=== PATIENT | male | born 1970 | race Caucasian/White ===

== ENCOUNTER → 2019-12-20 14:33 | Outpatient (BNVA) | payer OTHER, SELFPAY | PROVIDERS: PCP Nurse Practitioner Family; Referring Provider Nurse Practitioner Family; Visit Provider Internal Medicine Cardiovascular Disease | DX: R07.9 Chest pain, unspecified (principal); I10 Essential (primary) hypertension; F41.9 Anxiety disorder, unspecified | CPT/HCPCS: 99204 ==

== ENCOUNTER 2019-12-27 09:24 | Outpatient (REF) | payer OTHER, SELFPAY ==
--- NOTE | 2019-12-27 10:30 | MR_ITS ---
EXAMINATION: MR OF THE ABDOMEN AND PELVIS WITH AND WITHOUT CONTRAST CLINICAL INFORMATION: Chronic wilson colonic ulcerative colitis COMPARISON: Previous CT scans most recent March 2019 TECHNIQUE: Sagittal axial and coronal sequences through the abdomen and pelvis following 3 17 ounce bottles of oral Breeza contrast and with and without 10 mL intravenous Gadavist contrast . FINDINGS: There is evidence of ahaustral appearance of the distal colon. There is prominence of the vasa recta and small pericolic lymph nodes. Findings are consistent with patient's diagnosis of ulcerative colitis. No significant wall thickening of the colon is seen. There is mild enhancement of the wall of the transverse colon questionable for evidence of active inflammation. No other evidence of active inflammation of the colon is seen. The small and large bowel is otherwise unremarkable. The rectum is unremarkable. The appendix is not identified. The stomach is unremarkable. No evidence of obstruction or fistula or abscess is seen. The liver and gallbladder are unremarkable. There is no biliary duct dilatation. The spleen is unremarkable. The pancreas is unremarkable. The adrenal glands and kidneys are unremarkable. The bladder is unremarkable. Prostate gland does not appear enlarged. Vascular structures are unremarkable. No ascites is seen. Bony structures are unremarkable. IMPRESSION: Loss of normal haustral pattern of the distal colon, prominent vasa recta and small pericolic lymph nodes compatible with patient's history of ulcerative colitis. There is mild enhancement of the mid transverse colon suggestive of active inflammation.
== END 2019-12-27 09:25 | disposition home or self-care (01) ==
LOC: HO.MRI 09:24
PROVIDERS: Visit Provider Internal Medicine Gastroenterology
DX: K51.00 Ulcerative (chronic) pancolitis without complications (principal); K63.89 Other specified diseases of intestine
CPT/HCPCS: 72197; 74183

== ENCOUNTER 2020-01-09 09:10 | Outpatient (REF) | payer OTHER, SELFPAY | END 2020-01-09 09:11 | disposition home or self-care (01) | LOC: HO.MDS 09:10 | PROVIDERS: Visit Provider Internal Medicine Gastroenterology | DX: K51.00 Ulcerative (chronic) pancolitis without complications (principal) | CPT/HCPCS: 96365 ==

== ENCOUNTER → 2020-01-21 08:55 | Outpatient (REF) | payer OTHER, SELFPAY ==
--- NOTE | 2020-01-21 09:06 | CA_ITS ---
Acquisition Time: 2020-01-21 09:16:19 Total Exercise Time: 00:07:22 Test Indications: CHEST PAIN Medications: Protocol: HUNG Max HR: 160 BPM 94% of Pred: 169 BPM Max BP: 156/078 mmHG Max Work Load: 9.1 METS Exercise stress test using Hung protocol total of 7 min 22 sec, METS 9.1. Tolearted well, denies any anginal sx. Some SOB with little dizziness at peak exercise, however normotensive response to exercise at peak and in recovery. Pt reports that he has sleap apnea, diagnosed 2 years ago, however does not uses it. EKG with occ. PVC's and no ischemic changes that would suggest ischemia. Test reviewed with Dr. Walker Referred By: Jethro Howell Overread By: Luana Jade
== END ==
LOC: HO.CARD 08:55
PROVIDERS: Visit Provider Internal Medicine Cardiovascular Disease
DX: R07.9 Chest pain, unspecified (principal)
CPT/HCPCS: 93017

== ENCOUNTER 2020-02-06 09:12 | Outpatient (REF) | payer OTHER, SELFPAY | END 2020-02-06 09:13 | disposition home or self-care (01) | LOC: HO.MDS 09:12 | PROVIDERS: Visit Provider Internal Medicine Gastroenterology | DX: K51.00 Ulcerative (chronic) pancolitis without complications (principal) | CPT/HCPCS: 84999; 96365; J3380 ==

== ENCOUNTER 2020-02-09 06:58 | Inpatient (IN) | payer OTHER, SELFPAY ==
[2020-02-09] VITALS (10 sets, daily range): BP systolic 102–153; BP diastolic 68–88; PULSE 85–100; RESP 18–20; TEMP 36.6; O2SAT 95–97; BMI 33.7
--- NOTE | 2020-02-09 | ECG_ITS ---
Test Reason : chest pain, nstemi Blood Pressure : / mmHG Vent. Rate : 091 BPM Atrial Rate : 091 BPM P-R Int : 166 ms QRS Dur : 088 ms QT Int : 364 ms P-R-T Axes : 048 066 024 degrees QTc Int : 447 ms Normal sinus rhythm Nonspecific T wave abnormality Inferior leads Abnormal ECG When compared with ECG of Nonspecific T wave abnormality more evident Referred By: Paola Valenzuela Electronically Signed By:ARIELLA SANDOVAL MD
--- NOTE | 2020-02-09 07:20 | ECG_ITS ---
Test Reason : REPEAT Blood Pressure : / mmHG Vent. Rate : 085 BPM Atrial Rate : 085 BPM P-R Int : 168 ms QRS Dur : 082 ms QT Int : 398 ms P-R-T Axes : 050 064 040 degrees QTc Int : 473 ms Normal sinus rhythm Normal ECG When compared with ECG of 09-FEB-2020 07:10, No significant change was found Referred By: Len Rodney Electronically Signed By:ARIELLA SANDOVAL MD
--- NOTE | 2020-02-09 07:21 | XR_ITS ---
EXAMINATION: PORTABLE CHEST 1 VIEW CLINICAL INFORMATION: chest pain . COMPARISON: 05/25/2017. TECHNIQUE: Portable frontal view of the chest was obtained. FINDINGS: The lungs are well expanded. No focal infiltrate, effusion, edema, or pneumothorax. Cardiac and mediastinal silhouettes are within normal limits for technique. No acute bony abnormality seen. Old healed left clavicle fracture again noted. XR/XR chest 1V IMPRESSION: No evidence of acute disease.
--- NOTE | 2020-02-09 07:27 | ED_ITS ---
HPI - Chest Pain General Chief Complaint: Chest Pain Stated Complaint: CHEST PAIN Time Seen by Provider: 02/09/20 07:16 Source: patient Mode of arrival: ambulatory Limitations: no limitations History of Present Illness HPI narrative: This is a 50 years old male presented to the emergency department with right-sided chest pain radiated to the right arm. Pain started last night. He is not diaphoretic denies shortness of breath denies any exertional symptoms. MD complaint: chest pain Onset (ago): day(s) (1) Timing of current episode: constant Prior episodes: Yes Onset: during rest Pain location: right chest Pain radiation: right arm Severity: moderate Quality: aching Relieving factors: nothing Exacerbating factors: nothing Risk Factors Coronary artery disease risk factors: hypertension Related Data Home Medications Medication Instructions Recorded Confirmed hydroxyzine pamoate 25 mg capsule 25 mg PO TID 12/20/19 02/09/20 lisinopril 20 mg tablet 20 mg PO DAILY 12/20/19 02/09/20 omeprazole 20 mg capsule,delayed 20 mg PO BID 12/20/19 02/09/20 release vedolizumab 300 mg intravenous 300 mg IV Q4W 12/20/19 12/20/19 solution Allergies Allergy/AdvReac Type Severity Reaction Status Date / Time No Known Allergies Allergy Unverified 12/06/19 16:17 [No Known Allergies*] Review of Systems Review of Systems: Yes all other systems are reviewed and are negative Respiratory: Respiratory: Denies chest congestion, Denies cough and Denies hemoptysis Gastrointestinal: Gastrointestinal: Denies melena and Denies hematochezia [facility] Past Medical History Medical History (Updated 02/09/20 @ 15:16 by Len Rodney MD) Chest pain Crohn disease Essential (primary) hypertension Hearing loss in right ear History of acoustic neuroma Surgical History (Updated 12/15/19 @ 11:15 by ROSS Bacon) Hx of appendectomy Hx of colonoscopy Family History Family History (Updated 12/15/19 @ 11:16 by ROSS Bacon) Father No problems noted. Social History Social History (Updated 12/20/19 @ 14:58 by ROSS Bacon) Alcohol intake: former Smoking Status: Former smoker Use of substances other than those prescribed or required for medical reasons: No Advance Directives: No Advance Directives Information Provided: Yes Physical Exam Vital Signs: Vital Signs: Last Vital Signs Temp 97.8 F 02/09/20 15:44 Pulse 89 02/09/20 15:44 Resp 18 02/09/20 15:44 BP 115/78 02/09/20 15:44 Pulse Ox 97 02/09/20 15:44 Body Mass Index 33.7 Const: General: cooperative, healthy appearing and comfortable Orientation/consciousness: oriented to person, oriented to place and oriented to time HENMT: Head: Yes normal to inspection Eyes: General: appearance normal, both eyes and all related structures Neck: Neck: Yes normal visual inspection, Yes full ROM and Yes no lym phadenopathy Chest: Chest palpation & inspection: normal inspection of the chest and normal palpation of entire chest wall Resp: Effort & Inspection: normal respiratory effort and able to speak in complete sentences Cardio: Jugular venous distension: no JVD Rate: regular rate Rhythm: regular rhythm GI: Auscultation: normal bowel sounds and abnormal bowel sounds Skin: General skin exam: no rashes or lesions noted Neuro: General: oriented to person, oriented to place and oriented to time Psych: Appearance: grossly normal Course Course Course Narrative: DELTA TROPONIN NOTED THE PATIENT WILL BE ADMITTED FOR ACUTE CORONARY SYNDROME, PATIENT IS CHEST PAIN-FREE, CASE WAS DISCUSSED WITH THE CRUISE COORDINATOR ON DUTY DUE TO DOUG, ALSO THE CASE WAS DISCUSSED WITH THE HOSPITALIST CYNDY SKINNER [facility] - Chest Pain Lab Data Result diagrams: 02/09/20 07:24 02/09/20 07:24 Labs: Lab Results 02/09/20 02/09/20 02/09/20 Range/Units 07:24 07:24 07:24 WBC 15.5 H (4.8-10.8) X10*3/uL RBC 4.81 (4.60-5.80) X10*6/uL Hgb 15.0 (14.0-18.0) g/dl Hct 43.7 (42-52) % MCV 90.9 (80-98) fL MCH 31.2 (27.0-33.0) pg MCHC 34.3 (31.0-36.0) g/dl RDW 12.7 (11.0-16.0) % Plt Count 305 (160-400) X10*3/uL MPV 9.5 (9.4-12.4) fL Immature Gran % (Auto) 0.3 (0.0-0.4) % Neut % (Auto) 55.1 (45-73) % Lymph % (Auto) 34.5 (20-40) % [place] % (Auto) 5.6 (2-11) % Eos % (Auto) 4.1 H (0-4) % Baso % (Auto) 0.4 (0-2) % Lymph # (Auto) 5.3 H (1.2-4.9) X10*3/uL [place] # (Auto) 0.9 (0.1-1.2) X10*3/uL Eos # (Auto) 0.6 H (0.0-0.4) X10*3/uL Baso # (Auto) 0.1 (0.0-0.2) X10*3/uL Abs Immat Gran (auto) 0.05 H (0.00-0.03) X10*3/uL Absolute Neuts (auto) 8.5 H (2.0-8.3) X10*3/uL Absolute Nucleated RBC 0.000 (0.0-0.012) X10*3/uL Nucleated RBC % (auto) 0.0 (0.0-0.2) /100WBC Smear Tech's Comments VERIFIED PT (10.8-13.0) SEC INR (0.9-1.1) D-Dimer NG/ML Sodium 136 (135-145) mmol/L Potassium 3.8 (3.3-5.1) mmol/l Chloride 100 (96-108) mmol/L Carbon Dioxide 26 (22-29) mmol/L Anion Gap 14 (12-20) BUN 10 (9-16) mg/dL Creatinine 0.98 (0.5-1.4) mg/dL Estim Creat Clear Calc 102.5 Estimated GFR > 60 Random Glucose 124 H (60-115) mg/dL Calcium 8.9 (8.4-10.2) mg/dL Total Bilirubin 0.6 (0.0-1.0) mg/dL AST 14 (5-37) U/L ALT 16 (0-40) U/L Alkaline Phosphatase 58 (39-117) U/L Troponin I High Sens 105.7 H (<3.5-35.0) ng/L Total Protein 7.7 (6.5-8.0) g/dL Albumin 4.2 (3.5-5.0) g/dL COVID-19 ([facility]) (Negative) COVID-19 Clin Com 02/09/20 02/09/20 02/09/20 Range/Units 07:24 11:08 12:58 WBC (4.8-10.8) X10*3/uL RBC (4.60-5.80) X10*6/uL Hgb (14.0-18.0) g/dl Hct (42-52) % MCV (80-98) fL MCH (27.0-33.0) pg MCHC (31.0-36.0) g/dl RDW (11.0-16.0) % Plt Count (160-400) X10*3/uL MPV (9.4-12.4) fL Immature Gran % (Auto) (0.0-0.4) % Neut % (Auto) (45-73) % Lymph % (Auto) (20-40) % [place] % (Auto) (2-11) % Eos % (Auto) (0-4) % Baso % (Auto) (0-2) % Lymph # (Auto) (1.2-4.9) X10*3/uL [place] # (Auto) (0.1-1.2) X10*3/uL Eos # (Auto) (0.0-0.4) X10*3/uL Baso # (Auto) (0.0-0.2) X10*3/uL Abs Immat Gran (auto) (0.00-0.03) X10*3/uL Absolute Neuts (auto) (2.0-8.3) X10*3/uL Absolute Nucleated RBC (0.0-0.012) X10*3/uL Nucleated RBC % (auto) (0.0-0.2) /100WBC Smear Tech's Comments PT 12.4 (10.8-13.0) SEC INR 1.0 (0.9-1.1) D-Dimer 219 NG/ML Sodium (135-145) mmol/L Potassium (3.3-5.1) mmol/l Chloride (96-108) mmol/L Carbon Dioxide (22-29) mmol/L Anion Gap (12-20) BUN (9-16) mg/dL Creatinine (0.5-1.4) mg/dL Estim Creat Clear Calc Estimated GFR Random Glucose (60-115) mg/dL Calcium (8.4-10.2) mg/dL Total Bilirubin (0.0-1.0) mg/dL AST (5-37) U/L ALT (0-40) U/L Alkaline Phosphatase (39-117) U/L Troponin I High Sens 303.9 H D (<3.5-35.0) ng/L Total Protein (6.5-8.0) g/dL Albumin (3.5-5.0) g/dL COVID-19 ([facility]) Negative (Negative) COVID-19 Clin Com See Note Discharge Plan Discharge Clinical Impression: Acute coronary syndrome Patient Disposition: Admitted As Inpatient Interventions: Admission Worksheet (ED) Last Done: 02/09/20 15:21
[2020-02-09 07:39] LABS: Basophils Absolute Auto 0.1 X10*3/uL (0.0-0.2); Basophils Percent Auto 0.4 % (0-2); Eosinophils Absolute Auto 0.6 X10*3/uL (0.0-0.4); Eosinophils Percent Auto 4.1 % (0-4); Hematocrit 43.7 % (42-52); Imm Gran Abs Auto 0.05 X10*3/uL (0.00-0.03); Imm Gran Pct Auto 0.3 % (0.0-0.4); Lymphocytes Absolute Auto 5.3 X10*3/uL (1.2-4.9); Lymphocytes Percent Auto 34.5 % (20-40); Mean Corpuscular HGB Conc 34.3 g/dl (31.0-36.0); Mean Corpuscular Hemoglobin 31.2 pg (27.0-33.0); Mean Corpuscular Volume 90.9 fL (80-98); Mean Platelet Volume 9.5 fL (9.4-12.4); Monocytes Absolute Auto 0.9 X10*3/uL (0.1-1.2); Monocytes Percent Auto 5.6 % (2-11); Neutrophils Absolute Auto 8.5 X10*3/uL (2.0-8.3); Neutrophils Percent Auto 55.1 % (45-73); Platelet Count 305 X10*3/uL (160-400); Red Blood Count 4.81 X10*6/uL (4.60-5.80); Red Cell Distribution Width 12.7 % (11.0-16.0); SCAN SMEAR FLAG 1; White Blood Count 15.5 X10*3/uL (4.8-10.8)
[2020-02-09 07:48] LABS: Prothrombin Time 12.4 SEC (10.8-13.0)
[2020-02-09] MEDS: Aspirin 81 MG TAB.CHEW 324 MG PO (07:48)
[2020-02-09 07:50] LABS: MANUAL DIFF FLAG SCAN
[2020-02-09 08:06] LABS: Alanine Aminotransferase 16 U/L (0-40); Albumin Level 4.2 g/dL (3.5-5.0); Alkaline Phosphatase 58 U/L (39-117); Anion Gap 14 (12-20); Aspartate Amino Transferase 14 U/L (5-37); Bilirubin Total 0.6 mg/dL (0.0-1.0); Blood Urea Nitrogen 10 mg/dL (9-16); Calcium 8.9 mg/dL (8.4-10.2); Carbon Dioxide 26 mmol/L (22-29); Chloride 100 mmol/L (96-108); Creatinine Clr Calc Pharmacy 102.5; Estimated Glomerular Filt Rate > 60; Glucose Random 124 mg/dL (60-115); Potassium 3.8 mmol/l (3.3-5.1); Sodium 136 mmol/L (135-145); Total Protein 7.7 g/dL (6.5-8.0)
--- NOTE | 2020-02-09 08:07 | PC.NURSE ---
pt resting in the stretcher with eyes shut, ns on the monitor. pt reports that the pain is still there in the midsternal chest that radaites to the right arm, pt worse with movement and still having some burning gin the chest
[2020-02-09 08:08] LABS: Troponin-I High Sensitivity 105.7 ng/L (<3.5-35.0)
[2020-02-09 08:13] LABS: SLIDE REVIEW VERIFIED
[2020-02-09] MEDS: Nitroglycerin 0.4 MG TAB.SUBL SUBLINGUAL ×3 (08:39→09:27)
--- NOTE | 2020-02-09 09:00 | PC.NURSE ---
pt reports that the chest pain is getting better 3/10 after the nitro x1, vs stable
--- NOTE | 2020-02-09 09:28 | PC.NURSE ---
pt reports that the chest pain resolved after the nitro but is starting to get a headache, vs stable
[2020-02-09] MEDS: Acetaminophen 325 MG TABLET 650 MG PO (09:43)
[2020-02-09 11:00] LABS: D Dimer 219 NG/ML
--- NOTE | 2020-02-09 11:01 | PC.NURSE ---
pt resting comfortably in the stretcher, ns on the monitor, denies chest pain, headache improved about 3/10 at this time pt awaiting repeat trop draw
[2020-02-09 11:58] LABS: Troponin-I High Sensitivity 303.9 ng/L (<3.5-35.0)
--- NOTE | 2020-02-09 12:09 | PC.NURSE ---
PT CONTINUOS TO DENIES CHEST PAIN, NS ON THE MONITOR, VS STABLE
[2020-02-09] MEDS: Heparin Sodium,Porcine 5,000 UNIT/ML VIAL 4027.92 UNIT IVPUSH (12:30)
[2020-02-09] MEDS: Heparin Sodium,Porcine/1/2NS 25,000 UNIT/250 ML IV.SOLN 10.07 UNIT IVCONT (12:32)
--- NOTE | 2020-02-09 12:42 | PM.IMHP ---
History of Present Illness Date of Service: 02/09/20 <Paola Valenzuela NP - Last Filed: 02/09/20 17:06> Chief Complaint: Chest pain <Paola Valenzuela NP - Last Filed: 02/09/20 17:06> 50 year old man presenting with chest pain that started to worsen yesterday. He reported substernal chest pain radiating to his right arm that was sharp with no other associated symptoms. He took his anxiety medication and went to bed. When he woke up this morning his pain was worse and he came to the ED to be evaluated. He reported that he has had this chest pain for many years and has been thought to be related to anxiety. He had a stress test on 01/21/20 that he was unable to complete due to fatigue and chest pain. He has no hx of CAD and has never had a cardiac cath. He denied recent illness, sick contacts, cough or fever. Covid test negative. EKG showed no ischemic changes, troponin was initially 105.7 with repeat of 303.9. He was started on IV heparin drip, given full dose aspirin and had pain relief with nitroglycerin. He will be admitted for further management and treatment of NSTEMI. <Paola Valenzuela NP - Last Filed: 02/09/20 17:06> Review of Systems Review of Systems: Denies any recent fever chills or decrease in appetite respiratory denies any shortness of breath coverage production cardiovascular See HPI gastrointestinal denies any dysphagia abdominal pain nausea vomiting or diarrhea genitourinary denies any dysuria frequency or hematuria musculoskeletal denies any joint pain or swelling neuropsych denies any weakness or seizures all other systems reviewed are negative <Paola Valenzuela NP - Last Filed: 02/09/20 17:06> [facility] Medical History: Medical History (Updated 02/20/20 @ 00:00 by Elaina Quiroga) Chest pain Crohn disease Essential (primary) hypertension Hearing loss in right ear History of acoustic neuroma Hypertension <Paola Valenzuela NP - Last Filed: 02/09/20 17:06> Functional capacity: independent ambulation <Paola Valenzuela NP - Last Filed: 02/09/20 17:06> Family History: Family History Father No problems noted. <Paola Valenzuela NP - Last Filed: 02/09/20 17:06> Surgical History: Surgical History Hx of appendectomy Hx of colonoscopy S/P cardiac cath (~01/2020) Stented coronary artery <Paola Valenzuela NP - Last Filed: 02/09/20 17:06> Social History: Social History Household Members: Family Housing: House Alcohol intake: former Smoking Status: Former smoker <Paola Valenzuela NP - Last Filed: 02/09/20 17:06> Meds Allergies/Adverse reactions: Allergies Allergy/AdvReac Type Severity Reaction Status Date / Time No Known Allergies Allergy Verified 02/18/20 20:06 [No Known Allergies*] <Paola Valenzuela NP - Last Filed: 02/09/20 17:06> Home medications: Home Medications Medication Instructions Recorded Confirmed Type hydroxyzine pamoate 25 mg capsule 25 mg PO TID 12/20/19 02/19/20 History lisinopril 20 mg tablet 20 mg PO DAILY 12/20/19 02/19/20 History omeprazole 20 mg capsule,delayed 20 mg PO BID 12/20/19 02/19/20 History release vedolizumab 300 mg intravenous 300 mg IV Q4W 12/20/19 02/19/20 History solution atorvastatin 80 mg tablet 80 mg PO DAILY 02/19/20 02/19/20 History clopidogrel 75 mg tablet 75 mg PO DAILY 02/19/20 02/19/20 History cholecalciferol (vitamin D3) 50 100 mcg PO DAILY 03/03/20 History mcg (2,000 unit) capsule lisinopril 20 1 tab PO DAILY 03/03/20 History mg-hydrochlorothiazide 25 mg tablet <Paola Valenzuela NP - Last Filed: 02/09/20 17:06> Physical Exam Vital Signs and Narrative: Vital Signs: Last Vital Signs Temp 97.8 F 02/09/20 07:07 Pulse 85 02/09/20 11:00 Resp 18 02/09/20 11:00 BP 102/69 02/09/20 11:00 Pulse Ox 95 02/09/20 11:00 Body Mass Index 33.7 <Paola Valenzuela NP - Last Filed: 02/09/20 17:06> Appearing in no acute distress head is normocephalic atraumatic eyes pupils are PERRLA sclera is anicteric mouth throat mucous membranes are intact and moist neck is supple no lymphadenopathy, no JVD noted lung sounds are clear to auscultation heart regular rate rhythm, clear S1, S2 positive bowel sounds, abdomen is soft, nontender neuro patient is alert x3, no focal deficits <Paola Valenzuela NP - Last Filed: 02/09/20 17:06> Results Labs CBC and Chem 7: : 02/10/20 05:48 02/10/20 05:48 <Paola Valenzuela NP - Last Filed: 02/09/20 17:06> Labs: Laboratory Results - last 24 hr 02/09/20 02/09/20 02/09/20 07:24 07:24 07:24 MCV 90.9 MCH 31.2 MCHC 34.3 RDW 12.7 Plt Count 305 MPV 9.5 Immature Gran % (Auto) 0.3 Neut % (Auto) 55.1 Lymph % (Auto) 34.5 [place] % (Auto) 5.6 Eos % (Auto) 4.1 H Baso % (Auto) 0.4 Lymph # (Auto) 5.3 H [place] # (Auto) 0.9 Eos # (Auto) 0.6 H Baso # (Auto) 0.1 Abs Immat Gran (auto) 0.05 H Absolute Neuts (auto) 8.5 H Absolute Nucleated RBC 0.000 Nucleated RBC % (auto) 0.0 Smear Tech's Comments VERIFIED PT INR D-Dimer Anion Gap 14 Estim Creat Clear Calc 102.5 Estimated GFR > 60 Random Glucose 124 H Calcium 8.9 Total Bilirubin 0.6 AST 14 ALT 16 Alkaline Phosphatase 58 Troponin I High Sens 105.7 H Total Protein 7.7 Albumin 4.2 02/09/20 02/09/20 07:24 11:08 MCV MCH MCHC RDW Plt Count MPV Immature Gran % (Auto) Neut % (Auto) Lymph % (Auto) [place] % (Auto) Eos % (Auto) Baso % (Auto) Lymph # (Auto) [place] # (Auto) Eos # (Auto) Baso # (Auto) Abs Immat Gran (auto) Absolute Neuts (auto) Absolute Nucleated RBC Nucleated RBC % (auto) Smear Tech's Comments PT 12.4 INR 1.0 D-Dimer 219 Anion Gap Estim Creat Clear Calc Estimated GFR Random Glucose Calcium Total Bilirubin AST ALT Alkaline Phosphatase Troponin I High Sens 303.9 H D Total Protein Albumin <Paola Valenzuela NP - Last Filed: 02/09/20 17:06> Imaging Radiologist's Impressions: Impressions Chest X-Ray 02/09/20 07:21 IMPRESSION: No evidence of acute disease. <Paola Valenzuela NP - Last Filed: 02/09/20 17:06> Assessment and Plan (1) Chest pain: Status: Resolved <Paola Valenzuela NP - Last Filed: 02/09/20 17:06> 50 year old man admitted with chest pain, elevated troponin secondary to NSTEMI NSTEMI. IV heparin, Cardiology to follow, Repeat Troponin and EKG. Aspirin, bb and statin. Telemetry. Hypertension. Stable blood pressure, continue Lisinopril. GERD. PPI. DVT prophylaxis with heparin Discussed with Dr. Mac Full code <Paola Valenzuela NP - Last Filed: 02/09/20 17:06>
[2020-02-09 13:29] LABS: COVID-19 Test Negative (Negative)
--- NOTE | 2020-02-09 14:17 | PC.NURSE ---
called [facility] to give report, nurse is currently on lunch brake
--- NOTE | 2020-02-09 15:20 | PC.NURSE ---
report given to natali davis at [facility] [place]
[2020-02-09 16:20] LABS: Hematocrit 45.2 % (42-52); Hemoglobin 15.6 g/dl (14.0-18.0); Mean Corpuscular HGB Conc 34.5 g/dl (31.0-36.0); Mean Corpuscular Hemoglobin 31.2 pg (27.0-33.0); Mean Corpuscular Volume 90.4 fL (80-98); Mean Platelet Volume 9.5 fL (9.4-12.4); Platelet Count 290 X10*3/uL (160-400); Red Cell Distribution Width 12.7 % (11.0-16.0); White Blood Count 12.4 X10*3/uL (4.8-10.8)
[2020-02-09] MEDS: Atorvastatin Calcium 40 MG TABLET PO (16:22)
[2020-02-09] MEDS: 0.9 % Sodium Chloride Flush 3 ML SYRINGE IVFLUSH ×2 (16:23→21:47)
[2020-02-09 16:28] LABS: INTERNATIONAL NORM RATIO 1.1 (0.9-1.1)
[2020-02-09 16:31] LABS: PTT Heparin Drip 48.6 SEC (53-77.9)
--- NOTE | 2020-02-09 16:51 | P.EN_ITS ---
Event Note Date of Service: 02/09/20 Event Note: Patient seen and examined. Case discussed with Paola Valenzuela NP. Agree with her history and physical. 50 yo M with a PMH of anxiety/panic attacks who presented to the hospital with chest pain. Reports CP last night (without exertion) on the Right side (typica lly on the L side) with radiation to R arm but resolved on its own. Again this AM so he presented to the ED. Reports he had history of anxiety/panic attacks so last night he wasnt sure if it was related to that. ED with a HS trop I from 105->303. EKG without ischemic changes. Chest pain resolved. Plan Unstable angina / ACS heparin gtt, statin, aspirin, bb cardiology consult in the AM remainder per H&P
[2020-02-09 16:54] LABS: Troponin-I High Sensitivity 847.5 ng/L (<3.5-35.0)
--- NOTE | 2020-02-09 18:43 | ECG_ITS ---
Test Reason : CHEST PAIN Blood Pressure : / mmHG Vent. Rate : 095 BPM Atrial Rate : 095 BPM P-R Int : 158 ms QRS Dur : 090 ms QT Int : 360 ms P-R-T Axes : 046 076 052 degrees QTc Int : 452 ms Normal sinus rhythm Normal ECG When compared with ECG of 20-APR-2019 02:40, No significant change was found Referred By: Paola Valenzuela Electronically Signed By:ARIELLA SANDOVAL MD
[2020-02-09 18:44] LABS: PTT Heparin Drip 42.8 SEC (53-77.9)
[2020-02-09] MEDS: Morphine Sulfate 2 MG/ML CARTRIDGE IVPUSH (18:48)
--- NOTE | 2020-02-09 19:39 | PC.NURSE ---
P Patient c/o chest tightness, midsternal 04/30. Non-reproducible, and non-radiating. Also c/o headache. 07/28 . I Hospitalist notified, in room to assess patient . EKG ordered/completed. Morphine 2 mg IV administered. E Upon reassessment , patient states pain has resolved. EKG showed NSR , vital signs stable. Hospitalist notified. Will continue to monitor.
[2020-02-09] MEDS: Heparin Sodium,Porcine 5,000 UNIT/ML VIAL IVPUSH (19:41)
[2020-02-09] MEDS: Nitroglycerin 2 % Oint 1 GM Packet 0.5 INCH TRANSDERMA (19:42)
[2020-02-09] MEDS: Metoprolol Tartrate 25 MG TABLET 12.5 MG PO (21:09)
[2020-02-10] VITALS (8 sets, daily range): BP systolic 96–123; BP diastolic 70–80; PULSE 87–110; RESP 18–20; TEMP 36.6–37.1; O2SAT 94–96
[2020-02-10] MEDS: Omeprazole 20 MG CAPSULE.DR PO ×2 (00:49→08:26)
[2020-02-10] MEDS: Acetaminophen 325 MG TABLET 650 MG PO (00:49)
[2020-02-10 02:10] LABS: PTT Heparin Drip 50.8 SEC (53-77.9)
[2020-02-10] MEDS: Heparin Sodium,Porcine 5,000 UNIT/ML VIAL IVPUSH (03:43)
[2020-02-10 06:34] LABS: MANUAL DIFF FLAG NO
[2020-02-10 06:45] LABS: Basophils Absolute Auto 0.1 X10*3/uL (0.0-0.2); Basophils Percent Auto 0.4 % (0-2); Eosinophils Absolute Auto 0.6 X10*3/uL (0.0-0.4); Eosinophils Percent Auto 4.7 % (0-4); Hemoglobin 15.7 g/dl (14.0-18.0); Imm Gran Abs Auto 0.05 X10*3/uL (0.00-0.03); Imm Gran Pct Auto 0.4 % (0.0-0.4); Lymphocytes Absolute Auto 4.6 X10*3/uL (1.2-4.9); Lymphocytes Percent Auto 34.4 % (20-40); Mean Corpuscular HGB Conc 34.9 g/dl (31.0-36.0); Mean Corpuscular Hemoglobin 31.7 pg (27.0-33.0); Mean Corpuscular Volume 90.9 fL (80-98); Mean Platelet Volume 10.9 fL (9.4-12.4); Monocytes Absolute Auto 0.8 X10*3/uL (0.1-1.2); Monocytes Percent Auto 5.8 % (2-11); Neutrophils Absolute Auto 7.3 X10*3/uL (2.0-8.3); Neutrophils Percent Auto 54.3 % (45-73); Platelet Count 264 X10*3/uL (160-400); Red Blood Count 4.95 X10*6/uL (4.60-5.80); Red Cell Distribution Width 12.7 % (11.0-16.0); White Blood Count 13.4 X10*3/uL (4.8-10.8)
[2020-02-10 06:59] LABS: INTERNATIONAL NORM RATIO 1.1 (0.9-1.1); Prothrombin Time 13.5 SEC (10.8-13.0)
[2020-02-10 07:11] LABS: Anion Gap 14 (12-20); Blood Urea Nitrogen 12 mg/dL (9-16); Calcium 8.6 mg/dL (8.4-10.2); Carbon Dioxide 26 mmol/L (22-29); Chloride 98 mmol/L (96-108); Creatinine Clr Calc Pharmacy 112.9; Estimated Glomerular Filt Rate > 60; Glucose Random 97 mg/dL (60-115); Potassium 3.6 mmol/l (3.3-5.1); Sodium 134 mmol/L (135-145)
[2020-02-10] MEDS: 0.9 % Sodium Chloride Flush 3 ML SYRINGE IVFLUSH (08:26)
[2020-02-10] MEDS: Metoprolol Tartrate 25 MG TABLET 12.5 MG PO ×2 (08:26→12:55)
[2020-02-10] MEDS: Nitroglycerin 2 % Oint 1 GM Packet 0.5 INCH TRANSDERMA ×2 (08:26→14:15)
[2020-02-10] MEDS: Aspirin 81 MG TAB.CHEW PO (08:26)
[2020-02-10] MEDS: Atorvastatin Calcium 40 MG TABLET PO (08:27)
[2020-02-10] MEDS: Heparin Sodium,Porcine/1/2NS 25,000 UNIT/250 ML IV.SOLN 14.02 UNIT IVCONT (08:32)
[2020-02-10 10:25] LABS: PTT Heparin Drip 63.1 SEC (53-77.9)
--- NOTE | 2020-02-10 11:18 | HO.PM.IMPN ---
Subjective Subjective Date of Service: 02/10/20 Interval History: seen and examined this AM denies chest pain over night breathing comfortably General - no fevers or chills Cardiovascular - no chest pain Respiratory - no shortness of breath or cough Abdominal- no abdominal pain, nausea, vomiting, diarrhea Physical Exam Vital Signs: Vital Signs: Last Vital Signs Temp 98.3 F 02/10/20 07:10 Pulse 95 02/10/20 08:26 Resp 18 02/10/20 07:10 BP 121/74 02/10/20 08:26 Pulse Ox 95 02/10/20 07:10 Body Mass Index 33.7 General - no acute distress, appears comfortable Cardiovascular - regular rate and rhythm, S1-S2 Lungs - normal respiratory effort, clear to auscultation bilaterally, no wheezing Abdomen - soft, nontender, no rebound or guarding Extremities - no edema bilaterally Neuro - awake and alert, no focal deficits Objective Data Current Medications Generic Name Dose Route Start Last Admin Trade Name Freq PRN Reason Stop Dose Admin Acetaminophen 650 mg 02/09/20 14:45 02/10/20 00:49 Acetaminophen 325 Mg Tablet PO 650 mg Q6H PRN Administration Pain, Mild (Pain Scale 1-3) Aspirin 81 mg 02/10/20 09:00 02/10/20 08:26 Aspirin 81 Mg Tab.Chew PO 81 mg DAILY JULITO Administration Atorvastatin Calcium 40 mg 02/09/20 14:45 02/10/20 08:27 Atorvastatin Calcium 40 Mg Tablet PO 40 mg DAILY JULITO Administration Heparin Sodium (Porcine) 0 unit 02/10/20 02:35 02/10/20 03:43 Heparin Sodium,Porcine 5,000 Unit/Ml Vial IVPUSH 4,024 unit BOLUS PRN Administration BASED ON PTT RESULTS Heparin Sodium/Sodium Chloride 25,000 unit in 250 mls @ 0 mls/hr 02/09/20 12:15 02/10/20 08:32 IVCONT 13.92 units/kg/hr .Q0M JULITO 14.02 mls/hr Administration Protocol Per Protocol Metoprolol Tartrate 12.5 mg 02/09/20 21:00 02/10/20 08:26 Metoprolol Tartrate 25 Mg Tablet PO 12.5 mg BID JULITO Administration Protocol Morphine Sulfate 2 mg 02/09/20 16:54 02/09/20 18:48 Morphine Sulfate 2 Mg/Ml Cartridge IVPUSH 2 mg Q4H PRN Administration Chest Pain Nitroglycerin 0.4 mg 02/09/20 18:48 Nitroglycerin 0.4 Mg Tab.Subl SUBLINGUAL Q5M PRN chest pain Nitroglycerin 0.5 inch 02/09/20 20:00 02/10/20 08:26 Nitroglycerin 2 % Oint 1 Gm Packet TRANSDERMA 0.5 inch RQ6H WHILE AWAKE JULITO Administration Omeprazole 20 mg 02/10/20 00:30 02/10/20 08:26 Omeprazole 20 Mg Capsule.Dr PO 20 mg BID JULITO Administration Ondansetron HCl 4 mg 02/09/20 14:45 Ondansetron Hcl 4 Mg/2 Ml Vial IVPUSH Q8H PRN Nausea and Vomiting Sodium Chloride 3 ml 02/09/20 16:00 02/10/20 08:26 0.9 % Sodium Chloride Flush 3 Ml Syringe IVFLUSH 3 ml QSHIFT JULITO Administration Labs CBC & Chem 7: 02/10/20 05:48 02/10/20 05:48 Assessment and Plan (1) Acute coronary syndrome: Status: Acute Assessment and Plan: This is a 50 yo M a PMH of anxiety / depression who presented to the hospital with chest pain and is admitted for NSTEMI 1. NSTEMI no cp at this time HS trop-I 105 > 303 > 847 heparin gtt, asa, statin increase metoprolol to 25mg bid cardiology consult had exercise stress test on 01/20 which did not show any ischemic findings per report. Suspect he will need invasive ischemic work with cath, will await cardiology consult 2.
--- NOTE | 2020-02-10 11:56 | PM.CNCAR ---
History of Present Illness History of Present Illness Date of Consult: February 10, 2020 Chief complaint: NSTEMI Narrative: This is a cardiology consultation regarding NSTEMI. This is a patient of . He has recently been having some chest pains which were not exertional. Fairly random occurrence. This led to the cardiology consultation. He was seen in the office and Had a stress test. It appears that he was able to do upto 9.1METS without any clear anginal-type symptoms. He did have some shortness of breath and dizziness at peak exercise but normal blood pressure response. EKG without any ischemic changes at that time. Currently he is admitted to the hospital with some right-sided chest pain that radiated to the right arm. He is on heparin drip. Last evening he did have some additional discomfort that resolved with nitrates and morphine. Currently he is pain free. No other symptoms like shortness of breath or dizzy spells or syncopal episodes at this time. Review of Systems Review of Systems: Yes all other systems are reviewed and are negative ENT: Denies dizziness Cardiovascular: Cardiovascular: Reports chest pain, Denies diaphoresis, Denies syncope, Denies pedal edema, Denies edema, Denies irregular heart rhythm and Denies dyspnea Neurologic: Denies dizziness and Denies syncope PMFSH Past Medical History Medical History Chest pain Crohn disease Essential (primary) hypertension Hearing loss in right ear History of acoustic neuroma Functional capacity: independent ambulation Family History Family History Father No problems noted. Surgical History Surgical History Hx of appendectomy Hx of colonoscopy Social History Social History Household Members: Family Housing: House Do you presently have visiting nurse or other home services: No Alcohol intake: former Smoking Status: Former smoker Smoked in Last 30 Days: No Use of substances other than those prescribed or required for medical reasons: No Currently Displaying Signs/Symptoms of Drug Intoxication Withdrawal: No Have you been hit, kicked, punched, or otherwise hurt by someone within the past year? If so, by whom?: No Do you feel safe in your current relationship?: Yes Is there a partner from a previous relationship who is making you feel unsafe now?: No Are you made to feel afraid or neglected: No Advance Directives: No Advance Directives Information Provided: Yes Do you have thoughts of harming others: None Do you have a plan to hurt others: No Plan Recently lost weight without trying: No Meds Allergies Allergy/AdvReac Type Severity Reaction Status Date / Time No Known Allergies Allergy Unverified 12/06/19 16:17 [No Known Allergies*] Home Medications Medication Instructions Recorded Confirmed Type hydroxyzine pamoate 25 mg capsule 25 mg PO TID 12/20/19 02/09/20 History lisinopril 20 mg tablet 20 mg PO DAILY 12/20/19 02/09/20 History omeprazole 20 mg capsule,delayed 20 mg PO BID 12/20/19 02/09/20 History release vedolizumab 300 mg intravenous 300 mg IV Q4W 12/20/19 12/20/19 History solution Physical Exam Vital Signs: Vital Signs: Last Vital Signs Temp 97.9 F 02/10/20 11:17 Pulse 110 H 02/10/20 11:17 Resp 18 02/10/20 11:17 BP 123/80 02/10/20 11:17 Pulse Ox 95 02/10/20 11:17 Body Mass Index 33.7 Comfortable, no distress No pallor, icterus or cyanosis HEENT -unremarkable JVD- normal Cardiac- normal heart sounds, no murmurs, gallops or rubs, normal PMI Respiratory-normal breath sounds bilaterally, no crackles, no wheeze Abdomen- soft, nontender Neuro- alert and oriented Lower extremities- no significant edema, warm well perfused Results Labs and Meds Result diagrams: 02/10/20 05:48 02/10/20 05:48 Lab results: Laboratory Results - last 24 hr 02/09/20 02/09/20 02/09/20 11:08 12:58 16:12 WBC 12.4 H RBC 5.00 Hgb 15.6 Hct 45.2 MCV 90.4 MCH 31.2 MCHC 34.5 RDW 12.7 Plt Count 290 MPV 9.5 Immature Gran % (Auto) Neut % (Auto) Lymph % (Auto) [place] % (Auto) Eos % (Auto) Baso % (Auto) Lymph # (Auto) [place] # (Auto) Eos # (Auto) Baso # (Auto) Abs Immat Gran (auto) Absolute Neuts (auto) Absolute Nucleated RBC 0.000 Nucleated RBC % (auto) 0.0 PT INR PTT (Heparin Protocol) Sodium Potassium Chloride Carbon Dioxide Anion Gap BUN Creatinine Estim Creat Clear Calc Estimated GFR Random Glucose Calcium Troponin I High Sens 303.9 H D COVID-19 ([facility]) Negative COVID-19 [place] Com See Note 02/09/20 02/09/20 02/09/20 16:12 16:12 18:27 WBC RBC Hgb Hct MCV MCH MCHC RDW Plt Count MPV Immature Gran % (Auto) Neut % (Auto) Lymph % (Auto) [place] % (Auto) Eos % (Auto) Baso % (Auto) Lymph # (Auto) [place] # (Auto) Eos # (Auto) Baso # (Auto) Abs Immat Gran (auto) Absolute Neuts (auto) Absolute Nucleated RBC Nucleated RBC % (auto) PT 13.0 INR 1.1 PTT (Heparin Protocol) 48.6 L 42.8 L Sodium Potassium Chloride Carbon Dioxide Anion Gap BUN Creatinine Estim Creat Clear Calc Estimated GFR Random Glucose Calcium Troponin I High Sens 847.5 H D COVID-19 ([facility]) COVID-Frevvo 02/10/20 02/10/20 02/10/20 01:43 05:48 05:48 WBC 13.4 H RBC 4.95 Hgb 15.7 Hct 45.0 MCV 90.9 MCH 31.7 MCHC 34.9 RDW 12.7 Plt Count 264 MPV 10.9 Immature Gran % (Auto) 0.4 Neut % (Auto) 54.3 Lymph % (Auto) 34.4 [place] % (Auto) 5.8 Eos % (Auto) 4.7 H Baso % (Auto) 0.4 Lymph # (Auto) 4.6 [place] # (Auto) 0.8 Eos # (Auto) 0.6 H Baso # (Auto) 0.1 Abs Immat Gran (auto) 0.05 H Absolute Neuts (auto) 7.3 Absolute Nucleated RBC 0.000 Nucleated RBC % (auto) 0.0 PT 13.5 H INR 1.1 PTT (Heparin Protocol) 50.8 L Sodium Potassium Chloride Carbon Dioxide Anion Gap BUN Creatinine Estim Creat Clear Calc Estimated GFR Random Glucose Calcium Troponin I High Sens COVID-19 ([facility]) COVID-19 Clin Com 02/10/20 02/10/20 05:48 09:58 WBC RBC Hgb Hct MCV MCH MCHC RDW Plt Count MPV Immature Gran % (Auto) Neut % (Auto) Lymph % (Auto) [place] % (Auto) Eos % (Auto) Baso % (Auto) Lymph # (Auto) [place] # (Auto) Eos # (Auto) Baso # (Auto) Abs Immat Gran (auto) Absolute Neuts (auto) Absolute Nucleated RBC Nucleated RBC % (auto) PT INR PTT (Heparin Protocol) 63.1 D Sodium 134 L Potassium 3.6 Chloride 98 Carbon Dioxide 26 Anion Gap 14 BUN 12 Creatinine 0.89 Estim Creat Clear Calc 112.9 Estimated GFR > 60 Random Glucose 97 Calcium 8.6 Troponin I High Sens COVID-19 ([facility]) COVID-19 Clin Com Assessment and Plan (1) NSTEMI (non-ST elevated myocardial infarction): Status: Acute Troponins are clearly in the NSTEMI range. EKG with sinus rhythm at 95/Min and without any clear ischemic changes. Repeat EKG is also similar. Continue IV heparin drip. Aspirin, beta-blockers, statins. Load with Plavix. Will transfer to [facility] for cardiac catheterization tomorrow. Procedures Abscess I/D Date of Service: 02/10/20
[2020-02-10] MEDS: Metoprolol Tartrate 12.5 MG HALFTAB PO (12:57)
--- NOTE | 2020-02-10 13:19 | PM.DS ---
DS: Providers Provider Date of admission: 02/09/20 13:45 Date of discharge: 02/10/20 Primary care physician: [facility] Consults: 02/09/20 14:45 Consult to Cardiology Routine Consulting Provider: Matthew Walker Reason for consultation: NSTEMI Has provider been notified: No DS: Transfer Hospital Acceptance Reason for Transfer: cardiac catheterization Name of Facility: [facility] DS: Diagnosis Discharge Diagnosis (1) NSTEMI (non-ST elevated myocardial infarction): Status: Acute (2) Hypertension: Status: Acute DS: Medications Discharge Medications Home Medications: Home Medications Medication Instructions Recorded Confirmed hydroxyzine pamoate 25 mg capsule 25 mg PO TID 12/20/19 02/09/20 lisinopril 20 mg tablet 20 mg PO DAILY 12/20/19 02/09/20 omeprazole 20 mg capsule,delayed 20 mg PO BID 12/20/19 02/09/20 release vedolizumab 300 mg intravenous 300 mg IV Q4W 12/20/19 12/20/19 solution Previous Rx's Medication Instructions Recorded aspirin 81 mg PO DAILY #1 tab 02/10/20 atorvastatin 40 mg PO DAILY #1 tab 02/10/20 heparin (porcine) 0 unit IVPUSH BOLUS PRN #1 ml 02/10/20 heparin(porcine) in 0.45% NaCl 25,000 unit CONTINUOUS IV INFUSION 02/10/20 .Q0M #1 ml metoprolol tartrate 25 mg PO BID #1 tab 02/10/20 morphine 2 mg IVPUSH Q4H PRN #1 ml 02/10/20 nitroglycerin [Nitro-Bid] 0.5 inch TRANSDERMAL RQ6H WHILE 02/10/20 AWAKE #1 g nitroglycerin [Nitrostat] 0.4 mg SUBLINGUAL Q5M PRN #1 tab 02/10/20 DS: Summary Hospital Course Hospital Course: HPI from the admission H&P: Chief Complaint: Chest pain 50 year old man presenting with chest pain that started to worsen yesterday. He reported substernal chest pain radiating to his right arm that was sharp with no other associated symptoms. He took his anxiety medication and went to bed. When he woke up this morning his pain was worse and he came to the ED to be evaluated. He reported that he has had this chest pain for many years and has been thought to be related to anxiety. He had a stress test on 01/21/20 that he was unable to complete due to fatigue and chest pain. He has no hx of CAD and has never had a cardiac cath. He denied recent illness, sick contacts, cough or fever. Covid test negative. EKG showed no ischemic changes, troponin was initially 105.7 with repeat of 303.9. He was started on IV heparin drip, given full dose aspirin and had pain relief with nitroglycerin. He will be admitted for further management and treatment of NSTEMI. Hospital Course patient was started on IV heparin/asa/statin/bb/nitro-paste. His HS trop-I were trended axmg413 > 303 > 847. He was evaluated by cardiology the morning after admission and decision was made to transfer the patient to [facility] [place] for cardiac catherization. Patient is chest pain free at the time of trasnfer. He has been given 300mg of plavix loading prior to transfer. Time Spent with Patient Time attestation: Total time spent providing and/or coordinating discharge services: Physical Exam Vital Signs: Vital Signs: Last Vital Signs Temp 97.9 F 02/10/20 11:17 Pulse 99 02/10/20 12:57 Resp 18 02/10/20 11:17 BP 117/74 02/10/20 12:57 Pulse Ox 95 02/10/20 11:17 Body Mass Index 33.7 General - no acute distress, appears comfortable Cardiovascular - regular rate and rhythm, S1-S2 Lungs - normal respiratory effort, clear to auscultation bilaterally, no wheezing Abdomen - soft, nontender, no rebound or guarding Extremities - no edema bilaterally Neuro - awake and alert, no focal deficits DS: Data Data Completed and Pending Labs on day of discharge: Laboratory Last Values WBC 13.4 X10*3/uL (4.8-10.8) H 02/10/20 05:48 RBC 4.95 X10*6/uL (4.60-5.80) 02/10/20 05:48 Hgb 15.7 g/dl (14.0-18.0) 02/10/20 05:48 Hct 45.0 % (42-52) 02/10/20 05:48 MCV 90.9 fL (80-98) 02/10/20 05:48 MCH 31.7 pg (27.0-33.0) 02/10/20 05:48 MCHC 34.9 g/dl (31.0-36.0) 02/10/20 05:48 RDW 12.7 % (11.0-16.0) 02/10/20 05:48 Plt Count 264 X10*3/uL (160-400) 02/10/20 05:48 MPV 10.9 fL (9.4-12.4) 02/10/20 05:48 Immature Gran % (Auto) 0.4 % (0.0-0.4) 02/10/20 05:48 Neut % (Auto) 54.3 % (45-73) 02/10/20 05:48 Lymph % (Auto) 34.4 % (20-40) 02/10/20 05:48 [place] % (Auto) 5.8 % (2-11) 02/10/20 05:48 Eos % (Auto) 4.7 % (0-4) H 02/10/20 05:48 Baso % (Auto) 0.4 % (0-2) 02/10/20 05:48 Lymph # (Auto) 4.6 X10*3/uL (1.2-4.9) 02/10/20 05:48 [place] # (Auto) 0.8 X10*3/uL (0.1-1.2) 02/10/20 05:48 Eos # (Auto) 0.6 X10*3/uL (0.0-0.4) H 02/10/20 05:48 Baso # (Auto) 0.1 X10*3/uL (0.0-0.2) 02/10/20 05:48 Abs Immat Gran (auto) 0.05 X10*3/uL (0.00-0.03) H 02/10/20 05:48 Absolute Neuts (auto) 7.3 X10*3/uL (2.0-8.3) 02/10/20 05:48 Absolute Nucleated RBC 0.000 X10*3/uL (0.0-0.012) 02/10/20 05:48 Nucleated RBC % (auto) 0.0 /100WBC (0.0-0.2) 02/10/20 05:48 Smear Tech's Comments VERIFIED 02/09/20 07:24 PT 13.5 SEC (10.8-13.0) H 02/10/20 05:48 INR 1.1 (0.9-1.1) 02/10/20 05:48 PTT (Heparin Protocol) 63.1 SEC (53-77.9) D 02/10/20 09:58 D-Dimer 219 NG/ML 02/09/20 07:24 Sodium 134 mmol/L (135-145) L 02/10/20 05:48 Potassium 3.6 mmol/l (3.3-5.1) 02/10/20 05:48 Chloride 98 mmol/L (96-108) 02/10/20 05:48 Carbon Dioxide 26 mmol/L (22-29) 02/10/20 05:48 Anion Gap 14 (12-20) 02/10/20 05:48 BUN 12 mg/dL (9-16) 02/10/20 05:48 Creatinine 0.89 mg/dL (0.5-1.4) 02/10/20 05:48 Estim Creat Clear Calc 112.9 02/10/20 05:48 Estimated GFR > 60 02/10/20 05:48 Random Glucose 97 mg/dL (60-115) 02/10/20 05:48 Calcium 8.6 mg/dL (8.4-10.2) 02/10/20 05:48 Total Bilirubin 0.6 mg/dL (0.0-1.0) 02/09/20 07:24 AST 14 U/L (5-37) 02/09/20 07:24 ALT 16 U/L (0-40) 02/09/20 07:24 Alkaline Phosphatase 58 U/L (39-117) 02/09/20 07:24 Troponin I High Sens 847.5 ng/L (<3.5-35.0) H D 02/09/20 16:12 Total Protein 7.7 g/dL (6.5-8.0) 02/09/20 07:24 Albumin 4.2 g/dL (3.5-5.0) 02/09/20 07:24 COVID-19 ([facility]) Negative (Negative) 02/09/20 12:58 COVID-19 Clin Com See Note 02/09/20 12:58 Discharge Plan Discharge Patient Disposition: er [facility] Referrals: [facility] [Primary Care Provider] - Discharge Medications: New atorvastatin 40 mg Tablet 40 mg PO DAILY Qty: 1 RF: 0 nitroglycerin [Nitrostat] 0.4 mg Tablet, Sublingual 0.4 mg sublingual Q5M PRN (Reason: chest pain ) Qty: 1 RF: 0 aspirin 81 mg Tablet,Chewable 81 mg PO DAILY Qty: 1 RF: 0 Nitro-Bid 2 % Ointment 0.5 inch transdermal RQ6H WHILE AWAKE Qty: 1 RF: 0 heparin (porcine) 5,000 unit/mL Solution 0 unit IVPUSH BOLUS PRN (Reason: BASED ON PTT RESULTS) Qty: 1 RF: 0 metoprolol tartrate 25 mg Tablet 25 mg PO BID Qty: 1 RF: 0 heparin(porcine) in 0.45% NaCl 25,000 unit/250 mL Parenteral Solution 25,000 unit continuous IV infusion .Q0M Qty: 1 RF: 0 morphine 2 mg/mL Syringe 2 mg IVPUSH Q4H PRN (Reason: Chest Pain) Qty: 1 RF: 0 Continued lisinopril 20 mg tablet 20 mg PO DAILY RF: 0 vedolizumab 300 mg recon soln 300 mg IV Q4W RF: 0 omeprazole 20 mg capsule,delayed release(DR/EC) 20 mg PO BID RF: 0 hydroxyzine pamoate 25 mg capsule 25 mg PO TID RF: 0 Discharge Orders: Discharge Order (Routine); Ordered 02/10/20 Ordered By: Saleem Mac Diet: advance to usual diet Activity on Discharge: As tolerated Visit Report Forms: Patient Portal Discharge page Care Plan Goals: Get cardiac work up Health Concerns: NSTEMI Plan of Treatment: Go to [facility] [place] for further work up
[2020-02-10] MEDS: Clopidogrel Bisulfate 300 MG TABLET PO (14:15)
--- NOTE | 2020-02-10 14:22 | MHC.CM.PN ---
PT BEING TRANSFERRED TO [facility] FOR CARDIAC CATHETERIZATION [facility]IA [facility]
== END 2020-02-10 15:00 | disposition short-term general hospital (02) | DRG 190 ==
LOC: HO.ED 07:10 → HO.IMC 13:59
PROVIDERS: Internal Medicine; Nurse Practitioner Acute Care; Admitting Provider Family Medicine; Emergency Provider Emergency Medicine; Visit Provider Family Medicine
DX: I21.4 Non-ST elevation (NSTEMI) myocardial infarction (principal); K50.90 Crohn's disease, unspecified, without complications; I10 Essential (primary) hypertension; F41.9 Anxiety disorder, unspecified; Z87.891 Personal history of nicotine dependence; Z20.828 Contact with and (suspected) exposure to other viral communicable diseases; Z79.899 Other long term (current) drug therapy
CPT/HCPCS: 36415; 71045; 80048; 80053; 84484; 85025; 85027; 85379; 85610; 85730; 87635; 93005; 96365; 96375; 99285; J2270

== ENCOUNTER 2020-02-18 20:03 | Emergency (ER) | payer OTHER, SELFPAY ==
[2020-02-18 20:07] VITALS: BP 115/70; PULSE 95; RESP 16; TEMP 36.8; O2SAT 95; BMI 33.7
--- NOTE | 2020-02-18 20:30 | ED_ITS ---
HPI - Chest Pain General Chief Complaint: Chest Pain Stated Complaint: chest pain Time Seen by Provider: 02/18/20 20:30 History of Present Illness HPI narrative: 50-year-old male who presents the emergency department for evaluation of chest pain. The patient was seen recently admitted here l on February 10, 2020 for an NSTEMI. He was transferred to [facility] and had a left circumflex artery (LCA) lesion which was stented with a [place] Stent 3 mm x 18 mm. The patient states the was fine until this morning when he woke up at 0730 hours with pain in his anterior chest. He states the pain lasted about 1 hour and resolved after he took his morning medications which included aspirin 81 mg, atorvastatin 40 mg, lisinopril 20 mg, metoprolol 25 mg. He states that at around 3:00 p.m. she again developed chest pain that resolved after an hour and a half. At 7:00 p.m. he again developed chest pain. He describes the pain as a stabbing sensation in his right and left anterior chest. The pain does radiate to his left arm and is a burning sensation in his left arm. He states that the chest pain is 5/10. He states the pain is similar to his NSTEMI pain but is NSTEMI pain was significantly worse. The patient was concerned that he has had 3 episodes of pain and that the pain is persistent therefore he came to the emergency department for an evaluation. He denies associated symptoms such as lightheadedness, dizziness, nausea, vomiting or diaphoresis. Related Data Home Medications Medication Instructions Recorded Confirmed hydroxyzine pamoate 25 mg capsule 25 mg PO TID 12/20/19 02/09/20 lisinopril 20 mg tablet 20 mg PO DAILY 12/20/19 02/09/20 omeprazole 20 mg capsule,delayed 20 mg PO BID 12/20/19 02/09/20 release vedolizumab 300 mg intravenous 300 mg IV Q4W 12/20/19 12/20/19 solution Previous Rx's Medication Instructions Recorded aspirin 81 mg PO DAILY #1 tab 02/10/20 atorvastatin 40 mg PO DAILY #1 tab 02/10/20 heparin (porcine) 0 unit IVPUSH BOLUS PRN #1 ml 02/10/20 heparin(porcine) in 0.45% NaCl 25,000 unit CONTINUOUS IV INFUSION 02/10/20 .Q0M #1 ml metoprolol tartrate 25 mg PO BID #1 tab 02/10/20 morphine 2 mg IVPUSH Q4H PRN #1 ml 02/10/20 nitroglycerin [Nitro-Bid] 0.5 inch TRANSDERMAL RQ6H WHILE 02/10/20 AWAKE #1 g nitroglycerin [Nitrostat] 0.4 mg SUBLINGUAL Q5M PRN #1 tab 02/10/20 Allergies Allergy/AdvReac Type Severity Reaction Status Date / Time No Known Allergies Allergy Verified 02/18/20 20:06 [No Known Allergies*] Review of Systems Review of Systems: Yes all other systems are reviewed and are negative Constitutional: Constitutional: Reports as per HPI Eyes: Eyes: Reports as per HPI ENT: Reports as per HPI Cardiovascular: Cardiovascular: Reports as per HPI Respiratory: Respiratory: Reports as per HPI Gastrointestinal: Gastrointestinal: Reports as per HPI Genitourinary: Genitourinary: Reports as per HPI Musculoskeletal: Musculoskeletal: Reports as per HPI Integumentary/Breasts: Skin/Breast: Reports as per HPI Neurologic: Reports as per HPI and Reports Abnormal speech present Psychiatric: Psychiatric: Reports as per HPI Allergic/Immunologic: Allergic/Immunologic: Reports as per HPI PMFSH Past Medical History Medical History Chest pain Crohn disease Essential (primary) hypertension Hearing loss in right ear History of acoustic neuroma Hypertension Surgical History Hx of appendectomy Hx of colonoscopy Stented coronary artery Family History Family History Father No problems noted. Social History Social History Household Members: Family Housing: House Alcohol intake: former Smoking Status: Former smoker Advance Directives: No Advance Directives Information Provided: Yes Physical Exam Vital Signs: Vital Signs: Last Vital Signs Temp 98.2 F 02/18/20 20:07 Pulse 93 02/18/20 21:12 Resp 18 02/18/20 21:12 BP 105/69 02/18/20 21:12 Pulse Ox 95 02/18/20 21:12 Body Mass Index 33.7 Const: General: cooperative, no acute distress, alert and awake Orientation/consciousness: oriented to person and oriented to place Limitations: no limitations HENMT: Head: Yes normal to inspection, Yes normocephalic and Yes atraumatic Ears: external ears normal Eyes: General: appearance normal, both eyes and all related structures Periorbital: periorbital findings normal Eyelids: Yes eyelids normal Conjunctivae: conjunctivae normal Sclerae: sclerae normal Corneas: corneas normal Pupils: Equal, round and reactive pupils present Direct Opht halmoscopy: normal light reflex Neck: Neck: Yes normal visual inspection and Yes supple Lymphatic: no lymphadenopathy noted Chest: Chest palpation & inspection: normal inspection of the chest and normal palpation of entire chest wall Resp: Effort & Inspection: normal respiratory effort, abnormal respiratory pattern, no audible wheezes and no respiratory distress Auscultation: clear to auscultation bilaterally, no crackles, no rales, no rhonchi and no wheezes Cardio: Rate: regular rate Rhythm: regular rhythm Heart sounds: S1 normal heart sound present, S2 normal heart sound present and Murmur heart sound present GI: Inspection: No distended Palpation (GI): Soft to palpation, nontender, no guarding and No hepatosplenomegaly present Auscultation: normal bowel sounds : General: Yes no CVA tenderness Back/Spine/Pelvis: Back: no CVA tenderness Skin: General skin exam: no rashes or lesions noted Lesions: no lesions Rashes: no rashes Wounds: no wounds Neuro: General: oriented to person and oriented to place Cranial nerves: Yes CN's II-XII intact bilaterally and Yes Equal, round and reactive pupils present Cognition (Neuro): normal cognition Speech: Abnormal speech present Motor exam (neuro): 5/5 motor strength present throughout Extrem: General: Yes normal to inspection, Yes full ROM, Yes no pedal edema and Yes no calf tenderness Psych: Appearance: grossly normal Mental Status: mental status grossly normal Speech and movement: Clear speech present Affect: normal affect Thought process: Normal thought process present Course Course Course Narrative: 50-year-old male with a history of NSTEMI on 02/10/2020 he presents to the emergency department for evaluation of 3 episodes of chest pain radiating to his left arm with the last episode beginning at 7:00 p.m. and still present in the emergency department at the time of presentation. The patient's physical examination was unremarkable. Initial 12 lead EKG was normal with no evidence of cardiac ischemia or cardiac injury. I did order a cardiac workup on this patient. The patient was ordered to get morphine 4 mg IV, Zofran 4 mg IV and normal saline IV x1 L. 0023: The patient's laboratory evaluation revealed a normal troponin at time 0 and a normal troponin at time 2 hours from presentation. The patient did have repeat EKG as well which revealed no change from his 1st EKG. The rest of the patient's laboratory evaluation was unremarkable except for mild anemia with an H&H of 12.3 and 36.3 and slight elevation in his glucose of 147. The patient is pain-free. At this time, I do not think that the patient's pain was secondary to myocardial injury and most likely is secondary to chest wall pain. I did discuss this with the patient. He is advised to take Tylenol for his pain. He states he does have a follow-up appointment tomorrow and I advised him to keep this appointment. Is advised to return emergency department if his symptoms got worse or if you develop any symptoms that were concerning to him. EKG 2. Interpretation: Time 11:00 p.m. normal sinus rhythm with a rate of 82, normal intervals, small Q-waves in lead 2, 3 and AVF, inverted T-wave in lead 3, no evidence of ST segment elevation or depression, no change from EKG 1. MDM - Chest Pain Lab Data Result diagrams: 02/18/20 20:34 02/18/20 20:34 Labs: Lab Results 02/18/20 02/18/20 02/18/20 Range/Units 20:34 20:34 20:34 WBC 12.6 H (4.8-10.8) X10*3/uL RBC 3.94 L D (4.60-5.80) X10*6/uL Hgb 12.3 L D (14.0-18.0) g/dl Hct 36.3 L (42-52) % MCV 92.1 (80-98) fL MCH 31.2 (27.0-33.0) pg MCHC 33.9 (31.0-36.0) g/dl RDW 12.3 (11.0-16.0) % Plt Count 260 (160-400) X10*3/uL MPV 9.5 (9.4-12.4) fL Immature Gran % (Auto) 0.3 (0.0-0.4) % Neut % (Auto) 62.5 (45-73) % Lymph % (Auto) 29.2 (20-40) % [place] % (Auto) 4.9 (2-11) % Eos % (Auto) 2.9 (0-4) % Baso % (Auto) 0.2 (0-2) % Lymph # (Auto) 3.7 (1.2-4.9) X10*3/uL [place] # (Auto) 0.6 (0.1-1.2) X10*3/uL Eos # (Auto) 0.4 (0.0-0.4) X10*3/uL Baso # (Auto) 0.0 (0.0-0.2) X10*3/uL Abs Immat Gran (auto) 0.04 H (0.00-0.03) X10*3/uL Absolute Neuts (auto) 7.9 (2.0-8.3) X10*3/uL Absolute Nucleated RBC 0.000 (0.0-0.012) X10*3/uL Nucleated RBC % (auto) 0.0 (0.0-0.2) /100WBC Hold Blue Top SEE NOTE Sodium 137 (135-145) mmol/L Potassium 3.7 (3.3-5.1) mmol/l Chloride 104 (96-108) mmol/L Carbon Dioxide 24 (22-29) mmol/L Anion Gap 13 (12-20) BUN 10 (9-16) mg/dL Creatinine 0.90 (0.5-1.4) mg/dL Estim Creat Clear Calc 111.6 Estimated GFR > 60 Random Glucose 147 H D (60-115) mg/dL Calcium 8.2 L (8.4-10.2) mg/dL Troponin I High Sens (<3.5-35.0) ng/L 02/18/20 02/18/20 Range/Units 20:34 23:02 WBC (4.8-10.8) X10*3/uL RBC (4.60-5.80) X10*6/uL Hgb (14.0-18.0) g/dl Hct (42-52) % MCV (80-98) fL MCH (27.0-33.0) pg MCHC (31.0-36.0) g/dl RDW (11.0-16.0) % Plt Count (160-400) X10*3/uL MPV (9.4-12.4) fL Immature Gran % (Auto) (0.0-0.4) % Neut % (Auto) (45-73) % Lymph % (Auto) (20-40) % [place] % (Auto) (2-11) % Eos % (Auto) (0-4) % Baso % (Auto) (0-2) % Lymph # (Auto) (1.2-4.9) X10*3/uL [place] # (Auto) (0.1-1.2) X10*3/uL Eos # (Auto) (0.0-0.4) X10*3/uL Baso # (Auto) (0.0-0.2) X10*3/uL Abs Immat Gran (auto) (0.00-0.03) X10*3/uL Absolute Neuts (auto) (2.0-8.3) X10*3/uL Absolute Nucleated RBC (0.0-0.012) X10*3/uL Nucleated RBC % (auto) (0.0-0.2) /100WBC Hold Blue Top Sodium (135-145) mmol/L Potassium (3.3-5.1) mmol/l Chloride (96-108) mmol/L Carbon Dioxide (22-29) mmol/L Anion Gap (12-20) BUN (9-16) mg/dL Creatinine (0.5-1.4) mg/dL Estim Creat Clear Calc Estimated GFR Random Glucose (60-115) mg/dL Calcium (8.4-10.2) mg/dL Troponin I High Sens 26.7 D 24.5 (<3.5-35.0) ng/L ECG Data ECG #1: Attestation: I personally reviewed and interpreted this ECG as follows: ECG interpretation date: 02/18/20 ECG interpretation time: 20:22 Prior ECG tracings: not available for review Interpretation: Sinus rhythm with a rate of 86, normal NM, QRS and QTC intervals, small Q-waves in 2, 3 and AVF with inverted T-wave in lead 3, no ST segment elevation or depression, no evidence for cardiac ischemia or injury. Discharge Plan Discharge Clinical Impression: Chest pain Qualifiers: Chest pain type: unspecified Qualified Code(s): R07.9 - Chest pain, unspecified Patient Disposition: Home, Self-Care Instructions: Chest Wall Pain (ED) Additional Instructions: Your EKG was unremarkable. Your troponin when you 1st got to the emergency department was normal and your troponin 2 hours later was also normal. The fact that these 2 troponins are normal suggests that your pain tonight was not caused by a heart attack or heart damage. Continue to take your medications as prescribed by your doctor. For pain take extra-strength Tylenol 500 mg pills, 2 pills every 4-6 hours as needed for pain. Keep your appointment tomorrow with her doctor. Please return to the emergency department if your symptoms get worse or if you develop any symptoms that are concerning to you. Prescriptions: No Action atorvastatin 40 mg Tablet 40 mg PO DAILY Qty: 1 RF: 0 nitroglycerin [Nitrostat] 0.4 mg Tablet, Sublingual 0.4 mg sublingual Q5M PRN (Reason: chest pain ) Qty: 1 RF: 0 aspirin 81 mg Tablet,Chewable 81 mg PO DAILY Qty: 1 RF: 0 Nitro-Bid 2 % Ointment 0.5 inch transdermal RQ6H WHILE AWAKE Qty: 1 RF: 0 heparin (porcine) 5,000 unit/mL Solution 0 unit IVPUSH BOLUS PRN (Reason: BASED ON PTT RESULTS) Qty: 1 RF: 0 metoprolol tartrate 25 mg Tablet 25 mg PO BID Qty: 1 RF: 0 heparin(porcine) in 0.45% NaCl 25,000 unit/250 mL Parenteral Solution 25,000 unit continuous IV infusion .Q0M Qty: 1 RF: 0 morphine 2 mg/mL Syringe 2 mg IVPUSH Q4H PRN (Reason: Chest Pain) Qty: 1 RF: 0 lisinopril 20 mg tablet 20 mg PO DAILY RF: 0 vedolizumab 300 mg recon soln 300 mg IV Q4W RF: 0 omeprazole 20 mg capsule,delayed release(DR/EC) 20 mg PO BID RF: 0 hydroxyzine pamoate 25 mg capsule 25 mg PO TID RF: 0
--- NOTE | 2020-02-18 20:31 | XR_ITS ---
EXAMINATION: XR CHEST CLINICAL INFORMATION: Chest pain status post cardiac stent placement COMPARISON: 02/09/2020 TECHNIQUE: Frontal view of the chest was obtained. FINDINGS: No significant abnormality is noted involving the heart, lungs, mediastinum, bony thorax or soft tissues. XR/XR chest 1V IMPRESSION: Unremarkable examination.
--- NOTE | 2020-02-18 20:31 | ECG_ITS ---
Test Reason : CHEST PAIN Blood Pressure : / mmHG Vent. Rate : 082 BPM Atrial Rate : 082 BPM P-R Int : 180 ms QRS Dur : 086 ms QT Int : 382 ms P-R-T Axes : 054 070 026 degrees QTc Int : 446 ms Normal sinus rhythm Normal ECG When compared with ECG of 18-FEB-2020 20:22, No significant change was found Referred By: Nasir Canales Electronically Signed By:BLAKE SANABRIA MD
[2020-02-18 20:40] LABS: Basophils Percent Auto 0.2 % (0-2); Eosinophils Absolute Auto 0.4 X10*3/uL (0.0-0.4); Eosinophils Percent Auto 2.9 % (0-4); Hematocrit 36.3 % (42-52); Hemoglobin 12.3 g/dl (14.0-18.0); Imm Gran Abs Auto 0.04 X10*3/uL (0.00-0.03); Imm Gran Pct Auto 0.3 % (0.0-0.4); Lymphocytes Absolute Auto 3.7 X10*3/uL (1.2-4.9); Lymphocytes Percent Auto 29.2 % (20-40); Mean Corpuscular HGB Conc 33.9 g/dl (31.0-36.0); Mean Corpuscular Hemoglobin 31.2 pg (27.0-33.0); Mean Corpuscular Volume 92.1 fL (80-98); Mean Platelet Volume 9.5 fL (9.4-12.4); Monocytes Absolute Auto 0.6 X10*3/uL (0.1-1.2); Monocytes Percent Auto 4.9 % (2-11); Neutrophils Absolute Auto 7.9 X10*3/uL (2.0-8.3); Neutrophils Percent Auto 62.5 % (45-73); Platelet Count 260 X10*3/uL (160-400); Red Blood Count 3.94 X10*6/uL (4.60-5.80); Red Cell Distribution Width 12.3 % (11.0-16.0); White Blood Count 12.6 X10*3/uL (4.8-10.8)
[2020-02-18 20:42] LABS: MANUAL DIFF FLAG NO
--- NOTE | 2020-02-18 20:46 | ECG_ITS ---
Test Reason : CP Blood Pressure : / mmHG Vent. Rate : 086 BPM Atrial Rate : 086 BPM P-R Int : 176 ms QRS Dur : 088 ms QT Int : 372 ms P-R-T Axes : 053 063 027 degrees QTc Int : 445 ms Normal sinus rhythm Normal ECG When compared with ECG of 09-FEB-2020 19:09, No significant change was found Referred By: Nasir Canales Electronically Signed By:BLAKE SANABRIA MD
[2020-02-18 21:06] LABS: Anion Gap 13 (12-20); Blood Urea Nitrogen 10 mg/dL (9-16); Calcium 8.2 mg/dL (8.4-10.2); Carbon Dioxide 24 mmol/L (22-29); Chloride 104 mmol/L (96-108); Creatinine Clr Calc Pharmacy 111.6; Estimated Glomerular Filt Rate > 60; Glucose Random 147 mg/dL (60-115); Potassium 3.7 mmol/l (3.3-5.1); Sodium 137 mmol/L (135-145)
[2020-02-18] MEDS: 0.9 % Sodium Chloride 1,000 ML 999 ML IVCONT (21:07)
[2020-02-18] MEDS: Aspirin 81 MG TAB.CHEW 324 MG PO (21:07)
[2020-02-18] MEDS: Morphine Sulfate 4 MG/ML CARTRIDGE IVPUSH (21:08)
[2020-02-18] MEDS: ondansetron HCL 4 MG/2 ML VIAL IVPUSH (21:08)
[2020-02-18 21:12] VITALS: BP 105/69; PULSE 93; RESP 18; O2SAT 95
[2020-02-18 21:12] LABS: Troponin-I High Sensitivity 26.7 ng/L (<3.5-35.0)
[2020-02-18 23:40] LABS: Troponin-I High Sensitivity 24.5 ng/L (<3.5-35.0)
[2020-02-19 01:03] VITALS: BP 148/62; PULSE 86; RESP 18; O2SAT 100
== END 2020-02-19 01:07 | disposition home or self-care (01) ==
PROVIDERS: Emergency Provider Emergency Medicine Emergency Medical Services; PCP Nurse Practitioner Family
DX: R07.9 Chest pain, unspecified (principal); I10 Essential (primary) hypertension; Z87.891 Personal history of nicotine dependence; Z79.899 Other long term (current) drug therapy
CPT/HCPCS: 36415; 71045; 80048; 84484; 85025; 93005; 96361; 96374; 96375; 99284; J2270; J2405

== ENCOUNTER → 2020-02-19 09:46 | Outpatient (BNVA) | payer OTHER, SELFPAY | PROVIDERS: Visit Provider Nurse Practitioner Family | DX: I21.4 Non-ST elevation (NSTEMI) myocardial infarction (principal); I24.9 Acute ischemic heart disease, unspecified; R07.9 Chest pain, unspecified; I10 Essential (primary) hypertension; Z87.891 Personal history of nicotine dependence | CPT/HCPCS: 99212 ==

== ENCOUNTER → 2020-03-03 13:53 | Outpatient (BNVA) | payer OTHER, SELFPAY | PROVIDERS: PCP Nurse Practitioner Family; Visit Provider Internal Medicine Cardiovascular Disease | DX: I21.4 Non-ST elevation (NSTEMI) myocardial infarction (principal); I10 Essential (primary) hypertension; R07.9 Chest pain, unspecified | CPT/HCPCS: 99212 ==

== ENCOUNTER 2020-03-05 11:00 | Outpatient (REF) | payer OTHER, SELFPAY | END 2020-03-05 11:01 | disposition home or self-care (01) | LOC: HO.MDS 11:00 | PROVIDERS: PCP Nurse Practitioner Family; Visit Provider Internal Medicine Gastroenterology | DX: K50.90 Crohn's disease, unspecified, without complications (principal) | CPT/HCPCS: J3380 ==

== ENCOUNTER 2020-04-03 09:45 | Outpatient (REF) | payer MEDICAID, SELFPAY | END 2020-04-03 09:46 | disposition home or self-care (01) | LOC: HO.MDS 09:45 | PROVIDERS: Visit Provider Internal Medicine Gastroenterology | DX: K51.00 Ulcerative (chronic) pancolitis without complications (principal) | CPT/HCPCS: 96365; J3380 ==

== ENCOUNTER 2020-04-11 09:45 | Emergency (ER) | payer MEDICAID, SELFPAY ==
[2020-04-11 11:12] VITALS: BP 126/84; PULSE 77; RESP 17; TEMP 37.2; O2SAT 97; BMI 37.8
[2020-04-11 11:19] VITALS: BP 126/84; PULSE 77; RESP 17; TEMP 37.1; O2SAT 97
--- NOTE | 2020-04-11 11:22 | ED.GIBLEED ---
HPI - GI Bleed General Chief complaint: GI Bleed Stated complaint: blood in stool Time Seen by Provider: 04/11/20 11:21 Source: patient Mode of arrival: ambulatory History of Present Illness HPI Narrative: 50-year-old male with a past medical history Crohn's disease, HTN, acoustic neuroma, appendectomy, NSTEMI s/p cardiac on Xarelto and aspirin, to the ED complaining of bright red blood from rectum since last night with clots. Also reports associated left lower quadrant abdominal pain. Denies fever, chills, chest pain, shortness breath, lightheadedness/dizziness, hematuria, dysuria MD complaint: blood on toilet paper and blood streaked stool Related Data Home Medications Medication Instructions Recorded Confirmed hydroxyzine pamoate 25 mg capsule 25 mg PO TID 12/20/19 03/03/20 omeprazole 20 mg capsule,delayed 20 mg PO BID 12/20/19 03/03/20 release vedolizumab 300 mg intravenous 300 mg IV Q4W 12/20/19 02/19/20 solution cholecalciferol (vitamin D3) 50 100 mcg PO DAILY 03/03/20 03/03/20 mcg (2,000 unit) capsule lisinopril 20 mg tablet 10 mg PO DAILY tab 03/03/20 03/03/20 Previous Rx's Medication Instructions Recorded heparin (porcine) 0 unit IVPUSH BOLUS PRN #1 ml 02/10/20 heparin(porcine) in 0.45% NaCl 25,000 unit CONTINUOUS IV INFUSION 02/10/20 .Q0M #1 ml aspirin 81 mg chewable tablet 81 mg PO DAILY #30 tab 03/13/20 atorvastatin 80 mg tablet 80 mg PO DAILY #30 tab 03/13/20 clopidogrel 75 mg tablet 75 mg PO DAILY #30 tab 03/13/20 metoprolol tartrate 25 mg tablet 25 mg PO BID #60 tab 03/13/20 prednisone 10 mg PO DAILY #20 tab 04/11/20 Allergies Allergy/AdvReac Type Severity Reaction Status Date / Time No Known Allergies Allergy Verified 02/18/20 20:06 [No Known Allergies*] Review of Systems Review of Systems: Constitutional: No Weight loss, No Fever, No Chills, No Night Sweats, No Fatigue, No Malaise Cardiovascular: No Chest Pain, No SOB, No Dyspnea on Exertion Respiratory: No Cough, No Sputum, No Wheezing Gastrointestinal: No Nausea, No Vomiting, No Diarrhea, No Constipation, + Abdominal pain, + rectal bleeding Genitourinary: No irregular bleeding, No Dysuria, No Urinary Frequency, No Hematuria No Flank Pain Skin: No Skin Lesions, No rash Neuro: No Weakness, No Numbness, No Paresthesias, No Loss of Consciousness, No Dizziness, No Headache Yes all other systems are reviewed and are negative [facility] Past Medical History Attestation statement: The following information was validated with the patient. Medical History (Updated 04/11/20 @ 15:06 by PEARL Wyatt) Chest pain Crohn disease Essential (primary) hypertension Hearing loss in right ear History of acoustic neuroma Hypertension Surgical History Hx of appendectomy Hx of colonoscopy S/P cardiac cath (~01/2020) Stented coronary artery Family History Family History Father No problems noted. Social History Social History Household Members: Family Housing: House Alcohol intake: never Smoking Status: Former smoker Smoked in Last 30 Days: No Use of substances other than those prescribed or required for medical reasons: No Advance Directives: No Advance Directives Information Provided: Yes Physical Exam Vital Signs: Vital Signs: Last Vital Signs Temp 98.8 F 04/11/20 11:19 Pulse 78 04/11/20 12:20 Resp 17 04/11/20 11:19 BP 123/83 04/11/20 12:20 Pulse Ox 97 04/11/20 11:19 Body Mass Index 37.8 Const: General: cooperative, healthy appearing and comfortable Orientation/consciousness: patient oriented x3 Limitations: no limitations HENMT: Head: Yes normal to inspection Ears: hearing grossly normal bilaterally General nose exam: Normal external nose present Face and sinus: Yes normal facial exam Eyes: General: appearance normal, both eyes and all related structures EOM: EOMs intact bilaterally Neck: Neck: Yes normal visual inspection and Yes no meningeal signs Resp: Effort & Inspection: normal respiratory effort Auscultation: clear to auscultation bilaterally, no rales, no rhonchi and no wheezes Cardio: Rate: regular rate Heart sounds: S1 normal heart sound present and S2 normal heart sound present GI: Inspection: Yes normal to inspection Palpation (GI): Soft to palpation, Tenderness to palpation present (GI) in the LLQ; with no rebound tenderness, no guarding and not rigid : General: Yes no CVA tenderness Back/Spine/Pelvis: Back: no CVA tenderness Skin: Rashes: no rashes Wounds: no wounds Neuro: General: patient oriented x3, gait normal, tone normal, moves all extremities and no meningeal signs Gait exam (Neuro): Normal gait present Extrem: General: Yes normal to inspection Course Course Course Narrative: H&H stable, white count 11.1 (chronically elevated), labs and UA otherwise unremarkable. Occult stool is positive. CRP negative 1425- CT showing colitis of the distal colon. Will touch base with patient's tab machine operator Dr. Mack pertaining to starting steroids. On re-evaluation patient is comfortable, in no apparent distress. 1500- I spoke to Dr. Edward who recommended steroids, no antibiotics, and have patient follow-up with his GI doctor. Worrisome signs and symptoms and strict return precautions discussed. Patient verbalized understanding feel safe for discharge home MDM - GI Bleed MDM Narrative Medical decision making narrative: 50-year-old male with a past medical history Crohn's disease, HTN, acoustic neuroma, appendectomy, NSTEMI s/p cardiac on Xarelto and aspirin, to the ED complaining of bright red blood from rectum since last night with clots. On exam VSS, NAD/nontoxic appearing, is soft LUQ TTP, rebound or guarding. Concern GI bleed vs Crohn's flare vs colitis vs diverticulitis. Rule out anemia Plan: Labs, UA, CTAP, IVF, re-evaluate Lab Data Result diagrams: 04/11/20 12:26 04/11/20 12:26 Labs: Lab Results 04/11/20 04/11/20 04/11/20 Range/Units 12: 12: 12:26 WBC 11.1 H (4.8-10.8) X10*3/uL RBC 4.11 L (4.60-5.80) X10*6/uL Hgb 12.7 L (14.0-18.0) g/dl Hct 37.7 L (42-52) % MCV 91.7 (80-98) fL MCH 30.9 (27.0-33.0) pg MCHC 33.7 (31.0-36.0) g/dl RDW 12.6 (11.0-16.0) % Plt Count 244 (160-400) X10*3/uL MPV 10.0 (9.4-12.4) fL Immature Gran % (Auto) 0.3 (0.0-0.4) % Neut % (Auto) 56.4 (45-73) % Lymph % (Auto) 33.4 (20-40) % [place] % (Auto) 5.5 (2-11) % Eos % (Auto) 4.0 (0-4) % Baso % (Auto) 0.4 (0-2) % Lymph # (Auto) 3.7 (1.2-4.9) X10*3/uL [place] # (Auto) 0.6 (0.1-1.2) X10*3/uL Eos # (Auto) 0.5 H (0.0-0.4) X10*3/uL Baso # (Auto) 0.0 (0.0-0.2) X10*3/uL Abs Immat Gran (auto) 0.03 (0.00-0.03) X10*3/uL Absolute Neuts (auto) 6.3 (2.0-8.3) X10*3/uL Absolute Nucleated RBC 0.000 (0.0-0.012) X10*3/uL Nucleated RBC % (auto) 0.0 (0.0-0.2) /100WBC PT (10.8-13.0) SEC INR (0.9-1.1) APTT (24.1-38.0) SEC Sodium (135-145) mmol/L Potassium (3.3-5.1) mmol/l Chloride (96-108) mmol/L Carbon Dioxide (22-29) mmol/L Anion Gap (12-20) BUN (9-16) mg/dL Creatinine (0.5-1.4) mg/dL Estim Creat Clear Calc Estimated GFR Random Glucose (60-115) mg/dL Calcium (8.4-10.2) mg/dL Magnesium (1.6-2.6) mg/dL Total Bilirubin (0.0-1.0) mg/dL Direct Bilirubin (0.0-0.5) mg/dL AST (5-37) U/L ALT (0-40) U/L Alkaline Phosphatase (39-117) U/L C-Reactive Protein (< or = 0.50) mg/dL Total Protein (6.5-8.0) g/dL Albumin (3.5-5.0) g/dL Lipase (8-78) U/L Urine Color STRAW Urine Appearance CLEAR Urine pH 6.0 (5.0-8.0) Ur Specific [place] 1.015 (1.005-1.025) Urine Protein NEG (NEG-TRACE) MG/DL Urine Glucose (UA) NEG (NEG) MG/DL Urine Ketones NEG (NEG) MG/DL Urine Blood NEG (NEG) Urine Nitrite NEG (NEG) Ur Leukocyte Esterase NEG (NEG) Stool Occult Blood POS (NEG) 04/11/20 04/11/20 Range/Units 12:26 12:26 WBC (4.8-10.8) X10*3/uL RBC (4.60-5.80) X10*6/uL Hgb (14.0-18.0) g/dl Hct (42-52) % MCV (80-98) fL MCH (27.0-33.0) pg MCHC (31.0-36.0) g/dl RDW (11.0-16.0) % Plt Count (160-400) X10*3/uL MPV (9.4-12.4) fL Immature Gran % (Auto) (0.0-0.4) % Neut % (Auto) (45-73) % Lymph % (Auto) (20-40) % [place] % (Auto) (2-11) % Eos % (Auto) (0-4) % Baso % (Auto) (0-2) % Lymph # (Auto) (1.2-4.9) X10*3/uL [place] # (Auto) (0.1-1.2) X10*3/uL Eos # (Auto) (0.0-0.4) X10*3/uL Baso # (Auto) (0.0-0.2) X10*3/uL Abs Immat Gran (auto) (0.00-0.03) X10*3/uL Absolute Neuts (auto) (2.0-8.3) X10*3/uL Absolute Nucleated RBC (0.0-0.012) X10*3/uL Nucleated RBC % (auto) (0.0-0.2) /100WBC PT 13.3 H (10.8-13.0) SEC INR 1.1 (0.9-1.1) APTT 34.0 (24.1-38.0) SEC Sodium 141 (135-145) mmol/L Potassium 3.9 (3.3-5.1) mmol/l Chloride 105 (96-108) mmol/L Carbon Dioxide 26 (22-29) mmol/L Anion Gap 14 (12-20) BUN 8 L (9-16) mg/dL Creatinine 0.86 (0.5-1.4) mg/dL Estim Creat Clear Calc 108.4 Estimated GFR > 60 Random Glucose 91 D (60-115) mg/dL Calcium 8.4 (8.4-10.2) mg/dL Magnesium 1.6 (1.6-2.6) mg/dL Total Bilirubin 0.9 (0.0-1.0) mg/dL Direct Bilirubin 0.4 (0.0-0.5) mg/dL AST 18 (5-37) U/L ALT 22 (0-40) U/L Alkaline Phosphatase 63 (39-117) U/L C-Reactive Protein 0.37 (< or = 0.50) mg/dL Total Protein 7.0 (6.5-8.0) g/dL Albumin 3.9 (3.5-5.0) g/dL Lipase 32 (8-78) U/L Urine Color Urine Appearance Urine pH (5.0-8.0) Ur Specific [place] (1.005-1.025) Urine Protein (NEG-TRACE) MG/DL Urine Glucose (UA) (NEG) MG/DL Urine Ketones (NEG) MG/DL Urine Blood (NEG) Urine Nitrite (NEG) Ur Leukocyte Esterase (NEG) Stool Occult Blood (NEG) Discharge Plan Discharge Clinical Impression: Crohn's colitis Qualifiers: Digestive disease complication type: with rectal bleeding Qualified Code(s): K50.111 - Crohn's disease of large intestine with rectal bleeding Patient Disposition: Home, Self-Care Instructions: Colitis (ED) Additional Instructions: Your blood work was reassuring today in the emergency department. Her CT scan showed evidence of colitis of the distal colon. After speaking to our GI doctor on-call you will be started on steroids. With that being study need to have close follow-up with Dr. Mack her GI doctor. Follow up with her soon as possible. Make sure you are staying hydrated at. If pain persists or worsens/becomes unbearable, you have persistent or worsening rectal bleeding, become lightheaded or dizzy, passing out, have chest pain or shortness of breath return to the ED immediately Prescriptions: New prednisone 10 mg tablet 10 mg PO DAILY Qty: 20 RF: 0 No Action atorvastatin 80 mg tablet 80 mg PO DAILY Qty: 30 RF: 2 clopidogrel 75 mg tablet 75 mg PO DAILY Qty: 30 RF: 2 aspirin 81 mg tablet,chewable 81 mg PO DAILY Qty: 30 RF: 2 metoprolol tartrate 25 mg tablet 25 mg PO BID Qty: 60 RF: 3 heparin (porcine) 5,000 unit/mL Solution 0 unit IVPUSH BOLUS PRN (Reason: BASED ON PTT RESULTS) Qty: 1 RF: 0 heparin(porcine) in 0.45% NaCl 25,000 unit/250 mL Parenteral Solution 25,000 unit continuous IV infusion .Q0M Qty: 1 RF: 0 vedolizumab 300 mg recon soln 300 mg IV Q4W RF: 0 omeprazole 20 mg capsule,delayed release(DR/EC) 20 mg PO BID RF: 0 hydroxyzine pamoate 25 mg capsule 25 mg PO TID RF: 0 cholecalciferol (vitamin D3) 50 mcg (2,000 unit) capsule 100 mcg PO DAILY RF: 0 lisinopril 20 mg tablet 10 mg PO DAILY RF: 0 Referrals: Krysta Mack MD [Physician] - 2 days
--- NOTE | 2020-04-11 11:40 | CT_ITS ---
EXAMINATION: CT ABDOMEN AND PELVIS WITH CONTRAST CLINICAL INFORMATION: Left lower quadrant pain and bright red blood per rectum. History of Crohn's disease. COMPARISON: Previous MR of the abdomen and pelvis December [address] of the abdomen and pelvis March 2019 TECHNIQUE: Multidetector volumetric images were obtained from the superior aspect of the liver through the pubic symphysis following administration 85 mL of Omnipaque 350 intravenous contrast. Sagittal and coronal reformatted images were obtained on the technologist's workstation. Oral contrast: Yes This CT examination was performed using dose optimization techniques as appropriate, variously including the following: *Automated exposure control *Adjustment of mA and/or kV according to patient size (this includes techniques or standardized protocols for targeted exams where dose is matched to indication/reason for exam; i.e. extremities or head) *Use of iterative reconstruction technique DLP: 756 mGy-cm FINDINGS: LUNG BASES: The visualized lung bases are unremarkable. LIVER, GALLBLADDER, AND BILIARY TREE: The liver is normal in size, shape, and attenuation. No focal hepatic lesion or biliary ductal dilatation is present. The gallbladder is unremarkable with no evidence of radiopaque gallstones, gallbladder wall thickening, or obvious pericholecystic inflammatory changes. PANCREAS: Unremarkable. SPLEEN: Unremarkable. ADRENAL GLANDS: Unremarkable. KIDNEYS AND URETERS: The kidneys are normal in size, shape, and attenuation. No hydronephrosis, hydroureter, or calculi seen. No perinephric stranding. BLADDER: Unremarkable. GASTROINTESTINAL TRACT: There is wall thickening of the distal colon from the mid transverse colon to the rectum. The wall appears low in attenuation suggestive of some edema. There are prominent adjacent pericolic vessels or prominent vasa recta and prominent pericolic lymph nodes. Findings are suggestive of Crohn's colitis. This is similar to previous CT March 2019. The small bowel is normal appearing. The appendix has been removed. The stomach is normal-appearing. No evidence of obstruction, perforation or abscess is seen. ABDOMINAL WALL: No significant hernia is appreciated. LYMPH NODES: Prominent pericolic lymph nodes adjacent to the colon. VASCULAR: Unremarkable. PELVIC VISCERA: Unremarkable. OSSEOUS STRUCTURES: There are mild degenerative changes of the spine. CT/CT abdomen pelvis w con IMPRESSION: Colitis of the distal colon.
[2020-04-11 12:11] VITALS: BP 115/77; PULSE 68
[2020-04-11 12:16] VITALS: BP 120/87; PULSE 71
[2020-04-11 12:20] VITALS: BP 123/83; PULSE 78
[2020-04-11] MEDS: 0.9 % Sodium Chloride 1,000 ML 999 ML IVCONT (12:29)
[2020-04-11 12:44] LABS: MANUAL DIFF FLAG NO
[2020-04-11 12:44] LABS: OBS Int Ctl Valid YES; OBS1 POS (NEG)
[2020-04-11 12:50] LABS: Basophils Percent Auto 0.4 % (0-2); Eosinophils Absolute Auto 0.5 X10*3/uL (0.0-0.4); Hematocrit 37.7 % (42-52); Hemoglobin 12.7 g/dl (14.0-18.0); Imm Gran Abs Auto 0.03 X10*3/uL (0.00-0.03); Imm Gran Pct Auto 0.3 % (0.0-0.4); Lymphocytes Absolute Auto 3.7 X10*3/uL (1.2-4.9); Lymphocytes Percent Auto 33.4 % (20-40); Mean Corpuscular HGB Conc 33.7 g/dl (31.0-36.0); Mean Corpuscular Hemoglobin 30.9 pg (27.0-33.0); Mean Corpuscular Volume 91.7 fL (80-98); Monocytes Absolute Auto 0.6 X10*3/uL (0.1-1.2); Monocytes Percent Auto 5.5 % (2-11); Neutrophils Absolute Auto 6.3 X10*3/uL (2.0-8.3); Neutrophils Percent Auto 56.4 % (45-73); Platelet Count 244 X10*3/uL (160-400); Red Blood Count 4.11 X10*6/uL (4.60-5.80); Red Cell Distribution Width 12.6 % (11.0-16.0); White Blood Count 11.1 X10*3/uL (4.8-10.8)
[2020-04-11 12:54] LABS: INTERNATIONAL NORM RATIO 1.1 (0.9-1.1); Prothrombin Time 13.3 SEC (10.8-13.0)
[2020-04-11 12:56] LABS: Glucose Urine UA NEG (NEG); Leukocyte Esterase Urine NEG (NEG); Nitrite Urine NEG (NEG); Specific Gravity - Urine 1.015 (1.005-1.025); Urine Blood NEG (NEG); Urine Ketones NEG (NEG); Urine Protein NEG (NEG-TRACE)
[2020-04-11 12:58] LABS: Appearance Urine CLEAR; Color Urine STRAW
[2020-04-11 13:17] LABS: Alanine Aminotransferase 22 U/L (0-40); Albumin Level 3.9 g/dL (3.5-5.0); Alkaline Phosphatase 63 U/L (39-117); Anion Gap 14 (12-20); Aspartate Amino Transferase 18 U/L (5-37); Bilirubin Direct 0.4 mg/dL (0.0-0.5); Bilirubin Total 0.9 mg/dL (0.0-1.0); Blood Urea Nitrogen 8 mg/dL (9-16); Calcium 8.4 mg/dL (8.4-10.2); Carbon Dioxide 26 mmol/L (22-29); Chloride 105 mmol/L (96-108); Creatinine Clr Calc Pharmacy 108.4; Estimated Glomerular Filt Rate > 60; Glucose Random 91 mg/dL (60-115); Lipase 32 U/L (8-78); Magnesium 1.6 mg/dL (1.6-2.6); Potassium 3.9 mmol/l (3.3-5.1); Sodium 141 mmol/L (135-145)
[2020-04-11] MEDS: iohexoL 350 MG/ML 100 ML INFUS..BTL IV (13:29)
[2020-04-11 14:34] LABS: C Reactive Protein 0.37 mg/dL (< or = 0.50)
== END 2020-04-11 15:17 | disposition home or self-care (01) ==
PROVIDERS: Physician Assistant; Emergency Provider Internal Medicine
DX: K50.111 Crohn's disease of large intestine with rectal bleeding (principal); K52.89 Other specified noninfective gastroenteritis and colitis; I10 Essential (primary) hypertension
CPT/HCPCS: 36415; 74177; 80048; 80076; 81003; 82272; 83690; 83735; 85025; 85610; 85730; 86140; 96360; 99284; 99285; Q9967

== ENCOUNTER 2020-05-01 10:45 | Outpatient (REF) | payer MEDICAID, SELFPAY | END 2020-05-01 10:46 | disposition home or self-care (01) | LOC: HO.MDS 10:45 | PROVIDERS: Visit Provider Internal Medicine Gastroenterology | DX: K51.00 Ulcerative (chronic) pancolitis without complications (principal) | CPT/HCPCS: 96365; J3380 ==

== ENCOUNTER → 2020-05-19 10:37 | Outpatient (BNVA) | payer MEDICAID, SELFPAY | PROVIDERS: PCP Internal Medicine Geriatric Medicine; Visit Provider Nurse Practitioner Family | DX: I21.4 Non-ST elevation (NSTEMI) myocardial infarction (principal); I24.9 Acute ischemic heart disease, unspecified; I10 Essential (primary) hypertension; Z98.890 Other specified postprocedural states | CPT/HCPCS: 99212 ==

== ENCOUNTER 2020-05-29 09:16 | Outpatient (REF) | payer OTHER, SELFPAY ==
[2020-05-31 18:21] LABS: TS Negative Control Passed; TS Panel A 0; TS Panel B 0; TS Positive Control Passed; TSpotTB Negative (SeeBelow)
== END 2020-05-29 09:17 | disposition home or self-care (01) ==
LOC: HO.MDS 09:16
PROVIDERS: Visit Provider Internal Medicine Gastroenterology
DX: K51.00 Ulcerative (chronic) pancolitis without complications (principal)
CPT/HCPCS: 36415; 86481; 96365; J3380

== ENCOUNTER 2020-06-27 12:20 | Outpatient (REF) | payer OTHER, SELFPAY | END 2020-06-27 12:21 | disposition home or self-care (01) | LOC: HO.MDS 12:20 | PROVIDERS: Visit Provider Internal Medicine Gastroenterology | DX: K51.00 Ulcerative (chronic) pancolitis without complications (principal) | CPT/HCPCS: 96365; J3380 ==

== ENCOUNTER 2020-07-02 10:31 | Emergency (ER) | payer OTHER, SELFPAY ==
--- NOTE | ~2020-07-02 | XR_ITS ---
EXAMINATION: XR CHEST CLINICAL INFORMATION: Chest pain COMPARISON: Previous chest x-ray January 2020 TECHNIQUE: 2 views of the chest were obtained. FINDINGS: The cardiac and mediastinal contours are normal. The lungs are clear. There is no pleural effusion or pneumothorax. There is an old left clavicle fracture. Bony structures are otherwise unremarkable. XR/XR chest 2V IMPRESSION: No evidence for acute disease in the chest.
--- NOTE | 2020-07-02 11:27 | ECG_ITS ---
Test Reason : CHEST PAIN Blood Pressure : / mmHG Vent. Rate : 073 BPM Atrial Rate : 073 BPM P-R Int : 186 ms QRS Dur : 088 ms QT Int : 402 ms P-R-T Axes : 057 068 026 degrees QTc Int : 442 ms Sinus rhythm with Premature atrial complexes Otherwise normal ECG When compared with ECG of 18-FEB-2020 23:00, Premature atrial complexes are now Present Referred By: Michelle Lopez Electronically Signed By:LINDSEY CAMACHO
[2020-07-02 11:31] VITALS: BP 108/61; PULSE 70; RESP 16; TEMP 36.6; O2SAT 98; BMI 30.4
--- NOTE | 2020-07-02 12:47 | ED.CHESTPAIN ---
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 He otherwise denies any recent illness, travel, sick contacts, lower extremity pain or swelling. Pain is somewhat positional. MD complaint: chest pain Pertinent past history: other (Cardiac stent secondary to plaque) Timing of current episode: episodic Prior episodes: Yes Pain location: left chest Pain radiation: left arm Severity: mild Quality: aching Exacerbating factors: movement Treatment prior to arrival: none Related Data Home Medications Medication Instructions Recorded Confirmed hydroxyzine pamoate 25 mg capsule 25 mg PO TID 12/20/19 05/19/20 omeprazole 20 mg capsule,delayed 20 mg PO BID 12/20/19 05/19/20 release cholecalciferol (vitamin D3) 50 100 mcg PO DAILY 03/03/20 05/19/20 mcg (2,000 unit) capsule Previous Rx's Medication Instructions Recorded heparin (porcine) 0 unit IVPUSH BOLUS PRN #1 ml 02/10/20 heparin(porcine) in 0.45% NaCl 25,000 unit CONTINUOUS IV INFUSION 02/10/20 .Q0M #1 ml aspirin 81 mg chewable tablet 81 mg PO DAILY #30 tab 03/13/20 atorvastatin 80 mg tablet 80 mg PO DAILY #30 tab 03/13/20 clopidogrel 75 mg tablet 75 mg PO DAILY #30 tab 03/13/20 metoprolol tartrate 25 mg tablet 25 mg PO BID #60 tab 03/13/20 prednisone 10 mg PO DAILY #20 tab 04/11/20 vedolizumab 300 mg intravenous 300 mg IV Q4W #1 ea 05/15/20 solution Allergies Allergy/AdvReac Type Severity Reaction Status Date / Time No Known Allergies Allergy Verified 02/18/20 20:06 [No Known Allergies*] Review of Systems Review of Systems: Constitutional: No Weight loss, No Fever, No Chills, No Night Sweats, No Fatigue, No Malaise ENT/Mouth: No Hearing loss, No Ear Pain, No Nasal Congestion, No Sinus Pain, No Hoarseness, No sore throat, No Rhinorrhea, No Swallowing Difficulty Eyes: No Eye Pain, No Swelling, No Redness, No Foreign Body, No Discharge, No Vision Changes Cardiovascular: No Chest Pain, No SOB, No Dyspnea on Exertion, No Orthopnea, No Edema, No Palpitations Respiratory: No Cough, No Sputum, No Wheezing, No Smoke Exposure, No Dyspnea Gastrointestinal: No Nausea, No Vomiting, No Diarrhea, No Constipation, No abdominal Pain, No Hematochezia, No Melena Genitourinary: no irregular bleeding, No Dysuria, No Urinary Frequency, No Hematuria, No Urinary Incontinence, No Urgency, No Flank Pain, No Urinary Flow Changes, No Hesitancy Musculoskeletal: No joint pain, No Myalgias, No Joint Swelling Skin: No Skin Lesions, No rash Neuro: No Weakness, No Numbness, No Paresthesias, No Loss of Consciousness, No Dizziness, No Headache Psych: No Social Issues Heme/Lymph: No Bruising, No Bleeding,No Lymphadenopathy Endocrine: No Polyuria, No Polydipsia, No Temperature Intolerance Yes all other systems are reviewed and are negative PENDING SALE TO [facility] Past Medical History Medical History Chest pain Crohn disease Essential (primary) hypertension Hearing loss in right ear History of acoustic neuroma Hypertension Surgical History Hx of appendectomy Hx of colonoscopy S/P cardiac cath (~01/2020) Stented coronary artery Family History Family History Father No problems noted. Social History Social History Household Members: Family Housing: House Alcohol intake: never Smoking Status: Former smoker Advance Directives: Yes Advance Directives Information Provided: Yes Advance Directives on File: No Physical Exam Vital Signs: Vital Signs: Last Vital Signs Temp 98 F 07/02/20 11:31 Pulse 65 07/02/20 16:13 Resp 16 07/02/20 16:13 BP 106/70 07/02/20 16:13 Pulse Ox 98 07/02/20 16:13 Body Mass Index 30.4 Review Const: General: cooperative and healthy appearing; No acute distress or intoxicated appearing Nutritional Appearance: average body habitus Orientation/consciousness: patient oriented x3 HENMT: Head: Yes normal to inspection Ears: hearing grossly normal bilaterally Eyes: General: appearance normal, both eyes and all related structures Visual Concepcion: normal visual concepcion by confrontation Neck: Neck: Yes normal visual inspection, No positive Brudzinski's sign, No positive Kernig's sign and No tender Thyroid: Thyroid normal Chest: Chest palpation & inspection: normal inspection of the chest and tenderness pectoral muscle and costochondral junction Resp: Effort & Inspection: normal respiratory effort Auscultation: clear to auscultation bilaterally Cardio: Jugular venous distension: no JVD Rhythm: regular rhythm Heart sounds: S1 normal heart sound present and S2 normal heart sound present GI: Inspection: Yes normal to inspection Palpation (GI): Soft to palpation Percussion: Yes normal to percussion Auscultation: normal bowel sounds : General: Yes no CVA tenderness Back/Spine/Pelvis: Back: no CVA tenderness Skin: General skin exam: no rashes or lesions noted Neuro: General: patient oriented x3 Extrem: General: Yes normal to inspection Course Reevaluation(s) Reevaluation #1: 1253 Patient seen and evaluated in the triage area, triaged to the main emergency room. Patient is stable at this time, VSs, NAD, EKG done upon arrival nondiagnostic. Appropriate lab work ordered. Reevaluation #2: Labs overall stable, repeat troponin unchanged without delta. He tells me now that is not really the chest pain that brings him in today and is more of the tender area in his left posterior triceps area where he has a small lipoma and he has had this for some time and would like to no effect and have this removed. Advised that this is something he needs to see General surgery for and to be evaluated. This is a less than a pea size. Otherwise he is well nontoxic appearing. VSS, in ED, stable for discharge. MDM - Chest Pain Lab Data Result diagrams: 07/02/20 12:46 07/02/20 12:46 Labs: Lab Results 07/02/20 07/02/20 07/02/20 Range/Units 12:46 12:46 12:46 WBC 10.1 (4.8-10.8) X10*3/uL RBC 4.10 L (4.60-5.80) X10*6/uL Hgb 12.7 L (14.0-18.0) g/dl Hct 39.0 L (42-52) % MCV 95.1 (80-98) fL MCH 31.0 (27.0-33.0) pg MCHC 32.6 (31.0-36.0) g/dl RDW 12.6 (11.0-16.0) % Plt Count 271 (160-400) X10*3/uL MPV 9.6 (9.4-12.4) fL Immature Gran % (Auto) 0.2 (0.0-0.4) % Neut % (Auto) 58.1 (45-73) % Lymph % (Auto) 30.9 (20-40) % [place] % (Auto) 6.6 (2-11) % Eos % (Auto) 4.0 (0-4) % Baso % (Auto) 0.2 (0-2) % Lymph # (Auto) 3.1 (1.2-4.9) X10*3/uL [place] # (Auto) 0.7 (0.1-1.2) X10*3/uL Eos # (Auto) 0.4 (0.0-0.4) X10*3/uL Baso # (Auto) 0.0 (0.0-0.2) X10*3/uL Abs Immat Gran (auto) 0.02 (0.00-0.03) X10*3/uL Absolute Neuts (auto) 5.9 (2.0-8.3) X10*3/uL Absolute Nucleated RBC 0.000 (0.0-0.012) X10*3/uL Nucleated RBC % (auto) 0.0 (0.0-0.2) /100WBC PT 13.6 H (10.8-13.0) SEC INR 1.1 (0.9-1.1) Sodium (135-145) mmol/L Potassium (3.3-5.1) mmol/L Chloride (96-108) mmol/L Carbon Dioxide (22-29) mmol/L Anion Gap (12-20) BUN (9-16) mg/dL Creatinine (0.5-1.4) mg/dL Estim Creat Clear Calc Estimated GFR Random Glucose (60-115) mg/dL Calcium (8.4-10.2) mg/dL Total Bilirubin (0.0-1.0) mg/dL AST (5-37) U/L ALT (0-40) U/L Alkaline Phosphatase (39-117) U/L Troponin I High Sens < 3.5 D (<3.5-35.0) ng/L Total Protein (6.5-8.0) g/dL Albumin (3.5-5.0) g/dL Coronavirus (PCR) (Negative) Influenza Type A (PCR) (Negative) Influenza Type B (PCR) (Negative) RSV RNA Qual (PCR) (Negative) 07/02/20 07/02/20 07/02/20 Range/Units 12:46 12:50 15:42 WBC (4.8-10.8) X10*3/uL RBC (4.60-5.80) X10*6/uL Hgb (14.0-18.0) g/dl Hct (42-52) % MCV (80-98) fL MCH (27.0-33.0) pg MCHC (31.0-36.0) g/dl RDW (11.0-16.0) % Plt Count (160-400) X10*3/uL MPV (9.4-12.4) fL Immature Gran % (Auto) (0.0-0.4) % Neut % (Auto) (45-73) % Lymph % (Auto) (20-40) % [place] % (Auto) (2-11) % Eos % (Auto) (0-4) % Baso % (Auto) (0-2) % Lymph # (Auto) (1.2-4.9) X10*3/uL [place] # (Auto) (0.1-1.2) X10*3/uL Eos # (Auto) (0.0-0.4) X10*3/uL Baso # (Auto) (0.0-0.2) X10*3/uL Abs Immat Gran (auto) (0.00-0.03) X10*3/uL Absolute Neuts (auto) (2.0-8.3) X10*3/uL Absolute Nucleated RBC (0.0-0.012) X10*3/uL Nucleated RBC % (auto) (0.0-0.2) /100WBC PT (10.8-13.0) SEC INR (0.9-1.1) Sodium 137 (135-145) mmol/L Potassium 4.3 (3.3-5.1) mmol/L Chloride 109 H (96-108) mmol/L Carbon Dioxide 24 (22-29) mmol/L Anion Gap 8 L (12-20) BUN 10 (9-16) mg/dL Creatinine 0.95 (0.5-1.4) mg/dL Estim Creat Clear Calc 100.6 Estimated GFR > 60 Random Glucose 96 (60-115) mg/dL Calcium 8.7 (8.4-10.2) mg/dL Total Bilirubin 0.7 (0.0-1.0) mg/dL AST 9 D (5-37) U/L ALT 10 (0-40) U/L Alkaline Phosphatase 62 (39-117) U/L Troponin I High Sens < 3.5 (<3.5-35.0) ng/L Total Protein 6.8 (6.5-8.0) g/dL Albumin 3.8 (3.5-5.0) g/dL Coronavirus (PCR) NEGATIVE (Negative) Influenza Type A (PCR) NEGATIVE (Negative) Influenza Type B (PCR) NEGATIVE (Negative) RSV RNA Qual (PCR) NEGATIVE (Negative) Imaging Data Chest x-ray: Radiologist's impression: [address] [id number] ReportSigned Patient: Shar Ibarra EMR#: [id number]: [id number]:[id number]/Sex: 50 / MADM Date: 07/02/20Loc: EDCarmela Dr: Ordering Physician: NOEMI ELIZALDE Date of Service: 07/02/20 Procedure(s): XR chest 2V Accession Number(s): [id number] cc: NOEMI ELIZALDE~ EXAMINATION: XR CHEST CLINICAL INFORMATION: Chest pain COMPARISON: Previous chest x-ray January 2020 TECHNIQUE: 2 views of the chest were obtained. FINDINGS: The cardiac and mediastinal contours are normal. The lungs are clear. There is no pleural effusion or pneumothorax. There is an old left clavicle fracture. Bony structures are otherwise unremarkable. XR/XR chest 2V IMPRESSION: No evidence for acute disease in the chest. Dictated By:BRYAN BERRIOSigned By:<Electronically signed by BRYAN BERRIOS MD in OV>07/02/20 1226 DD/ 1128TD/TT: Shook Machine Operator: HERLINDA ECG Data ECG #1: Interpretation: Vent. Rate : 073 BPM Atrial Rate : 073 BPM P-R Int : 186 ms QRS Dur : 088 ms QT Int : 402 ms P-R-T Axes : 057 068 026 degrees QTc Int : 442 ms Sinus rhythm with Premature atrial complexes Otherwise normal ECG When compared with ECG of 18-FEB-2020 23:00, Premature atrial complexes are now Present Discharge Plan Discharge Clinical Impression: Atypical chest pain Lipoma Qualifiers: Lipoma location: upper extremity Laterality: left Qualified Code(s): D17.22 - Benign lipomatous neoplasm of skin and subcutaneous tissue of left arm Patient Disposition: Home, Self-Care Instructions: Chest Pain (ED), Lipoma (ED) Prescriptions: No Action atorvastatin 80 mg tablet 80 mg PO DAILY Qty: 30 RF: 2 clopidogrel 75 mg tablet 75 mg PO DAILY Qty: 30 RF: 2 aspirin 81 mg tablet,chewable 81 mg PO DAILY Qty: 30 RF: 2 metoprolol tartrate 25 mg tablet 25 mg PO BID Qty: 60 RF: 3 vedolizumab [Entyvio] 300 mg recon soln 300 mg IV Q4W Qty: 1 RF: 6 heparin (porcine) 5,000 unit/mL Solution 0 unit IVPUSH BOLUS PRN (Reason: BASED ON PTT RESULTS) Qty: 1 RF: 0 heparin(porcine) in 0.45% NaCl 25,000 unit/250 mL Parenteral Solution 25,000 unit continuous IV infusion .Q0M Qty: 1 RF: 0 prednisone 10 mg tablet 10 mg PO DAILY Qty: 20 RF: 0 omeprazole 20 mg capsule,delayed release(DR/EC) 20 mg PO BID RF: 0 hydroxyzine pamoate 25 mg capsule 25 mg PO TID RF: 0 cholecalciferol (vitamin D3) 50 mcg (2,000 unit) capsule 100 mcg PO DAILY RF: 0 Referrals: Michi Hall MD [Physician] - 2 weeks
[2020-07-02 13:00] LABS: MANUAL DIFF FLAG NO
[2020-07-02 13:08] LABS: Basophils Percent Auto 0.2 % (0-2); Eosinophils Absolute Auto 0.4 X10*3/uL (0.0-0.4); Hemoglobin 12.7 g/dl (14.0-18.0); Imm Gran Abs Auto 0.02 X10*3/uL (0.00-0.03); Imm Gran Pct Auto 0.2 % (0.0-0.4); Lymphocytes Absolute Auto 3.1 X10*3/uL (1.2-4.9); Lymphocytes Percent Auto 30.9 % (20-40); Mean Corpuscular HGB Conc 32.6 g/dl (31.0-36.0); Mean Corpuscular Volume 95.1 fL (80-98); Mean Platelet Volume 9.6 fL (9.4-12.4); Monocytes Absolute Auto 0.7 X10*3/uL (0.1-1.2); Monocytes Percent Auto 6.6 % (2-11); Neutrophils Absolute Auto 5.9 X10*3/uL (2.0-8.3); Neutrophils Percent Auto 58.1 % (45-73); Platelet Count 271 X10*3/uL (160-400); Red Cell Distribution Width 12.6 % (11.0-16.0); White Blood Count 10.1 X10*3/uL (4.8-10.8)
[2020-07-02 13:13] LABS: INTERNATIONAL NORM RATIO 1.1 (0.9-1.1); Prothrombin Time 13.6 SEC (10.8-13.0)
[2020-07-02 13:35] LABS: Alanine Aminotransferase 10 U/L (0-40); Albumin Level 3.8 g/dL (3.5-5.0); Alkaline Phosphatase 62 U/L (39-117); Anion Gap 8 (12-20); Aspartate Amino Transferase 9 U/L (5-37); Bilirubin Total 0.7 mg/dL (0.0-1.0); Blood Urea Nitrogen 10 mg/dL (9-16); Calcium 8.7 mg/dL (8.4-10.2); Carbon Dioxide 24 mmol/L (22-29); Chloride 109 mmol/L (96-108); Creatinine Clr Calc Pharmacy 100.6; Estimated Glomerular Filt Rate > 60; Glucose Random 96 mg/dL (60-115); Potassium 4.3 mmol/L (3.3-5.1); Sodium 137 mmol/L (135-145); Total Protein 6.8 g/dL (6.5-8.0)
[2020-07-02 13:36] LABS: Troponin-I High Sensitivity < 3.5 ng/L (<3.5-35.0)
[2020-07-02 14:08] LABS: Influenza A PCR NEGATIVE (Negative); Influenza B PCR NEGATIVE (Negative); Resp Syncy Virus RNA Qual PCR NEGATIVE (Negative); SARS COV2 PCR INHOUSE NEGATIVE (Negative)
[2020-07-02 16:13] VITALS: BP 106/70; PULSE 65; RESP 16; O2SAT 98
[2020-07-02 16:25] LABS: Troponin-I High Sensitivity < 3.5 ng/L (<3.5-35.0)
== END 2020-07-02 17:12 | disposition home or self-care (01) ==
PROVIDERS: Nurse Practitioner Primary Care; Physician Assistant Medical; Emergency Provider Emergency Medicine; PCP Internal Medicine
DX: R07.89 Other chest pain (principal); D17.22 Benign lipomatous neoplasm of skin and subcutaneous tissue of left arm; Z20.822 Contact with and (suspected) exposure to COVID-19; I10 Essential (primary) hypertension; Z79.01 Long term (current) use of anticoagulants; Z95.5 Presence of coronary angioplasty implant and graft; Z87.891 Personal history of nicotine dependence
CPT/HCPCS: 0241U; 36415; 71046; 80053; 84484; 85025; 85610; 93005; 99283; 99284

== ENCOUNTER 2020-07-14 10:12 | Outpatient (REF) | payer OTHER, SELFPAY ==
[2020-07-14 10:49] LABS: COVID-19 Test Negative (Negative)
== END 2020-07-14 10:13 | disposition home or self-care (01) ==
LOC: HO.LAB 10:12
PROVIDERS: Visit Provider Internal Medicine
DX: Z20.822 Contact with and (suspected) exposure to COVID-19 (principal)
CPT/HCPCS: 36415; 87635; C9803

== ENCOUNTER 2020-07-25 08:50 | Outpatient (REF) | payer OTHER, SELFPAY | END 2020-07-25 08:51 | disposition home or self-care (01) | LOC: HO.MDS 08:50 | PROVIDERS: Visit Provider Internal Medicine Gastroenterology | DX: K51.00 Ulcerative (chronic) pancolitis without complications (principal) | CPT/HCPCS: 96365; J3380 ==

== ENCOUNTER 2020-08-22 09:10 | Outpatient (REF) | payer OTHER, SELFPAY | END 2020-08-22 09:11 | disposition home or self-care (01) | LOC: HO.MDS 09:10 | PROVIDERS: Visit Provider Internal Medicine Gastroenterology | DX: K51.00 Ulcerative (chronic) pancolitis without complications (principal) | CPT/HCPCS: 96365; J3380 ==

== ENCOUNTER → 2020-08-25 13:47 | Outpatient (BNVA) | payer OTHER, SELFPAY | PROVIDERS: Referring Provider Internal Medicine; Visit Provider Internal Medicine Cardiovascular Disease | DX: I21.4 Non-ST elevation (NSTEMI) myocardial infarction (principal); I10 Essential (primary) hypertension; R07.9 Chest pain, unspecified | CPT/HCPCS: 99212 ==

== ENCOUNTER 2020-09-11 10:04 | Inpatient (IN) | payer OTHER, SELFPAY ==
[2020-09-11] VITALS (9 sets, daily range): BP systolic 109–149; BP diastolic 72–88; PULSE 69–88; RESP 14–20; TEMP 36.1–37.1; O2SAT 95–98; BMI 31.7
--- NOTE | ~2020-09-11 | CT_ITS ---
EXAMINATION: CT ABDOMEN AND PELVIS WITH CONTRAST CLINICAL INFORMATION: Lower abdominal pain. Crohn's disease. GI bleeding. COMPARISON: CT abdomen and pelvis 04/11/2020 TECHNIQUE: Multidetector volumetric images were obtained from the superior aspect of the liver through the pubic symphysis following administration 85 mL of Omnipaque 350 intravenous contrast. Sagittal and coronal reformatted images were obtained on the technologist's workstation. Oral contrast: No This CT examination was performed using dose optimization techniques as appropriate, variously including the following: *Automated exposure control *Adjustment of mA and/or kV according to patient size (this includes techniques or standardized protocols for targeted exams where dose is matched to indication/reason for exam; i.e. extremities or head) *Use of iterative reconstruction technique DLP: 1194 mGy-cm FINDINGS: LUNG BASES: Minimal atelectatic changes seen in left lung base. The heart size is normal. LIVER, GALLBLADDER, AND BILIARY TREE: The liver is normal in size, shape, and attenuation. No focal hepatic lesion or biliary ductal dilatation is present. The gallbladder is unremarkable with no evidence of radiopaque gallstones, gallbladder wall thickening, or obvious pericholecystic inflammatory changes. PANCREAS: Unremarkable. SPLEEN: Unremarkable. ADRENAL GLANDS: Unremarkable. KIDNEYS AND URETERS: The kidneys are normal in size, shape, and attenuation. No hydronephrosis, hydroureter, or calculi seen. No perinephric stranding. BLADDER: Unremarkable. GASTROINTESTINAL TRACT: The appendix has been removed. There is moderate stool in the right colon there is air-fluid level in transverse colon and nondistended descending colon with mild mural thickening and mild fat stranding likely colitis. No diverticulitis seen. No extravasation of contrast seen to suspect any bleed at this time. ABDOMINAL WALL: No significant hernia is appreciated. LYMPH NODES: Normal. VASCULAR: Unremarkable. PELVIC VISCERA: The prostate gland is normal size. OSSEOUS STRUCTURES: No lytic or sclerotic process seen CT/CT abdomen pelvis w con IMPRESSION: No diffuse mural thickening involving the descending and sigmoid colon with mild pericolic stranding in the descending colon suggestive of colitis. No diverticuli seen. Similar findings were seen on the previous exam 04/11/2020. Appendix has been surgically removed.
--- NOTE | 2020-09-11 10:39 | ED_ITS ---
HPI - GI Bleed General Chief complaint: GI Bleed Stated complaint: blood in stool Time Seen by Provider: 09/11/20 10:37 Source: patient Mode of arrival: ambulatory Limitations: no limitations History of Present Illness HPI Narrative: 50 yo male with hx of Crohn's on Entyvio follows with Dr. Mack comes in with bloody stools and lower abdominal pain since last night, he takes aspirin and plavix for CAD with PCI about 6 months ago complaint: gross hematemesis Onset (ago): day(s) (yesterday) Pain Consistency: intermittent and colicky Severity: similar to previous episodes Relieving factors: none Exacerbating factors: none Context: other (crohn's) Associated symptoms: abdominal pain and nausea Treatments Prior to Arrival: none Related Data Home Medications Medication Instructions Recorded Confirmed omeprazole 20 mg capsule,delayed 20 mg PO DAILY 12/20/19 09/11/20 release cholecalciferol (vitamin D3) 50 100 mcg PO DAILY 03/03/20 09/11/20 mcg (2,000 unit) capsule Previous Rx's Medication Instructions Recorded aspirin 81 mg chewable tablet 81 mg PO DAILY #30 tab 03/13/20 vedolizumab 300 mg intravenous 300 mg IV Q4W #1 ea 05/15/20 solution atorvastatin 80 mg tablet 80 mg PO DAILY #30 tab 07/21/20 clopidogrel 75 mg tablet 75 mg PO DAILY #30 tab 07/21/20 metoprolol tartrate 25 mg tablet 25 mg PO BID 90 Days #180 tab 08/22/20 Allergies Allergy/AdvReac Type Severity Reaction Status Date / Time No Known Allergies Allergy Verified 09/11/20 10:12 [No Known Allergies*] Review of Systems Review of Systems: Constitutional : No Weight loss, No Fever, No Chills ENT/Mouth : No sore throat, No Rhinorrhea Eyes: No Swelling, No Redness Cardiovascular : No Chest Pain, No SOB, NoEdema Respiratory : No Cough, No Sputum, No Wheezing Gastrointestinal : Positive Nausea, no Vomiting, positive Diarrhea, positive abdominal Pain, pos Hematochezia, No Melena Genitourinary : No Dysuria, No Urinary Frequency, No Hematuria, No Urgency Musculoskeletal : No joint pain, No Myalgias, No Joint Swelling Skin : No Skin Lesions, No rash Neuro : No Weakness, No Numbness, No Dizziness, No Headache Psych : No Anxiety/Panic, No Depression Heme/Lymph: No Bruising, No Lymphadenopathy Endocrine : No Polyuria, No Polydipsia All other systems reviewed and are negative. [facility], [facility] Past Medical History Attestation statement: The following information was validated with the patient. Medical History Chest pain Crohn disease Essential (primary) hypertension Hearing loss in right ear History of acoustic neuroma Hypertension Surgical History Hx of appendectomy Hx of colonoscopy S/P cardiac cath (~01/2020) Stented coronary artery Family History Family History Father No problems noted. Social History Social History Household Members: Family Housing: House Do you presently have visiting nurse or other home services: No Alcohol intake: never Patient Tobacco Use Status: Never used Tobacco Use of substances other than those prescribed or required for medical reasons: No Advance Directives: No Advance Directives Information Provided: No Physical Exam Vital Signs: Vital Signs: Last Vital Signs Temp 98.8 F 09/11/20 10:12 Pulse 79 09/11/20 10:12 Resp 18 09/11/20 10:12 BP 109/77 09/11/20 10:12 Pulse Ox 96 09/11/20 10:12 Body Mass Index 31.7 Appearance: Alert. Oriented X3. No acute distress. Eyes: Pupils equal, round and reactive to light. ENT: Pharynx normal. Neck: Normal inspection. Neck supple. CVS: Normal heart rate and rhythm. Pulses normal. Respiratory: No respiratory distress. Breath sounds normal. Abdomen: Soft and moderate lower abdominal pain. brb in toilet on arrival Skin: Skin warm and dry. Normal skin color. Normal skin turgor. Extremities: No lower extremity edema. No calf ttp Neuro: Oriented X 3. No motor deficit. No sensory deficit. Course Course Course Narrative: call to Dr. Vazquez had bout 200ml of bloody stool in bathroom Dr. George tirado at this time call from Radiology - 1240pm descending and sigmoid colitis message sent to Dr. Vazquez - candida start IV steroids MDM - GI Bleed MDM Narrative Medical decision making narrative: 50 yo male with hx of Crohn's on Entyvio comes in wiht pain and lower GIB symptoms at this time labs, CT scan, IV morphine for pain, suspect he will need admission for IV steroids, dispo per results and findings. Lab Data Result diagrams: 09/11/20 11:04 09/11/20 11:04 Labs: Lab Results 09/11/20 09/11/20 09/11/20 Range/Units 11:01 11:04 11:04 WBC 10.4 (4.8-10.8) X10*3/uL RBC 4.06 L (4.60-5.80) X10*6/uL Hgb 12.3 L (14.0-18.0) g/dl Hct 36.6 L (42-52) % MCV 90.1 (80-98) fL MCH 30.3 (27.0-33.0) pg MCHC 33.6 (31.0-36.0) g/dl RDW 13.1 (11.0-16.0) % Plt Count 239 (160-400) X10*3/uL MPV 9.7 (9.4-12.4) fL Immature Gran % (Auto) 0.3 (0.0-0.4) % Neut % (Auto) 51.5 (45-73) % Lymph % (Auto) 37.0 (20-40) % [place] % (Auto) 6.9 (2-11) % Eos % (Auto) 4.0 (0-4) % Baso % (Auto) 0.3 (0-2) % Lymph # (Auto) 3.8 (1.2-4.9) X10*3/uL [place] # (Auto) 0.7 (0.1-1.2) X10*3/uL Eos # (Auto) 0.4 (0.0-0.4) X10*3/uL Baso # (Auto) 0.0 (0.0-0.2) X10*3/uL Abs Immat Gran (auto) 0.03 (0.00-0.03) X10*3/uL Absolute Neuts (auto) 5.3 (2.0-8.3) X10*3/uL Absolute Nucleated RBC 0.000 (0.0-0.012) X10*3/uL Nucleated RBC % (auto) 0.0 (0.0-0.2) /100WBC Sodium 137 (135-145) mmol/L Potassium 4.2 (3.3-5.1) mmol/L Chloride 105 (96-108) mmol/L Carbon Dioxide 24 (22-29) mmol/L Anion Gap 12 (12-20) BUN 10 (9-16) mg/dL Creatinine 0.84 (0.5-1.4) mg/dL Estim Creat Clear Calc 116.1 Estimated GFR > 60 Random Glucose 104 (60-115) mg/dL Calcium 8.9 (8.4-10.2) mg/dL Magnesium (1.6-2.6) mg/dL Total Bilirubin (0.0-1.0) mg/dL Direct Bilirubin (0.0-0.5) mg/dL AST (5-37) U/L ALT (0-40) U/L Alkaline Phosphatase (39-117) U/L Total Creatine Kinase 109 (38-174) U/L C-Reactive Protein 0.68 H (< or = 0.50) mg/dL Total Protein (6.5-8.0) g/dL Albumin (3.5-5.0) g/dL Lipase (8-78) U/L Stool Occult Blood POSITIVE (NEGATIVE) COVID-19 ([facility]) (Negative) COVID-19 Clin [facility] Blood Type Antibody Screen 09/11/20 09/11/20 09/11/20 Range/Units 11:04 11:04 11:24 WBC (4.8-10.8) X10*3/uL RBC (4.60-5.80) X10*6/uL Hgb (14.0-18.0) g/dl Hct (42-52) % MCV (80-98) fL MCH (27.0-33.0) pg MCHC (31.0-36.0) g/dl RDW (11.0-16.0) % Plt Count (160-400) X10*3/uL MPV (9.4-12.4) fL Immature Gran % (Auto) (0.0-0.4) % Neut % (Auto) (45-73) % Lymph % (Auto) (20-40) % [place] % (Auto) (2-11) % Eos % (Auto) (0-4) % Baso % (Auto) (0-2) % Lymph # (Auto) (1.2-4.9) X10*3/uL [place] # (Auto) (0.1-1.2) X10*3/uL Eos # (Auto) (0.0-0.4) X10*3/uL Baso # (Auto) (0.0-0.2) X10*3/uL Abs Immat Gran (auto) (0.00-0.03) X10*3/uL Absolute Neuts (auto) (2.0-8.3) X10*3/uL Absolute Nucleated RBC (0.0-0.012) X10*3/uL Nucleated RBC % (auto) (0.0-0.2) /100WBC Sodium (135-145) mmol/L Potassium (3.3-5.1) mmol/L Chloride (96-108) mmol/L Carbon Dioxide (22-29) mmol/L Anion Gap (12-20) BUN (9-16) mg/dL Creatinine (0.5-1.4) mg/dL Estim Creat Clear Calc Estimated GFR Random Glucose (60-115) mg/dL Calcium (8.4-10.2) mg/dL Magnesium 1.8 (1.6-2.6) mg/dL Total Bilirubin 0.8 (0.0-1.0) mg/dL Direct Bilirubin 0.3 (0.0-0.5) mg/dL AST 12 (5-37) U/L ALT 11 (0-40) U/L Alkaline Phosphatase 65 (39-117) U/L Total Creatine Kinase (38-174) U/L C-Reactive Protein (< or = 0.50) mg/dL Total Protein 7.1 (6.5-8.0) g/dL Albumin 4.0 (3.5-5.0) g/dL Lipase 22 (8-78) U/L Stool Occult Blood (NEGATIVE) COVID-19 ([facility]) Negative (Negative) COVID-19 Clin Com See Note Blood Type O Positive Antibody Screen NEGATIVE Critical Care Time Critical Care Time Critical Care Time: Yes Total Critical Care Time: 35 Attestation: medical consult, IVF, discussion with radiology, type and screen I attest to this time spent taking care of the patient Discharge Plan Discharge Clinical Impression: Colitis GIB (gastrointestinal bleeding) Qualifiers: GI bleed type/associated pathology: unspecified gastrointestinal hemorrhage type Qualified Code(s): K92.2 - Gastrointestinal hemorrhage, unspecified Patient Disposition: Admitted As Inpatient
--- NOTE | 2020-09-11 11:06 | PC.NURSE ---
PT HAS BM WITH ARIELLA BLOOD
[2020-09-11] MEDS: Morphine Sulfate 4 MG/ML CARTRIDGE IVPUSH (11:10)
[2020-09-11] MEDS: ondansetron HCL 4 MG/2 ML VIAL IVPUSH (11:10)
[2020-09-11 11:12] LABS: MANUAL DIFF FLAG NO
[2020-09-11 11:13] LABS: OBS Int Ctl Valid YES; OBS1 POSITIVE (NEGATIVE)
[2020-09-11] MEDS: 0.9 % Sodium Chloride 1,000 ML 999 ML IVCONT (11:15)
[2020-09-11 11:22] LABS: Basophils Percent Auto 0.3 % (0-2); Eosinophils Absolute Auto 0.4 X10*3/uL (0.0-0.4); Hematocrit 36.6 % (42-52); Hemoglobin 12.3 g/dl (14.0-18.0); Imm Gran Abs Auto 0.03 X10*3/uL (0.00-0.03); Imm Gran Pct Auto 0.3 % (0.0-0.4); Lymphocytes Absolute Auto 3.8 X10*3/uL (1.2-4.9); Mean Corpuscular HGB Conc 33.6 g/dl (31.0-36.0); Mean Corpuscular Hemoglobin 30.3 pg (27.0-33.0); Mean Corpuscular Volume 90.1 fL (80-98); Mean Platelet Volume 9.7 fL (9.4-12.4); Monocytes Absolute Auto 0.7 X10*3/uL (0.1-1.2); Monocytes Percent Auto 6.9 % (2-11); Neutrophils Absolute Auto 5.3 X10*3/uL (2.0-8.3); Neutrophils Percent Auto 51.5 % (45-73); Platelet Count 239 X10*3/uL (160-400); Red Blood Count 4.06 X10*6/uL (4.60-5.80); Red Cell Distribution Width 13.1 % (11.0-16.0); White Blood Count 10.4 X10*3/uL (4.8-10.8)
[2020-09-11 11:37] LABS: Anion Gap 12 (12-20); Blood Urea Nitrogen 10 mg/dL (9-16); C Reactive Protein 0.68 mg/dL (< or = 0.50); Calcium 8.9 mg/dL (8.4-10.2); Carbon Dioxide 24 mmol/L (22-29); Chloride 105 mmol/L (96-108); Creatinine Clr Calc Pharmacy 116.1; Estimated Glomerular Filt Rate > 60; Glucose Random 104 mg/dL (60-115); Potassium 4.2 mmol/L (3.3-5.1); Sodium 137 mmol/L (135-145)
[2020-09-11 11:38] LABS: Alanine Aminotransferase 11 U/L (0-40); Alkaline Phosphatase 65 U/L (39-117); Aspartate Amino Transferase 12 U/L (5-37); Bilirubin Direct 0.3 mg/dL (0.0-0.5); Bilirubin Total 0.8 mg/dL (0.0-1.0); Lipase 22 U/L (8-78); Magnesium 1.8 mg/dL (1.6-2.6); Total Protein 7.1 g/dL (6.5-8.0)
--- NOTE | 2020-09-11 11:38 | PHA.MEDREC ---
Pharmacy Consult ? Medication Reconciliation Pharmacy has completed the medication reconciliation. Patient reports he is suppose to be taking vitamin D3 but needs a new prescription. Last fill was February 2020. Carlyn Rahman, CatalinaD
--- NOTE | 2020-09-11 11:46 | P.CNGI_ITS ---
History of Present Illness Data of Consult Service Date: 09/11/20 Requesting physician: Anita Frias Primary Care Provider: Chely Lopez MD HPI 49 YM with Crohn's disease, GERD, diverticulitis seen at [facility] [place] [facility] on 09/11/2020 with lower GI bleeding . HPI Narrative: 50 yo male with hx of Crohn's on Entyvio follows with Dr. Mack comes in with bloody stools and lower abdominal pain since last night, he takes aspirin and plavix for CAD with PCI about 6 months ago Onset (ago): day(s) (yesterday) Pain Consistency: intermittent and colicky Severity: similar to previous episodes Relieving factors: none Exacerbating factors: none Context: other (crohn's) Associated symptoms: abdominal pain and nausea Patient complains of lower abdominal pain with worsening diarrhea and rectal bleeding since 09/09/20 He noted increase in bleeding yesterday and was having a BM every hour with diarrhea containing dark red blood with clots. He also noted lower abdominal pain and cramps which improved after a bowel movement. He felt dizzy and lightheaded yesterday. Patient denies fever, chills or sweating, heartburn or dysphagia. Patient is status post coronary angiography with stent placement in January 2020 and has been on oral anticoagulation since He admits to snoring and denies sleep apnea Denies problems with anesthesia in the past. Patient denies known family history of IBD, colon polyps, colon cancer or other GI malignancies. Patient is and has 7 children and 16 grandchildren. 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 IMAGING STUDIES: 09/11/[address] SCAN SHOWED: GASTROINTESTINAL TRACT: The appendix has been removed. There is moderate stool in the right colon there is air-fluid level in transverse colon and nondistended descending colon with mild mural thickening and mild fat stranding likely colitis. No diverticulitis seen. No extravasation of contrast seen to suspect any bleed at this time. ABDOMINAL WALL: No significant hernia is appreciated. IMPRESSION: No diffuse mural thickening involving the descending and sigmoid colon with mild pericolic stranding in the descending colon suggestive of colitis. No diverticuli seen. Similar findings were seen on the previous exam 04/11/2020. Appendix has been surgically removed. ENDOSCOPIC STUDIES: Colonoscopy from Apr 2018 showed moderate chronic inactive colitis in 3 different biopsies. 2016 EGD showed Grade 2 distal esophagitis with a small hiatal hernia (no H. pylori was found). I will have him start Pantoprazole once daily in the AM. The colonoscopy showed inflamation continuous from the ano-rectal verge. The pathology confirmed inflamatory pseudo polyps and moderate chronic active colitis with no evidence for dysplasia. PAST GI HISTORY BY REVIEW OF MEDICAL RECORDS: Past workup: 10/09/[address] Hall, revealed colitis from the rectum to the tranverse colon near the hepatic flexure. Rectal Bx- Pos for mod active chronic colitis, suggestive of IBD. NO bxs taken from L, R, transverse colon or terminal ileum. Cardiac workup was essentially normal per pt. Told needs to lose wt. 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 Last seen 12/30/14-f/u 1 yr. On metroprolol due to extra beats . Labs: 09/10/14 No anemia, CRP < 0.30, normal CMP 09/30 PROMETHEUS IBD pattern consistent w/ Crohn's. CRP 2.67. C. Diff and Celiac panel Neg. TSH 0.82. PAST TREATMENTS: Asacol 800 mg twice daily, increased to three times daily after a flare Predniosne taper Apr 2016 started on Remicade infusion 5 mg/kg every 8 weeks August 2016 Remicade was increased to 10 milligram/kilogram every 8 weeks and then every 4 weeks June 2019 Switched to Entyvio every 8 weeks 07/27/19. Entyvio lvl measured and was lower than it should be suggesting some development of antibodies to the medication. Entyvio infusion 08/16/19. Bloodwork was also done around this time and not improved. WBC 22492 higher than usual. He sometmes runs a mild leukocytosis but not to this level. Last time his WBC was during the time of last admission to hospital and he did have c. diff present. 14.9/43.4. CRP is progressively elevated. 0.68 2.4 on 07/27/19. 4.23 on 08/16/19. Stool c. diff negative, Stool WBC negative 07/30/19. Last imaging on record is from March 2019. Colitis extending from mid transverse colon to the rectum. No drainable fluid collections. No pelvic fluid. Genetic assessment has been consistent with Crohn's (clinical presentation has been most consistent with ulcerative colitis). 04/2018 colonoscopy showed mild chronic inactive colitis on the left side. Reminder: in April 2019 he did have c. diff infection which was treated. Rec heck on this by us in early July was negative. Review of Systems Constitutional: Constitutional: Denies fever(s), Denies headache(s) and Denies weight loss Eyes: Eyes: Denies eye discharge and Denies irritation ENT: Reports Normal hearing present, Denies dysphagia, Denies dizziness, Denies headache(s) and Reports hearing loss (rt ear) Cardiovascular: Cardiovascular: Reports chest pain (Intermittent), Denies leg edema and Denies dyspnea on exertion Respiratory: Respiratory: Denies cough and Denies dyspnea on exertion Gastrointestinal: Gastrointestinal: Reports abdominal pain, Reports hematochezia, Denies change in bowel habits, Denies dysphagia, Denies heartburn and Reports diarrhea Genitourinary: Genitourinary: Denies dysuria Musculoskeletal: Musculoskeletal: Denies back pain and Denies arthralgias Integumentary/Breasts: Skin/Breast: Denies pruritus, Denies rash and Denies j aundice Neurologic: Reports Normal hearing present, Denies Abnormal speech present, Denies dizziness, Denies headache(s) and Denies seizure-like activity Psychiatric: Psychiatric: Denies anxiety, Denies depression and Denies panic attacks Endocrine: Endocrine: Denies cold intolerance, Denies flushing and Denies heat intolerance Hematologic/Lymphatic: Hematologic/Lymphatic: Denies easy bleeding and Denies easy bruising PMFSH Past Medical History Medical History CAD (coronary artery disease) Crohn disease Cyst in hand Essential (primary) hypertension Hearing loss in right ear History of acoustic neuroma Hypertension Iron deficiency anemia due to chronic blood loss Lipoma of arm Mass of hand Medicare annual wellness visit, initial Myocardial infarction Family History Family History Father Stroke Mother No problems noted. Maternal Uncle Heart attack Surgical History Surgical History History of brain tumor History of surgery on arm Hx of appendectomy Hx of colonoscopy S/P cardiac cath (~01/2020) Status post excision of lipoma Stented coronary artery Social History Social History Household Members: Spouse Housing: Apartment Do you presently have visiting nurse or other home services: No Alcohol intake: former Patient Tobacco Use Status: Former Tobacco user Quit Date: 2007 Tobacco use type: Cigarette Cigarette Packs Per Day: 1 e-Cigarette/Vaping Use: Never Used Second Hand Smoke Exposure: No service: No Current occupational status: disabled Meds Allergies Allergy/AdvReac Type Severity Reaction Status Date / Time Seasonal Allergies Allergy Intermediate eye Verified 03/02/21 11:49 swelling, itch Active Medications: Current Medications Generic Name Dose Route Start Last Admin Trade Name Freq PRN Reason Stop Dose Admin Sodium Chloride 1,000 mls @ 999 mls/hr 09/11/20 11:15 09/11/20 11:15 Ns IVCONT 09/11/20 12:15 999 mls/hr .[id number] JULITO Administration Pharmacy Consult 1 each 09/11/20 11:19 Consult Rx Perform Med Rec MISCELLANE ONCE PRN Consult order Physical Exam Vital Signs: Vital Signs: Last Vital Signs Temp 98.8 F 09/11/20 10:12 Pulse 79 09/11/20 10:12 Resp 18 09/11/20 10:12 BP 109/77 09/11/20 10:12 Pulse Ox 96 09/11/20 10:12 Body Mass Index 31.7 Const: General: healthy appearing and no acute distress Nutritional Appearance: average body habitus Orientation/consciousness: patient oriented x3 Limitations: no limitations HENMT: Head: Yes normal to inspection Ears: hearing grossly normal bilaterally Mouth: Normal oral and palatal mucosa present Eyes: Sclerae: sclerae normal Pupils: Equal, round and reactive pupils present Neck: Neck: Yes normal visual inspection Chest: Chest palpation & inspection: normal inspection of the chest Resp: Effort & Inspection: normal respiratory effort Auscultation: clear to auscultation bilaterally Cardio: Palpation: normal PMI Rate: regular rate Rhythm: regular rhythm Heart sounds: S1 normal heart sound present, S2 normal heart sound present and no murmurs GI: Palpation (GI): Soft to palpation, Tenderness to palpation present (GI) (diffuse mild lower abdominal tenderness) and No hepatosplenomegaly present Auscultation: normal bowel sounds Rectal Exam - Male: Yes deferred Skin: General skin exam: no rashes or lesions noted Neuro: General: patient oriented x3, gait normal and moves all extremities Cranial nerves: Yes Equal, round and reactive pupils present and Yes Normal hearing present Speech: No Abnormal speech present Psych: Appearance: grossly normal Mental Status: mental status grossly normal Results Labs CBC & Chem 7: 09/12/20 06:16 09/12/20 06:16 Labs: Short CBC 09/11/20 Range/Units 11:04 WBC 10.4 (4.8-10.8) X10*3/uL Hgb 12.3 L (14.0-18.0) g/dl Hct 36.6 L (42-52) % Plt Count 239 (160-400) X10*3/uL BMP 09/11/20 11:04 Sodium 137 Potassium 4.2 Chloride 105 Carbon Dioxide 24 BUN 10 Creatinine 0.84 Calcium 8.9 Cardiac Enzymes 09/11/20 Range/Units 11:04 Total Creatine Kinase 109 (38-174) U/L Liver Function 09/11/20 Range/Units 11:04 Total Bilirubin 0.8 (0.0-1.0) mg/dL Direct Bilirubin 0.3 (0.0-0.5) mg/dL AST 12 (5-37) U/L ALT 11 (0-40) U/L Alkaline Phosphatase 65 (39-117) U/L Albumin 4.0 (3.5-5.0) g/dL Assessment and Plan (1) GIB (gastrointestinal bleeding): Qualifiers: GI bleed type/associated pathology: unspecified gastrointestinal hemorrhage type Qualified Code(s): K92.2 - Gastrointestinal hemorrhage, unspecified Status: Acute (2) Crohn disease: Status: Acute 50 yo male with CAD status post stent placement and on aspirin and Plavix and a hx of Crohn's (on Entyvio) admitted with worsening diarrhea and bloody stools and lower abdominal pain since the past 2 days. Patient is hemodynamically stable. Last in Entyvio infusion was on 08/22/2020. His next infusion is scheduled on 09/18/20. Abdominal CT scan showed moderate stool in the right colon with air-fluid level in transverse colon and nondistended descending colon with mild mural thickening and mild fat stranding likely colitis. No diverticulitis. Pt notes lacK of adequate control of diarrhea RECOMMENDATIONS: 1. Monitor H & H daily and transfuse if Hct is decreased to 24 - 25%. 2. Agree with IV steroids followed by PO prednisone 3. Check CRP and Sed rate, VDZ level and antibodies, TPMT enzyme testing - added to am labs 4. FU in GI clinic after discharge to discuss adding Azathioprine or MTX in addition to Entyvio. Procedures Date of Service Date of Service: 09/11/20
[2020-09-11 11:48] LABS: COVID-19 Test Negative (Negative)
[2020-09-11] MEDS: iohexoL 350 MG/ML 100 ML INFUS..BTL 85 ML IV (12:05)
--- NOTE | 2020-09-11 13:36 | PM.IMHP ---
History of Present Illness Data of Consult Service Date: 09/11/20 Primary Care Provider: Chely Lpoez MD HPI Reason for consult: bright red blood per rectum 50-year-old male with a past medical history of Crohn's/colitis presented with 2 days of bright red blood per rectum. Patient states that symptoms began slowly 2 days prior to presentation. States day prior to presentation began to be fairly heavy with diarrhea and significant hematochezia. Patient denies any pain or discomfort. Denies chest pain, shortness of breath, fever, chills. Of note patient had an NSTEMI with left circumflex stent placed for 95% occlusion on 02/12/2020, he is on aspirin and Plavix. Review of Systems Review of Systems: Constitutional: Denies fever, denies Chills Eyes: denies blurry vision ENT: denies sore throat CVS: denies chest pain Respiratory: Denies dyspnea GI: no abdominal pain : denies dysuria MSK: denies neck pain Skin: denies rash Neuro: denies specific motor weakness Psych: denies suicidal ideation Endocrine: denies heat/cold intoleratnce Hematologic: denies easy bleeding Allergy: denies hives [facility] Medical History (Updated 09/11/20 @ 13:38 by Baltazar Mirza MD) CAD (coronary artery disease) Crohn disease Essential (primary) hypertension Hearing loss in right ear History of acoustic neuroma Hypertension Family History Father No problems noted. Family history: reviewed and not pertinent Surgical History Hx of appendectomy Hx of colonoscopy S/P cardiac cath (~01/2020) Stented coronary artery Social History Household Members: Family Housing: House Do you presently have visiting nurse or other home services: No Alcohol intake: never Patient Tobacco Use Status: Never used Tobacco Use of substances other than those prescribed or required for medical reasons: No Advance Directives: No Advance Directives Information Provided: No Meds Allergies Allergy/AdvReac Type Severity Reaction Status Date / Time No Known Allergies Allergy Verified 09/11/20 10:12 [No Known Allergies*] Active Medications: Current Medications Generic Name Dose Route Start Last Admin Trade Name Freq PRN Reason Stop Dose Admin Pharmacy Consult 1 each 09/11/20 11:19 Consult Rx Perform Med Rec MISCELLANE ONCE PRN Consult order Home Medications Medication Instructions Recorded Confirmed Last Taken Type omeprazole 20 mg capsule,delayed 20 mg PO DAILY 12/20/19 09/11/20 09/10/20 21:00 History release cholecalciferol (vitamin D3) 50 100 mcg PO DAILY 03/03/20 09/11/20 Unknown History mcg (2,000 unit) capsule Physical Exam Vital Signs and Narrative: Vital Signs: Last Vital Signs Temp 98.8 F 09/11/20 10:12 Pulse 79 09/11/20 10:12 Resp 18 09/11/20 10:12 BP 109/77 09/11/20 10:12 Pulse Ox 96 09/11/20 10:12 Body Mass Index 31.7 General: no acute distress HEENT: atraumatic Neck: normal to visual inspection CVS: S1, S2, RRR Resp: CTA bilateral Chest: non tender GI: soft, non tender, non distended : no CVA tenderness Skin: no rashes Extremities: no edema Neuro: Oriented X3, grossly intact Psych: cooperative Results Labs CBC and Chem 7: 09/11/20 11:04 09/11/20 11:04 Labs: Laboratory Results - last 24 hr 09/11/20 09/11/20 09/11/20 11:01 11:04 11:04 MCV 90.1 MCH 30.3 MCHC 33.6 RDW 13.1 Plt Count 239 MPV 9.7 Immature Gran % (Auto) 0.3 Neut % (Auto) 51.5 Lymph % (Auto) 37.0 Dickinson % (Auto) 6.9 Eos % (Auto) 4.0 Baso % (Auto) 0.3 Lymph # (Auto) 3.8 Dickinson # (Auto) 0.7 Eos # (Auto) 0.4 Baso # (Auto) 0.0 Abs Immat Gran (auto) 0.03 Absolute Neuts (auto) 5.3 Absolute Nucleated RBC 0.000 Nucleated RBC % (auto) 0.0 Anion Gap 12 Estim Creat Clear Calc 116.1 Estimated GFR > 60 Random Glucose 104 Calcium 8.9 Magnesium Total Bilirubin Direct Bilirubin AST ALT Alkaline Phosphatase Total Creatine Kinase 109 C-Reactive Protein 0.68 H Total Protein Albumin Lipase Stool Occult Blood POSITIVE COVID-19 ([facility]) COVID-19 Clin Com Blood Type Antibody Screen 09/11/20 09/11/20 09/11/20 11:04 11:04 11:24 MCV MCH MCHC RDW Plt Count MPV Immature Gran % (Auto) Neut % (Auto) Lymph % (Auto) Dickinson % (Auto) Eos % (Auto) Baso % (Auto) Lymph # (Auto) Dickinson # (Auto) Eos # (Auto) Baso # (Auto) Abs Immat Gran (auto) Absolute Neuts (auto) Absolute Nucleated RBC Nucleated RBC % (auto) Anion Gap Estim Creat Clear Calc Estimated GFR Random Glucose Calcium Magnesium 1.8 Total Bilirubin 0.8 Direct Bilirubin 0.3 AST 12 ALT 11 Alkaline Phosphatase 65 Total Creatine Kinase C-Reactive Protein Total Protein 7.1 Albumin 4.0 Lipase 22 Stool Occult Blood COVID-19 ([facility]) Negative COVID-19 Clin Com See Note Blood Type O Positive Antibody Screen NEGATIVE Imaging Radiologist's Impressions: Impressions Abdomen/Pelvis CT 09/11/20 10:37 IMPRESSION: No diffuse mural thickening involving the descending and sigmoid colon with mild pericolic stranding in the descending colon suggestive of colitis. No diverticuli seen. Similar findings were seen on the previous exam 04/11/2020. Appendix has been surgically removed. Assessment and Plan (1) GIB (gastrointestinal bleeding): Qualifiers: GI bleed type/associated pathology: unspecified gastrointestinal hemorrhage type Qualified Code(s): K92.2 - Gastrointestinal hemorrhage, unspecified Status: Acute 50M presented with BRBPR hematochezia due to IBD flare hold asa, plavix steroids gi eval monitor hgb CAD ANETA 02/12/2020 continue statin hold DAPL for now HTN lopressor
[2020-09-11] MEDS: methylPREDNISolone Sod Succ 125 MG/2 ML VIAL 60 MG IVPUSH (14:13)
--- NOTE | 2020-09-11 14:29 | PC.NURSE ---
PT AOX4 AMB WITH STEADY GAIT HAS BEEN OOB TO BR X2 TO STOOL, CONTINUES WITH ARIELLA RED BLOOD. PT NEED BEING MET
[2020-09-11 14:33] LABS: Lactic Acid 0.6 mmol/L (0.5-2.0)
[2020-09-11] MEDS: 0.9 % Sodium Chloride Flush 3 ML SYRINGE IVFLUSH (16:25)
[2020-09-11] MEDS: Morphine Sulfate 2 MG/ML CARTRIDGE IVPUSH (17:44)
[2020-09-11] MEDS: Metoprolol Tartrate 25 MG TABLET PO (21:26)
[2020-09-12] VITALS: BP 124/70; PULSE 77; RESP 16; TEMP 36; O2SAT 95
[2020-09-12] MEDS: 0.9 % Sodium Chloride Flush 3 ML SYRINGE IVFLUSH ×2 (01:08→08:51)
[2020-09-12 04:00] VITALS: BP 116/66; PULSE 83; RESP 16; TEMP 36; O2SAT 94
[2020-09-12] MEDS: Omeprazole 20 MG CAPSULE.DR PO (05:59)
[2020-09-12 06:46] LABS: Hematocrit 36.5 % (42-52); Hemoglobin 12.3 g/dl (14.0-18.0); Mean Corpuscular HGB Conc 33.7 g/dl (31.0-36.0); Mean Corpuscular Hemoglobin 30.3 pg (27.0-33.0); Mean Corpuscular Volume 89.9 fL (80-98); Mean Platelet Volume 9.8 fL (9.4-12.4); Platelet Count 292 X10*3/uL (160-400); Red Blood Count 4.06 X10*6/uL (4.60-5.80); Red Cell Distribution Width 12.9 % (11.0-16.0); White Blood Count 14.2 X10*3/uL (4.8-10.8)
[2020-09-12 07:10] VITALS: BP 122/80; PULSE 94; RESP 18; TEMP 36.1; O2SAT 97
[2020-09-12 07:14] LABS: Anion Gap 13 (12-20); Blood Urea Nitrogen 10 mg/dL (9-16); Carbon Dioxide 27 mmol/L (22-29); Chloride 103 mmol/L (96-108); Creatinine Clr Calc Pharmacy 120.4; Estimated Glomerular Filt Rate > 60; Glucose Random 122 mg/dL (60-115); Sodium 139 mmol/L (135-145)
[2020-09-12 08:00] LABS: Vitamin B12 442 pg/mL (200-900)
[2020-09-12] MEDS: Metoprolol Tartrate 25 MG TABLET PO (08:51)
[2020-09-12] MEDS: predniSONE 20 MG TABLET 60 MG PO (08:51)
[2020-09-12] MEDS: Atorvastatin Calcium 80 MG TABLET PO (08:51)
[2020-09-12] MEDS: Cholecalciferol (Vitamin D3) 25 MCG TABLET 100 MCG PO (08:51)
--- NOTE | 2020-09-12 10:05 | HO.PM.IMPN ---
Subjective Subjective Date of Service: 09/12/20 Interval History: only mild bleeding since yesterday Cardiovascular Cardiovascular: Reports no additional cardiovascular complaints Gastrointestinal Gastrointestinal: Reports no additional gastrointestinal complaints Physical Exam Vital Signs: Vital Signs: Last Vital Signs Temp 96.9 F 09/12/20 07:10 Pulse 94 09/12/20 07:10 Resp 18 09/12/20 07:10 BP 122/80 09/12/20 07:10 Pulse Ox 97 09/12/20 07:10 Body Mass Index 31.7 General: AO X 3, no acute distress Resp: CTA bilateral CVS: S1,S2,RRR GI: soft, non tender, non distended Neuro: motor grossly intact Psych: appropriate affect Objective Data Current Medications Generic Name Dose Route Start Last Admin Trade Name Freq PRN Reason Stop Dose Admin Atorvastatin Calcium 80 mg 09/12/20 09:00 09/12/20 08:51 Atorvastatin Calcium 80 Mg Tablet PO 80 mg DAILY JULITO Administration Metoprolol Tartrate 25 mg 09/11/20 21:00 09/12/20 08:51 Metoprolol Tartrate 25 Mg Tablet PO 25 mg BID [facility] Administration Protocol Morphine Sulfate 2 mg 09/11/20 16:35 09/11/20 17:44 Morphine Sulfate 2 Mg/Ml Cartridge IVPUSH 2 mg Q4H PRN Administration pain Omeprazole 20 mg 09/12/20 06:30 09/12/20 05:59 Omeprazole 20 Mg Capsule. PO 20 mg DAILY@0630 [facility] Administration Pharmacy Consult 1 each 09/11/20 11:19 Consult Rx Perform Med Rec MISCELLANE ONCE PRN Consult order Prednisone 60 mg 09/12/20 09:00 09/12/20 08:51 Prednisone 20 Mg Tablet PO 60 mg DAILY JULITO Administration Sodium Chloride 3 ml 09/11/20 16:00 09/12/20 08:51 0.9 % Sodium Chloride Flush 3 Ml Syringe IVFLUSH 3 ml QSHIFT [facility] Administration Vitamin D 100 mcg 09/12/20 09:00 09/12/20 08:51 Cholecalciferol (Vitamin D3) 25 Mcg Tablet PO 100 mcg DAILY JULITO Administration Labs CBC & Chem 7: 09/12/20 06:16 09/12/20 06:16 Labs: Laboratory Results - last 24 hr 09/11/20 09/11/20 09/11/20 11:01 11:04 11:04 WBC 10.4 RBC 4.06 L Hgb 12.3 L Hct 36.6 L MCV 90.1 MCH 30.3 MCHC 33.6 RDW 13.1 Plt Count 239 MPV 9.7 Immature Gran % (Auto) 0.3 Neut % (Auto) 51.5 Lymph % (Auto) 37.0 [place] % (Auto) 6.9 Eos % (Auto) 4.0 Baso % (Auto) 0.3 Lymph # (Auto) 3.8 [place] # (Auto) 0.7 Eos # (Auto) 0.4 Baso # (Auto) 0.0 Abs Immat Gran (auto) 0.03 Absolute Neuts (auto) 5.3 Absolute Nucleated RBC 0.000 Nucleated RBC % (auto) 0.0 Sodium 137 Potassium 4.2 Chloride 105 Carbon Dioxide 24 Anion Gap 12 BUN 10 Creatinine 0.84 Estim Creat Clear Calc 116.1 Estimated GFR > 60 Random Glucose 104 Lactic Acid Calcium 8.9 Magnesium Total Bilirubin Direct Bilirubin AST ALT Alkaline Phosphatase Total Creatine Kinase 109 C-Reactive Protein 0.68 H Total Protein Albumin Lipase Vitamin B12 Stool Occult Blood POSITIVE COVID-19 ([facility]) COVID-19 Clin Com Blood Type Antibody Screen 09/11/20 09/11/20 09/11/20 11:04 11:04 11:24 WBC RBC Hgb Hct MCV MCH MCHC RDW Plt Count MPV Immature Gran % (Auto) Neut % (Auto) Lymph % (Auto) [place] % (Auto) Eos % (Auto) Baso % (Auto) Lymph # (Auto) [place] # (Auto) Eos # (Auto) Baso # (Auto) Abs Immat Gran (auto) Absolute Neuts (auto) Absolute Nucleated RBC Nucleated RBC % (auto) Sodium Potassium Chloride Carbon Dioxide Anion Gap BUN Creatinine Estim Creat Clear Calc Estimated GFR Random Glucose Lactic Acid Calcium Magnesium 1.8 Total Bilirubin 0.8 Direct Bilirubin 0.3 AST 12 ALT 11 Alkaline Phosphatase 65 Total Creatine Kinase C-Reactive Protein Total Protein 7.1 Albumin 4.0 Lipase 22 Vitamin B12 Stool Occult Blood COVID-19 ([facility]) Negative COVID-19 [employer] Com See Note Blood Type O Positive Antibody Screen NEGATIVE 09/11/20 09/12/20 09/12/20 14:09 06:16 06:16 WBC 14.2 H RBC 4.06 L Hgb 12.3 L Hct 36.5 L MCV 89.9 MCH 30.3 MCHC 33.7 RDW 12.9 Plt Count 292 MPV 9.8 Immature Gran % (Auto) Neut % (Auto) Lymph % (Auto) [place] % (Auto) Eos % (Auto) Baso % (Auto) Lymph # (Auto) [place] # (Auto) Eos # (Auto) Baso # (Auto) Abs Immat Gran (auto) Absolute Neuts (auto) Absolute Nucleated RBC 0.000 Nucleated RBC % (auto) 0.0 Sodium 139 Potassium 4.0 Chloride 103 Carbon Dioxide 27 Anion Gap 13 BUN 10 Creatinine 0.81 Estim Creat Clear Calc 120.4 Estimated GFR > 60 Random Glucose 122 H Lactic Acid 0.6 Calcium 9.0 Magnesium Total Bilirubin Direct Bilirubin AST ALT Alkaline Phosphatase Total Creatine Kinase C-Reactive Protein Total Protein Albumin Lipase Vitamin B12 Stool Occult Blood COVID-19 ([facility]) COVID-19 [employer] Blood Type Antibody Screen 09/12/20 06:16 WBC RBC Hgb Hct MCV MCH MCHC RDW Plt Count MPV Immature Gran % (Auto) Neut % (Auto) Lymph % (Auto) [place] % (Auto) Eos % (Auto) Baso % (Auto) Lymph # (Auto) [place] # (Auto) Eos # (Auto) Baso # (Auto) Abs Immat Gran (auto) Absolute Neuts (auto) Absolute Nucleated RBC Nucleated RBC % (auto) Sodium Potassium Chloride Carbon Dioxide Anion Gap BUN Creatinine Estim Creat Clear Calc Estimated GFR Random Glucose Lactic Acid Calcium Magnesium Total Bilirubin Direct Bilirubin AST ALT Alkaline Phosphatase Total Creatine Kinase C-Reactive Protein Total Protein Albumin Lipase Vitamin B12 442 Stool Occult Blood COVID-19 ([facility]) COVID-19 [employer] Blood Type Antibody Screen Quality Stroke Does the patient have a stroke diagnosis?: No VTE Prior VTE?: No VTE Risk Level:: Medical - moderate - high VTE Device Contraindication: N/A - Device Ordered VTE Drug Contraindication: Treatment Not Tolerated Assessment and Plan (1) CAD (coronary artery disease): Status: Acute Assessment and Plan: 50M presented with BRBPR hematochezia due to IBD flare hold asa, plavix continue steroids gi following monitor hgb - stable so far CAD ANETA 02/12/2020 continue statin hold DAPL for now - restart when ok with GI HTN lopressor
--- NOTE | 2020-09-12 10:21 | MHC.CM.PN ---
NURSE CLINICAL REHABILITATION LIAISON NOTE ELECTRONIC MEDICAL RECORD REVIEWED ALONG WITH CASE DISCUSSED WITH STAFF NURSE , MET WITH PATIENT EXPLAINED THE ROLE OF THE NURSE CLINICAL REHABILITATION LIAISON IN THE TRANSITION FROM HOSPITAL TO HOME, PATIENT REPORTED THAT HE LIVES WITH HIS , HE IS ON DISABILITY SECONDARY TO HIS CROHNS, AND SEES A PSYCHOLOGIST FOR STRESSES AFTER BEING DIAGNOSED WITH CROHNS AND HIS OTHER MEDICAL HISTORY. HE IS OTHERWISE INDEPENDENT IN ALL ALDS AND MOBILITY. HE HAS NO VNA NO DME SERVICES IN THE HOME, AND DOES FEEL ANY RESON TO HAVE THE VNA AFTER DISCHARGED . DISCHARGE PLAN HOME NO SERVICES PCP REMBERTO CARR HAS APPT FOR 09/23/20 F/U PER DISCHARGE INSTRUCTIONS WITH DR [employer] FAMILY HAS HCP NAMING HIS AGENT , REQUESTED COPY BE BROUGHT INTO THE HOSPITLA OR MA[facility]ED TO [facility]
[2020-09-12 11:25] VITALS: BP 121/72; PULSE 84; RESP 18; TEMP 36; O2SAT 95
--- NOTE | 2020-09-12 12:10 | PM.DS ---
DS: Providers Provider Date of Service: 09/12/20 Date of admission: 09/11/20 13:36 Primary care physician: Chely Lopez MD Consults: 09/11/20 16:00 Consult to Gastroenterology Routine Consulting Provider: Rodolfo Vazquez Reason for consultation: brbpr, ibd DS: Diagnosis Discharge Diagnosis (1) CAD (coronary artery disease): Status: Acute (2) Colitis: Status: Acute (3) GIB (gastrointestinal bleeding): Status: Acute DS: Medications Discharge Medications Home Medications: Home Medications Medication Instructions Recorded Confirmed omeprazole 20 mg capsule,delayed 20 mg PO DAILY 12/20/19 09/11/20 release cholecalciferol (vitamin D3) 50 100 mcg PO DAILY 03/03/20 09/11/20 mcg (2,000 unit) capsule Previous Rx's Medication Instructions Recorded aspirin 81 mg chewable tablet 81 mg PO DAILY #30 tab 03/13/20 vedolizumab 300 mg intravenous 300 mg IV Q4W #1 ea 05/15/20 solution atorvastatin 80 mg tablet 80 mg PO DAILY #30 tab 07/21/20 clopidogrel 75 mg tablet 75 mg PO DAILY #30 tab 07/21/20 metoprolol tartrate 25 mg tablet 25 mg PO BID 90 Days #180 tab 08/22/20 prednisone 50 mg PO DAILY #105 tab 09/12/20 DS: Summary Hospital Course Hospital Course: patient was admitted for hematochezia due to IBD flare. his antiplatelets were held, he was given steroids and bleeding stopped. hgb was stable. he was seen by GI who recommended 5 week steroid taper and restarting antiplatelets. Time Spent with Patient Time attestation: Total time spent providing and/or coordinating discharge services: Discharge coordination time: Greater than 30 minutes Quality: Stroke Does the patient have a stroke diagnosis?: No Physical Exam Vital Signs: Vital Signs: Last Vital Signs Temp 96.8 F 09/12/20 11:25 Pulse 84 09/12/20 11:25 Resp 18 09/12/20 11:25 BP 121/72 09/12/20 11:25 Pulse Ox 95 09/12/20 11:25 Body Mass Index 31.7 General: AO X 3, no acute distress Resp: CTA bilateral CVS: S1,S2,RRR GI: soft, non tender, non distended Neuro: motor grossly intact Psych: appropriate affect DS: Data Data Completed and Pending Labs on day of discharge: Laboratory Results - last 24 hr 09/11/20 09/12/20 09/12/20 14:09 06:16 06:16 WBC 14.2 H RBC 4.06 L Hgb 12.3 L Hct 36.5 L MCV 89.9 MCH 30.3 MCHC 33.7 RDW 12.9 Plt Count 292 MPV 9.8 Absolute Nucleated RBC 0.000 Nucleated RBC % (auto) 0.0 Sodium 139 Potassium 4.0 Chloride 103 Carbon Dioxide 27 Anion Gap 13 BUN 10 Creatinine 0.81 Estim Creat Clear Calc 120.4 Estimated GFR > 60 Random Glucose 122 H Lactic Acid 0.6 Calcium 9.0 Vitamin B12 09/12/20 06:16 WBC RBC Hgb Hct MCV MCH MCHC RDW Plt Count MPV Absolute Nucleated RBC Nucleated RBC % (auto) Sodium Potassium Chloride Carbon Dioxide Anion Gap BUN Creatinine Estim Creat Clear Calc Estimated GFR Random Glucose Lactic Acid Calcium Vitamin B12 442 Discharge Plan Discharge Patient Disposition: Home, Self-Care Discharge Diagnosis: ibd flare Referrals: Chely Madsen MD [Primary Care Provider] - 1 Week Discharge Medications: New prednisone 10 mg tablet 50 mg PO DAILY Qty: 105 RF: 0 Continued aspirin 81 mg tablet,chewable 81 mg PO DAILY Qty: 30 RF: 2 vedolizumab [Entyvio] 300 mg recon soln 300 mg IV Q4W Qty: 1 RF: 6 atorvastatin 80 mg tablet 80 mg PO DAILY Qty: 30 RF: 5 clopidogrel 75 mg tablet 75 mg PO DAILY Qty: 30 RF: 5 metoprolol tartrate 25 mg tablet 25 mg PO BID 90 Days Qty: 180 RF: 3 omeprazole 20 mg capsule,delayed release(DR/EC) 20 mg PO DAILY RF: 0 cholecalciferol (vitamin D3) 50 mcg (2,000 unit) capsule 100 mcg PO DAILY RF: 0 Discharge Orders: Discharge Order (Routine); Ordered 09/12/20 Ordered By: Baltazar Mirza Diet: advance to usual diet Activity on Discharge: As tolerated Stand Alone Forms: Patient Portal Discharge page Care Plan Goals: recovery Health Concerns: ibd Plan of Treatment: 5 week prednisone taper, follow up with gi, restart aspirin and plavix Assessment: see above
--- NOTE | 2020-09-12 13:04 | MHC.CM.PN ---
NURSE MAT PACKER NTOE ELECTRONIC MEDICAL RECORD REVIEWED PATIENT IS BEING DISCHARGED HOME NO SERVICES REQUIRED , HE WILL FOLLOW UP WITH HIS GI PHYSICIAN AND PCP
== END 2020-09-12 15:11 | disposition home or self-care (01) | DRG 254 ==
LOC: HO.ED 12:44 → HO.EDOVER 13:51 → HO.S3 14:11
PROVIDERS: Internal Medicine Gastroenterology; Admitting Provider Internal Medicine; Emergency Provider Emergency Medicine; PCP Internal Medicine; Visit Provider Internal Medicine
DX: K58.9 Irritable bowel syndrome, unspecified (principal); I10 Essential (primary) hypertension; I25.10 Atherosclerotic heart disease of native coronary artery without angina pectoris; K62.5 Hemorrhage of anus and rectum; Z20.822 Contact with and (suspected) exposure to COVID-19; Z95.1 Presence of aortocoronary bypass graft; Z79.02 Long term (current) use of antithrombotics/antiplatelets; Z79.52 Long term (current) use of systemic steroids; Z79.82 Long term (current) use of aspirin; Z79.899 Other long term (current) drug therapy
CPT/HCPCS: 36415; 74177; 80048; 80076; 80280; 82272; 82542; 82550; 82607; 83605; 83690; 83735; 85025; 85027; 86140; 86850; 86900; 86901; 87040; 87635; 99285; J2270; J2405; J2930; Q9967

== ENCOUNTER 2020-09-19 09:10 | Outpatient (REF) | payer OTHER, SELFPAY | END 2020-09-19 09:11 | disposition home or self-care (01) | LOC: HO.MDS 09:10 | PROVIDERS: Visit Provider Internal Medicine Gastroenterology | DX: K50.90 Crohn's disease, unspecified, without complications (principal) | CPT/HCPCS: 96365; J3380 ==

== ENCOUNTER → 2020-10-06 10:36 | Outpatient (BNVA) | payer OTHER, SELFPAY | PROVIDERS: PCP Internal Medicine; Referring Provider Internal Medicine; Visit Provider Internal Medicine Gastroenterology | DX: K50.90 Crohn's disease, unspecified, without complications (principal) | CPT/HCPCS: 99212 ==

== ENCOUNTER 2020-10-17 08:58 | Outpatient (REF) | payer OTHER, SELFPAY ==
[2020-10-17 09:31] LABS: MANUAL DIFF FLAG NO
[2020-10-17 09:33] LABS: Basophils Percent Auto 0.2 % (0-2); Eosinophils Percent Auto 0.1 % (0-4); Hemoglobin 9.6 g/dl (14.0-18.0); Imm Gran Abs Auto 0.05 X10*3/uL (0.00-0.03); Imm Gran Pct Auto 0.5 % (0.0-0.4); Lymphocytes Absolute Auto 1.4 X10*3/uL (1.2-4.9); Lymphocytes Percent Auto 14.3 % (20-40); Mean Corpuscular Hemoglobin 25.7 pg (27.0-33.0); Mean Corpuscular Volume 82.9 fL (80-98); Monocytes Absolute Auto 0.5 X10*3/uL (0.1-1.2); Monocytes Percent Auto 4.6 % (2-11); Neutrophils Percent Auto 80.3 % (45-73); Platelet Count 320 X10*3/uL (160-400); Red Blood Count 3.74 X10*6/uL (4.60-5.80); Red Cell Distribution Width 14.2 % (11.0-16.0); White Blood Count 9.9 X10*3/uL (4.8-10.8)
[2020-10-17 09:55] LABS: Alanine Aminotransferase 11 U/L (0-40); Albumin Level 4.2 g/dL (3.5-5.0); Alkaline Phosphatase 74 U/L (39-117); Aspartate Amino Transferase 12 U/L (5-37); Bilirubin Direct 0.3 mg/dL (0.0-0.5); Bilirubin Total 0.6 mg/dL (0.0-1.0); Estimated Glomerular Filt Rate > 60; Total Protein 7.1 g/dL (6.5-8.0)
== END 2020-10-17 08:59 | disposition home or self-care (01) ==
LOC: HO.MDS 08:58
PROVIDERS: Internal Medicine Gastroenterology; Visit Provider Internal Medicine Gastroenterology
DX: K51.00 Ulcerative (chronic) pancolitis without complications (principal)
CPT/HCPCS: 36415; 80076; 82565; 85025; 96365; J3380

== ENCOUNTER 2020-11-14 09:10 | Outpatient (REF) | payer OTHER, SELFPAY | END 2020-11-14 09:11 | disposition home or self-care (01) | LOC: HO.MDS 09:10 | PROVIDERS: Visit Provider Internal Medicine Gastroenterology | DX: K50.90 Crohn's disease, unspecified, without complications (principal); Z53.9 Procedure and treatment not carried out, unspecified reason ==

== ENCOUNTER 2020-11-18 09:54 | Outpatient (REF) | payer OTHER, SELFPAY | END 2020-11-18 09:55 | disposition home or self-care (01) | LOC: HO.MDS 09:54 | PROVIDERS: Visit Provider Internal Medicine Gastroenterology | DX: K51.90 Ulcerative colitis, unspecified, without complications (principal) | CPT/HCPCS: 96365; J3380 ==

== ENCOUNTER → 2020-12-03 09:04 | Outpatient (BNVA) | payer OTHER, SELFPAY | PROVIDERS: PCP Internal Medicine; Referring Provider Internal Medicine; Visit Provider Surgery | DX: Z01.818 Encounter for other preprocedural examination (principal); D17.20 Benign lipomatous neoplasm of skin and subcutaneous tissue of unspecified limb | CPT/HCPCS: 99202 ==

== ENCOUNTER 2020-12-17 09:44 | Outpatient (REF) | payer OTHER, SELFPAY | END 2020-12-17 09:45 | disposition home or self-care (01) | LOC: HO.MDS 09:44 | PROVIDERS: Visit Provider Internal Medicine Gastroenterology | DX: K51.90 Ulcerative colitis, unspecified, without complications (principal) | CPT/HCPCS: 96365; J3380 ==

== ENCOUNTER 2021-01-01 12:45 | Outpatient (REF) | payer MEDICARE, MEDICAID, SELFPAY ==
[2021-01-01 12:53] VITALS: BP 150/93; PULSE 104; RESP 16; TEMP 36.8; O2SAT 100
[2021-01-01 12:54] VITALS: BMI 32.8
--- NOTE | 2021-01-01 13:08 | W.PM.OPN ---
Operative Note Operative Note Date of Service: 01/01/21 Narrative: Preop diagnosis: Lipoma, left upper arm Postop diagnosis: The same Procedure: Excision of lipoma, left upper arm under local anesthesia Surgeon: Michi Hall MD Patient is a 50-year-old male with a lipomatous mass on the left upper arm. This was about 2.5 cm in size. He wanted to proceed with excision. He understood the technique of excision under local anesthesia and was aware of the risks, benefits, and alternatives He was brought to the minor procedure room and placed supine with the left arm aDDucted to allow good exposure of the lipoma. This area was prepped and draped. Lidocaine 1% was used for local anesthesia. I made an incision on the skin overlying the lipoma using blade 15. And this was carried down through the full-thickness of skin and subcutaneous fat. We continued to dissect sharply until I was able to visualize the lipoma. The lipomas then carefully dissected sharply off of the rest of the subcutaneous layer into this was delivered and sent as specimen. This was about a 2.5 cm lipoma. I closed the incision with full-thickness nylon 3-0 interrupted sutures. Dressings were applied and the procedure was completed The patient tolerated procedure well. There were no complications noted. Initial and final counts of sponges and instruments were correct. Estimated blood loss was about 2 cc. The patient was given wound care instructions and will be seen in the office for follow-up for removal sutures.
== END 2021-01-01 12:46 | disposition home or self-care (01) ==
LOC: HO.MS 12:45
PROVIDERS: PCP Internal Medicine; Visit Provider Surgery
PROC: (CPT 24075; principal; 2021-01-01 13:00)
DX: D17.22 Benign lipomatous neoplasm of skin and subcutaneous tissue of left arm (principal)
CPT/HCPCS: 24075; 88304

== ENCOUNTER → 2021-01-05 10:16 | Outpatient (BNVA) | payer MEDICARE, MEDICAID, SELFPAY | PROVIDERS: Referring Provider Internal Medicine; Visit Provider Internal Medicine Gastroenterology | DX: K92.2 Gastrointestinal hemorrhage, unspecified (principal); K50.90 Crohn's disease, unspecified, without complications | CPT/HCPCS: 99212 ==

== ENCOUNTER → 2021-01-12 12:55 | Outpatient (BNVA) | payer MEDICARE, MEDICAID, SELFPAY | PROVIDERS: PCP Internal Medicine; Referring Provider Internal Medicine; Visit Provider Surgery | DX: Z48.3 Aftercare following surgery for neoplasm (principal); Z86.018 Personal history of other benign neoplasm | CPT/HCPCS: 99212 ==

== ENCOUNTER 2021-01-13 07:44 | Emergency (ER) | payer MEDICARE, MEDICAID, SELFPAY ==
--- NOTE | ~2021-01-13 | CT_ITS ---
EXAMINATION: CT PELVIS WITH CONTRAST CLINICAL INFORMATION: Left buttock redness and swelling. Question fever. COMPARISON: None TECHNIQUE: Helical scanning was performed with submillimeter collimation through the pelvis with the use of oral contrast and during bolus intravenous injection of 100 mL of Omnipaque 350 intravenous contrast. Sagittal and coronal multiplanar 2-D reconstructions were obtained. This CT examination was performed using dose optimization techniques as appropriate, variously including the following: *Automated exposure control *Adjustment of mA and/or kV according to patient size (this includes techniques or standardized protocols for targeted exams where dose is matched to indication/reason for exam; i.e. extremities or head) *Use of iterative reconstruction technique DLP: 480 mGy-cm FINDINGS: PELVIS: There is a 3.10 x 2.0 cm left perianal abscess with surrounding edema and induration. It is best visualized on axial image 52/2 to 53-2. There is nonspecific mild thickening of sigmoid colon likely degenerative distention. No pericolic fat stranding seen. Visualized small bowel loops are unremarkable. No abnormal lymphadenopathy in the pelvis. There are scattered phleboliths in lower pelvis. The urinary bladder is nondistended without any bladder wall thickening. There is no free fluid or free air. OSSEOUS STRUCTURES: There is no lytic or sclerotic process seen. CT/CT pelvis w con IMPRESSION: Small left perianal abscess with surrounding induration..
[2021-01-13 07:58] VITALS: BP 130/81; PULSE 100; RESP 19; TEMP 37.6; O2SAT 98; BMI 33.5
--- NOTE | 2021-01-13 09:00 | ED_ITS ---
HPI - Wound/Laceration General Chief Complaint: Wound/Laceration Stated Complaint: ?cyst Time Seen by Provider: 01/13/21 08:14 Source: patient Mode of arrival: ambulatory Limitations: no limitations History of Present Illness HPI narrative: 51-year-old male with a past medical history of Crohn's on Entyvio, coronary disease with stents on Plavix and aspirin, hypertension here with complaints of left buttocks swelling and redness for 1 week worsened over the last 24 hours with chills at home. No fever. Related Data Previous Rx's Medication Instructions Recorded aspirin 81 mg chewable tablet 81 mg PO DAILY #30 tab 03/13/20 atorvastatin 80 mg tablet 80 mg PO DAILY #30 tab 07/21/20 metoprolol tartrate 25 mg tablet 25 mg PO BID 90 Days #180 tab 08/22/20 cholecalciferol (vitamin D3) 50 100 mcg PO DAILY 90 Days #180 cap 10/06/20 mcg (2,000 unit) capsule vedolizumab 300 mg intravenous 300 mg IV Q4W #1 ea [facility]15[facility] azathioprine 50 mg tablet 50 mg PO DAILY 90 Days #90 tab 01/05/21 clopidogrel 75 mg tablet 75 mg PO DAILY #90 tab 01/05/21 omeprazole 20 mg capsule,delayed 20 mg PO DAILY 30 Days #30 cap 01/05/21 release cephalexin 500 mg capsule 500 mg PO BID #14 cap 01/13/21 doxycycline monohydrate 100 mg 100 mg PO BID #20 tab 01/13/21 tablet oxycodone 5 mg tablet 5 mg PO Q8H PRN #8 tab 01/13/21 Allergies Allergy/AdvReac Type Severity Reaction Status Date / Time Seasonal Allergies Allergy Intermediate eye Verified 01/12/21 13:09 swelling, itch Review of Systems Review of Systems: Yes all other systems are reviewed and are negative Constitutional: Constitutional: Reports no additional constitutional complaints, Denies body ache(s), Denies chills, Denies fever(s), Denies headache(s) and Denies weakness Eyes: Eyes: Reports no additional eye complaints and Denies change in vision ENT: Reports system reviewed and no additional complaints, except as documented, Denies dizziness, Denies headache(s), Denies nasal congestion, D enies nasal discharge and Denies neck pain Cardiovascular: Cardiovascular: Reports no additional cardiovascular complaints, Denies chest pain, Denies leg edema and Denies dyspnea Respiratory: Respiratory: Reports no additional respiratory complaints, Denies cough and Denies dyspnea Gastrointestinal: Gastrointestinal: Reports no additional gastrointestinal complaints, Denies abdominal pain, Denies diarrhea, Denies nausea and Denies vom iting Genitourinary: Genitourinary: Denies urinary incontinence Musculoskeletal: Musculoskeletal: Reports no additional musculoskeletal complaints, Denies back pain, Denies arthralgias, Denies joint swelling, Denies neck pain, Denies numbness and Denies tingling Integumentary/Breasts: Skin/Breast: Reports system reviewed and no additional complaints, except as docu, Reports swelling, Reports erythema and Denies rash Neurologic: Reports system reviewed and no additional complaints, except as documented, Denies Abnormal speech present, Denies dizziness, Denies headache(s), Denies numbness, Denies tingling and Denies weakness PMFSH Past Medical History Attestation statement: The following information was validated with the patient. Source: old records reviewed and nursing notes reviewed Medical History CAD (coronary artery disease) Crohn disease Cyst in hand Essential (primary) hypertension Hearing loss in right ear History of acoustic neuroma Hypertension Lipoma of arm Mass of hand Surgical History History of brain tumor History of surgery on arm Hx of appendectomy Hx of colonoscopy S/P cardiac cath (~01/2020) Status post excision of lipoma Stented coronary artery Family History Family History Father No problems noted. Mother No problems noted. Social History Social History Household Members: Spouse Housing: Apartment Do you presently have visiting nurse or other home services: No Alcohol intake: never Patient Tobacco Use Status: Former Tobacco user Tobacco use type: Cigarette Smoked in Last 30 Days: No e-Cigarette/Vaping Use: Never Used Second Hand Smoke Exposure: No Use of substances other than those prescribed or required for medical reasons: No Advance Directives: No service: No Current occupational status: disabled Physical Exam Vital Signs: Vital Signs: Last Vital Signs Temp 99.6 F 01/13/21 07:58 Pulse 100 01/13/21 07:58 Resp 19 01/13/21 07:58 BP 130/81 01/13/21 07:58 Pulse Ox 98 01/13/21 07:58 Body Mass Index 33.5 Const: General: cooperative, healthy appearing, comfortable and no acute distress Orientation/consciousness: patient oriented x3 Limitations: no limitations HENMT: Head: Yes normal to inspection Ears: hearing grossly normal bilaterally General nose exam: Normal external nose present Face and sinus: Yes normal facial exam Mouth: Normal oral and palatal mucosa present Throat: Yes posterior oropharynx normal Eyes: General: appearance normal, both eyes and all related structures P upils: Equal, round and reactive pupils present Neck: Neck: Yes normal visual inspection Chest: Chest palpation & inspection: normal inspection of the chest Resp: Effort & Inspection: normal respiratory effort Auscultation: clear to auscultation bilaterally Cardio: Rate: regular rate Rhythm: regular rhythm Peripheral pulses: Peripheral pulses 2+ throughout GI: Inspection: Yes normal to inspection Palpation (GI): Soft to palpation and nontender Auscultation: normal bowel sounds Back/Spine/Pelvis: Thoracic/Lumbar Spine: thoracic and lumbar spine normal to inspection Skin: Other: Entire left buttocks is swollen, warm, with erythema and induration. No obvious pointing or fluctuance noted. Perineum is spared. No redness or swelling of the testicles General skin exam: no rashes or lesions noted Neuro: General: patient oriented x3, no focal motor deficits and normal sensation to monofilament Cranial nerves: Yes Equal, round and reactive pupils present Cognition (Neuro): normal cognition Speech: No Abnormal speech present Gait exam (Neuro): Normal gait present Motor exam (neuro): 5/5 motor strength present throughout Extrem: General: Yes normal to inspection Course Course Course Narrative: 51-year-old male here with left buttocks swelling and redness for 1 week worsened over the last 24 hours. Patient has an extensive cellulitis of left buttocks. On arrival he is mildly tachycardic with a low-grade fever. At this time infection is suspected. Labs and blood cultures ordered. Antibiotics ordered. CT to eval for drainable collection. 1100-CT shows there is a 3.10 x 2.0 cm left perianal abscess with surrounding edema and induration. Patient has a mild leukocytosis however this is unchanged from previous. Microcytic anemia unchanged from previous. All other labs are unremarkable. The patient was seen with Dr. Apodaca at bedside. A CT scan was reviewed. The areas was anesthestized and an 18g needle was used to aspirate 18ml of purulent drainage at a 45 degree angle. See procedure note. Rectal tone normal before and after procedure. Wound culture sent. Will send patient home with antibiotics and recheck of wound in 48 hours. Reviewed worrisome signs and symptoms of when to return to the emergency department. Comfortable with discharge home. MDM - Wound/Laceration MDM Narrative Medical decision making narrative: cellulitis Differential Diagnosis Differential diagnosis: Likely abscess Medical Records Attestation: I reviewed the patient's medical records. Lab Data Attestation: I reviewed the patient's lab results. Result diagrams: 01/13/21 09:01 01/13/21 09:01 Labs: Lab Results 01/13/21 01/13/21 01/13/21 Range/Units 09:01 09:01 09:01 WBC 13.9 H (4.8-10.8) X10*3/uL RBC 4.11 L (4.60-5.80) X10*6/uL Hgb 9.2 L (14.0-18.0) g/dl Hct 31.0 L (42-52) % MCV 75.4 L (80-98) fL MCH 22.4 L (27.0-33.0) pg MCHC 29.7 L (31.0-36.0) g/dl RDW 17.1 H (11.0-16.0) % Plt Count 271 (160-400) X10*3/uL MPV 8.7 L (9.4-12.4) fL Immature Gran % (Auto) 0.5 H (0.0-0.4) % Neut % (Auto) 73.1 H (45-73) % Lymph % (Auto) 17.9 L (20-40) % [place] % (Auto) 7.5 (2-11) % Eos % (Auto) 0.8 (0-4) % Baso % (Auto) 0.2 (0-2) % Lymph # (Auto) 2.5 (1.2-4.9) X10*3/uL [place] # (Auto) 1.0 (0.1-1.2) X10*3/uL Eos # (Auto) 0.1 (0.0-0.4) X10*3/uL Baso # (Auto) 0.0 (0.0-0.2) X10*3/uL Abs Immat Gran (auto) 0.07 H (0.00-0.03) X10*3/uL Absolute Neuts (auto) 10.2 H (2.0-8.3) X10*3/uL Absolute Nucleated RBC 0.000 (0.0-0.012) X10*3/uL Nucleated RBC % (auto) 0.0 (0.0-0.2) /100WBC Sodium 140 (135-145) mmol/L Potassium 3.3 (3.3-5.1) mmol/L Chloride 105 (96-108) mmol/L Carbon Dioxide 28 (22-29) mmol/L Anion Gap 10 L (12-20) BUN 7 L (9-16) mg/dL Creatinine 1.03 (0.5-1.4) mg/dL Estim Creat Clear Calc 96.1 Estimated GFR > 60 Random Glucose 101 (60-115) mg/dL Lactic Acid 0.8 (0.5-2.0) mmol/L Calcium 8.2 L D (8.4-10.2) mg/dL Total Bilirubin 0.8 (0.0-1.0) mg/dL Direct Bilirubin 0.4 (0.0-0.5) mg/dL AST 12 (5-37) U/L ALT 9 (0-40) U/L Alkaline Phosphatase 48 D (39-117) U/L Total Protein 6.5 (6.5-8.0) g/dL Albumin 3.6 (3.5-5.0) g/dL Imaging Data CT scan - abdomen: Attestation: I personally reviewed and interpreted this imaging study as follows: Radiologist's impression: FINDINGS: PELVIS: There is a 3.10 x 2.0 cm left perianal abscess with surrounding edema and induration. It is best visualized on axial image 52/2 to 53-2. There is nonspecific mild thickening of sigmoid colon likely degenerative distention. No pericolic fat stranding seen. Visualized small bowel loops are unremarkable. No abnormal lymphadenopathy in the pelvis. There are scattered phleboliths in lower pelvis. The urinary bladder is nondistended without any bladder wall thickening. There is no free fluid or free air. OSSEOUS STRUCTURES: There is no lytic or sclerotic process seen.? CT/CT pelvis w con IMPRESSION: Small left perianal abscess with surrounding induration.. Procedures Abscess I/D Site: other (Left buttock) Side (if applicable): left Sedation/analgesia: other (Morphine 4 mg) Local Anesthetic: lidocaine 2% Amount of anesthesia used (mL): 5 Technique: needle aspiration (45 degree angle ) Amount of fluid expressed (mL): 18 Sent for culture/gram staining?: Yes Irrigation: No Packing used?: none Complications: other (No complications. Patient tolerated well) Discharge Plan Discharge Clinical Impression: Abscess Patient Disposition: Home, Self-Care Instructions: Abscess (ED) Additional Instructions: Follow-up for wound check in 48 hours Sitz baths 3 times daily (soaking in water in bathtub covering your legs and bottom with warm water) Return for fever, increasing redness or swelling Prescriptions: New doxycycline monohydrate 100 mg tablet 100 mg PO BID Qty: 20 RF: 0 cephalexin 500 mg capsule 500 mg PO BID Qty: 14 RF: 0 oxycodone 5 mg tablet 5 mg PO Q8H PRN (Reason: pain) Qty: 8 RF: 0 No Action aspirin 81 mg tablet,chewable 81 mg PO DAILY Qty: 30 RF: 2 atorvastatin 80 mg tablet 80 mg PO DAILY Qty: 30 RF: 5 metoprolol tartrate 25 mg tablet 25 mg PO BID 90 Days Qty: 180 RF: 3 Entyvio 300 mg recon soln 300 mg IV Q4W Qty: 1 RF: 6 clopidogrel 75 mg tablet 75 mg PO DAILY Qty: 90 RF: 1 azathioprine 50 mg tablet 50 mg PO DAILY 90 Days Qty: 90 RF: 1 omeprazole 20 mg capsule,delayed release(DR/EC) 20 mg PO DAILY 30 Days Qty: 30 RF: 3 cholecalciferol (vitamin D3) 50 mcg (2,000 unit) capsule 100 mcg PO DAILY 90 Days Qty: 180 RF: 3 Referrals: Chely Madsen MD [Primary Care Provider] - 2 days Interventions: ED Discharge Assessment Last Done: 01/13/21 11:07 Discharge Date/Time: 01/13/21 11:07
[2021-01-13 09:05] LABS: MANUAL DIFF FLAG NO
[2021-01-13 09:07] LABS: Basophils Percent Auto 0.2 % (0-2); Eosinophils Absolute Auto 0.1 X10*3/uL (0.0-0.4); Eosinophils Percent Auto 0.8 % (0-4); Hemoglobin 9.2 g/dl (14.0-18.0); Imm Gran Abs Auto 0.07 X10*3/uL (0.00-0.03); Imm Gran Pct Auto 0.5 % (0.0-0.4); Lymphocytes Absolute Auto 2.5 X10*3/uL (1.2-4.9); Lymphocytes Percent Auto 17.9 % (20-40); Mean Corpuscular HGB Conc 29.7 g/dl (31.0-36.0); Mean Corpuscular Hemoglobin 22.4 pg (27.0-33.0); Mean Corpuscular Volume 75.4 fL (80-98); Mean Platelet Volume 8.7 fL (9.4-12.4); Monocytes Percent Auto 7.5 % (2-11); Neutrophils Absolute Auto 10.2 X10*3/uL (2.0-8.3); Neutrophils Percent Auto 73.1 % (45-73); Platelet Count 271 X10*3/uL (160-400); Red Blood Count 4.11 X10*6/uL (4.60-5.80); Red Cell Distribution Width 17.1 % (11.0-16.0); White Blood Count 13.9 X10*3/uL (4.8-10.8)
[2021-01-13] MEDS: Morphine Sulfate 4 MG/ML CARTRIDGE IVPUSH ×2 (09:09→10:31)
[2021-01-13 09:18] LABS: Lactic Acid 0.8 mmol/L (0.5-2.0)
[2021-01-13 09:23] LABS: Alanine Aminotransferase 9 U/L (0-40); Albumin Level 3.6 g/dL (3.5-5.0); Alkaline Phosphatase 48 U/L (39-117); Anion Gap 10 (12-20); Aspartate Amino Transferase 12 U/L (5-37); Bilirubin Direct 0.4 mg/dL (0.0-0.5); Bilirubin Total 0.8 mg/dL (0.0-1.0); Blood Urea Nitrogen 7 mg/dL (9-16); Calcium 8.2 mg/dL (8.4-10.2); Carbon Dioxide 28 mmol/L (22-29); Chloride 105 mmol/L (96-108); Creatinine Clr Calc Pharmacy 96.1; Estimated Glomerular Filt Rate > 60; Glucose Random 101 mg/dL (60-115); Potassium 3.3 mmol/L (3.3-5.1); Sodium 140 mmol/L (135-145); Total Protein 6.5 g/dL (6.5-8.0)
[2021-01-13] MEDS: Piperacillin Sodium/Tazobactam 3.375 GM in 0.9 % Sodium Chloride 50 ML IV (09:26)
[2021-01-13] MEDS: iohexoL 350 MG/ML 100 ML INFUS..BTL IV (09:43)
[2021-01-13] MEDS: Lidocaine HCl 2 % MPF 5 ML VIAL SUBCUT (10:31)
== END 2021-01-13 11:07 | disposition home or self-care (01) ==
PROVIDERS: Nurse Practitioner Family; Emergency Provider Emergency Medicine; PCP Internal Medicine
DX: L02.31 Cutaneous abscess of buttock (principal); I10 Essential (primary) hypertension; K50.90 Crohn's disease, unspecified, without complications; I25.2 Old myocardial infarction; Z79.01 Long term (current) use of anticoagulants
CPT/HCPCS: 10060; 36415; 72193; 80048; 80076; 83605; 85025; 87040; 87071; 87077; 87186; 87205; 96365; 96375; 96376; 99284; J2270; J2543; Q9967

== ENCOUNTER 2021-01-19 09:18 | Outpatient (REF) | payer MEDICARE, MEDICAID, SELFPAY | END 2021-01-19 09:19 | disposition home or self-care (01) | LOC: HO.MDS 09:18 | PROVIDERS: Visit Provider Internal Medicine Gastroenterology | DX: K51.90 Ulcerative colitis, unspecified, without complications (principal) | CPT/HCPCS: 96365; J3380 ==

== ENCOUNTER 2021-02-16 09:18 | Outpatient (REF) | payer MEDICARE, MEDICAID, SELFPAY | END 2021-02-16 09:19 | disposition home or self-care (01) | LOC: HO.MDS 09:18 | PROVIDERS: Visit Provider Internal Medicine Gastroenterology | DX: K51.90 Ulcerative colitis, unspecified, without complications (principal) | CPT/HCPCS: 96365; J3380 ==

== ENCOUNTER 2021-03-02 11:42 | Emergency (ER) | payer MEDICARE, MEDICAID, SELFPAY ==
--- NOTE | 2021-03-02 | ECG_ITS ---
Test Reason : cp Blood Pressure : / mmHG Vent. Rate : 079 BPM Atrial Rate : 079 BPM P-R Int : 176 ms QRS Dur : 090 ms QT Int : 390 ms P-R-T Axes : 037 065 036 degrees QTc Int : 447 ms Sinus rhythm with Premature atrial complexes with Aberrant conduction Otherwise normal ECG When compared with ECG of 02-JUL-2020 10:44, Aberrant conduction with PACs is now present Referred By: Generic ED Physician Electronically Signed By:BLAKE SANABRIA MD
--- NOTE | ~2021-03-02 | XR_ITS ---
EXAMINATION: XR CHEST CLINICAL INFORMATION: Chest pressure. The kidney COMPARISON: None TECHNIQUE: Frontal view of the chest was obtained. FINDINGS: No significant abnormality is noted involving the heart, lungs, mediastinum, bony thorax or soft tissues. XR/XR chest 1V IMPRESSION: Unremarkable chest examination.
[2021-03-02 11:49] VITALS: BP 136/79; PULSE 73; RESP 18; TEMP 36.6; O2SAT 97; BMI 33.1
[2021-03-02 12:01] LABS: MANUAL DIFF FLAG NO
[2021-03-02 12:03] LABS: Basophils Percent Auto 0.2 % (0-2); Eosinophils Absolute Auto 0.4 X10*3/uL (0.0-0.4); Eosinophils Percent Auto 4.5 % (0-4); Hematocrit 34.3 % (42.0-52.0); Hemoglobin 10.5 g/dl (14.0-18.0); Imm Gran Abs Auto 0.02 X10*3/uL (0.00-0.03); Imm Gran Pct Auto 0.2 % (0.0-0.4); Lymphocytes Absolute Auto 3.6 X10*3/uL (1.2-4.9); Lymphocytes Percent Auto 38.8 % (20-40); Mean Corpuscular HGB Conc 30.6 g/dl (31.0-36.0); Mean Corpuscular Hemoglobin 24.3 pg (27.0-33.0); Mean Corpuscular Volume 79.4 fL (80.0-98.0); Mean Platelet Volume 9.5 fL (9.4-12.4); Monocytes Absolute Auto 0.6 X10*3/uL (0.1-1.2); Monocytes Percent Auto 6.4 % (2-11); Neutrophils Absolute Auto 4.6 x10*3/uL (2.0-8.3); Neutrophils Percent Auto 49.9 % (45-73); Platelet Count 272 X10*3/uL (160-400); Red Blood Count 4.32 X10*6/uL (4.60-5.80); Red Cell Distribution Width 18.1 % (11.0-16.0); White Blood Count 9.3 X10*3/uL (4.8-10.8)
[2021-03-02 12:21] LABS: Anion Gap 10 (12-20); Blood Urea Nitrogen 7 mg/dL (9-16); Calcium 9.1 mg/dL (8.4-10.2); Carbon Dioxide 26 mmol/L (22-29); Chloride 108 mmol/L (96-108); Creatinine Clr Calc Pharmacy 102.6; Estimated Glomerular Filt Rate > 60; Glucose Random 103 mg/dL (60-115); Potassium 3.9 mmol/L (3.3-5.1); Sodium 140 mmol/L (135-145)
[2021-03-02 12:22] LABS: Troponin-I High Sensitivity < 3.5 ng/L (<3.5-35.0)
--- NOTE | 2021-03-02 13:20 | ED_ITS ---
HPI - Chest Pain General Chief Complaint: Chest Pain <PEARL Salinas - Last Filed: 03/02/21 16:12> Stated Complaint: arm pain/burning <PEARL Salinas - Last Filed: 03/02/21 16:12> Time Seen by Provider: 03/02/21 13:20 <PEARL Salinas - Last Filed: 03/02/21 16:12> Source: patient <PEARL Salinas - Last Filed: 03/02/21 16:12> Mode of arrival: ambulatory <PEARL Salinas Last Filed: 03/02/21 16:12> Limitations: no limitations <PEARL Salinas - Last Filed: 03/02/21 16:12> History of Present Illness HPI narrative: 51-year-old male past medical history significant for NSTEMI, ACS, colitis, iron deficiency anemia, CAD(s/p cath in 2019), HTN, crohns disease presents to the ED with complains of chest pain that has been going on for 4 days. Patient tells me that at times he fells pain radiating down bilateral arms, and at times he feels burning to his right bicep. He tells me that the pain fluctuates between a 2/10 and a 10/10. He cannot tell me what makes the pain better or worse. Tells me he has had chest pain like this in the past. He take 81 mg of aspirin at home today. He reports intermittent SOB. Denies weakness, headache, vision changes, nausea, vomiting, abdominal pain, dizziness. <PEARL Salinas - Last Filed: 03/02/21 16:12> MD complaint: chest pain <PEARL Salinas Last Filed: 03/02/21 16:12> Pertinent past history: coronary artery disease and prior NH <PEARL Salinas Last Filed: 03/02/21 16:12> Onset (ago): day(s) (4) <PEARL Salinas Last Filed: 03/02/21 16:12> Timing of current episode: episodic <PEARL Salinas Last Filed: 03/02/21 16:12> Prior episodes: Yes <PEARL Salinas - Last Filed: 03/02/21 16:12> Onset: during rest <PEARL Salinas - Last Filed: 03/02/21 16:12> Pain location: substernal <PEARL Salinas - Last Filed: 03/02/21 16:12> Pain radiation: right arm and left arm <PEARL Salinas - Last Filed: 03/02/21 16:12> Severity: severe <PEARL Salinas - Last Filed: 03/02/21 16:12> Quality: sharp <PEARL Salinas - Last Filed: 03/02/21 16:12> Relieving factors: nothing <PEARL Salinas - Last Filed: 03/02/21 16:12> Exacerbating factors: nothing <PEARL Salinas - Last Filed: 03/02/21 16:12> Treatment prior to arrival: none <PEARL Salinas - Last Filed: 03/02/21 16:12> Related Data Home Medications: Previous Rx's Medication Instructions Recorded aspirin 81 mg chewable tablet 81 mg PO DAILY #30 tab 03/13/20 atorvastatin 80 mg tablet 80 mg PO DAILY #30 tab 07/21/20 metoprolol tartrate 25 mg tablet 25 mg PO BID 90 Days #180 tab 08/22/20 vedolizumab 300 mg intravenous 300 mg IV Q4W #1 ea 12/15/20 solution (Entyvio) azathioprine 50 mg tablet 50 mg PO DAILY 90 Days #90 tab 01/05/21 clopidogrel 75 mg tablet 75 mg PO DAILY #90 tab 01/05/21 omeprazole 20 mg capsule,delayed 20 mg PO DAILY 30 Days #30 cap 01/05/21 release ferrous sulfate 325 mg (65 mg 325 mg PO DAILY 90 Days #90 tab 02/09/21 iron) tablet <PEARL Salinas Last Filed: 03/02/21 16:12> Allergies/Adverse Reactions: Allergies Allergy/AdvReac Type Severity Reaction Status Date / Time Seasonal Allergies Allergy Intermediate eye Verified 03/02/21 11:49 swelling, itch <PEARL Salinas - Last Filed: 03/02/21 16:12> Review of Systems Review of Systems: Constitutional : No Weight loss, No Fever, No Chills, No Fatigue, No Malaise ENT/Mouth : No sore throat, No Rhinorrhea Eyes: No Eye Pain, No Swelling, No Redness Cardiovascular : + Chest Pain, No SOB, No Dyspnea on Exertion, No Orthopnea, No Edema, No Palpitations Respiratory : No Cough, No Sputum, No Wheezing Gastrointestinal : No Nausea, No Vomiting, No Diarrhea, No Constipation, No abdominal Pain, No Hematochezia, No Melena Genitourinary : No Dysuria, No Urinary Frequency, No Hematuria, Musculoskeletal : No joint pain, No Myalgias, No Joint Swelling Skin : No Skin Lesions, No rash Neuro : No Weakness, No Numbness, No Dizziness, No Headache All other systems reviewed and are negative <PEARL Salinas - Last Filed: 03/02/21 16:12> Yes all other systems are reviewed and are negative <PEARL Salinas - Last Filed: 03/02/21 16:12> [facility] Past Medical History Attestation statement: The following information was validated with the patient. <PEARL Salinas - Last Filed: 03/02/21 16:12> Source: old records reviewed and nursing notes reviewed <PEARL Salinas - Last Filed: 03/02/21 16:12> Medical History: Medical History CAD (coronary artery disease) Crohn disease Cyst in hand Essential (primary) hypertension Hearing loss in right ear History of acoustic neuroma Hypertension Iron deficiency anemia due to chronic blood loss Lipoma of arm Mass of hand Medicare annual wellness visit, initial Myocardial infarction <PEARL Salinas Last Filed: 03/02/21 16:12> Surgical History: Surgical History History of brain tumor History of surgery on arm Hx of appendectomy Hx of colonoscopy S/P cardiac cath (~01/2020) Status post excision of lipoma Stented coronary artery <PEARL Salinas - Last Filed: 03/02/21 16:12> Family History Family History: Family History Father Stroke Mother No problems noted. Maternal Uncle Heart attack <PEARL Salinas - Last Filed: 03/02/21 16:12> Social History Social History: Social History Household Members: Spouse Housing: Apartment Do you presently have visiting nurse or other home services: No Alcohol intake: former Patient Tobacco Use Status: Former Tobacco user Quit Date: 2007 Tobacco use type: Cigarette Cigarette Packs Per Day: 1 e-Cigarette/Vaping Use: Never Used Second Hand Smoke Exposure: No Advance Directives: No Advance Directives Information Provided: Yes service: No Current occupational status: disabled <PEARL Salinas - Last Filed: 03/02/21 16:12> Physical Exam Vital Signs: Vital Signs: Last Vital Signs Temp 97.8 F 03/02/21 11:49 Pulse 70 03/02/21 13:27 Resp 18 03/02/21 13:27 BP 127/78 03/02/21 13:27 Pulse Ox 99 03/02/21 13:27 BMI result Body Mass Index 33.1 VSS <PEARL Salinas - Last Filed: 03/02/21 16:12> Vital Signs: Last Vital Signs Temp 97.8 F 03/02/21 11:49 Pulse 70 03/02/21 13:27 Resp 18 03/02/21 13:27 BP 127/78 03/02/21 13:27 Pulse Ox 99 03/02/21 13:27 BMI result Body Mass Index 33.1 <Demetrius Puckett MD - Last Filed: 03/02/21 16:11> Appearance: Alert.? Oriented X3.? No acute distress.? Head: Normocephalic, atraumatic, no step-offs or deformities Eyes: Pupils equal, round and reactive to light.? ENT: Pharynx normal.? Neck: Normal inspection.? Neck supple.? CVS: Normal heart rate and rhythm.? Pulses normal.? Respiratory: No respiratory distress.? Breath sounds normal.? Abdomen: Soft and nontender.? Skin: Skin warm and dry.? Normal skin color.? Normal skin turgor.? Extremities: No lower extremity edema.? No calf ttp. 5/5 strength to bilateral upper and lower extremities Back: No midline tenderness, no C-spine tenderness, full range of motion, no CVA tenderness bilaterally Neuro: Oriented X 3.? No motor deficit.? No sensory deficit. <PEARL Salinas - Last Filed: 03/02/21 16:12> Course Reevaluation(s) Reevaluation #1: Labs show no leukocytosis, a baseline anemia is noted, no acute electrolyte abnormalities. Troponin is negative. Patient comfortable walking around the ED in no distress. <PEARL Salinas - Last Filed: 03/02/21 16:12> Time: 14:42 <PEARL Salinas - Last Filed: 03/02/21 16:12> Reevaluation #2: Second troponin is negative. EKG with no ischemic changes. Unlikley ACS. Patient tells me he is no longer having chest pain. He tells me that ever since he had his catheterization in January of 2020 he gets very nervous every time he feels chest discomfort any comes to the emergency department. He tells me he feels better. Patient sees Dr. Hendrix out patient he tells me. Unlikely that this is ACS. Patient is safe for discharge home with PCP and cardiology follow- up. I have given patient strict return precautions. <PEARL Salinas - Last Filed: 03/02/21 16:12> Time: 15:54 <PEARL Salinas - Last Filed: 03/02/21 16:12> Reevaluation #3: I have discussed the plan with the PA <Demetrius Puckett MD - Last Filed: 03/02/21 16:11> Time: 16:11 <Demetrius Puckett MD - Last Filed: 03/02/21 16:11> MDM - Chest Pain MDM Narrative Medical decision making narrative: 1320 51-year-old male with an extensive medical history presents to the emergency department with intermittent substernal chest pain that at time radiates down both arms, and at times reports a burning sensation to right bicep x4 days that fluctuates between 2/10, 10/10. Chest pain started while patient was at rest. Benign physical examination Plan at this time is to obtain basic labs, chest x-ray, COVID, troponin, EKG. Place patient will be placed on continuous cardiac monitoring <PEARL Salinas - Last Filed: 03/02/21 16:12> Medical Records Data Attestation: I reviewed the patient's medical records. <PEARL Salinas - Last Filed: 03/02/21 16:12> Lab Data Attestation: I reviewed the patient's lab results. <PEARL Salinas - Last Filed: 03/02/21 16:12> Result diagrams: : 03/02/21 15:16 03/02/21 15:15 <PEARL Salinas - Last Filed: 03/02/21 16:12> Labs: Lab Results 03/02/21 03/02/21 03/02/21 Range/Units 11:56 11:56 11:56 WBC 9.3 (4.8-10.8) X10*3/uL RBC 4.32 L (4.60-5.80) X10*6/uL Hgb 10.5 L (14.0-18.0) g/dl Hct 34.3 L (42.0-52.0) % MCV 79.4 L (80.0-98.0) fL MCH 24.3 L (27.0-33.0) pg MCHC 30.6 L (31.0-36.0) g/dl RDW 18.1 H (11.0-16.0) % Plt Count 272 (160-400) X10*3/uL MPV 9.5 (9.4-12.4) fL Immature Gran % (Auto) 0.2 (0.0-0.4) % Neut % (Auto) 49.9 (45-73) % Lymph % (Auto) 38.8 (20-40) % [place] % (Auto) 6.4 (2-11) % Eos % (Auto) 4.5 H (0-4) % Baso % (Auto) 0.2 (0-2) % Lymph # (Auto) 3.6 (1.2-4.9) X10*3/uL [place] # (Auto) 0.6 (0.1-1.2) X10*3/uL Eos # (Auto) 0.4 (0.0-0.4) X10*3/uL Baso # (Auto) 0.0 (0.0-0.2) X10*3/uL Abs Immat Gran (auto) 0.02 (0.00-0.03) X10*3/uL Absolute Neuts (auto) 4.6 (2.0-8.3) x10*3/uL Absolute Nucleated RBC 0.000 (0.0-0.012) X10*3/uL Nucleated RBC % (auto) 0.0 (0.0-0.2) /100WBC Sodium 140 (135-145) mmol/L Potassium 3.9 (3.3-5.1) mmol/L Chloride 108 (96-108) mmol/L Carbon Dioxide 26 (22-29) mmol/L Anion Gap 10 L (12-20) BUN 7 L (9-16) mg/dL Creatinine 0.96 (0.5-1.4) mg/dL Estim Creat Clear Calc 102.6 Estimated GFR > 60 Random Glucose 103 (60-115) mg/dL Calcium 9.1 (8.4-10.2) mg/dL Magnesium (1.6-2.6) mg/dL Total Bilirubin (0.0-1.0) mg/dL AST (5-37) U/L ALT (0-40) U/L Alkaline Phosphatase (39-117) U/L Troponin I High Sens < 3.5 (<3.5-35.0) ng/L Total Protein (6.5-8.0) g/dL Albumin (3.5-5.0) g/dL COVID-19 ([facility]) (Negative) COVID-19 Clin Com 03/02/21 03/02/21 03/02/21 Range/Units 15:09 15:15 15:16 WBC (4.8-10.8) X10*3/uL RBC (4.60-5.80) X10*6/uL Hgb (14.0-18.0) g/dl Hct (42.0-52.0) % MCV (80.0-98.0) fL MCH (27.0-33.0) pg MCHC (31.0-36.0) g/dl RDW (11.0-16.0) % Plt Count (160-400) X10*3/uL MPV (9.4-12.4) fL Immature Gran % (Auto) (0.0-0.4) % Neut % (Auto) (45-73) % Lymph % (Auto) (20-40) % [place] % (Auto) (2-11) % Eos % (Auto) (0-4) % Baso % (Auto) (0-2) % Lymph # (Auto) (1.2-4.9) X10*3/uL [place] # (Auto) (0.1-1.2) X10*3/uL Eos # (Auto) (0.0-0.4) X10*3/uL Baso # (Auto) (0.0-0.2) X10*3/uL Abs Immat Gran (auto) (0.00-0.03) X10*3/uL Absolute Neuts (auto) (2.0-8.3) x10*3/uL Absolute Nucleated RBC (0.0-0.012) X10*3/uL Nucleated RBC % (auto) (0.0-0.2) /100WBC Sodium 141 (135-145) mmol/L Potassium 4.0 (3.3-5.1) mmol/L Chloride 108 (96-108) mmol/L Carbon Dioxide 26 (22-29) mmol/L Anion Gap 11 L (12-20) BUN 7 L (9-16) mg/dL Creatinine 0.92 (0.5-1.4) mg/dL Estim Creat Clear Calc 107.0 Estimated GFR > 60 Random Glucose 85 (60-115) mg/dL Calcium 9.3 (8.4-10.2) mg/dL Magnesium 1.9 (1.6-2.6) mg/dL Total Bilirubin 0.4 (0.0-1.0) mg/dL AST 15 (5-37) U/L ALT 14 (0-40) U/L Alkaline Phosphatase 63 (39-117) U/L Troponin I High Sens < 3.5 (<3.5-35.0) ng/L Total Protein 7.1 (6.5-8.0) g/dL Albumin 3.9 (3.5-5.0) g/dL COVID-19 ([facility]) Negative (Negative) COVID-19 Clin Com See Note 03/02/21 Range/Units 15:16 WBC 8.9 (4.8-10.8) X10*3/uL RBC 4.42 L (4.60-5.80) X10*6/uL Hgb 10.3 L (14.0-18.0) g/dl Hct 35.0 L (42.0-52.0) % MCV 79.2 L (80.0-98.0) fL MCH 23.3 L (27.0-33.0) pg MCHC 29.4 L (31.0-36.0) g/dl RDW 18.4 H (11.0-16.0) % Plt Count 262 (160-400) X10*3/uL MPV 9.6 (9.4-12.4) fL Immature Gran % (Auto) 0.3 (0.0-0.4) % Neut % (Auto) 48.1 (45-73) % Lymph % (Auto) 41.3 H (20-40) % [place] % (Auto) 5.9 (2-11) % Eos % (Auto) 4.2 H (0-4) % Baso % (Auto) 0.2 (0-2) % Lymph # (Auto) 3.7 (1.2-4.9) X10*3/uL [place] # (Auto) 0.5 (0.1-1.2) X10*3/uL Eos # (Auto) 0.4 (0.0-0.4) X10*3/uL Baso # (Auto) 0.0 (0.0-0.2) X10*3/uL Abs Immat Gran (auto) 0.03 (0.00-0.03) X10*3/uL Absolute Neuts (auto) 4.3 (2.0-8.3) x10*3/uL Absolute Nucleated RBC 0.000 (0.0-0.012) X10*3/uL Nucleated RBC % (auto) 0.0 (0.0-0.2) /100WBC Sodium (135-145) mmol/L Potassium (3.3-5.1) mmol/L Chloride (96-108) mmol/L Carbon Dioxide (22-29) mmol/L Anion Gap (12-20) BUN (9-16) mg/dL Creatinine (0.5-1.4) mg/dL Estim Creat Clear Calc Estimated GFR Random Glucose (60-115) mg/dL Calcium (8.4-10.2) mg/dL Magnesium (1.6-2.6) mg/dL Total Bilirubin (0.0-1.0) mg/dL AST (5-37) U/L ALT (0-40) U/L Alkaline Phosphatase (39-117) U/L Troponin I High Sens (<3.5-35.0) ng/L Total Protein (6.5-8.0) g/dL Albumin (3.5-5.0) g/dL COVID-19 ([facility]) (Negative) COVID-19 Clin Com <PEARL Salinas - Last Filed: 03/02/21 16:12> Lab Results 03/02/21 03/02/21 03/02/21 Range/Units 11:56 11:56 11:56 WBC 9.3 (4.8-10.8) X10*3/uL RBC 4.32 L (4.60-5.80) X10*6/uL Hgb 10.5 L (14.0-18.0) g/dl Hct 34.3 L (42.0-52.0) % MCV 79.4 L (80.0-98.0) fL MCH 24.3 L (27.0-33.0) pg MCHC 30.6 L (31.0-36.0) g/dl RDW 18.1 H (11.0-16.0) % Plt Count 272 (160-400) X10*3/uL MPV 9.5 (9.4-12.4) fL Immature Gran % (Auto) 0.2 (0.0-0.4) % Neut % (Auto) 49.9 (45-73) % Lymph % (Auto) 38.8 (20-40) % [place] % (Auto) 6.4 (2-11) % Eos % (Auto) 4.5 H (0-4) % Baso % (Auto) 0.2 (0-2) % Lymph # (Auto) 3.6 (1.2-4.9) X10*3/uL [place] # (Auto) 0.6 (0.1-1.2) X10*3/uL Eos # (Auto) 0.4 (0.0-0.4) X10*3/uL Baso # (Auto) 0.0 (0.0-0.2) X10*3/uL Abs Immat Gran (auto) 0.02 (0.00-0.03) X10*3/uL Absolute Neuts (auto) 4.6 (2.0-8.3) x10*3/uL Absolute Nucleated RBC 0.000 (0.0-0.012) X10*3/uL Nucleated RBC % (auto) 0.0 (0.0-0.2) /100WBC Sodium 140 (135-145) mmol/L Potassium 3.9 (3.3-5.1) mmol/L Chloride 108 (96-108) mmol/L Carbon Dioxide 26 (22-29) mmol/L Anion Gap 10 L (12-20) BUN 7 L (9-16) mg/dL Creatinine 0.96 (0.5-1.4) mg/dL Estim Creat Clear Calc 102.6 Estimated GFR > 60 Random Glucose 103 (60-115) mg/dL Calcium 9.1 (8.4-10.2) mg/dL Magnesium (1.6-2.6) mg/dL Total Bilirubin (0.0-1.0) mg/dL AST (5-37) U/L ALT (0-40) U/L Alkaline Phosphatase (39-117) U/L Troponin I High Sens < 3.5 (<3.5-35.0) ng/L Total Protein (6.5-8.0) g/dL Albumin (3.5-5.0) g/dL COVID-19 ([facility]) (Negative) COVID-19 Clin Com 03/02/21 03/02/21 03/02/21 Range/Units 15:09 15:15 15:16 WBC (4.8-10.8) X10*3/uL RBC (4.60-5.80) X10*6/uL Hgb (14.0-18.0) g/dl Hct (42.0-52.0) % MCV (80.0-98.0) fL MCH (27.0-33.0) pg MCHC (31.0-36.0) g/dl RDW (11.0-16.0) % Plt Count (160-400) X10*3/uL MPV (9.4-12.4) fL Immature Gran % (Auto) (0.0-0.4) % Neut % (Auto) (45-73) % Lymph % (Auto) (20-40) % [place] % (Auto) (2-11) % Eos % (Auto) (0-4) % Baso % (Auto) (0-2) % Lymph # (Auto) (1.2-4.9) X10*3/uL [place] # (Auto) (0.1-1.2) X10*3/uL Eos # (Auto) (0.0-0.4) X10*3/uL Baso # (Auto) (0.0-0.2) X10*3/uL Abs Immat Gran (auto) (0.00-0.03) X10*3/uL Absolute Neuts (auto) (2.0-8.3) x10*3/uL Absolute Nucleated RBC (0.0-0.012) X10*3/uL Nucleated RBC % (auto) (0.0-0.2) /100WBC Sodium 141 (135-145) mmol/L Potassium 4.0 (3.3-5.1) mmol/L Chloride 108 (96-108) mmol/L Carbon Dioxide 26 (22-29) mmol/L Anion Gap 11 L (12-20) BUN 7 L (9-16) mg/dL Creatinine 0.92 (0.5-1.4) mg/dL Estim Creat Clear Calc 107.0 Estimated GFR > 60 Random Glucose 85 (60-115) mg/dL Calcium 9.3 (8.4-10.2) mg/dL Magnesium 1.9 (1.6-2.6) mg/dL Total Bilirubin 0.4 (0.0-1.0) mg/dL AST 15 (5-37) U/L ALT 14 (0-40) U/L Alkaline Phosphatase 63 (39-117) U/L Troponin I High Sens < 3.5 (<3.5-35.0) ng/L Total Protein 7.1 (6.5-8.0) g/dL Albumin 3.9 (3.5-5.0) g/dL COVID-19 ([facility]) Negative (Negative) COVID-19 Clin Com See Note 03/02/21 Range/Units 15:16 WBC 8.9 (4.8-10.8) X10*3/uL RBC 4.42 L (4.60-5.80) X10*6/uL Hgb 10.3 L (14.0-18.0) g/dl Hct 35.0 L (42.0-52.0) % MCV 79.2 L (80.0-98.0) fL MCH 23.3 L (27.0-33.0) pg MCHC 29.4 L (31.0-36.0) g/dl RDW 18.4 H (11.0-16.0) % Plt Count 262 (160-400) X10*3/uL MPV 9.6 (9.4-12.4) fL Immature Gran % (Auto) 0.3 (0.0-0.4) % Neut % (Auto) 48.1 (45-73) % Lymph % (Auto) 41.3 H (20-40) % [place] % (Auto) 5.9 (2-11) % Eos % (Auto) 4.2 H (0-4) % Baso % (Auto) 0.2 (0-2) % Lymph # (Auto) 3.7 (1.2-4.9) X10*3/uL [place] # (Auto) 0.5 (0.1-1.2) X10*3/uL Eos # (Auto) 0.4 (0.0-0.4) X10*3/uL Baso # (Auto) 0.0 (0.0-0.2) X10*3/uL Abs Immat Gran (auto) 0.03 (0.00-0.03) X10*3/uL Absolute Neuts (auto) 4.3 (2.0-8.3) x10*3/uL Absolute Nucleated RBC 0.000 (0.0-0.012) X10*3/uL Nucleated RBC % (auto) 0.0 (0.0-0.2) /100WBC Sodium (135-145) mmol/L Potassium (3.3-5.1) mmol/L Chloride (96-108) mmol/L Carbon Dioxide (22-29) mmol/L Anion Gap (12-20) BUN (9-16) mg/dL Creatinine (0.5-1.4) mg/dL Estim Creat Clear Calc Estimated GFR Random Glucose (60-115) mg/dL Calcium (8.4-10.2) mg/dL Magnesium (1.6-2.6) mg/dL Total Bilirubin (0.0-1.0) mg/dL AST (5-37) U/L ALT (0-40) U/L Alkaline Phosphatase (39-117) U/L Troponin I High Sens (<3.5-35.0) ng/L Total Protein (6.5-8.0) g/dL Albumin (3.5-5.0) g/dL COVID-19 ([facility]) (Negative) COVID-19 Clin Com <Demetrius Puckett MD - Last Filed: 03/02/21 16:11> Imaging Data Chest x-ray: Attestation: I personally reviewed and interpreted this imaging study as follows: <PEARL Salinas - Last Filed: 03/02/21 16:12> Radiologist's impression: FINDINGS: No significant abnormality is noted involving the heart, lungs, mediastinum, bony thorax or soft tissues. XR/XR chest 1V IMPRESSION: Unremarkable chest examination. <PEARL Salinas - Last Filed: 03/02/21 16:12> ECG Data ECG #1: Attestation: I personally reviewed and interpreted this ECG as follows: <PEARL Salinas - Last Filed: 03/02/21 16:12> ECG interpretation date: 03/02/21 <PEARL Salinas - Last Filed: 03/02/21 16:12> ECG interpretation time: 14:43 <PEARL Salinas - Last Filed: 03/02/21 16:12> Prior ECG tracings: available for review <PEARL Salinas - Last Filed: 03/02/21 16:12> Interpretation: Ventricular rate of 79, AL normal, QRS normal, QT/QTC normal. EKG shows sinus rhythm with premature atrial complexes. No acute ischemia. No acute changes when compared to EKG of July 02, 2020. <PEARL Salinas - Last Filed: 03/02/21 16:12> Critical Care Time Critical Care Time Critical Care Time: No <PEARL Salinas - Last Filed: 03/02/21 16:12> Discharge Plan Discharge Clinical Impression: Chest pain <PEARL Salinas - Last Filed: 03/02/21 16:12> Patient Disposition: Home, Self-Care <PEARL Salinas - Last Filed: 03/02/21 16:12> Instructions: Chest Pain (ED), Chest Wall Pain (ED) <PEARL Salinas - Last Filed: 03/02/21 16:12> Additional Instructions: Take your medications as prescribed. If you were prescribed antibiotics today, it is important that you take your medication to their entirety, do not skip any doses, do not finish them early. Follow-up with your primary care provider this week. Follow-up with cardiology this week. Return to the emergency department with new or worsening symptoms. In case of emergency call 911 <PEARL Salinas - Last Filed: 03/02/21 16:12> Prescriptions: No Action aspirin 81 mg tablet,chewable 81 mg PO DAILY Qty: 30 RF: 2 atorvastatin 80 mg tablet 80 mg PO DAILY Qty: 30 RF: 5 metoprolol tartrate 25 mg tablet 25 mg PO BID 90 Days Qty: 180 RF: 3 Entyvio 300 mg recon soln 300 mg IV Q4W Qty: 1 RF: 6 clopidogrel 75 mg tablet 75 mg PO DAILY Qty: 90 RF: 1 ferrous sulfate 325 mg (65 mg iron) tablet 325 mg PO DAILY 90 Days Qty: 90 RF: 0 azathioprine 50 mg tablet 50 mg PO DAILY 90 Days Qty: 90 RF: 1 omeprazole 20 mg capsule,delayed release(DR/EC) 20 mg PO DAILY 30 Days Qty: 30 RF: 3 <PEARL Salinas - Last Filed: 03/02/21 16:12> Referrals: Chely Madsen MD [Primary Care Provider] - 2 days Jethro Howell MD [Physician] - 1 week <PEARL Salinas - Last Filed: 03/02/21 16:12> Stand Alone Forms: Work/School Release <PEARL Salinas - Last Filed: 03/02/21 16:12>
[2021-03-02 13:27] VITALS: BP 127/78; PULSE 70; RESP 18; O2SAT 99
[2021-03-02 15:20] LABS: MANUAL DIFF FLAG NO
[2021-03-02 15:25] LABS: Basophils Percent Auto 0.2 % (0-2); Eosinophils Absolute Auto 0.4 X10*3/uL (0.0-0.4); Eosinophils Percent Auto 4.2 % (0-4); Hemoglobin 10.3 g/dl (14.0-18.0); Imm Gran Abs Auto 0.03 X10*3/uL (0.00-0.03); Imm Gran Pct Auto 0.3 % (0.0-0.4); Lymphocytes Absolute Auto 3.7 X10*3/uL (1.2-4.9); Lymphocytes Percent Auto 41.3 % (20-40); Mean Corpuscular HGB Conc 29.4 g/dl (31.0-36.0); Mean Corpuscular Hemoglobin 23.3 pg (27.0-33.0); Mean Corpuscular Volume 79.2 fL (80.0-98.0); Mean Platelet Volume 9.6 fL (9.4-12.4); Monocytes Absolute Auto 0.5 X10*3/uL (0.1-1.2); Monocytes Percent Auto 5.9 % (2-11); Neutrophils Absolute Auto 4.3 x10*3/uL (2.0-8.3); Neutrophils Percent Auto 48.1 % (45-73); Platelet Count 262 X10*3/uL (160-400); Red Blood Count 4.42 X10*6/uL (4.60-5.80); Red Cell Distribution Width 18.4 % (11.0-16.0); White Blood Count 8.9 X10*3/uL (4.8-10.8)
[2021-03-02 15:36] LABS: COVID-19 Test Negative (Negative); IDNOW Serial# 9DD0AD1C
[2021-03-02 15:36] LABS: Alanine Aminotransferase 14 U/L (0-40); Albumin Level 3.9 g/dL (3.5-5.0); Alkaline Phosphatase 63 U/L (39-117); Anion Gap 11 (12-20); Aspartate Amino Transferase 15 U/L (5-37); Bilirubin Total 0.4 mg/dL (0.0-1.0); Blood Urea Nitrogen 7 mg/dL (9-16); Calcium 9.3 mg/dL (8.4-10.2); Carbon Dioxide 26 mmol/L (22-29); Chloride 108 mmol/L (96-108); Estimated Glomerular Filt Rate > 60; Glucose Random 85 mg/dL (60-115); Magnesium 1.9 mg/dL (1.6-2.6); Sodium 141 mmol/L (135-145); Total Protein 7.1 g/dL (6.5-8.0)
[2021-03-02 15:41] LABS: Troponin-I High Sensitivity < 3.5 ng/L (<3.5-35.0)
== END 2021-03-02 16:30 | disposition home or self-care (01) ==
PROVIDERS: Physician Assistant; Emergency Provider Emergency Medicine; PCP Internal Medicine
DX: R07.9 Chest pain, unspecified (principal); D64.9 Anemia, unspecified; I10 Essential (primary) hypertension; I25.10 Atherosclerotic heart disease of native coronary artery without angina pectoris; I25.2 Old myocardial infarction; Z20.822 Contact with and (suspected) exposure to COVID-19
CPT/HCPCS: 36415; 71045; 80048; 80053; 83735; 84484; 85025; 87635; 93005; 99284

== ENCOUNTER 2021-03-16 09:08 | Outpatient (REF) | payer MEDICARE, MEDICAID, SELFPAY | END 2021-03-16 09:09 | disposition home or self-care (01) | LOC: HO.MDS 09:08 | PROVIDERS: PCP Internal Medicine; Visit Provider Internal Medicine Gastroenterology | DX: K51.90 Ulcerative colitis, unspecified, without complications (principal) | CPT/HCPCS: 96365; J3380 ==

== ENCOUNTER 2021-04-01 10:31 | Outpatient (REF) | payer MEDICARE, MEDICAID, SELFPAY ==
[2021-04-01 11:34] LABS: COVID-19 Test Negative (Negative)
== END 2021-04-01 10:32 | disposition home or self-care (01) ==
LOC: HO.LAB 10:31
PROVIDERS: Visit Provider Internal Medicine
DX: Z20.822 Contact with and (suspected) exposure to COVID-19 (principal)
CPT/HCPCS: 87635; C9803

== ENCOUNTER 2021-04-13 08:59 | Outpatient (REF) | payer MEDICARE, MEDICAID, SELFPAY | END 2021-04-13 09:00 | disposition home or self-care (01) | LOC: HO.MDS 08:59 | PROVIDERS: Visit Provider Internal Medicine Gastroenterology | DX: K51.90 Ulcerative colitis, unspecified, without complications (principal) | CPT/HCPCS: 96365; 99212; J3380 ==

== ENCOUNTER 2021-05-14 09:30 | Outpatient (REF) | payer MEDICARE, MEDICAID, SELFPAY | END 2021-05-14 09:31 | disposition home or self-care (01) | LOC: HO.MDS 09:30 | PROVIDERS: Visit Provider Internal Medicine Gastroenterology | DX: K51.90 Ulcerative colitis, unspecified, without complications (principal) | CPT/HCPCS: 96365; J3380 ==

== ENCOUNTER 2021-06-11 09:14 | Outpatient (REF) | payer MEDICARE, MEDICAID, SELFPAY ==
[2021-06-13 11:12] LABS: TS Negative Control Passed; TS Panel A 0; TS Panel B 1; TS Positive Control Passed; TSpotTB Negative (Negative)
== END 2021-06-11 09:15 | disposition home or self-care (01) ==
LOC: HO.MDS 09:14
PROVIDERS: Visit Provider Internal Medicine Gastroenterology
DX: K51.90 Ulcerative colitis, unspecified, without complications (principal)
CPT/HCPCS: 36415; 86481; 96365; J3380

== ENCOUNTER 2021-06-22 09:24 | Emergency (ER) | payer OTHER, SELFPAY ==
--- NOTE | 2021-06-22 09:40 | ED_ITS ---
HPI - Nausea/Vomiting/Diarrhea General Chief complaint: Nausea/Vomiting/Diarrhea Stated complaint: N/V/D Time Seen by Provider: 06/22/21 09:40 Source: patient Mode of arrival: ambulatory Limitations: no limitations History of Present Illness HPI Narrative: 51 y/o male with history of GERD, inflammatory bowel disease, colitis, GI bleed, CAD with hx NSTEMI who presents to the ER with 4 days of nausea, vomiting, and diarrhea. He states on Tuesday morning he was not feeling well, he ate some soup and some fish for lunch. That night he started with violent episodes of vomiting all night. Tuesday he had 2 more episodes and then started having multiple episodes of loose, watery diarrhea. It has been non-bloody. He states for the last 2 days he has had countless watery BM's, one an hour overnight and he was incontinent x1. Vomiting stopped. Last night he started having right sided chest pain that radiated to his right arm, similar to when he had his NSTEMI. He states the pain is now gone, no SOB or diaphoresis. He is on Entyvio for his IBD - states he sees GI here and he has both UC & Crohn's disease. MD elicited complaint: nausea, vomiting and diarrhea Pertinent past history: other Onset (ago): day(s) (4) Description of vomiting: food contents Description of diarrhea: watery Associated nausea: Yes Associated abdominal pain: Yes Location of pain: diffuse Pain consistency: intermittent Severity: mild Quality: cramping Exacerbating factors: eating Relieving factors: none Associated symptoms: myalgias, loss of appetite, malaise, nausea/vomiting, weakness, fecal incontinence and fatigue Treatment prior to arrival: immodium Related Data Home Medications Medication Instructions Recorded Confirmed ascorbic acid (vitamin C) 500 mg 500 mg PO DAILY 04/07/21 05/27/21 tablet (Vitamin C) Previous Rx's Medication Instructions Recorded aspirin 81 mg chewable tablet 81 mg PO DAILY #30 tab 03/13/20 metoprolol tartrate 25 mg tablet 25 mg PO BID 90 Days #180 tab 08/22/20 vedolizumab 300 mg intravenous 300 mg IV Q4W #1 ea 12/15/20 solution (Entyvio) atorvastatin 80 mg tablet 80 mg PO DAILY #30 tab 03/10/21 ferrous sulfate 325 mg (65 mg 325 mg PO DAILY 90 Days #90 tab 05/19/21 iron) tablet sulfamethoxazole 800 1 tab PO BID 10 Days #20 tab 05/27/21 mg-trimethoprim 160 mg tablet (Bactrim DS) omeprazole 20 mg capsule,delayed 20 mg PO DAILY 90 Days #90 cap 06/16/21 release Allergies Allergy/AdvReac Type Severity Reaction Status Date / Time Seasonal Allergies Allergy Intermediate eye Verified 05/27/21 16:36 swelling, itch Review of Systems Review of Systems: Constitutional: No Fever, No Chills ENT/Mouth: No sore throat, No Rhinorrhea, No Swallowing Difficulty Eyes: No Eye Pain, No Swelling, No Redness Cardiovascular: + Chest Pain, No SOB, No Orthopnea, No Edema Respiratory: No Cough, No Sputum, No Wheezing, No dyspnea Gastrointestinal: + Nausea, + Vomiting, + Diarrhea, + abdominal Pain, No Hematochezia, No Melena Genitourinary: No Dysuria, No Urinary Frequency, No Hematuria Musculoskeletal: No joint pain, + Myalgias Skin: No Skin Lesions, No rash Neuro: + Weakness, No Numbness, No Dizziness, No Headache Psych: No Anxiety/Panic, No Depression Heme/Lymph: No Bruising, No Lymphadenopathy Endocrine: No Polyuria, No Polydipsia Gastrointestinal: Gastrointestinal: Reports nausea PMFSH Past Medical History Medical History (Updated 06/22/21 @ 11:28 by PEARL Nunez) CAD (coronary artery disease) Crohn disease Cyst in hand Essential (primary) hypertension GERD (gastroesophageal reflux disease) Hand pain Hearing loss in right ear History of acoustic neuroma Hypertension Iron deficiency anemia due to chronic blood loss Lipoma of arm Mass of hand Medicare annual wellness visit, initial Myocardial infarction Surgical History History of brain tumor History of surgery on arm Hx of appendectomy Hx of colonoscopy S/P cardiac cath (~01/2020) Status post excision of lipoma Stented coronary artery Family History Family History Father Stroke Mother No problems noted. Maternal Uncle Heart attack Social History Social History Household Members: Spouse Housing: Apartment Do you presently have visiting nurse or other home services: No Alcohol intake: former Patient Tobacco Use Status: Former Tobacco user Quit Date: 2007 Tobacco use type: Cigarette Cigarette Packs Per Day: 1 e-Cigarette/Vaping Use: Never Used Second Hand Smoke Exposure: No Use of substances other than those prescribed or required for medical reasons: No Advance Directives: No Advance Directives Information Provided: No service: No Current occupational status: disabled Physical Exam Vital Signs: Vital Signs: Last Vital Signs Temp 99.2 F 06/22/21 09:51 Pulse 101 H 06/22/21 14:13 Resp 18 06/22/21 14:13 BP 114/78 06/22/21 14:13 Pulse Ox 96 06/22/21 14:13 BMI result Body Mass Index 34.7 Appearance: Alert. Oriented X3. No acute distress. Eyes: Pupils equal, round and reactive to light. ENT: Pharynx normal. Neck: Normal inspection. Neck supple. CVS: Tachycardic, regular rhythm, HR 110. Pulses normal. Respiratory: No respiratory distress. Breath sounds normal. Abdomen: Soft and nontender. hyperative +BS x4 Skin: Skin warm and dry. Normal skin color. Normal skin turgor. No rashes. Extremities: No lower extremity edema. Neuro: Oriented X 3. Mild generalized weakness present, nonfocal. Course Course Course Narrative: 51 y/o male with history of IBD on Entyvio who presents to the ER with 4 days of vomiting and non-bloody diarrhea. He feels weak and has muscle cramping. He is tachycardic on arrival, afebrile. He appears clinically dry, 2L IVF ordered. Labs pending and will get stool sample - he reports recently being on antibi otics (finished 06/17 for buttocks abscess). Will check Cdiff and stool culture. Reevaluation(s) Reevaluation #1: Labs returned with mild hyponatremia sodium 129, he he he also has an acute kidney injury with creatinine up to 2 from a baseline of 0.9. He is getting 2 L of IV fluids. He also has a white blood cell count of 14.7. This is most likely reactive. His abdomen is soft and only has pain in the form of cramping right before bowel movement. No fevers or bloody bowel movements. Reevaluation #2: He is tolerating PO. He is feeling better. He is stable for d/c home with supportive care and outpatient follow up. MDM - Nausea/Vomiting/Diarrhea Lab Data Result diagrams: 06/22/21 09:59 06/22/21 14:10 Labs: Lab Results 06/22/21 06/22/21 06/22/21 Range/Units 09:59 09:59 09:59 WBC 14.7 H (4.8-10.8) X10*3/uL RBC 5.86 H D (4.60-5.80) X10*6/uL Hgb 17.8 D (14.0-18.0) g/dl Hct 50.4 D (42.0-52.0) % MCV 86.0 (80.0-98.0) fL MCH 30.4 (27.0-33.0) pg MCHC 35.3 (31.0-36.0) g/dl RDW 12.8 (11.0-16.0) % Plt Count 322 D (160-400) X10*3/uL MPV 9.7 (9.4-12.4) fL Immature Gran % (Auto) 0.5 H (0.0-0.4) % Neut % (Auto) 64.8 (45-73) % Lymph % (Auto) 25.0 (20-40) % [place] % (Auto) 9.0 (2-11) % Eos % (Auto) 0.5 (0-4) % Baso % (Auto) 0.2 (0-2) % Lymph # (Auto) 3.7 (1.2-4.9) X10*3/uL [place] # (Auto) 1.3 H (0.1-1.2) X10*3/uL Eos # (Auto) 0.1 (0.0-0.4) X10*3/uL Baso # (Auto) 0.0 (0.0-0.2) X10*3/uL Abs Immat Gran (auto) 0.07 H (0.00-0.03) X10*3/uL Absolute Neuts (auto) 9.5 H (2.0-8.3) x10*3/uL Absolute Nucleated RBC 0.000 (0.0-0.012) X10*3/uL Nucleated RBC % (auto) 0.0 (0.0-0.2) /100WBC Sodium 129 L (135-145) mmol/L Potassium 3.7 (3.3-5.1) mmol/L Chloride 98 (96-108) mmol/L Carbon Dioxide 19 L (22-29) mmol/L Anion Gap 16 (12-20) BUN 22 H D (9-16) mg/dL Creatinine 2.01 H (0.5-1.4) mg/dL Estim Creat Clear Calc 50.1 Estimated GFR 35 Random Glucose 133 H D (60-115) mg/dL Calcium 9.5 (8.4-10.2) mg/dL Magnesium 2.3 (1.6-2.6) mg/dL Total Bilirubin 1.6 H (0.0-1.0) mg/dL Direct Bilirubin 0.5 (0.0-0.5) mg/dL AST 12 (5-37) U/L ALT 15 (0-40) U/L Alkaline Phosphatase 80 D (39-117) U/L Troponin I High Sens < 3.5 (<3.5-35.0) ng/L Total Protein 9.0 H D (6.5-8.0) g/dL Albumin 5.0 D (3.5-5.0) g/dL Lipase 65 (8-78) U/L Urine Color Urine Appearance Urine pH (5.0-8.0) Ur Specific [place] (1.005-1.025) Urine Protein (NEG-TRACE) MG/DL Urine Glucose (UA) (NEG) MG/DL Urine Ketones (NEG) MG/DL Urine Blood (NEG) Urine Nitrite (NEG) Ur Leukocyte Esterase (NEG) Urine RBC (0) /HPF Urine WBC (0-4) /HPF Ur Squamous Epith Cells /LPF Amorphous Sediment /LPF Urine Bacteria /LPF Hyaline Casts /LPF Granular Casts /LPF Stool Leukocytes, Qual (NEGATIVE) C. difficile Tox B Gene (Negative) COVID-19 ([facility]) (Negative) COVID-19 Clin Com 06/22/21 06/22/21 06/22/21 Range/Units 10:00 10:55 10:55 WBC (4.8-10.8) X10*3/uL RBC (4.60-5.80) X10*6/uL Hgb (14.0-18.0) g/dl Hct (42.0-52.0) % MCV (80.0-98.0) fL MCH (27.0-33.0) pg MCHC (31.0-36.0) g/dl RDW (11.0-16.0) % Plt Count (160-400) X10*3/uL MPV (9.4-12.4) fL Immature Gran % (Auto) (0.0-0.4) % Neut % (Auto) (45-73) % Lymph % (Auto) (20-40) % Villalba % (Auto) (2-11) % Eos % (Auto) (0-4) % Baso % (Auto) (0-2) % Lymph # (Auto) (1.2-4.9) X10*3/uL [place] # (Auto) (0.1-1.2) X10*3/uL Eos # (Auto) (0.0-0.4) X10*3/uL Baso # (Auto) (0.0-0.2) X10*3/uL Abs Immat Gran (auto) (0.00-0.03) X10*3/uL Absolute Neuts (auto) (2.0-8.3) x10*3/uL Absolute Nucleated RBC (0.0-0.012) X10*3/uL Nucleated RBC % (auto) (0.0-0.2) /100WBC Sodium (135-145) mmol/L Potassium (3.3-5.1) mmol/L Chloride (96-108) mmol/L Carbon Dioxide (22-29) mmol/L Anion Gap (12-20) BUN (9-16) mg/dL Creatinine (0.5-1.4) mg/dL Estim Creat Clear Calc Estimated GFR Random Glucose (60-115) mg/dL Calcium (8.4-10.2) mg/dL Magnesium (1.6-2.6) mg/dL Total Bilirubin (0.0-1.0) mg/dL Direct Bilirubin (0.0-0.5) mg/dL AST (5-37) U/L ALT (0-40) U/L Alkaline Phosphatase (39-117) U/L Troponin I High Sens (<3.5-35.0) ng/L Total Protein (6.5-8.0) g/dL Albumin (3.5-5.0) g/dL Lipase (8-78) U/L Urine Color DK YELLOW Urine Appearance HAZY Urine pH 6.0 (5.0-8.0) Ur Specific [place] >= 1.030 H (1.005-1.025) Urine Protein 3+ H (NEG-TRACE) MG/DL Urine Glucose (UA) NEG (NEG) MG/DL Urine Ketones 5 (NEG) MG/DL Urine Blood 2+ H (NEG) Urine Nitrite NEG (NEG) Ur Leukocyte Esterase NEG (NEG) Urine RBC 5-9 H (0) /HPF Urine WBC 0-2 (0-4) /HPF Ur Squamous Epith Cells NONE /LPF Amorphous Sediment 2+ /LPF Urine Bacteria NONE /LPF Hyaline Casts 30-49 /LPF Granular Casts 5-9 /LPF Stool Leukocytes, Qual (NEGATIVE) C. difficile Tox B Gene NEGATIVE (Negative) COVID-19 ([facility]) Negative (Negative) COVID-19 Clin Com See Note 06/22/21 06/22/21 Range/Units 10:55 14:10 WBC (4.8-10.8) X10*3/uL RBC (4.60-5.80) X10*6/uL Hgb (14.0-18.0) g/dl Hct (42.0-52.0) % MCV (80.0-98.0) fL MCH (27.0-33.0) pg MCHC (31.0-36.0) g/dl RDW (11.0-16.0) % Plt Count (160-400) X10*3/uL MPV (9.4-12.4) fL Immature Gran % (Auto) (0.0-0.4) % Neut % (Auto) (45-73) % Lymph % (Auto) (20-40) % [place]al[place] % (Auto) (2-11) % Eos % (Auto) (0-4) % Baso % (Auto) (0-2) % Lymph # (Auto) (1.2-4.9) X10*3/uL [place] # (Auto) (0.1-1.2) X10*3/uL Eos # (Auto) (0.0-0.4) X10*3/uL Baso # (Auto) (0.0-0.2) X10*3/uL Abs Immat Gran (auto) (0.00-0.03) X10*3/uL Absolute Neuts (auto) (2.0-8.3) x10*3/uL Absolute Nucleated RBC (0.0-0.012) X10*3/uL Nucleated RBC % (auto) (0.0-0.2) /100WBC Sodium 132 L (135-145) mmol/L Potassium 3.3 (3.3-5.1) mmol/L Chloride 101 (96-108) mmol/L Carbon Dioxide 23 (22-29) mmol/L Anion Gap 11 L (12-20) BUN 18 H (9-16) mg/dL Creatinine 1.40 (0.5-1.4) mg/dL Estim Creat Clear Calc 71.9 Estimated GFR 53 Random Glucose 114 (60-115) mg/dL Calcium 8.7 D (8.4-10.2) mg/dL Magnesium (1.6-2.6) mg/dL Total Bilirubin (0.0-1.0) mg/dL Direct Bilirubin (0.0-0.5) mg/dL AST (5-37) U/L ALT (0-40) U/L Alkaline Phosphatase (39-117) U/L Troponin I High Sens (<3.5-35.0) ng/L Total Protein (6.5-8.0) g/dL Albumin (3.5-5.0) g/dL Lipase (8-78) U/L Urine Color Urine Appearance Urine pH (5.0-8.0) Ur Specific [place] (1.005-1.025) Urine Protein (NEG-TRACE) MG/DL Urine Glucose (UA) (NEG) MG/DL Urine Ketones (NEG) MG/DL Urine Blood (NEG) Urine Nitrite (NEG) Ur Leukocyte Esterase (NEG) Urine RBC (0) /HPF Urine WBC (0-4) /HPF Ur Squamous Epith Cells /LPF Amorphous Sediment /LPF Urine Bacteria /LPF Hyaline Casts /LPF Granular Casts /LPF Stool Leukocytes, Qual FEW: < 2/OIF (NEGATIVE) C. difficile Tox B Gene (Negative) COVID-19 ([facility]) (Negative) COVID-19 Clin Com Discharge Plan Discharge Clinical Impression: Gastroenteritis, Acute dehydration, VINH (acute kidney injury) Patient Disposition: Home, Self-Care Instructions: Dehydration (ED), Gastroenteritis (DC) Additional Instructions: Your labs showed dehydration from your diarrhea - this improved with IV fluids Your stool tests were normal Recommend over the counter Imodium and Pepto Bismol as needed for upset stomach and diarrhea Follow up with your doctor this week as well as your GI doctor If you develop new or worsening symptoms, such as bloody diarrhea, call 911 or come back to the ER for further evaluation. Prescriptions: No Action aspirin 81 mg tablet,chewable 81 mg PO DAILY Qty: 30 2RF metoprolol tartrate 25 mg tablet 25 mg PO BID 90 Days Qty: 180 3RF Protocol: Hold for SBP/HR < HOLD for SBP < : 90 HOLD for HR < : 60 Entyvio 300 mg recon soln 300 mg IV Q4W Qty: 1 6RF atorvastatin 80 mg tablet 80 mg PO DAILY Qty: 30 5RF ferrous sulfate 325 mg (65 mg iron) tablet 325 mg PO DAILY 90 Days Qty: 90 0RF omeprazole 20 mg capsule,delayed release(DR/EC) 20 mg PO DAILY 90 Days Qty: 90 1RF ascorbic acid (vitamin C) [Vitamin C] 500 mg Tablet 500 mg PO DAILY 0RF sulfamethoxazole-trimethoprim [Bactrim DS] 800-160 mg tablet 1 tab PO BID 10 Days Qty: 20 0RF Referrals: Rodolfo Vazquez MD [Physician] - 3 days (N/V/D, nonbloody)
[2021-06-22 09:51] VITALS: BP 133/97; PULSE 112; RESP 18; TEMP 37.3; O2SAT 97; BMI 34.7
[2021-06-22 10:05] LABS: MANUAL DIFF FLAG NO
[2021-06-22 10:06] LABS: Basophils Percent Auto 0.2 % (0-2); Eosinophils Absolute Auto 0.1 X10*3/uL (0.0-0.4); Eosinophils Percent Auto 0.5 % (0-4); Hematocrit 50.4 % (42.0-52.0); Hemoglobin 17.8 g/dl (14.0-18.0); Imm Gran Abs Auto 0.07 X10*3/uL (0.00-0.03); Imm Gran Pct Auto 0.5 % (0.0-0.4); Lymphocytes Absolute Auto 3.7 X10*3/uL (1.2-4.9); Mean Corpuscular HGB Conc 35.3 g/dl (31.0-36.0); Mean Corpuscular Hemoglobin 30.4 pg (27.0-33.0); Mean Platelet Volume 9.7 fL (9.4-12.4); Monocytes Absolute Auto 1.3 X10*3/uL (0.1-1.2); Neutrophils Absolute Auto 9.5 x10*3/uL (2.0-8.3); Neutrophils Percent Auto 64.8 % (45-73); Platelet Count 322 X10*3/uL (160-400); Red Blood Count 5.86 X10*6/uL (4.60-5.80); Red Cell Distribution Width 12.8 % (11.0-16.0); White Blood Count 14.7 X10*3/uL (4.8-10.8)
[2021-06-22 10:21] LABS: COVID-19 Test Negative (Negative); IDNOW Serial# 16C4AD1C
[2021-06-22] MEDS: ondansetron HCL 4 MG/2 ML VIAL IVPUSH (10:25)
[2021-06-22] MEDS: 0.9 % Sodium Chloride 1,000 ML 999 ML IVCONT (10:25)
[2021-06-22 10:28] LABS: Alanine Aminotransferase 15 U/L (0-40); Alkaline Phosphatase 80 U/L (39-117); Anion Gap 16 (12-20); Aspartate Amino Transferase 12 U/L (5-37); Bilirubin Direct 0.5 mg/dL (0.0-0.5); Bilirubin Total 1.6 mg/dL (0.0-1.0); Blood Urea Nitrogen 22 mg/dL (9-16); Calcium 9.5 mg/dL (8.4-10.2); Carbon Dioxide 19 mmol/L (22-29); Chloride 98 mmol/L (96-108); Creatinine Clr Calc Pharmacy 50.1; Estimated Glomerular Filt Rate 35; Glucose Random 133 mg/dL (60-115); Lipase 65 U/L (8-78); Magnesium 2.3 mg/dL (1.6-2.6); Potassium 3.7 mmol/L (3.3-5.1); Sodium 129 mmol/L (135-145)
[2021-06-22 10:30] VITALS: BP 114/90; PULSE 106; RESP 20; O2SAT 95
--- NOTE | 2021-06-22 11:01 | ECG_ITS ---
Test Reason : CHEST PAIN Blood Pressure : / mmHG Vent. Rate : 094 BPM Atrial Rate : 094 BPM P-R Int : 158 ms QRS Dur : 100 ms QT Int : 368 ms P-R-T Axes : 001 081 014 degrees QTc Int : 460 ms Normal sinus rhythm Normal ECG When compared with ECG of 02-MAR-2021 11:47, Aberrant conduction is no longer Present Referred By: Cele Abdul Electronically Signed By:BLAKE SANABRIA MD
[2021-06-22 11:02] LABS: Appearance Urine HAZY; Color Urine DK YELLOW; Glucose Urine UA NEG (NEG); Leukocyte Esterase Urine NEG (NEG); Nitrite Urine NEG (NEG); Specific Gravity - Urine >= 1.030 (1.005-1.025); UACC Culture Trigger NO; Urine Blood 2+ (NEG); Urine Ketones 5 MG/DL (NEG); Urine Protein 3+ MG/DL (NEG-TRACE)
[2021-06-22 11:09] LABS: Amorphous Sediment Urine 2+ /LPF; Hyaline Casts Urine 30-49 /LPF; WBC Urine 0-2 /HPF (0-4)
[2021-06-22 12:08] LABS: Troponin-I High Sensitivity < 3.5 ng/L (<3.5-35.0)
[2021-06-22] MEDS: Lactated Ringers 1,000 ML 999 ML IV ×2 (12:11→14:53)
[2021-06-22 12:17] LABS: Leukocytes Stool Qualitative FEW: < 2/OIF (NEGATIVE)
--- NOTE | 2021-06-22 12:17 | PC.NURSE ---
pt resting in the stretcher in no apparent distress at this time, pt reports having diarrhea all night long no blood in the stool, one episode of diarrhea in the ed since his arrival, also having a headache pain at 3/10
[2021-06-22 12:19] LABS: CDiff Gene PCR NEGATIVE (Negative)
[2021-06-22 12:28] VITALS: BP 131/86; PULSE 96; RESP 18; O2SAT 95
[2021-06-22] MEDS: Loperamide HCl 2 MG CAPSULE 4 MG PO (13:16)
[2021-06-22 14:13] VITALS: BP 114/78; PULSE 101; RESP 18; O2SAT 96
[2021-06-22 14:35] LABS: Anion Gap 11 (12-20); Blood Urea Nitrogen 18 mg/dL (9-16); Calcium 8.7 mg/dL (8.4-10.2); Carbon Dioxide 23 mmol/L (22-29); Chloride 101 mmol/L (96-108); Creatinine Clr Calc Pharmacy 71.9; Estimated Glomerular Filt Rate 53; Glucose Random 114 mg/dL (60-115); Potassium 3.3 mmol/L (3.3-5.1); Sodium 132 mmol/L (135-145)
[2021-06-22 16:24] VITALS: BP 117/85; PULSE 96; RESP 18; O2SAT 96
== END 2021-06-22 16:35 | disposition home or self-care (01) ==
PROVIDERS: Physician Assistant; Emergency Provider Emergency Medicine; PCP Internal Medicine
DX: K52.9 Noninfective gastroenteritis and colitis, unspecified (principal); E86.0 Dehydration; N17.9 Acute kidney failure, unspecified; E87.1 Hypo-osmolality and hyponatremia; R00.0 Tachycardia, unspecified; Z20.822 Contact with and (suspected) exposure to COVID-19; R53.1 Weakness; R11.2 Nausea with vomiting, unspecified
CPT/HCPCS: 36415; 80048; 80076; 81001; 81003; 83690; 83735; 84484; 85025; 87045; 87046; 87493; 87635; 89055; 93005; 96361; 96374; 99285; J2405

== ENCOUNTER 2021-07-13 08:11 | Outpatient (REF) | payer MEDICARE, SELFPAY ==
[2021-07-13 08:37] LABS: MANUAL DIFF FLAG NO
[2021-07-13 08:49] LABS: Basophils Absolute Auto 0.1 X10*3/uL (0.0-0.2); Basophils Percent Auto 0.5 % (0-2); Eosinophils Absolute Auto 0.3 X10*3/uL (0.0-0.4); Eosinophils Percent Auto 3.1 % (0-4); Hematocrit 41.3 % (42.0-52.0); Hemoglobin 13.8 g/dl (14.0-18.0); Imm Gran Abs Auto 0.02 X10*3/uL (0.00-0.03); Imm Gran Pct Auto 0.2 % (0.0-0.4); Lymphocytes Absolute Auto 4.3 X10*3/uL (1.2-4.9); Lymphocytes Percent Auto 42.2 % (20-40); Mean Corpuscular HGB Conc 33.4 g/dl (31.0-36.0); Mean Corpuscular Hemoglobin 30.8 pg (27.0-33.0); Mean Corpuscular Volume 92.2 fL (80.0-98.0); Mean Platelet Volume 9.9 fL (9.4-12.4); Monocytes Absolute Auto 0.7 X10*3/uL (0.1-1.2); Monocytes Percent Auto 6.6 % (2-11); Neutrophils Absolute Auto 4.8 x10*3/uL (2.0-8.3); Neutrophils Percent Auto 47.4 % (45-73); Platelet Count 258 X10*3/uL (160-400); Red Blood Count 4.48 X10*6/uL (4.60-5.80); Red Cell Distribution Width 13.2 % (11.0-16.0); White Blood Count 10.2 X10*3/uL (4.8-10.8)
[2021-07-13 09:22] LABS: Alanine Aminotransferase 17 U/L (0-40); Albumin Level 4.3 g/dL (3.5-5.0); Alkaline Phosphatase 63 U/L (39-117); Anion Gap 10 (12-20); Aspartate Amino Transferase 15 U/L (5-37); Blood Urea Nitrogen 13 mg/dL (9-16); C Reactive Protein 0.38 mg/dL (< or = 0.50); Calcium 9.4 mg/dL (8.4-10.2); Carbon Dioxide 26 mmol/L (22-29); Chloride 106 mmol/L (96-108); Cholesterol 127 mg/dL; Estimated Glomerular Filt Rate > 60; Glucose Fasting 110 mg/dL (60-99); HDL Cholesterol 37 mg/dL; Iron 78 mcg/dL (45-160); LDL Cholesterol Calculated 75 mg/dl; Percent Iron Saturation 23 % (15-50); Potassium 4.1 mmol/L (3.3-5.1); Sodium 138 mmol/L (135-145); Total Iron Binding Capacity 334 mcg/dL (228-428); Total Protein 7.4 g/dL (6.5-8.0); Triglycerides 78 mg/dL; Unsaturated Iron Binding 256 ug/dL
[2021-07-17 12:47] LABS: Vitamin D 25-OH, D2 <4 ng/mL; Vitamin D 25-OH, D3 24 ng/mL; Vitamin D 25-OH, Total 24 ng/mL (30-100)
== END 2021-07-13 08:12 | disposition home or self-care (01) ==
LOC: HO.MDS 08:11
PROVIDERS: Absent Provider Internal Medicine; PCP Internal Medicine; Visit Provider Internal Medicine Gastroenterology
DX: K51.00 Ulcerative (chronic) pancolitis without complications (principal); D64.9 Anemia, unspecified; I10 Essential (primary) hypertension; E78.5 Hyperlipidemia, unspecified; E55.9 Vitamin D deficiency, unspecified
CPT/HCPCS: 36415; 80053; 80061; 82306; 83540; 85025; 86140; 96365; J3380

== ENCOUNTER 2021-09-10 10:09 | Outpatient (REF) | payer MEDICARE, SELFPAY ==
--- NOTE | ~2021-09-10 | XR_ITS ---
EXAMINATION: XR HAND, RIGHT XR HAND, LEFT CLINICAL INFORMATION: Bilateral hand pain. COMPARISON: 03/08/2018 and 11/08/2007. TECHNIQUE: 3 views of each hand. FINDINGS: RIGHT HAND: There is no evidence of acute fracture or dislocation of the right hand. There is mild spurring about the 1st interphalangeal joint. Deformity from previous fracture of the 5th metacarpal is seen. No gas within the soft tissues. No radiopaque foreign body. LEFT HAND: There is no evidence of acute fracture or dislocation of the left hand. Joint spaces are maintained. Deformity of previous healed distal radial fracture is seen. Small ulnar styloid fracture seen. No gas within the soft tissues. No radiopaque foreign body. XR/XR hand RT min 3V IMPRESSION: No significant acute bony abnormality appreciated.
--- NOTE | ~2021-09-10 | XR_ITS ---
EXAMINATION: XR HAND, RIGHT XR HAND, LEFT CLINICAL INFORMATION: Bilateral hand pain. COMPARISON: 03/08/2018 and 11/08/2007. TECHNIQUE: 3 views of each hand. FINDINGS: RIGHT HAND: There is no evidence of acute fracture or dislocation of the right hand. There is mild spurring about the 1st interphalangeal joint. Deformity from previous fracture of the 5th metacarpal is seen. No gas within the soft tissues. No radiopaque foreign body. LEFT HAND: There is no evidence of acute fracture or dislocation of the left hand. Joint spaces are maintained. Deformity of previous healed distal radial fracture is seen. Small ulnar styloid fracture seen. No gas within the soft tissues. No radiopaque foreign body. XR/XR hand LT min 3V IMPRESSION: No significant acute bony abnormality appreciated.
== END 2021-09-10 10:10 | disposition home or self-care (01) ==
LOC: HO.XRAY 10:09
PROVIDERS: PCP Internal Medicine; Visit Provider Nurse Practitioner Family
DX: M79.641 Pain in right hand (principal); M79.642 Pain in left hand
CPT/HCPCS: 73130

== ENCOUNTER 2021-09-14 10:12 | Day surgery (SDC) | payer MEDICARE, SELFPAY ==
[2021-09-08 16:05] VITALS: BMI 33.4
--- NOTE | 2021-09-11 10:19 | P.CONAN_ITS ---
Documented by User: Sabrina Moncada NP 09/11/21 10:34 HPI - Anesthesia Eval Consult details Narrative: 51yo M for Colonoscopy CAD with NSTEMI s/p stent 2019. Stable at cardiology visit 2020 [facility] Active Problems Active Problems: All Active Problems (Updated 09/09/21 @ 12:00 by DENISSE Lam-C) Bilateral hand pain (Acute) Hand pain (Acute) GERD (gastroesophageal reflux disease) (Acute) Chest pain (Acute) Acute coronary syndrome (Acute) NSTEMI (non-ST elevated myocardial infarction) (Acute) Colitis (Acute) GIB (gastrointestinal bleeding) (Acute) Iron deficiency anemia due to chronic blood loss (Chronic) Medicare annual wellness visit, initial (Acute) Lipoma of arm (Acute) Mass of hand (Acute) Cyst in hand (Acute) CAD (coronary artery disease) (Acute) S/P cardiac cath (Acute ~01/2020) Hypertension (Acute) Essential (primary) hypertension (Acute) Crohn disease (Acute) Hearing loss in right ear (Acute) Past Medical History Medical History (Updated 09/11/21 @ 10:21 by Sabrina Moncada NP) Acute coronary syndrome CAD (coronary artery disease) Essential (primary) hypertension History of acoustic neuroma Myocardial infarction NSTEMI (non-ST elevated myocardial infarction) Family History Family History Father Stroke Mother No problems noted. Maternal Uncle Heart attack Surgical History Surgical History (Updated 09/11/21 @ 10:21 by Sabrina Moncada NP) History of brain tumor History of surgery on arm Hx of appendectomy Hx of colonoscopy S/P cardiac cath (~01/2020) Status post excision of lipoma Stented coronary artery Social History Social History Household Members: Spouse Housing: Apartment Do you presently have visiting nurse or other home services: No Alcohol intake: former Patient Tobacco Use Status: Former Tobacco user Quit Date: 2007 Tobacco use type: Cigarette Cigarette Packs Per Day: 1 e-Cigarette/Vaping Use: Never Used Second Hand Smoke Exposure: No Advance Directives: No Advance Directives Information Provided: Yes service: No Current occupational status: disabled Cognitive needs: No Hearing needs: No Vision needs: No Meds Allergies Allergy/AdvReac Type Severity Reaction Status Date / Time Seasonal Allergies Allergy Intermediate eye Verified 09/14/21 10:16 swelling, itch Home Medications Medication Instructions Recorded Confirmed Last Taken Type ascorbic acid (vitamin C) 500 mg 500 mg PO DAILY 04/07/21 05/27/21 Unknown History tablet (Vitamin C) Exam Exam Date and Time: September 11, 2021 1019 Height,Weight and Vital Signs: Height 5 ft 8 in Weight 99.79 kg Pertinent Lab Results Pertinent Lab Results: Laboratory Tests 07/13/21 07/13/21 08:35 08:35 WBC 10.2 Hgb 13.8 L D Hct 41.3 L Plt Count 258 Sodium 138 Potassium 4.1 D Chloride 106 Carbon Dioxide 26 BUN 13 Creatinine 0.88 Narrative Narrative: EKG 06/2021 Vent. Rate : 094 BPM ? ? Atrial Rate : 094 BPM ?? P-R Int : 158 ms? QRS Dur : 100 ms ? ? QT Int : 368 ms ? ? ? P-R-T Axes : 001 081 014 degrees ?? QTc Int : 460 ms ? Normal sinus rhythm Normal ECG When compared with ECG of 02-MAR-2021 11:47, Aberrant conduction is no longer Present Assessment and Plan Assessment Anesthesia Assessment: Chart Reviewed Documented by User: Sariah Jacques MD 09/14/21 10:18 [facility] Past Medical History Medical History (Updated 09/11/21 @ 10:21 by Sabrina Moncada NP) Acute coronary syndrome CAD (coronary artery disease) Essential (primary) hypertension History of acoustic neuroma Myocardial infarction NSTEMI (non-ST elevated myocardial infarction) Family History Family History Father Stroke Mother No problems noted. Maternal Uncle Heart attack Family history of problems with anesthesia: No Surgical History Surgical History (Updated 09/11/21 @ 10:21 by Sabrina Moncada NP) History of brain tumor History of surgery on arm Hx of appendectomy Hx of colonoscopy S/P cardiac cath (~01/2020) Status post excision of lipoma Stented coronary artery History of Problems with Anesthesia: No Social History Social History Household Members: Spouse Housing: Apartment Do you presently have visiting nurse or other home services: No Alcohol intake: former Patient Tobacco Use Status: Former Tobacco user Quit Date: 2007 Tobacco use type: Cigarette Cigarette Packs Per Day: 1 e-Cigarette/Vaping Use: Never Used Second Hand Smoke Exposure: No Advance Directives: No Advance Directives Information Provided: Yes service: No Current occupational status: disabled Cognitive needs: No Hearing needs: No Vision needs: No Meds Allergies Allergy/AdvReac Type Severity Reaction Status Date / Time Seasonal Allergies Allergy Intermediate eye Verified 09/14/21 10:16 swelling, itch Home Medications Medication Instructions Recorded Confirmed Last Taken Type ascorbic acid (vitamin C) 500 mg 500 mg PO DAILY 04/07/21 05/27/21 Unknown History tablet (Vitamin C) Exam Airway Mallampati Class: II TM Dist: >3cm Partial: Upper Heart: rrr Lungs: cta Assessment and Plan Assessment Anesthesia Assessment: Anesthesia Plan Discussed and Chart Reviewed Final Anesthetic Review Family History of Problems with Anesthesia: No History of Problems with Anesthesia: No NPO: Yes ASA Class: II Final Preanesthetic Review: No Changes in Pt Med Stat, Meds/Allgs Chart Reviewed and Consent Obtained/Reviewed Patient Risk: Intermediate Procedure Risk: Intermediate Anesthetic Plan Anesthetic Plan: MAC: Disposition: Standard PACU
[2021-09-14 10:21] VITALS: BMI 33.0
--- NOTE | 2021-09-14 10:21 | P.HPSUR_ITS ---
Pre-Procedural Eval Section A Date of Service: 09/14/21 The patient is an INPATIENT: No The History & Physical has been completed within 30 days and I have reviewed it.: No Section B Chief Complaint: Colon cancer screening, crohns Details of Present Illness: Colon cancer screening, crohn's disease Relevant Family History (Specify if Yes): No Relevant Social History: Tobacco Use (former smoker) Present Medications: see Short Stay Collaborative assessment Medical History: Significant History (CAD (coronary artery disease) Crohn d isease Cyst in hand Essential (primary) hypertension Hearing loss in right ear History of acoustic neuroma Hypertension Iron deficiency anemia due to chronic blood loss Lipoma of arm Mass of hand Medicare annual wellness visit, initial Myocardial infarction) History of Previous Operations: Relevant previous surgery/procedure and date(s) (History of brain tumor History of surgery on arm Hx of appendectomy Hx of colonoscopy Status post excision of lipoma Stented coronary artery) Allergies: Allergies Allergy/AdvReac Type Severity Reaction Status Date / Time Seasonal Allergies Allergy Intermediate eye Verified 09/14/21 10:16 swelling, itch Review of Systems Sugical H&P ROS: Negative: Constitution, Cardiovascular, Respiratory and Gastrointestinal Exam Surgical H&P Exam: Normal: Heart, Normal: Lungs, Normal: Extremities and Normal: Abdomen Plan Diagnosis/Plan: Unchanged I have reviewed the history and physical and performed a pertinent physical examination on my patient. No changes have occurred unless specified.
[2021-09-14 10:27] VITALS: BP 123/83; PULSE 89; RESP 16; TEMP 37.2; O2SAT 95
[2021-09-14] MEDS: Lactated Ringers 1,000 ML 100 ML IVCONT (10:44)
--- NOTE | 2021-09-14 11:05 | PM.OP ---
Brief Operative Note Date of Service: 09/14/21 Pre-op diagnosis: Colon cancer screening, follow-up of Crohn's disease Post-op diagnosis: other (Colon polyps, hemorrhoids, inactive Crohn's disease) Procedure: COLONOSCOPY TILL CECUM WITH BIOPSIES, SNARE POLYPECTOMY AND CHROMOENDOSCOPY Consent: Indications for the procedure and potential complications of bleeding, perforation, reaction to medications and missed diagnosis were discussed with the patient and informed consent was obtained. Instrument: Olympus PCF H 190 L variable stiffness pediatric colonoscope Monitoring: Vital signs and clinical assessment, intermittent blood pressure monitoring, continuous EKG monitoring, Pulse oximetry and Carbon Dioxide monitoring were done throughout the procedure. Colon withdrawl time was 45 minutes. Procedure: The patient was placed in the left lateral decubitis position and pre-procedure medications were administered. After a digital rectal examination of the ano-rectum, the video colonoscope was inserted into the rectum and advanced through the colon to the cecum. The colonoscope was slowly withdrawn in a retrograde panoramic fashion and the colon mucosa was carefully examined (using chromoendoscopy) including a retroflexed view of the rectum. Findings and interventions are described below. Procedure Difficulty: Without difficulty Findings: Terminal Ileum: Distal 6-7 cms was examined and showed normal mucosa Cecum: Granular and nodular appearing mucosa throughout the colon without active ulcerations Ascending Colon: Granular and nodular appearing mucosa throughout the colon without ulcers Transverse Colon: A 2.5 cms sessile polyp at 65 cms removed with a hot snare Five 2.5 to 4 cms sessile polyp at 60 cms removed with a hot snare. Two 1.5 to 2.5 cms sessile plyps at 50 cms removed with a hot snare Granular and nodular appearing mucosa throughout the colon without active ulcerations Descending Colon: Granular, friable and nodular appearing mucosa throughout the colon without ulcers Sigmoid Colon: Granular, friable and nodular appearing mucosa throughout the colon without ulcers Rectum: Normal Ano-rectum: Moderate internal hemorrhoids Colon preparation: Good after some irrigation Impression and Post Procedure Diagnosis: Colonoscopy Findings: Eight medium to large sized polyps removed - ? pseudopolyps versus adenomas Moderate hemorrhoids on retroflexed exam. Plan: Await pathology results Patient has an appointment on 10/22/21 in the [facility] with Rodolfo Vazquez M.D. Repeat Colonoscopy in 6 to 12 months and if several polyps are adenomatous, pt will be referred to a colorectal surgeon for a total colectomy Above findings were reviewed with the patient and colon polyps handout was given in the discharge area ADDENDUM: Pt reported skin rash of hands and feet after getting Entyvio (Vedolizumab) in June, and did not go for his infusion in July or August. Rash resolved after a few days. Pt was advised to reschedule his appt for Entyvio to be administered after premedication with Benadryl 50 mg IV and acetaminiphen 625 mg PO. New order sent to Short Stay. I will check labs and Vedolizumab antibodies when he comes in for his infusion Surgeon: Rodolfo Vazquez MD Anesthesia: MAC (Dr Elias) Was an Financial Administrative Assistant used for this Procedure?: Yes Financial Administrative Assistant: Cele Gilbert Estimated blood loss (mL): 0 Pathology: other (A. ascending colon bxs, F/U Crohn's, R/O dysplasia B. transverse colon @ 65 cm C. transverse colon polyps @ 60 cm (5) D. transverse colon polyps @ 50 cm (2) E. sigmoid colon bxs, R/O dysplasia, F/U Cr) Condition: stable Disposition: PACU
[2021-09-14 12:01] VITALS: BP 113/76; PULSE 98; RESP 16; TEMP 36.4; O2SAT 94
[2021-09-14 12:16] VITALS: BP 118/77; PULSE 94; RESP 18; TEMP 37.6; O2SAT 95
--- NOTE | 2021-09-14 17:06 | W.PM.OPN ---
Operative Note Operative Note Date of Service: 09/14/21 Narrative: Pre-op diagnosis: Colon cancer screening, follow-up of Crohn's disease Post-op diagnosis:?other (Colon polyps, hemorrhoids, inactive Crohn's disease) Procedure: COLONOSCOPY TILL CECUM WITH BIOPSIES, SNARE POLYPECTOMY AND CHROMOENDOSCOPY Consent: Indications for the procedure and potential complications of bleeding, perforation, reaction to medications and missed diagnosis were discussed with the patient and informed consent was obtained. Instrument: Olympus PCF H 190 L variable stiffness pediatric colonoscope Monitoring: Vital signs and clinical assessment, intermittent blood pressure monitoring, continuous EKG monitoring, Pulse oximetry and Carbon Dioxide monitoring were done throughout the procedure. Colon withdrawl time was 45 minutes. Procedure: The patient was placed in the left lateral decubitis position and pre-procedure medications were administered. After a digital rectal examination of the ano-rectum, the video colonoscope was inserted into the rectum and advanced through the colon to the cecum. The colonoscope was slowly withdrawn in a retrograde panoramic fashion and the colon mucosa was carefully examined (using chromoendoscopy) including a retroflexed view of the rectum. Findings and interventions are described below. Procedure Difficulty: Without difficulty Findings: Terminal Ileum: Distal 6-7 cms was examined and showed normal mucosa Cecum:? Granular and nodular appearing mucosa throughout the colon without active ulcerations Ascending Colon:? Granular and nodular appearing mucosa throughout the colon without ulcers Transverse Colon:? A 2.5 cms sessile polyp at 65 cms removed with a hot snare Five 2.5 to 4 cms sessile polyp at 60 cms removed with a hot snare. Two 1.5 to 2.5 cms sessile plyps at 50 cms removed with a hot snare Granular and nodular appearing mucosa throughout the colon without active ulcerations Descending Colon:? Granular, friable and nodular appearing mucosa throughout the colon without ulcers Sigmoid Colon:? Granular, friable and nodular appearing mucosa throughout the colon without ulcers Rectum:? Normal Ano-rectum:? Moderate internal hemorrhoids Colon preparation:? Good after some irrigation Impression and Post Procedure Diagnosis: Colonoscopy Findings: Eight medium to large sized polyps removed - ? pseudopolyps versus adenomas Moderate hemorrhoids on retroflexed exam. Plan: Await pathology results Patient has an appointment on 10/22/21 in the GI Clinic with Rodolfo Vazquez M.D. Repeat Colonoscopy in 6 to 12 months and if several polyps are adenomatous, pt will be referred to a colorectal surgeon for a total colectomy Above findings were reviewed with the patient and colon polyps handout was given in the discharge area ADDENDUM: Pt reported skin rash of hands and feet after getting Entyvio (Vedolizumab) in June,? and did not go for his infusion in July or August. Rash resolved after a few days. Pt was advised to reschedule his appt for Entyvio to be administered after premedication with Benadryl 50 mg IV and acetaminiphen 625 mg PO. New order sent to Short Stay. I will check labs and Vedolizumab antibodies when he comes in for his infusion Surgeon: Rodolfo Vazquez MD Anesthesia:?MAC (Dr Elias) Was an Braille Proofreader used for this Procedure?:?Yes Braille Proofreader:?Cele Gilbert Estimated blood loss (mL):?0 Pathology:?other (A. ascending colon bxs, F/U Crohn's, R/O dysplasia? B. transverse colon @ 65 cm? C. transverse colon polyps @ 60 cm (5)? D. transverse colon polyps @ 50 cm (2)? E. sigmoid colon bxs, R/O dysplasia, F/U Cr) Condition:?stable Disposition:?PACU
== END 2021-09-14 12:56 | disposition home or self-care (01) ==
PROVIDERS: PCP Internal Medicine; Visit Provider Internal Medicine Gastroenterology
PROC: 0DJD8ZZ Inspection of Lower Intestinal Tract, Via Natural or Artificial Opening Endoscopic (ICD-10-PCS; CPT 45378; principal; 2021-09-14 11:00)
DX: Z12.11 Encounter for screening for malignant neoplasm of colon (principal); K51.40 Inflammatory polyps of colon without complications; K50.90 Crohn's disease, unspecified, without complications; K64.8 Other hemorrhoids; I25.10 Atherosclerotic heart disease of native coronary artery without angina pectoris; I10 Essential (primary) hypertension; Z98.61 Coronary angioplasty status; I25.2 Old myocardial infarction; D50.0 Iron deficiency anemia secondary to blood loss (chronic); Z79.82 Long term (current) use of aspirin; Z79.02 Long term (current) use of antithrombotics/antiplatelets; J30.2 Other seasonal allergic rhinitis; Z79.899 Other long term (current) drug therapy; Z87.891 Personal history of nicotine dependence; Z86.011 Personal history of benign neoplasm of the brain
CPT/HCPCS: 45385; 45380; 88305; Q9968

== ENCOUNTER 2021-09-17 10:09 | Outpatient (REF) | payer MEDICARE, SELFPAY ==
[2021-09-17 10:35] LABS: MANUAL DIFF FLAG NO
[2021-09-17 10:59] LABS: Basophils Percent Auto 0.3 % (0-2); Eosinophils Absolute Auto 0.3 X10*3/uL (0.0-0.4); Eosinophils Percent Auto 2.8 % (0-4); Hematocrit 40.9 % (42.0-52.0); Hemoglobin 14.1 g/dl (14.0-18.0); Imm Gran Abs Auto 0.04 X10*3/uL (0.00-0.03); Imm Gran Pct Auto 0.4 % (0.0-0.4); Lymphocytes Absolute Auto 3.1 X10*3/uL (1.2-4.9); Lymphocytes Percent Auto 33.3 % (20-40); Mean Corpuscular HGB Conc 34.5 g/dl (31.0-36.0); Mean Corpuscular Hemoglobin 31.5 pg (27.0-33.0); Mean Corpuscular Volume 91.5 fL (80.0-98.0); Mean Platelet Volume 10.3 fL (9.4-12.4); Monocytes Absolute Auto 0.6 X10*3/uL (0.1-1.2); Monocytes Percent Auto 6.2 % (2-11); Neutrophils Absolute Auto 5.3 x10*3/uL (2.0-8.3); Platelet Count 251 X10*3/uL (160-400); Red Blood Count 4.47 X10*6/uL (4.60-5.80); Red Cell Distribution Width 12.1 % (11.0-16.0); White Blood Count 9.3 X10*3/uL (4.8-10.8)
[2021-09-17 11:42] LABS: Alanine Aminotransferase 10 U/L (0-40); Albumin Level 4.2 g/dL (3.5-5.0); Alkaline Phosphatase 62 U/L (39-117); Anion Gap 10 (12-20); Aspartate Amino Transferase 11 U/L (5-37); Bilirubin Total 0.7 mg/dL (0.0-1.0); Blood Urea Nitrogen 11 mg/dL (9-16); C Reactive Protein 1.19 mg/dL (< or = 0.50); Calcium 8.9 mg/dL (8.4-10.2); Carbon Dioxide 23 mmol/L (22-29); Chloride 108 mmol/L (96-108); Cholesterol 158 mg/dL; Estimated Glomerular Filt Rate > 60; Glucose Fasting 99 mg/dL (60-99); HDL Cholesterol 33 mg/dL; LDL Cholesterol Calculated 107 mg/dl; Potassium 4.2 mmol/L (3.3-5.1); Sodium 137 mmol/L (135-145); Total Protein 7.2 g/dL (6.5-8.0); Triglycerides 91 mg/dL
[2021-09-17 12:05] LABS: Folate 12.9 ng/mL (> or = 4.0); Vitamin B12 313 pg/mL (200-900)
== END 2021-09-17 10:10 | disposition home or self-care (01) ==
LOC: HO.LAB 10:09
PROVIDERS: PCP Internal Medicine; Visit Provider Internal Medicine Gastroenterology
DX: E78.5 Hyperlipidemia, unspecified (principal); K50.90 Crohn's disease, unspecified, without complications
CPT/HCPCS: 36415; 80053; 80061; 80280; 82542; 82607; 82746; 85025; 86140

== ENCOUNTER 2021-09-22 08:42 | Outpatient (REF) | payer MEDICARE, SELFPAY ==
[2021-09-22 09:53] LABS: C Reactive Protein 0.32 mg/dL (< or = 0.50)
== END 2021-09-22 08:43 | disposition home or self-care (01) ==
LOC: HO.MDS 08:42
PROVIDERS: Visit Provider Internal Medicine Gastroenterology
DX: K51.90 Ulcerative colitis, unspecified, without complications (principal)
CPT/HCPCS: 36415; 86140; 96365; 96375; J1200; J3380

== ENCOUNTER 2021-10-21 09:34 | Outpatient (REF) | payer MEDICARE, SELFPAY | END 2021-10-21 09:35 | disposition home or self-care (01) | LOC: HO.MDS 09:34 | PROVIDERS: Visit Provider Internal Medicine Gastroenterology | DX: K51.00 Ulcerative (chronic) pancolitis without complications (principal) | CPT/HCPCS: 96365; 96375; J1200; J3380 ==

== ENCOUNTER → 2021-10-22 09:40 | Outpatient (BNVA) | payer MEDICARE, SELFPAY | PROVIDERS: PCP Internal Medicine; Referring Provider Internal Medicine; Visit Provider Internal Medicine Gastroenterology | DX: K21.9 Gastro-esophageal reflux disease without esophagitis (principal); K52.9 Noninfective gastroenteritis and colitis, unspecified; D50.0 Iron deficiency anemia secondary to blood loss (chronic); K50.90 Crohn's disease, unspecified, without complications; Z79.899 Other long term (current) drug therapy | CPT/HCPCS: 99212 ==

== ENCOUNTER → 2021-11-10 14:08 | Outpatient (BNVA) | payer MEDICARE, SELFPAY | PROVIDERS: PCP Internal Medicine; Referring Provider Internal Medicine; Visit Provider Nurse Practitioner Family | DX: I25.10 Atherosclerotic heart disease of native coronary artery without angina pectoris (principal); I10 Essential (primary) hypertension; E78.00 Pure hypercholesterolemia, unspecified; Z98.890 Other specified postprocedural states; Z95.5 Presence of coronary angioplasty implant and graft | CPT/HCPCS: 99212 ==

== ENCOUNTER 2021-11-30 08:59 | Outpatient (REF) | payer MEDICARE, SELFPAY | END 2021-11-30 09:00 | disposition home or self-care (01) | LOC: HO.MDS 08:59 | PROVIDERS: Visit Provider Internal Medicine Gastroenterology | DX: K51.90 Ulcerative colitis, unspecified, without complications (principal) | CPT/HCPCS: 96365; J3380; Q0163 ==

== ENCOUNTER 2021-12-30 09:02 | Outpatient (REF) | payer MEDICARE, SELFPAY | END 2021-12-30 09:03 | disposition home or self-care (01) | LOC: HO.MDS 09:02 | PROVIDERS: Visit Provider Internal Medicine Gastroenterology | DX: K51.90 Ulcerative colitis, unspecified, without complications (principal) | CPT/HCPCS: 96365; J3380; Q0163 ==

== ENCOUNTER 2022-01-25 09:09 | Outpatient (REF) | payer MEDICARE, SELFPAY | END 2022-01-25 09:10 | disposition home or self-care (01) | LOC: HO.MDS 09:09 | PROVIDERS: Visit Provider Internal Medicine Gastroenterology | DX: K51.90 Ulcerative colitis, unspecified, without complications (principal) | CPT/HCPCS: 96365; J3380; Q0163 ==

== ENCOUNTER 2022-02-22 09:02 | Outpatient (REF) | payer MEDICARE, SELFPAY | END 2022-02-22 09:03 | disposition home or self-care (01) | LOC: HO.MDS 09:02 | PROVIDERS: Visit Provider Internal Medicine Gastroenterology | DX: K51.90 Ulcerative colitis, unspecified, without complications (principal) | CPT/HCPCS: 96365; J3380 ==

== ENCOUNTER 2022-03-24 08:53 | Outpatient (REF) | payer MEDICARE, SELFPAY | END 2022-03-24 08:54 | disposition home or self-care (01) | LOC: HO.MDS 08:53 | PROVIDERS: Visit Provider Internal Medicine Gastroenterology | DX: K51.90 Ulcerative colitis, unspecified, without complications (principal) | CPT/HCPCS: 96365; J3380 ==

== ENCOUNTER 2022-04-09 12:21 | Emergency (ER) | payer MEDICARE, SELFPAY ==
--- NOTE | ~2022-04-09 | XR_ITS ---
EXAMINATION: XR CHEST CLINICAL INFORMATION: Chest pain COMPARISON: 03/20/2021 TECHNIQUE: 2 views of the chest were obtained. FINDINGS: Diffuse coarse interstitial markings and central bronchial wall thickening. No focal consolidation or mass. Normal pulmonary vascularity. No pleural effusion or pneumothorax. Normal heart size. No acute osseous abnormality. XR/XR chest 2V IMPRESSION: There is perihilar bronchial wall thickening and diffuse coarse interstitial prominence. This can be seen acutely with bronchiolitis or interstitial pneumonitis, chronically with chronic bronchitis or reactive airways disease.
--- NOTE | 2022-04-09 12:25 | ECG_ITS ---
Test Reason : CHEST PAIN Blood Pressure : / mmHG Vent. Rate : 072 BPM Atrial Rate : 072 BPM P-R Int : 158 ms QRS Dur : 084 ms QT Int : 394 ms P-R-T Axes : 029 068 056 degrees QTc Int : 431 ms Normal sinus rhythm Normal ECG When compared with ECG of 22-JUN-2021 11:06, Nonspecific T wave abnormality no longer evident in Inferior leads Referred By: Kaelyn Vigil Electronically Signed By:BLAKE SANABRIA MD
[2022-04-09 12:40] VITALS: BP 119/72; PULSE 77; RESP 18; TEMP 36.6; O2SAT 94; BMI 34.9
--- NOTE | 2022-04-09 12:40 | ED_ITS ---
HPI - Chest Pain General Chief Complaint: Chest Pain <Kaelyn St CARMELLA Vigil - Last Filed: 04/09/22 15:01> Stated Complaint: chest pain <Kaelyn St CARMELLA Vigil - Last Filed: 04/09/22 15:01> Time Seen by Provider: 04/09/22 14:11 <Ka[address] CARMELLA Vigil - Last Filed: 04/09/22 15:01> Source: patient <Kaelyn AlvarengaCARMELLA ramirez - Last Filed: 04/09/22 15:01> Mode of arrival: ambulatory <Kaelyn St CARMELLA Vigil - Last Filed: 04/09/22 15:01> Limitations: no limitations <Kaelyn St CARMELLA Vigil - Last Filed: 04/09/22 15:01> History of Present Illness HPI narrative: Patient is a 52-year-old male who presents to emergency department for sherri luation of Left anterior Chest pain, onset 4 days ago, has been intermittent. Last night pain was severe, took aspirin and metoprolol, awoke today with pain still be present. States that the last time this occurred he was found to have a blockage in his heart requiring stenting. Currently still with pain. Also endorses shortness of breath. Denies fevers, chills, cough, nausea vomiting, abdominal pain <Kaelynburak Vigil CNP - Last Filed: 04/09/22 15:01> Related Data Home Medications: Previous Rx's Medication Instructions Recorded aspirin 81 mg chewable tablet 81 mg PO DAILY #30 tabs 03/13/20 vedolizumab 300 mg intravenous 300 mg IV Q4W #1 ea 06/30/21 solution (Entyvio) cholecalciferol (vitamin D3) 250 250 mcg PO 2XW 90 days #26 caps 10/20/21 mcg (10,000 unit) capsule omeprazole 20 mg capsule,delayed 20 mg PO DAILY 90 days #90 caps 12/25/21 release metoprolol tartrate 25 mg tablet 25 mg PO BID #180 tabs 01/12/22 <Kaelynkrishna Vigil CNP - Last Filed: 04/09/22 15:01> Allergies/Adverse Reactions: Allergies Allergy/AdvReac Type Severity Reaction Status Date / Time Seasonal Allergies Allergy Intermediate eye Verified 04/09/22 12:45 swelling, itch <Kaelyn iVgil CNP - Last Filed: 04/09/22 15:01> Review of Systems Review of Systems: Constitutional : No Weight loss, No Fever, No Chills ENT/Mouth :? No sore throat, No Rhinorrhea Eyes: No Eye Pain, No Swelling Cardiovascular : pos Chest Pain, pos SOB, no Dyspnea on Exertion, No Orthopnea, No Edema, No Palpitations Respiratory : No Cough, No Sputum Gastrointestinal : pos Nausea, No Vomiting, No Diarrhea, No abdominal Pain, No Hematochezia, No Melena Genitourinary : No Dysuria, No Urinary Frequency Musculoskeletal : No joint pain, No Myalgias, No Joint Swelling Skin : No Skin Lesions, No rash Neuro : No Weakness, No Numbness, No Dizziness, No Headache Psych : No Anxiety/Panic, No Depression Heme/Lymph: No Bruising, No Lymphadenopathy Endocrine : No Polyuria, No Polydipsia ? <Kaelyn Vigil CNP - Last Filed: 04/09/22 15:01> Yes all other systems are reviewed and are negative <Kaelyn Vigil CNP - Last Filed: 04/09/22 15:01> [facility] Past Medical History Attestation statement: The following information was validated with the patient. <Kaelyn Vigil CNP - Last Filed: 04/09/22 15:01> Source: old records reviewed <Kaelyn Vigil CNP - Last Filed: 04/09/22 15:01> Medical History: Medical History Acute coronary syndrome CAD (coronary artery disease) Crohn disease Cyst in hand Essential (primary) hypertension GERD (gastroesophageal reflux disease) Hand pain Hearing loss in right ear History of acoustic neuroma Hypertension Iron deficiency anemia due to chronic blood loss Lipoma of arm Mass of hand Medicare annual wellness visit, initial Myocardial infarction NSTEMI (non-ST elevated myocardial infarction) <Kaelyn Vigil CNP - Last Filed: 04/09/22 15:01> Surgical History: Surgical History History of brain tumor History of surgery on arm Hx of appendectomy Hx of colonoscopy S/P cardiac cath (~01/2020) Status post excision of lipoma Stented coronary artery <Kaelyn Vigil CNP - Last Filed: 04/09/22 15:01> Family History Family History: Family History Father Stroke Mother No problems noted. Maternal Uncle Heart attack <Kaelyn Vigil CNP - Last Filed: 04/09/22 15:01> Social History Social History: Social History Household Members: Spouse Housing: Apartment Do you presently have visiting nurse or other home services: No Alcohol intake: former Patient Tobacco Use Status: Former Tobacco user Quit Date: 2007 Tobacco use type: Cigarette Cigarette Packs Per Day: 1 e-Cigarette/Vaping Use: Never Used Second Hand Smoke Exposure: No Advance Directives: No Advance Directives Information Provided: Yes service: No Current occupational status: disabled Cognitive needs: No Hearing needs: No Vision needs: No <Kaelyn Vigil CNP - Last Filed: 04/09/22 15:01> Physical Exam Vital Signs: Vital Signs: Last Vital Signs Temp 97.8 F 04/09/22 12:40 Pulse 66 04/09/22 13:56 Resp 16 04/09/22 13:56 BP 116/80 04/09/22 13:56 Pulse Ox 95 04/09/22 13:56 O2 Del Method 04/09/22 13:56 BMI result Body Mass Index 34.9 <Kaelyn Vigil CNP - Last Filed: 04/09/22 15:01> Vital Signs: Last Vital Signs Temp 97.8 F 04/09/22 12:40 Pulse 66 04/09/22 13:56 Resp 16 04/09/22 13:56 BP 116/80 04/09/22 13:56 Pulse Ox 95 04/09/22 13:56 O2 Del Method 04/09/22 13:56 BMI result Body Mass Index 34.9 <Anirudh Mclaughlin MD - Last Filed: 04/09/22 16:21> Appearance: Alert.?Oriented to person, place and time. No acute distress. ?Normal affect. Eyes: Pupils equal, round and reactive to light.? ENT: Pharynx normal.?? Neck: Normal inspection.? Neck supple.?? CVS: Heart sounds normal. Normal heart rate and rhythm.? Pulses normal.?? Respiratory: No respiratory distress.? Lung sounds clear to auscultation bilaterally?? Abdomen: Soft and non-tender. Normoactive bowel sounds. Skin: Skin warm and dry.? Normal skin color.? Extremities: No lower extremity edema.? No calf ttp? Neuro: Moves all extremities spontaneously. Sensation intact bilaterally. . No focal neuro deficits. Ambulates with normal steady gait. <Kaelyn Vigil CNP - Last Filed: 04/09/22 15:01> Course Reevaluation(s) Reevaluation #1: CBC and CMP are unremarkable. Troponin <3.5, EKG revealing normal sinus rhythm without acute ischemic findings, pain present greater than 24 hours, does not appear consistent with ACS at this time, HEART score 3, currently pain is 1/10. Viral testing is negative. Reviewed all findings with patient. Advised outpatient follow-up with primary care/cardiology within the next 2-3 days for persistent symptoms discussed worrisome signs and symptoms that would warrant re-evaluation in the emergency department. All questions answered. Patient departed in stable condition. <Kaelyn Vigil CNP - Last Filed: 04/09/22 15:01> Time: 14:40 <Kaelyn Vigil CNP - Last Filed: 04/09/22 15:01> Medications Administered Discontinued Medications Generic Name Dose Route Start Last Admin Trade Name Freq PRN Reason Stop Dose Admin Aspirin 324 mg 04/09/22 12:42 04/09/22 12:47 Aspirin 81 Mg Tab.Chew PO 04/09/22 12:43 324 mg ONCE ONE Administration <Kaelyn Vigil CNP - Last Filed: 04/09/22 15:01> Medications Administered Discontinued Medications Generic Name Dose Route Start Last Admin Trade Name Freq PRN Reason Stop Dose Admin Aspirin 324 mg 04/09/22 12:42 04/09/22 12:47 Aspirin 81 Mg Tab.Chew PO 04/09/22 12:43 324 mg ONCE ONE Administration <Anirudh Mclaughlin MD - Last Filed: 04/09/22 16:21> Medical Decision Making Medical Decision Making MDM Narrative: Patient is a 52-year-old male with a past medical history of CAD, an STEMI, Crohn's disease, hypertension, GERD, iron deficiency anemia presenting to emergency department for evaluation of chest pain and intermittent shortness of breath. Will obtain CBC to evaluate for leukocytosis/ anemia, CMP and lipase to evaluate for abnormal electrolytes /abnormal renal function/ abnormal hepatic/biliary function, EKG and troponin to evaluate for ischemia/ACS. Chest x-ray to evaluate for consolidation/ infiltrate/ mass/ pulmonary congestion. P atient receive aspirin 324 mg orally. <Kaelyn Vigil CNP - Last Filed: 04/09/22 15:01> Differential Diagnosis Differential Diagnoses: The differential diagnosis associated with the presentation includes (ACS, pneumonia, viral upper respiratory infection, GERD, musculoskeletal pain, angina) <Kaelyn Vigil CNP - Last Filed: 04/09/22 15:01> Lab Data [facility] Lab Attestation statement: I reviewed the patient's lab results. <Kaelyn Vigil CNP - Last Filed: 04/09/22 15:01> Result Diagrams: 04/09/22 12:49 04/09/22 12:49 <Kaelyn Vigil CNP - Last Filed: 04/09/22 15:01> Labs: Lab Results 04/09/22 04/09/22 04/09/22 Range/Units 12:49 12:49 12:49 WBC 9.8 (4.8-10.8) X10*3/uL RBC 4.71 (4.60-5.80) X10*6/uL Hgb 14.7 (14.0-18.0) g/dl Hct 42.1 (42.0-52.0) % MCV 89.4 (80.0-98.0) fL MCH 31.2 (27.0-33.0) pg MCHC 34.9 (31.0-36.0) g/dl RDW 12.2 (11.0-16.0) % Plt Count 213 (160-400) X10*3/uL MPV 10.3 (9.4-12.4) fL Immature Gran % (Auto) 0.2 (0.0-0.4) % Neut % (Auto) 56.5 (45-73) % Lymph % (Auto) 35.5 (20-40) % [place] % (Auto) 6.2 (2-11) % Eos % (Auto) 1.3 (0-4) % Baso % (Auto) 0.3 (0-2) % Lymph # (Auto) 3.5 (1.2-4.9) X10*3/uL [place] # (Auto) 0.6 (0.1-1.2) X10*3/uL Eos # (Auto) 0.1 (0.0-0.4) X10*3/uL Baso # (Auto) 0.0 (0.0-0.2) X10*3/uL Abs Immat Gran (auto) 0.02 (0.00-0.03) X10*3/uL Absolute Neuts (auto) 5.5 (2.0-8.3) x10*3/uL Absolute Nucleated RBC 0.000 (0.0-0.012) X10*3/uL Nucleated RBC % (auto) 0.0 (0.0-0.2) /100WBC Sodium 140 (135-145) mmol/L Potassium 4.1 (3.3-5.1) mmol/L Chloride 108 (96-108) mmol/L Carbon Dioxide 22 (22-29) mmol/L Anion Gap 14 (12-20) BUN 11 (9-16) mg/dL Creatinine 0.97 (0.5-1.4) mg/dL Estim Creat Clear Calc 103.1 Estimated GFR > 60 Random Glucose 92 (60-115) mg/dL Calcium 9.1 (8.4-10.2) mg/dL Total Bilirubin 0.8 (0.0-1.0) mg/dL AST 16 (5-37) U/L ALT 15 (0-40) U/L Alkaline Phosphatase 75 (39-117) U/L Troponin I High Sens < 3.5 (<3.5-35.0) ng/L Total Protein 7.2 (6.5-8.0) g/dL Albumin 4.2 (3.5-5.0) g/dL Lipase 24 (8-78) U/L COVID-19 ([facility]) (Negative) COVID-19 Clin Com Influenza Type A (DEXTER) (Negative) Influenza Type B (DEXTER) (Negative) Influenza A & B Note 04/09/22 04/09/22 Range/Units 12:49 12:49 WBC (4.8-10.8) X10*3/uL RBC (4.60-5.80) X10*6/uL Hgb (14.0-18.0) g/dl Hct (42.0-52.0) % MCV (80.0-98.0) fL MCH (27.0-33.0) pg MCHC (31.0-36.0) g/dl RDW (11.0-16.0) % Plt Count (160-400) X10*3/uL MPV (9.4-12.4) fL Immature Gran % (Auto) (0.0-0.4) % Neut % (Auto) (45-73) % Lymph % (Auto) (20-40) % [place] % (Auto) (2-11) % Eos % (Auto) (0-4) % Baso % (Auto) (0-2) % Lymph # (Auto) (1.2-4.9) X10*3/uL [place] # (Auto) (0.1-1.2) X10*3/uL Eos # (Auto) (0.0-0.4) X10*3/uL Baso # (Auto) (0.0-0.2) X10*3/uL Abs Immat Gran (auto) (0.00-0.03) X10*3/uL Absolute Neuts (auto) (2.0-8.3) x10*3/uL Absolute Nucleated RBC (0.0-0.012) X10*3/uL Nucleated RBC % (auto) (0.0-0.2) /100WBC Sodium (135-145) mmol/L Potassium (3.3-5.1) mmol/L Chloride (96-108) mmol/L Carbon Dioxide (22-29) mmol/L Anion Gap (12-20) BUN (9-16) mg/dL Creatinine (0.5-1.4) mg/dL Estim Creat Clear Calc Estimated GFR Random Glucose (60-115) mg/dL Calcium (8.4-10.2) mg/dL Total Bilirubin (0.0-1.0) mg/dL AST (5-37) U/L ALT (0-40) U/L Alkaline Phosphatase (39-117) U/L Troponin I High Sens (<3.5-35.0) ng/L Total Protein (6.5-8.0) g/dL Albumin (3.5-5.0) g/dL Lipase (8-78) U/L COVID-19 ([facility]) Negative (Negative) COVID-19 Clin Com See Note Influenza Type A (DEXTER) Negative (Negative) Influenza Type B (DEXTER) Negative (Negative) Influenza A & B Note See Note <Kaelyn Vigil, WOODWORK TEACHER - Last Filed: 04/09/22 15:01> Lab Results 04/09/22 04/09/22 04/09/22 Range/Units 12:49 12:49 12:49 WBC 9.8 (4.8-10.8) X10*3/uL RBC 4.71 (4.60-5.80) X10*6/uL Hgb 14.7 (14.0-18.0) g/dl Hct 42.1 (42.0-52.0) % MCV 89.4 (80.0-98.0) fL MCH 31.2 (27.0-33.0) pg MCHC 34.9 (31.0-36.0) g/dl RDW 12.2 (11.0-16.0) % Plt Count 213 (160-400) X10*3/uL MPV 10.3 (9.4-12.4) fL Immature Gran % (Auto) 0.2 (0.0-0.4) % Neut % (Auto) 56.5 (45-73) % Lymph % (Auto) 35.5 (20-40) % [place] % (Auto) 6.2 (2-11) % Eos % (Auto) 1.3 (0-4) % Baso % (Auto) 0.3 (0-2) % Lymph # (Auto) 3.5 (1.2-4.9) X10*3/uL [place] # (Auto) 0.6 (0.1-1.2) X10*3/uL Eos # (Auto) 0.1 (0.0-0.4) X10*3/uL Baso # (Auto) 0.0 (0.0-0.2) X10*3/uL Abs Immat Gran (auto) 0.02 (0.00-0.03) X10*3/uL Absolute Neuts (auto) 5.5 (2.0-8.3) x10*3/uL Absolute Nucleated RBC 0.000 (0.0-0.012) X10*3/uL Nucleated RBC % (auto) 0.0 (0.0-0.2) /100WBC Sodium 140 (135-145) mmol/L Potassium 4.1 (3.3-5.1) mmol/L Chloride 108 (96-108) mmol/L Carbon Dioxide 22 (22-29) mmol/L Anion Gap 14 (12-20) BUN 11 (9-16) mg/dL Creatinine 0.97 (0.5-1.4) mg/dL Estim Creat Clear Calc 103.1 Estimated GFR > 60 Random Glucose 92 (60-115) mg/dL Calcium 9.1 (8.4-10.2) mg/dL Total Bilirubin 0.8 (0.0-1.0) mg/dL AST 16 (5-37) U/L ALT 15 (0-40) U/L Alkaline Phosphatase 75 (39-117) U/L Troponin I High Sens < 3.5 (<3.5-35.0) ng/L Total Protein 7.2 (6.5-8.0) g/dL Albumin 4.2 (3.5-5.0) g/dL Lipase 24 (8-78) U/L COVID-19 ([facility]) (Negative) COVID-19 Clin Com Influenza Type A (DEXTER) (Negative) Influenza Type B (DEXTER) (Negative) Influenza A & B Note 04/09/22 04/09/22 Range/Units 12:49 12:49 WBC (4.8-10.8) X10*3/uL RBC (4.60-5.80) X10*6/uL Hgb (14.0-18.0) g/dl Hct (42.0-52.0) % MCV (80.0-98.0) fL MCH (27.0-33.0) pg MCHC (31.0-36.0) g/dl RDW (11.0-16.0) % Plt Count (160-400) X10*3/uL MPV (9.4-12.4) fL Immature Gran % (Auto) (0.0-0.4) % Neut % (Auto) (45-73) % Lymph % (Auto) (20-40) % [place] % (Auto) (2-11) % Eos % (Auto) (0-4) % Baso % (Auto) (0-2) % Lymph # (Auto) (1.2-4.9) X10*3/uL [place] # (Auto) (0.1-1.2) X10*3/uL Eos # (Auto) (0.0-0.4) X10*3/uL Baso # (Auto) (0.0-0.2) X10*3/uL Abs Immat Gran (auto) (0.00-0.03) X10*3/uL Absolute Neuts (auto) (2.0-8.3) x10*3/uL Absolute Nucleated RBC (0.0-0.012) X10*3/uL Nucleated RBC % (auto) (0.0-0.2) /100WBC Sodium (135-145) mmol/L Potassium (3.3-5.1) mmol/L Chloride (96-108) mmol/L Carbon Dioxide (22-29) mmol/L Anion Gap (12-20) BUN (9-16) mg/dL Creatinine (0.5-1.4) mg/dL Estim Creat Clear Calc Estimated GFR Random Glucose (60-115) mg/dL Calcium (8.4-10.2) mg/dL Total Bilirubin (0.0-1.0) mg/dL AST (5-37) U/L ALT (0-40) U/L Alkaline Phosphatase (39-117) U/L Troponin I High Sens (<3.5-35.0) ng/L Total Protein (6.5-8.0) g/dL Albumin (3.5-5.0) g/dL Lipase (8-78) U/L COVID-19 ([facility]) Negative (Negative) COVID-19 Clin Com See Note Influenza Type A (DEXTER) Negative (Negative) Influenza Type B (DEXTER) Negative (Negative) Influenza A & B Note See Note <Anirudh Mclaughlin MD - Last Filed: 04/09/22 16:21> Independent Interpretation I performed an independent interpretation of an: EKG and Plain X-Ray (I personally interpreted patient's chest x-ray, appears consistent with prior x-ray, at this time no concern for acute process) <Kaelyn Vigil CNP - Last Filed: 04/09/22 15:01> Interpretation: EKG Rate: 72 Rhythm:? Normal sinus rhythm [place]:? Normal Normal P waves.? Normal ANA.?? Normal QRS complex.?? ST T wave :??No ST elevation, no ST depression, no T-wave inversion qTC: 431 prior studies:? June 2021 The study has been interpreted contemporaneously by me. <Kaelyn Vigil CNP - Last Filed: 04/09/22 15:01> Radiology Impression Discussion of test interpretation with radiology: I have reviewed the radiologist's reading. <Kaelyn Vigil CNP - Last Filed: 04/09/22 15:01> Radiologist Impression: XR/XR chest 2V IMPRESSION: There is perihilar bronchial wall thickening and diffuse coarse interstitial prominence.? This can be seen acutely with bronchiolitis or interstitial pneumonitis, chronically with chronic bronchitis or reactive airways disease. <Kaelyn Vigil CNP - Last Filed: 04/09/22 15:01> External Record Review External record reviewed: Outpatient record ([place] 10/2021 CAD w/o angina, follow- up 1 yr) <Kaelyn Vigil CNP - Last Filed: 04/09/22 15:01> Chronic Conditions Patient?s care impacted by: Hypertension and Other (NSTEMI, CAD) <Kaelyn Vigil CNP - Last Filed: 04/09/22 15:01> Attestation Attending Attestation: I personally reviewed PA/resident/nurse practitioner note. I reviewed a all results and treatment plan. I agree with the assessment and plan. I agree with disposition <Anirudh Mclaughlin MD - Last Filed: 04/09/22 16:21> Scores Heart Score History: -0- slightly suspicious <Kaelyn Vigil CNP - Last Filed: 04/09/22 15:01> ECG: -0- normal <Kaelyn Vigil WO[employer]WORK TEACHER - Last Filed: 04/09/22 15:01> Age: -1- >45 - <65 <Kaelyn Vigil WOODWORK TEACHER - Last Filed: 04/09/22 15:01> Risk factory: -2- 3 or more risk factors or treated atherosclerosis <Kaelyn Vigil WOODWORK TEACHER - Last Filed: 04/09/22 15:01> Troponin: -0- < or = normal limit <Kaelyn Vigil WOODWORK TEACHER - Last Filed: 04/09/22 15:01> Score: 3 <Kaelyn VigilCARMELLA - Last Filed: 04/09/22 15:01> 3 <Anirudh Mclaughlin MD - Last Filed: 04/09/22 16:21> Risk: 1.7% <Kaelyn VigilCARMELLA - Last Filed: 04/09/22 15:01> 1.7% <Anirudh Mclaughlin MD - Last Filed: 04/09/22 16:21> Discharge Plan Discharge Clinical Impression: Atypical chest pain <Kaelyn Vigil WOODWORK TEACHER - Last Filed: 04/09/22 15:01> Patient Disposition: Home, Self-Care <Kaelyn Vigil WOODWORK TEACHER - Last Filed: 04/09/22 15:01> Instructions: Chest Pain (ED) <Kaelyn VigilCARMELLA - Last Filed: 04/09/22 15:01> Additional Instructions: As we discussed, your blood work and EKG were normal today. Chest x-ray is overall normal. Testing for COVID and flu are both negative. Please contact your primary care provider/right of way clearer to arrange for a follow- up visit within the next 2-3 days. You may return back to the emergency department with any new or worsening symptoms or concerns. <Kaelyn Vigil WOODWORK TEACHER - Last Filed: 04/09/22 15:01> Prescriptions: No Action aspirin 81 mg tablet,chewable 81 mg PO DAILY Qty: 30 2RF Entyvio 300 mg recon soln 300 mg IV Q4W Qty: 1 6RF omeprazole 20 mg capsule,delayed release(DR/EC) 20 mg PO DAILY 90 Days Qty: 90 1RF metoprolol tartrate 25 mg tablet 25 mg PO BID Qty: 180 3RF cholecalciferol (vitamin D3) 250 mcg (10,000 unit) capsule 250 mcg PO 2XW 90 Days Qty: 26 1RF <Kaelyn Vigil CNP - Last Filed: 04/09/22 15:01> Referrals: Jethro Howell MD [Physician] - Chely Madsen MD [Primary Care Provider] - <Kaelyn Vigil CNP - Last Filed: 04/09/22 15:01> Interventions: ED Discharge Assessment Last Done: 04/09/22 14:49 <Kaelyn Vigil CNP - Last Filed: 04/09/22 15:01> Discharge Date/Time: 04/09/22 14:54 <Kaelyn Vigil CNP - Last Filed: 04/09/22 15:01>
[2022-04-09] MEDS: Aspirin 81 MG TAB.CHEW 324 MG PO (12:47)
[2022-04-09 13:00] LABS: MANUAL DIFF FLAG NO
[2022-04-09 13:10] LABS: Basophils Percent Auto 0.3 % (0-2); Eosinophils Absolute Auto 0.1 X10*3/uL (0.0-0.4); Eosinophils Percent Auto 1.3 % (0-4); Hematocrit 42.1 % (42.0-52.0); Hemoglobin 14.7 g/dl (14.0-18.0); Imm Gran Abs Auto 0.02 X10*3/uL (0.00-0.03); Imm Gran Pct Auto 0.2 % (0.0-0.4); Lymphocytes Absolute Auto 3.5 X10*3/uL (1.2-4.9); Lymphocytes Percent Auto 35.5 % (20-40); Mean Corpuscular HGB Conc 34.9 g/dl (31.0-36.0); Mean Corpuscular Hemoglobin 31.2 pg (27.0-33.0); Mean Corpuscular Volume 89.4 fL (80.0-98.0); Mean Platelet Volume 10.3 fL (9.4-12.4); Monocytes Absolute Auto 0.6 X10*3/uL (0.1-1.2); Monocytes Percent Auto 6.2 % (2-11); Neutrophils Absolute Auto 5.5 x10*3/uL (2.0-8.3); Neutrophils Percent Auto 56.5 % (45-73); Platelet Count 213 X10*3/uL (160-400); Red Blood Count 4.71 X10*6/uL (4.60-5.80); Red Cell Distribution Width 12.2 % (11.0-16.0); White Blood Count 9.8 X10*3/uL (4.8-10.8)
[2022-04-09 13:16] LABS: COVID-19 Test Negative (Negative); IDNOW Serial# 16C4AD1C
[2022-04-09 13:18] LABS: IDNOW Serial# BCCEAD1C; Influenza A Negative (Negative); Influenza B2 Negative (Negative)
[2022-04-09 13:31] LABS: Alanine Aminotransferase 15 U/L (0-40); Albumin Level 4.2 g/dL (3.5-5.0); Alkaline Phosphatase 75 U/L (39-117); Anion Gap 14 (12-20); Aspartate Amino Transferase 16 U/L (5-37); Bilirubin Total 0.8 mg/dL (0.0-1.0); Blood Urea Nitrogen 11 mg/dL (9-16); Calcium 9.1 mg/dL (8.4-10.2); Carbon Dioxide 22 mmol/L (22-29); Chloride 108 mmol/L (96-108); Creatinine Clr Calc Pharmacy 103.1; Estimated Glomerular Filt Rate > 60; Glucose Random 92 mg/dL (60-115); Lipase 24 U/L (8-78); Potassium 4.1 mmol/L (3.3-5.1); Sodium 140 mmol/L (135-145); Total Protein 7.2 g/dL (6.5-8.0)
[2022-04-09 13:47] LABS: Troponin-I High Sensitivity < 3.5 ng/L (<3.5-35.0)
[2022-04-09 13:56] VITALS: BP 116/80; PULSE 66; RESP 16; O2SAT 95
== END 2022-04-09 14:54 | disposition home or self-care (01) ==
PROVIDERS: Nurse Practitioner Family; Emergency Provider Emergency Medicine; PCP Internal Medicine
DX: R07.89 Other chest pain (principal); Z86.79 Personal history of other diseases of the circulatory system; Z20.822 Contact with and (suspected) exposure to COVID-19
CPT/HCPCS: 71046; 80053; 83690; 84484; 85025; 87502; 87635; 93005; 99283; 99284

== ENCOUNTER 2022-04-20 07:48 | Outpatient (REF) | payer MEDICARE, SELFPAY ==
[2022-04-20 09:09] LABS: Alanine Aminotransferase 14 U/L (0-40); Albumin Level 4.2 g/dL (3.5-5.0); Alkaline Phosphatase 69 U/L (39-117); Anion Gap 14 (12-20); Aspartate Amino Transferase 13 U/L (5-37); Bilirubin Total 1.2 mg/dL (0.0-1.0); Blood Urea Nitrogen 11 mg/dL (9-16); Calcium 9.3 mg/dL (8.4-10.2); Carbon Dioxide 26 mmol/L (22-29); Chloride 105 mmol/L (96-108); Cholesterol 128 mg/dL; Estimated Glomerular Filt Rate > 60; Glucose Fasting 100 mg/dL (60-99); HDL Cholesterol 32 mg/dL; LDL Cholesterol Calculated 76 mg/dl; Potassium 4.5 mmol/L (3.3-5.1); Sodium 140 mmol/L (135-145); Total Protein 7.3 g/dL (6.5-8.0); Triglycerides 103 mg/dL
== END 2022-04-20 07:49 | disposition home or self-care (01) ==
LOC: HO.LAB 07:48
PROVIDERS: PCP Internal Medicine; Visit Provider Nurse Practitioner Family
DX: E78.00 Pure hypercholesterolemia, unspecified (principal)
CPT/HCPCS: 36415; 80053; 80061

== ENCOUNTER 2022-04-26 07:54 | Outpatient (REF) | payer MEDICARE, SELFPAY | END 2022-04-26 07:55 | disposition home or self-care (01) | LOC: HO.MDS 07:54 | PROVIDERS: Visit Provider Internal Medicine Gastroenterology | DX: K51.90 Ulcerative colitis, unspecified, without complications (principal) | CPT/HCPCS: 96365; J3380 ==

== ENCOUNTER 2022-05-24 07:48 | Outpatient (REF) | payer MEDICARE, SELFPAY | END 2022-05-24 07:49 | disposition home or self-care (01) | LOC: HO.MDS 07:48 | PROVIDERS: Visit Provider Internal Medicine Gastroenterology | DX: K51.90 Ulcerative colitis, unspecified, without complications (principal) | CPT/HCPCS: 96365; J3380 ==

== ENCOUNTER → 2022-06-04 08:57 | Outpatient (BNVA) | payer MEDICARE, SELFPAY | PROVIDERS: PCP Internal Medicine; Visit Provider Internal Medicine Gastroenterology | DX: K50.90 Crohn's disease, unspecified, without complications (principal); K21.9 Gastro-esophageal reflux disease without esophagitis; E55.9 Vitamin D deficiency, unspecified; D50.0 Iron deficiency anemia secondary to blood loss (chronic) | CPT/HCPCS: 99212 ==

== ENCOUNTER 2022-06-17 08:10 | Outpatient (REF) | payer MEDICARE, SELFPAY ==
[2022-06-17 10:06] LABS: C Reactive Protein 0.31 mg/dL (< or = 0.50)
[2022-06-17 10:22] LABS: Vitamin D 25-OH Total 28.6 ng/mL (>30)
[2022-06-20 05:08] LABS: TS Negative Control Passed; TS Panel A 0; TS Panel B 1; TS Positive Control Passed; TSpotTB Negative (Negative)
== END 2022-06-17 08:11 | disposition home or self-care (01) ==
LOC: HO.LAB 08:10
PROVIDERS: Visit Provider Internal Medicine Gastroenterology
DX: E55.9 Vitamin D deficiency, unspecified (principal); K50.90 Crohn's disease, unspecified, without complications
CPT/HCPCS: 36415; 82306; 86140; 86481

== ENCOUNTER 2022-06-21 08:01 | Outpatient (REF) | payer MEDICARE, SELFPAY | END 2022-06-21 08:02 | disposition home or self-care (01) | LOC: HO.MDS 08:01 | PROVIDERS: Visit Provider Internal Medicine Gastroenterology | DX: K51.90 Ulcerative colitis, unspecified, without complications (principal) | CPT/HCPCS: 96365; J3380 ==

== ENCOUNTER 2022-07-19 07:43 | Outpatient (REF) | payer MEDICARE, SELFPAY ==
[2022-07-22 01:59] LABS: TS Negative Control Passed; TS Panel A 2; TS Panel B 0; TS Positive Control Passed; TSpotTB Negative (Negative)
== END 2022-07-19 07:44 | disposition home or self-care (01) ==
LOC: HO.MDS 07:43
PROVIDERS: Visit Provider Internal Medicine Gastroenterology
DX: K51.90 Ulcerative colitis, unspecified, without complications (principal)
CPT/HCPCS: 36415; 86481; 96365; J3380

== ENCOUNTER 2022-08-17 08:31 | Outpatient (REF) | payer MEDICARE, SELFPAY | END 2022-08-17 08:32 | disposition home or self-care (01) | LOC: HO.MDS 08:31 | PROVIDERS: Visit Provider Internal Medicine Gastroenterology | DX: K51.90 Ulcerative colitis, unspecified, without complications (principal) | CPT/HCPCS: 96365; J3380 ==

== ENCOUNTER 2022-08-31 00:46 | Emergency (ER) | payer MEDICARE, SELFPAY ==
--- NOTE | 2022-08-31 00:48 | ECG_ITS ---
Test Reason : chest pain Blood Pressure : / mmHG Vent. Rate : 081 BPM Atrial Rate : 081 BPM P-R Int : 188 ms QRS Dur : 090 ms QT Int : 372 ms P-R-T Axes : 051 041 035 degrees QTc Int : 432 ms Normal sinus rhythm Normal ECG When compared with ECG of 09-APR-2022 12:34, No significant change was found Referred By: Generic ED Physician Electronically Signed By:BLAKE SANABRIA MD
[2022-08-31 00:56] VITALS: BP 122/86; PULSE 79; RESP 20; TEMP 36.7; O2SAT 94; BMI 35.0
--- NOTE | 2022-08-31 01:17 | ED.CHESTPAIN ---
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 Does feel slight short of breath no diaphoresis no nausea or vomiting Related Data Previous Rx's Medication Instructions Recorded aspirin 81 mg chewable tablet 81 mg PO DAILY #30 tabs 03/13/20 cholecalciferol (vitamin D3) 250 250 mcg PO 2XW 90 days #26 caps 10/20/21 mcg (10,000 unit) capsule omeprazole 20 mg capsule,delayed 20 mg PO DAILY 90 days #90 caps 12/25/21 release metoprolol tartrate 25 mg tablet 25 mg PO BID #180 tabs 01/12/22 atorvastatin 80 mg tablet 80 mg PO DAILY #90 tabs 04/15/22 vedolizumab 300 mg intravenous 300 mg IV Q4W #1 ea 05/14/22 solution (Entyvio) Allergies Allergy/AdvReac Type Severity Reaction Status Date / Time Seasonal Allergies Allergy Intermediate eye Verified 06/04/22 08:59 swelling, itch Review of Systems Review of Systems: Yes all other systems are reviewed and are negative PMFSH Past Medical History Medical History Acute coronary syndrome CAD (coronary artery disease) Crohn disease Cyst in hand Essential (primary) hypertension GERD (gastroesophageal reflux disease) Hand pain Hearing loss in right ear History of acoustic neuroma Hypertension Iron deficiency anemia due to chronic blood loss Lipoma of arm Mass of hand Medicare annual wellness visit, initial Myocardial infarction NSTEMI (non-ST elevated myocardial infarction) Surgical History History of brain tumor History of surgery on arm Hx of appendectomy Hx of colonoscopy S/P cardiac cath (~01/2020) Status post excision of lipoma Stented coronary artery Family History Family History Father Stroke Mother No problems noted. Maternal Uncle Heart attack Social History Social History Household Members: Spouse Housing: Apartment Do you presently have visiting nurse or other home services: No Alcohol intake: former Patient Tobacco Use Status: Former Tobacco user Quit Date: 2007 Tobacco use type: Cigarette Cigarette Packs Per Day: 1 Smoked in Last 30 Days: No e-Cigarette/Vaping Use: Never Used Second Hand Smoke Exposure: No Advance Directives: No Advance Directives Information Provided: Yes service: No Current occupational status: disabled Cognitive needs: No Hearing needs: No Vision needs: No Physical Exam Vital Signs: Vital Signs: Last Vital Signs Temp 98.1 F 08/31/22 01:53 Pulse 70 08/31/22 01:53 Resp 16 08/31/22 01:53 BP 123/79 08/31/22 01:53 Pulse Ox 94 08/31/22 01:53 O2 Del Method Room Air 08/31/22 01:53 BMI result Body Mass Index 35.0 Appearance: Alert. Oriented X3. No acute distress. Eyes: No pallor/ icterus ENT: Pharynx normal. Oral Mucosa moist Neck: Normal inspection. Neck supple. CVS: Normal heart rate and rhythm. Pulses normal. Respiratory: No respiratory distress. Equal air entry bilateral, no wheezing/rales/rhonchi Abdomen: Soft and nontender. Bowel sounds are present, no mass palpable, no CVA tenderness Skin: Skin warm and dry. Normal skin color. Normal skin turgor. Extremities: No lower extremity edema. No calf tenderness Neuro: Oriented X 3. No motor deficit. No sensory deficit.No cerebellar signs , cranial nerves II-XII intact Medications Administered Discontinued Medications Generic Name Dose Route Start Last Admin Trade Name Freq PRN Reason Stop Dose Admin Nitroglycerin 1 inch 08/31/22 01:29 08/31/22 01:50 Nitroglycerin 2 % Oint 1 Gm Packet TRANSDERMA 08/31/22 01:30 1 inch ONCE ONE Administration Medical Decision Making Medical Decision Making MDM Narrative: Patient without any ischemic changes in the EKG 2 sets of troponin negative sleeping after arrival in the ER unlikely to be cardiac pain which he has for last 3 days. Patient advised to follow with cardiology for further evaluation Lab Data MDM Lab Attestation statement: I reviewed the patient's lab results. 08/31/22 01:15 08/31/22 01:15 Labs: Lab Results 08/31/22 08/31/22 08/31/22 Range/Units 01:15 01:15 01:15 WBC 11.1 H (4.8-10.8) X10*3/uL RBC 4.49 L (4.60-5.80) X10*6/uL Hgb 14.3 (14.0-18.0) g/dl Hct 41.7 L (42.0-52.0) % MCV 92.9 (80.0-98.0) fL MCH 31.8 (27.0-33.0) pg MCHC 34.3 (31.0-36.0) g/dl RDW 12.7 (11.0-16.0) % Plt Count 214 (160-400) X10*3/uL MPV 10.1 (9.4-12.4) fL Immature Gran % (Auto) 0.4 (0.0-0.4) % Neut % (Auto) 49.3 (45-73) % Lymph % (Auto) 40.4 H (20-40) % [place] % (Auto) 7.5 (2-11) % Eos % (Auto) 2.0 (0-4) % Baso % (Auto) 0.4 (0-2) % Lymph # (Auto) 4.5 (1.2-4.9) X10*3/uL [place] # (Auto) 0.8 (0.1-1.2) X10*3/uL Eos # (Auto) 0.2 (0.0-0.4) X10*3/uL Baso # (Auto) 0.0 (0.0-0.2) X10*3/uL Abs Immat Gran (auto) 0.04 H (0.00-0.03) X10*3/uL Absolute Neuts (auto) 5.5 (2.0-8.3) x10*3/uL Absolute Nucleated RBC 0.000 (0.0-0.012) X10*3/uL Nucleated RBC % (auto) 0.0 (0.0-0.2) /100WBC PT (10.0-13.1) SEC INR (0.9-1.1) APTT (26.0-36.4) SEC Sodium 141 (135-145) mmol/L Potassium 4.2 (3.3-5.1) mmol/L Chloride 107 (96-108) mmol/L Carbon Dioxide 25 (22-29) mmol/L Anion Gap 13 (12-20) BUN 10 (9-16) mg/dL Creatinine 0.98 (0.5-1.4) mg/dL Estim Creat Clear Calc 102.0 Estimated GFR > 60 Random Glucose 105 (60-115) mg/dL Calcium 9.0 (8.4-10.2) mg/dL Total Bilirubin 1.0 (0.0-1.0) mg/dL AST 22 (5-37) U/L ALT 22 (0-40) U/L Alkaline Phosphatase 79 (39-117) U/L Troponin I High Sens < 2.7 (<3.5-35.0) ng/L Total Protein 7.3 (6.5-8.0) g/dL Albumin 4.2 (3.5-5.0) g/dL 08/31/22 08/31/22 Range/Units 01:35 03:14 WBC (4.8-10.8) X10*3/uL RBC (4.60-5.80) X10*6/uL Hgb (14.0-18.0) g/dl Hct (42.0-52.0) % MCV (80.0-98.0) fL MCH (27.0-33.0) pg MCHC (31.0-36.0) g/dl RDW (11.0-16.0) % Plt Count (160-400) X10*3/uL MPV (9.4-12.4) fL Immature Gran % (Auto) (0.0-0.4) % Neut % (Auto) (45-73) % Lymph % (Auto) (20-40) % Kemper % (Auto) (2-11) % Eos % (Auto) (0-4) % Baso % (Auto) (0-2) % Lymph # (Auto) (1.2-4.9) X10*3/uL [place] # (Auto) (0.1-1.2) X10*3/uL Eos # (Auto) (0.0-0.4) X10*3/uL Baso # (Auto) (0.0-0.2) X10*3/uL Abs Immat Gran (auto) (0.00-0.03) X10*3/uL Absolute Neuts (auto) (2.0-8.3) x10*3/uL Absolute Nucleated RBC (0.0-0.012) X10*3/uL Nucleated RBC % (auto) (0.0-0.2) /100WBC PT 12.5 (10.0-13.1) SEC INR 1.1 (0.9-1.1) APTT 28.0 (26.0-36.4) SEC Sodium (135-145) mmol/L Potassium (3.3-5.1) mmol/L Chloride (96-108) mmol/L Carbon Dioxide (22-29) mmol/L Anion Gap (12-20) BUN (9-16) mg/dL Creatinine (0.5-1.4) mg/dL Estim Creat Clear Calc Estimated GFR Random Glucose (60-115) mg/dL Calcium (8.4-10.2) mg/dL Total Bilirubin (0.0-1.0) mg/dL AST (5-37) U/L ALT (0-40) U/L Alkaline Phosphatase (39-117) U/L Troponin I High Sens < 2.7 (<3.5-35.0) ng/L Total Protein (6.5-8.0) g/dL Albumin (3.5-5.0) g/dL Independent Interpretation I performed an independent interpretation of an: EKG Interpretation: Normal sinus rhythm heart rate 81 beats per minute normal intervals normal axis no acute ST-T changes no acute ischemia Discharge Plan Discharge Clinical Impression: Chest pain Patient Disposition: Home, Self-Care Instructions: Chest Pain (ED) Additional Instructions: Cause of your chest pain is not clear No acute coronary event noticed Please follow-up with pilot control operator helper for further evaluation and continue medication as prescribed Prescriptions: No Action aspirin 81 mg tablet,chewable 81 mg PO DAILY Qty: 30 2RF omeprazole 20 mg capsule,delayed release(DR/EC) 20 mg PO DAILY 90 Days Qty: 90 1RF metoprolol tartrate 25 mg tablet 25 mg PO BID Qty: 180 3RF atorvastatin 80 mg tablet 80 mg PO DAILY Qty: 90 1RF Entyvio 300 mg recon soln 300 mg IV Q4W Qty: 1 6RF cholecalciferol (vitamin D3) 250 mcg (10,000 unit) capsule 250 mcg PO 2XW 90 Days Qty: 26 1RF Interventions: ED Discharge Assessment Last Done: 08/31/22 04:41 Discharge Date/Time: 08/31/22 04:44
[2022-08-31 01:22] LABS: MANUAL DIFF FLAG NO
[2022-08-31 01:24] LABS: Basophils Percent Auto 0.4 % (0-2); Eosinophils Absolute Auto 0.2 X10*3/uL (0.0-0.4); Hematocrit 41.7 % (42.0-52.0); Hemoglobin 14.3 g/dl (14.0-18.0); Imm Gran Abs Auto 0.04 X10*3/uL (0.00-0.03); Imm Gran Pct Auto 0.4 % (0.0-0.4); Lymphocytes Absolute Auto 4.5 X10*3/uL (1.2-4.9); Lymphocytes Percent Auto 40.4 % (20-40); Mean Corpuscular HGB Conc 34.3 g/dl (31.0-36.0); Mean Corpuscular Hemoglobin 31.8 pg (27.0-33.0); Mean Corpuscular Volume 92.9 fL (80.0-98.0); Mean Platelet Volume 10.1 fL (9.4-12.4); Monocytes Absolute Auto 0.8 X10*3/uL (0.1-1.2); Monocytes Percent Auto 7.5 % (2-11); Neutrophils Absolute Auto 5.5 x10*3/uL (2.0-8.3); Neutrophils Percent Auto 49.3 % (45-73); Platelet Count 214 X10*3/uL (160-400); Red Blood Count 4.49 X10*6/uL (4.60-5.80); Red Cell Distribution Width 12.7 % (11.0-16.0); White Blood Count 11.1 X10*3/uL (4.8-10.8)
[2022-08-31 01:45] LABS: INTERNATIONAL NORM RATIO 1.1 (0.9-1.1); Prothrombin Time 12.5 SEC (10.0-13.1)
[2022-08-31 01:50] VITALS: PULSE 76
[2022-08-31] MEDS: Nitroglycerin 2 % Oint 1 GM Packet 1 INCH TRANSDERMA (01:50)
[2022-08-31 01:53] VITALS: BP 123/79; PULSE 70; RESP 16; TEMP 36.7; O2SAT 94
[2022-08-31 01:58] LABS: Troponin-I High Sensitivity < 2.7 ng/L (<3.5-35.0)
[2022-08-31 02:10] LABS: Alanine Aminotransferase 22 U/L (0-40); Albumin Level 4.2 g/dL (3.5-5.0); Alkaline Phosphatase 79 U/L (39-117); Anion Gap 13 (12-20); Aspartate Amino Transferase 22 U/L (5-37); Blood Urea Nitrogen 10 mg/dL (9-16); Carbon Dioxide 25 mmol/L (22-29); Chloride 107 mmol/L (96-108); Estimated Glomerular Filt Rate > 60; Glucose Random 105 mg/dL (60-115); Potassium 4.2 mmol/L (3.3-5.1); Sodium 141 mmol/L (135-145); Total Protein 7.3 g/dL (6.5-8.0)
--- NOTE | 2022-08-31 02:16 | PC.NURSE ---
Patient alert and oriented. Vss, afebrile an reporting 3/10 pain of the left chest that radiates to his left arm. Patient reports he has been having the pain for the past two days and that it is similar to past episode in which he had a blockage. Patient reports he took 3 aspirins at 10pm and it helped with the pain. Administered medications as per MAR. Will continue to follow plan of care.
[2022-08-31 03:44] LABS: Troponin-I High Sensitivity < 2.7 ng/L (<3.5-35.0)
== END 2022-08-31 04:44 | disposition home or self-care (01) ==
PROVIDERS: Emergency Provider Internal Medicine; PCP Internal Medicine
DX: R07.89 Other chest pain (principal); Z79.899 Other long term (current) drug therapy; Z87.891 Personal history of nicotine dependence
CPT/HCPCS: 36415; 80053; 84484; 85025; 85610; 85730; 93005; 99283; 99285

== ENCOUNTER 2022-09-13 09:31 | Outpatient (REF) | payer MEDICARE, SELFPAY | END 2022-09-13 09:32 | disposition home or self-care (01) | LOC: HO.MDS 09:31 | PROVIDERS: PCP Internal Medicine; Visit Provider Internal Medicine Gastroenterology | DX: K51.90 Ulcerative colitis, unspecified, without complications (principal) | CPT/HCPCS: 96365; J3380 ==

== ENCOUNTER 2022-10-07 08:56 | Outpatient (AMB) | payer MEDICARE, SELFPAY ==
--- NOTE | 2022-10-07 09:06 | MHC.OFFVIS ---
Intake Vital Signs 10/07/22 09:09 Height 5 ft 8 in Weight 227 lb BMI 34.5 BP 117/71 Blood Pressure Location Lt brachial Position Sitting Pulse 73 Intake Visit Reasons: 4 MONTH FOLLOW UP Intake Note: Patient follow up for Chronic disease and lab results. Patient cc: acid reflex on and off. Planetarium Technician Required: No Accompanied by: Self / Same As Patient Allergies Seasonal Allergies Allergy (Intermediate, Verified 10/07/22 09:05) eye swelling, itch Medication List - Last Reconciled 10/07/22 by Rodolfo Vazquez MD aspirin 81 mg PO DAILY atorvastatin 80 mg PO DAILY cholecalciferol (vitamin D3) 250 mcg PO 2XW 90 days metoprolol tartrate 25 mg PO BID omeprazole 20 mg PO DAILY 90 days vedolizumab (Entyvio) 300 mg IV Q4W HPI 4 MONTH FOLLOW UP HPI Details GI CLINIC VISIT FOR THIS 52 YM FOR FU of CROHN'S DISEASE? LABS:??08/2021?Vedolizumab antibodies were negative IMAGING STUDIES:? 09/11/[address] SCAN SHOWED: GASTROINTESTINAL TRACT: The appendix has been removed. There is moderate stool in the right colon there is air-fluid level in transverse colon and nondistended descending colon with mild mural thickening and mild fat stranding likely colitis. No diverticulitis seen. No extravasation of contrast seen to suspect any bleed at this time. ABDOMINAL WALL: No significant hernia is appreciated. IMPRESSION: Diffuse mural thickening involving the descending and sigmoid colon with mild pericolic stranding in the descending colon suggestive of colitis. No diverticuli seen. Similar findings were seen on the previous exam 04/11/2020. Appendix has been surgically removed. ENDOSCOPIC STUDIES:?08/2021 COLONOSCOPY SHOWED: Eight medium to large sized polyps removed - ? pseudopolyps versus adenomas Moderate hemorrhoids on retroflexed exam. Plan:? Repeat Colonoscopy in 12 months and if several polyps are adenomatous, pt will be referred to a colorectal surgeon for a total colectomy Above findings were reviewed with the patient and colon polyps handout was given in the discharge area BIOPSIES SHOWED: A.? Colon, ascending, biopsy:? Chronic inactive colitis. B.? Colon, transverse at 65 cm, polypectomy:? Inflammatory polyp. C.? Colon, transverse at 60 cm, polypectomies (4):? Inflammatory polyps. D.? Colon, transverse at 50 cm, polypectomies (2):? Inflammatory polyps. E.? Colon, sigmoid, biopsy:? Chronic inactive colitis. COMMENT:? No dysplasia or granulomata are identified. Repeat Colon advised in 1-2 yrs ADDENDUM: Pt reported skin rash of hands and feet after getting Entyvio (Vedolizumab) in June,? and did not go for his infusion in July or August. Rash resolved after a few days. Pt was advised to reschedule his appt for Entyvio to be administered after premedication with Benadryl 50 mg IV and acetaminiphen 625 mg PO. New order sent to [facility]. Colonoscopy from Apr 2018 showed?moderate chronic inactive colitis in 3 different biopsies. 2015 EGD?showed Grade 2 distal esophagitis with a small hiatal hernia (no H. pylori was found). I will have him start Pantoprazole once daily in the AM. The colonoscopy showed inflamation continuous from the ano-rectal verge. The pathology confirmed inflamatory pseudo polyps and moderate chronic active colitis with no evidence for dysplasia. TODAY'S VISIT: Doing well - no problems with Entyvio infusions Denies itching after infusions since benadryl is given before the infusion. Next Entyvio infusion on 10/11/22. Denies skin rash after Entyvio and noted itching on the day of the infusion - resolves by the next day. Notes hair loss on lateral aspects of both lower extermities x past 2 months. Has 3-4 solid to soft BMs during the day and 3 times at night (2 am, 3 am and 4-5 am) Has BMs at night if he ate late at night. Frequency of BMs is slowly improving. Previously had LLQ pain and post prandial diarrhea which has resolved. PAST VISITS: Has 6-7 BMs a day and 2-4 episodes at night Noted a panic attack and shortness of breath yesterday after getting the IV benadryl Taking a medication for the skin rash which is going away. Doing OK. Denies abd pain, diarrhea or rectal bleeding. Has been going to the bathroom less. 5 BMs during the day and 5 BMs at night - denies diarrhea. Takes imodium prn. Taking iron and vitamin C. Last Entyvio infusion on 04/13/21. Notes large non-bleeding hemorrhoids. Stopped azathioprine since it caused heartburn. [place] better for 1-2 weeks. Has to go to the bathroom every time he eats. Notes abdominal pain and diarrhea - 10-15 BMs a day BMs are loose to watery and denies blood in the stools Lost 2 lbs. Denies recent antibiotics. Takes Omeprazole for heartburn. Patient denies symptoms of heartburn, dysphagia, nausea, vomiting, change in appetite or weight.? Patient denies major cardiac or pulmonary problems, loud snoring or sleep apnea Denies problems with anesthesia in the past. Denies being on chronic anticoagulation. Patient denies known family history of colon polyps, colon cancer or other GI malignancy Past workup: ?10/09/[address] Hall, revealed colitis from the rectum to the tranverse colon near the hepatic flexure. Rectal Bx- Pos for mod active chronic colitis, suggestive of IBD. NO bxs taken from L, R, transverse colon or terminal ileum. Cardiac workup was essentially normal per pt. Told needs to lose wt. 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 Last seen 12/30/14-f/u 1 yr. On metroprolol due to extra beats . Labs: 09/10/14 No anemia, CRP < 0.30, normal CMP 09/30 PROMETHEUS IBD pattern consistent w/ Crohn's. CRP 2.67. C. Diff and Celiac panel Neg. TSH 0.82. PAST TREATMENTS: Asacol 800 mg twice daily, increased to three times daily after a flare Predniosne taper Apr 2016 started on Remicade infusion 5 mg/kg every 8 weeks August 2016 Remicade was increased to 10 milligram/kilogram every 8 weeks and then every 4 weeks June 2019 Switched to Entyvio every 8 weeks 07/27/19. Entyvio lvl measured and was lower than it should be suggesting some development of antibodies to the medication. Entyvio infusion 08/16/19. Bloodwork was also done around this time and not improved. WBC 25530 higher than usual. He sometmes runs a mild leukocytosis but not to this level. Last time his WBC was during the time of last admission to hospital and he did have c. diff present. 14.9/43.4. CRP is progressively elevated. 0.68 2.4 on 07/27/19. 4.23 on 08/16/19. Stool c. diff negative, Stool WBC negative 07/30/19. Last imaging on record is from March 2019. Colitis extending from mid transverse colon to the rectum. No drainable fluid collections. No pelvic fluid. Genetic assessment has been consistent with Crohn's (clinical presentation has been most consistent with ulcerative colitis). 04/2018 colonoscopy showed mild chronic inactive colitis on the left side. Reminder: in April 2019 he did have c. diff infection which was treated. Recheck on this by us in early July was negative [facility] Medical History Acute coronary syndrome CAD (coronary artery disease) Crohn disease Cyst in hand Essential (primary) hypertension GERD (gastroesophageal reflux disease) Hand pain Hearing loss in right ear History of acoustic neuroma Hypertension Iron deficiency anemia due to chronic blood loss Lipoma of arm Mass of hand Medicare annual wellness visit, initial Myocardial infarction NSTEMI (non-ST elevated myocardial infarction) Surgical History History of brain tumor History of surgery on arm Hx of appendectomy Hx of colonoscopy S/P cardiac cath (~01/2020) Status post excision of lipoma Stented coronary artery Family History Father Stroke Mother No problems noted. Maternal Uncle Heart attack Social History Household Members: Spouse Housing: Apartment Do you presently have visiting nurse or other home services: No Alcohol intake: former Patient Tobacco Use Status: Former Tobacco user Quit Date: 2007 Tobacco use type: Cigarette Cigarette Packs Per Day: 1 e-Cigarette/Vaping Use: Never Used Second Hand Smoke Exposure: No service: No Current occupational status: disabled Cognitive needs: No Hearing needs: No Vision needs: No Review of Systems Const All systems reviewed & are unremarkable except as noted in HPI and below Physical Exam Vital Signs: Last Vital Signs Pulse 73 10/07/22 09:09 BP 117/71 10/07/22 09:09 BMI result Body Mass Index 34.5 Const General: healthy appearing and no acute distress Nutritional Appearance: obese Orientation/consciousness: patient oriented x3 Limitations: no limitations HEENT Head: Yes normal to inspection Ears: hearing grossly normal bilaterally Mouth: Normal oral and palatal mucosa present Eyes Sclerae: sclerae normal Pupils: Equal, round and reactive pupils present Neck Neck: Yes normal visual inspection Chest Chest palpation & inspection: normal inspection of the chest Resp Effort & Inspection: normal respiratory effort Auscultation: clear to auscultation bilaterally Cardio Palpation: normal PMI Rate: regular rate Rhythm: regular rhythm Heart sounds: S1 normal heart sound present, S2 normal heart sound present and no murmurs GI Palpation (GI): Soft to palpation, Tenderness to palpation present (GI) (minimal LLQ tenderness) and No hepatosplenomegaly present Auscultation: normal bowel sounds Rectal Exam - Male: Yes deferred Skin General skin exam: no rashes or lesions noted Neuro General: patient oriented x3, gait normal and moves all extremities Cranial nerves: Yes Equal, round and reactive pupils present Psych Appearance: grossly normal Mental Status: mental status grossly normal Assessment & Plan Assessment & Plan (1) GERD (gastroesophageal reflux disease): Code(s): K21.9 - Gastro-esophageal reflux disease without esophagitis (2) Iron deficiency anemia due to chronic blood loss: Code(s): D50.0 - Iron deficiency anemia secondary to blood loss (chronic) (3) Crohn disease: Code(s): K50.90 - Crohn's disease, unspecified, without complications Plan 52 YM with CAD status post stent placement and on aspirin and Plavix and a hx of Crohn's (on Entyvio every 4 weeks) seen for FU [place] [facility] [place] with worsening diarrhea and bloody stools and lower abdominal pain.? Abdominal CT scan showed moderate stool in the right colon with air-fluid level in transverse colon and non-distended descending colon with mild mural thickening and mild fat stranding likely colitis. No diverticulitis. Patient was treated with IV steroids and discharged on p.o. prednisone 40 mg daily.? Entyvio was increased to every 4 weeks.? Last in Entyvio infusion on 09/13/22 and next infusion is scheduled on 10/11/2022 Pt notes improvement in symptoms - reports 3-4 BM during the day and 3 BMs at night. Patient was prescribed azathioprine 50 mg daily (TPMT enzyme activity was normal) and stopped due to heartburn. 08/2021 COLONOSCOPY SHOWED: Eight medium to large sized polyps removed - ? pseudopolyps versus adenomas Moderate hemorrhoids on retroflexed exam. Plan:? Repeat Colonoscopy in 2 yrs (due 09/2023) BIOPSIES SHOWED: A.? Colon, ascending, biopsy:? Chronic inactive colitis. B.? Colon, transverse at 65 cm, polypectomy:? Inflammatory polyp. C.? Colon, transverse at 60 cm, polypectomies (4):? Inflammatory polyps. D.? Colon, transverse at 50 cm, polypectomies (2):? Inflammatory polyps. E.? Colon, sigmoid, biopsy:? Chronic inactive colitis. COMMENT:? No dysplasia or granulomata are identified. Pt advised to have labs and fecal calprotectin checked to confirm Crohn's disease is in remission FU in 6 months (to have labs checked 1 month before FU appt) Orders: Orders Comprehensive Met. Panel 02/18/23 K50.90 - Crohn's disease, unspecified, without complications C Reactive Protein 02/18/23 K50.90 - Crohn's disease, unspecified, without complications Complete Blood Count no Diff 02/18/23 K50.90 - Crohn's disease, unspecified, without complications Coding Level of Care Code Est Pt Level 4 (09851) Diagnoses GERD (gastroesophageal reflux disease) K21.9 Iron deficiency anemia due to chronic blood loss D50.0 Crohn disease K50.90 Time Spent (min) 21
[2022-10-07 09:09] VITALS: BP 117/71; PULSE 73; BMI 34.5
== END 2022-10-07 09:40 | disposition home or self-care (01) ==
PROVIDERS: PCP Internal Medicine; Visit Provider Internal Medicine Gastroenterology
DX: K21.9 Gastro-esophageal reflux disease without esophagitis (principal); D50.0 Iron deficiency anemia secondary to blood loss (chronic); K50.90 Crohn's disease, unspecified, without complications
CPT/HCPCS: 99214

== ENCOUNTER → 2022-10-07 08:56 | Outpatient (BNVA) | payer MEDICARE, SELFPAY | PROVIDERS: PCP Internal Medicine; Visit Provider Internal Medicine Gastroenterology | DX: K21.9 Gastro-esophageal reflux disease without esophagitis (principal); K50.90 Crohn's disease, unspecified, without complications; D50.0 Iron deficiency anemia secondary to blood loss (chronic) | CPT/HCPCS: 99212 ==

== ENCOUNTER 2022-10-11 08:56 | Outpatient (REF) | payer MEDICARE, SELFPAY | END 2022-10-11 08:57 | disposition home or self-care (01) | LOC: HO.MDS 08:56 | PROVIDERS: Visit Provider Internal Medicine Gastroenterology | DX: K51.90 Ulcerative colitis, unspecified, without complications (principal) | CPT/HCPCS: 96365; J3380 ==

== ENCOUNTER 2022-10-25 08:11 | Outpatient (AMB) | payer MEDICARE, SELFPAY ==
[2022-10-25 08:18] VITALS: BP 130/78; PULSE 77; O2SAT 98; BMI 34.7
--- NOTE | 2022-10-25 08:18 | MHC.PC.OV ---
Vital Signs 10/25/22 08:18 Height 5 ft 8 in Weight 228 lb BMI 34.7 BP 130/78 Blood Pressure Location Lt brachial Position Sitting Pulse 77 Pulse Source Pulse Oximeter Pulse Oximetry (%) 98 Oxygen Delivery Method Room Air Intake Visit Reasons: lipids Prosthetics Technician Required: No Accompanied by: Self / Same As Patient Allergies Seasonal Allergies Allergy (Intermediate, Verified 10/25/22 08:28) eye swelling, itch Medication List - Last Reconciled 10/25/22 by Chely Lopez MD aspirin 81 mg PO DAILY atorvastatin 80 mg PO DAILY cholecalciferol (vitamin D3) 250 mcg PO 2XW 90 days metoprolol tartrate 25 mg PO BID omeprazole 20 mg PO DAILY 90 days vedolizumab (Entyvio) 300 mg IV Q4W Tobacco use date assessed: 05/03/22 Dental Screening Dental Screen Date: 10/25/22 Did you have a dental visit in the last 12 months?: Yes Did you have a dental problem in the last 6 months where you did not have access to dental care?: No Was dental information given to patient?: Patient has dentist HPI HPI Comments History of Present Illness Details This is a 52-year-old male with coronary artery disease, pure hypercholesterolemia, Crohn's disease, GERD and low vitamin-D that comes today complaining of chest pain located in the left side of the chest that can happens at rest or on exertion for the past 3 months. He went to ER in August 2022 and EKG was normal. Had cardiac catheterization in 2019 requiring 1 stent. No associated symptoms with chest pain. On aspirin for secondary prophylaxis of coronary artery disease. Lipids well controlled with statins. GERD stable with medication. Crohn's disease stable with Entyvio and is follow by Gastroenterology. Denies any abdominal pain or change in bowel habits. [facility] Medical History Acute coronary syndrome CAD (coronary artery disease) Crohn disease Cyst in hand Essential (primary) hypertension GERD (gastroesophageal reflux disease) Hand pain Hearing loss in right ear History of acoustic neuroma Hypertension Iron deficiency anemia due to chronic blood loss Lipoma of arm Mass of hand Medicare annual wellness visit, initial Myocardial infarction NSTEMI (non-ST elevated myocardial infarction) Surgical History History of brain tumor History of surgery on arm Hx of appendectomy Hx of colonoscopy S/P cardiac cath (~01/2020) Status post excision of lipoma Stented coronary artery Family History Father Stroke Mother No problems noted. Maternal Uncle Heart attack Social History Household Members: Spouse Housing: Apartment Do you presently have visiting nurse or other home services: No Alcohol intake: former Patient Tobacco Use Status: Former Tobacco user Quit Date: 2007 Tobacco use type: Cigarette Cigarette Packs Per Day: 1 e-Cigarette/Vaping Use: Never Used Second Hand Smoke Exposure: No service: No Current occupational status: disabled Cognitive needs: No Hearing needs: No Vision needs: No Questionnaire PHQ-9 Over the last 2 weeks, how often have you been bothered by any of the following problems? 1. Little interest or pleasure in doing things: not at all 2. Feeling down, depressed, or hopeless: not at all 3. Trouble falling or staying asleep, or sleeping too much: not at all 4. Feeling tired or having little energy: not at all 5. Poor appetite or overeating: not at all 6. Feeling bad about yourself - or that you are a failure or have let yourself or your family down: not at all 7. Trouble concentrating on things, such as reading the newspaper or watching television: not at all 8. Moving or speaking so slowly that other people could have noticed. Or the opposite - being so fidgety or restless that you have been moving around a lot more than usual: not at all 9. Thoughts that you would be better off or of hurting yourself in some way: not at all Total score: 0 Depression Screening Interpretation: Negative 61284 - PHQ-9 Billing: Yes Source: Developed by Drs. Amilcar Miles, Keiko Michel, Chan Rae and colleagues, with an educational mayte from [employer] Thrive Questionnaire Date Thrive assessed: 05/03/22 AUDIT C Alcohol Use Questionnaire (AUDIT-C) 1. How often do you have a drink containing alcohol?: Never Total Score: 0 CT-[address] - 7 assessed: 05/03/22 Source: Developed by Drs. Amilcar Miles, Keiko Michel, Chan Rae and colleagues, with an educational mayte from [employer] Review of Systems Const All systems reviewed & are unremarkable except as noted in HPI and below Eyes Reports no additional complaints, Denies change in vision and Denies other visual disturbances Card Denies chest pain at rest, Denies chest pain with activity, Denies edema, Denies irregular heart rhythm, Denies claudication, Denies dyspnea, Denies dyspnea on exertion, Denies orthopnea, Denies paroxysmal nocturnal dyspnea and Denies slow heart rate Resp Denies cough, Denies dyspnea and Denies dyspnea on exertion GI Denies abdominal pain, Denies change in bowel habits, Denies excessive flatus, Denies nausea and Denies vomiting Denies urinary hesitancy, Denies urinary incontinence and Denies urinary urgency Musc Denies abnormal gait, Denies atrophy, Denies deformity and Denies limited range of motion Skin/Breast Denies bleeding lesions, Denies changing lesions and Denies rash Neuro Denies abnormal gait and Denies lack of coordination Physical exam (Primary Care) Vital Signs: Last Vital Signs Pulse 77 10/25/22 08:18 BP 130/78 10/25/22 08:18 Pulse Ox 98 10/25/22 08:18 Oxygen Delivery Method Room Air 10/25/22 08:18 BMI result Body Mass Index 34.7 Tobacco/Smoking Status: Tobacco use Status Tobacco use date assessed 05/03/22 10/25/22 08:22 Patient Tobacco Use Status Former Tobacco user 10/25/22 08:22 Tobacco use type Cigarette 10/25/22 08:22 e-Cigarette/Vaping Use Never Used 10/25/22 08:22 PHQ-9: PHQ-9 Score PHQ-9: Total score 0 10/25/22 08:22 Depression Screening Interpretation: Negative Thrive Assessment: Date of Thrive Assessment Date Thrive assessed 05/03/22 10/25/22 08:22 Eyes General: appearance normal, both eyes and all related structures Eyelids: Yes eyelids normal Conjunctivae: conjunctivae normal Neck Neck: Yes normal visual inspection and Yes supple Resp Effort & Inspection: normal respiratory effort Auscultation: clear to auscultation bilaterally Cardio Jugular venous distension: no JVD Rate: regular rate Rhythm: regular rhythm Heart sounds: S1 normal heart sound present and S2 normal heart sound present Extrem General: Yes full ROM Assessment and Plan Assessment & Plan (1) Chest pain: Code(s): R07.9 - Chest pain, unspecified Plan: Stress test ordered (2) CAD (coronary artery disease): Code(s): I25.10 - Atherosclerotic heart disease of [place] coronary artery without angina pectoris Qualifiers: Coronary Disease-Associated Artery/Lesion type: [place] artery [place] vs. transplanted heart: [place] heart Associated angina: without angina Qualified Code(s): I25.10 - Atherosclerotic heart disease of [place] coronary artery without angina pectoris Plan: Continue aspirin and metoprolol. (3) Pure hypercholesterolemia: Code(s): E78.00 - Pure hypercholesterolemia, unspecified Plan: Continue statins (4) Hypovitaminosis D: Code(s): E55.9 - Vitamin D deficiency, unspecified Plan: Continue vitamin-D supplement (5) Crohn disease: Code(s): K50.90 - Crohn's disease, unspecified, without complications Plan: Continue Entyvio (6) GERD (gastroesophageal reflux disease): Code(s): K21.9 - Gastro-esophageal reflux disease without esophagitis Plan: Continue PPIs as needed Orders: Orders CA stress test Today R07.9 - Chest pain, unspecified Medications: Refilled cholecalciferol (vitamin D3) 250 mcg PO 2XW 90 days 26 caps 1RF E55.9 - Vitamin D deficiency, unspecified Coding Level of Care Code Est Pt Level 4 (75539) Diagnoses Chest pain R07.9 CAD (coronary artery disease) I25.10 Coronary Disease-Associated Artery/Lesion type: [place] artery [place] vs. transplanted heart: [place] heart Associated angina: without angina Pure hypercholesterolemia E78.00 Hypovitaminosis D E55.9 Crohn disease K50.90 GERD (gastroesophageal reflux disease) K21.9 Time Spent (min) 22
== END 2022-10-25 08:36 | disposition home or self-care (01) ==
PROVIDERS: Visit Provider Internal Medicine
DX: R07.9 Chest pain, unspecified (principal); E55.9 Vitamin D deficiency, unspecified; K50.90 Crohn's disease, unspecified, without complications; K21.9 Gastro-esophageal reflux disease without esophagitis; I25.10 Atherosclerotic heart disease of native coronary artery without angina pectoris; E78.00 Pure hypercholesterolemia, unspecified
CPT/HCPCS: 99214

== ENCOUNTER 2022-11-08 08:49 | Outpatient (REF) | payer OTHER, SELFPAY ==
--- NOTE | 2022-11-08 10:59 | HE.PHANOTE ---
Pharmacy received call from ARIEL Hickman down in medical day stay stating that the patient had left without being treated. Pharmacy had compounded the patient their patient own ENTYVIO. Thus, patient has lost out on their own medication. I relayed to Marylou that a new entyvio will need to be sent from their pharmacy before the patient can be rescheduled.
== END 2022-11-08 08:50 | disposition home or self-care (01) ==
LOC: HO.MDS 08:49
PROVIDERS: Visit Provider Internal Medicine Gastroenterology
DX: K51.90 Ulcerative colitis, unspecified, without complications (principal)
CPT/HCPCS: J3380

== ENCOUNTER → 2022-11-09 07:33 | Outpatient (REF) | payer OTHER, SELFPAY ==
--- NOTE | 2022-11-09 08:57 | CA_ITS ---
Acquisition Time: 2022-11-09 10:00:44 Total Exercise Time: 00:08:02 Test Indications: CHEST PAIN Medications: SEE MED SHEET Protocol: HUNG Max HR: 142 BPM 85% of Pred: 167 BPM Max BP: 176/092 mmHG Max Work Load: 10.1 METS Exercise stress test exercise 8 min 2 sec of Hung protocol achieving 85% MPHr, with moderate SOB, 4-5/10 chest tightness on right side, with isolated PVC and one ventricular cuplet, with normotensive response to exercise, without EKG changes. Chest tightness resolved with rest. Test reviewed with Dr. Camacho. Referred By: Chely Lopez Overread By: LINDSEY CAMACHO
== END ==
LOC: HO.CARD 07:33
PROVIDERS: PCP Internal Medicine; Visit Provider Internal Medicine
DX: R07.9 Chest pain, unspecified (principal)
CPT/HCPCS: 93017; J3380

== ENCOUNTER → 2022-11-09 08:57 | Outpatient (BNV) | payer OTHER, SELFPAY | PROVIDERS: PCP Internal Medicine; Visit Provider Internal Medicine | DX: R07.9 Chest pain, unspecified (principal); R06.02 Shortness of breath | CPT/HCPCS: 93016; 93018 ==

== ENCOUNTER 2022-11-09 09:06 | Outpatient (REF) | payer OTHER, SELFPAY | END 2022-11-09 09:07 | disposition home or self-care (01) | LOC: HO.MDS 09:06 | PROVIDERS: Visit Provider Internal Medicine Gastroenterology | DX: K51.90 Ulcerative colitis, unspecified, without complications (principal) | CPT/HCPCS: 96365 ==

== ENCOUNTER 2022-11-11 09:54 | Outpatient (AMB) | payer MEDICARE, SELFPAY ==
[2022-11-11 09:59] VITALS: BP 120/80; PULSE 67; BMI 34.2
--- NOTE | 2022-11-11 09:59 | A.OFFVIS_ITS ---
Intake Vital Signs 11/11/22 09:59 Height 5 ft 8 in Weight 224 lb 13.944 oz BMI 34.2 BP 120/80 Blood Pressure Location Lt brachial Position Sitting Pulse 67 Intake Visit Reasons: 1 year follow up Intake Note: 1 year f/up Calibration Specialist Required: No Allergies Seasonal Allergies Allergy (Intermediate, Verified 11/11/22 10:07) eye swelling, itch Medication List - Last Reconciled 11/11/22 by Gretta Morris NP-C aspirin 81 mg PO DAILY atorvastatin 80 mg PO DAILY cholecalciferol (vitamin D3) 250 mcg PO 2XW 90 days metoprolol tartrate 25 mg PO BID omeprazole 20 mg PO DAILY 90 days vedolizumab (Entyvio) 300 mg IV Q4W HPI 1 year follow up HPI Details Shar is a 51-year-old male with past medical history of hypertension, hyperlipidemia, CAD with prior left circumflex stent, residual distal LAD disease. He was seen in [place] [facility] [place] on 04/09/2022 and 08/31/2022 with chest discomfort and ruled out for ACS on each occasion. He recently underwent an exercise stress test and now presents for follow-up. Today he reports that he has been getting a pain in his lower left breast region that radiates to his underarm. This mostly occurs at rest and he wonders if it is the position that he is laying in. He says this is similar to the discomfort he was feeling at the time of his CT. He went to the ER on 2 occasions since last visit for this symptom and was told it was not his heart. He also describes a pressure sensation in his mid chest with exertional activities. He said that is the feeling he got on the treadmill during the stress test. No significant shortness of breath, palpitations, dizziness, presyncope, syncope, PND, orthopnea or edema. He does not do routine exercise. He takes care of his 2 grandchildren ages 2 and 4. Remains active throughout the day. Taking meds as directed. [facility] Medical History Acute coronary syndrome CAD (coronary artery disease) Crohn disease Cyst in hand Essential (primary) hypertension GERD (gastroesophageal reflux disease) Hand pain Hearing loss in right ear History of acoustic neuroma Hypertension Iron deficiency anemia due to chronic blood loss Lipoma of arm Mass of hand Medicare annual wellness visit, initial Myocardial infarction NSTEMI (non-ST elevated myocardial infarction) Surgical History History of brain tumor History of surgery on arm Hx of appendectomy Hx of colonoscopy S/P cardiac cath (~01/2020) Status post excision of lipoma Stented coronary artery Family History Father Stroke Mother No problems noted. Maternal Uncle Heart attack Social History Household Members: Spouse Housing: Apartment Do you presently have visiting nurse or other home services: No Alcohol intake: former Patient Tobacco Use Status: Former Tobacco user Quit Date: 2007 Tobacco use type: Cigarette Cigarette Packs Per Day: 1 e-Cigarette/Vaping Use: Never Used Second Hand Smoke Exposure: No service: No Current occupational status: disabled Cognitive needs: No Hearing needs: No Vision needs: No Review of Systems Const All systems reviewed & are unremarkable except as noted in HPI and below ENT Denies dizziness Card Reports chest pain, Reports chest pain at rest, Reports chest pain with activity, Denies rapid heart rate, Denies pedal edema, Denies edema, Denies leg edema, Denies lightheadedness, Denies palpitations, Denies dyspnea, Denies dyspnea on exertion and Denies orthopnea Resp Denies cough, Denies dyspnea and Denies dyspnea on exertion GI Denies hematochezia and Denies change in stool character Musc Denies abnormal gait, Reports limited range of motion, Reports muscle cramps, Denies muscle weakness, Denies numbness, Denies radiating pain into limb, Denies stiffness and Denies tingling Neuro Denies abnormal gait, Denies dizziness, Denies numbness and Denies tingling Endo Denies palpitations Physical Exam Const General: cooperative, healthy appearing, comfortable and no acute distress Orientation/consciousness: patient oriented x3 Neck Neck: Yes normal visual inspection Resp Effort & Inspection: normal respiratory effort Auscultation: clear to auscultation bilaterally, no crackles, no rales, no rhonchi and no wheezes Cardio Jugular venous distension: no JVD Rate: regular rate Rhythm: regular rhythm Heart sounds: S1 normal heart sound present, S2 normal heart sound present, no gallops, no murmurs and no rubs Skin General skin exam: no rashes or lesions noted Neuro General: patient oriented x3 Extrem General: Yes normal to inspection and No no pedal edema Psych Appearance: grossly normal Mental Status: mental status grossly normal Speech and movement: Normal speech and movement present Office Procedures EKG Details: Today, read by me, normal sinus rhythm, rate 67, no acute ST or T-wave abnormalities [id number], Complete Assessment & Plan Assessment & Plan (1) CAD (coronary artery disease): Code(s): I25.10 - Atherosclerotic heart disease of [place] coronary artery without angina pectoris Qualifiers: Associated angina: without angina Coronary Disease-Associated Artery/Lesion type: [place] artery [place] vs. transplanted heart: [place] heart Qualified Code(s): I25.10 - Atherosclerotic heart disease of [place] coronary artery without angina pectoris Plan: NSTEMI 02/11/2020. Cardiac catheterization 02/12/20 showed distal LAD 60% stenosis and 95% mid left circumflex stenosis and ANETA was placed. Echo at [facility] that day showed EF 55-60%, no regional wall motion abnormality, normal diastolic function, normal RV. EKG done on 06/22/2021 shows sinus rhythm with a T-wave abnormality in lead 3 only, rate 94. His last prior cardiology for follow-up was 10/2021. He was seen in the ER on 2 occasions in the last 6 months the last being 08/31/2022 for left-sided chest discomfort with radiation to his axilla occurring at rest. He ruled out for ACS on both occasions. He says this feeling was similar to the discomfort he felt at the time of NSTEMI. Exercise stress test done on 11/09/2022 shows exercise 8 minutes with report of 4 to 5/10 chest discomfort, no EKG changes. Today he reports that he continues to get his discomfort at rest. In addition he does admit to having mid anterior chest pressure with exertion. This feeling is different than the symptom at rest. Will update echocardiogram to assess EF and wall motion. Will check exercise nuclear stress test to further evaluate for ischemia. Signs and symptoms of angina reviewed with him. Continue with current medical management including aspirin indefinitely, metoprolol and high- dose Atorvastatin. Labs done 04/20/2022 showed LDL 76. Will obtain updated lipid profile. If LDL remains greater than 70 then will add Zetia. Cardiology follow-up in 4-6 weeks, sooner if needed. ED care if warranted for symptoms (2) S/P cardiac cath: Onset Date: ~01/2020 Comment: Distal LAD 60% stenosis, mid LCx 95% stenosis and ANETA placed, RCA mild ds Code(s): Z98.890 - Other specified postprocedural states (3) Stented coronary artery: Code(s): Z95.5 - Presence of coronary angioplasty implant and graft (4) Pure hypercholesterolemia: Code(s): E78.00 - Pure hypercholesterolemia, unspecified Plan: [place] LDL goal less than 70 and patient with CAD. Updating fasting lipid profile (5) Essential (primary) hypertension: Code(s): I10 - Essential (primary) hypertension Plan: Well controlled at present time. Continue metoprolol Orders: Orders Lipid Panel Today E78.00 - Pure hypercholesterolemia, unspecified Coding Level of Care Code Est Pt Level 4 (26014) Diagnoses CAD (coronary artery disease) I25.10 Associated angina: without angina Coronary Disease-Associated Artery/Lesion type: [place] artery [place] vs. transplanted heart: [place] heart S/P cardiac cath Z98.890 Stented coronary artery Z95.5 Pure hypercholesterolemia E78.00 Essential (primary) hypertension I10 CPT Codes EKG - CPT: [id number], Complete ([id number]) Time Spent (min) 28 Comment Chart review, documentation, interview, assessment
== END 2022-11-11 10:22 | disposition home or self-care (01) ==
PROVIDERS: PCP Internal Medicine; Referring Provider Internal Medicine; Visit Provider Nurse Practitioner Family
DX: I25.10 Atherosclerotic heart disease of native coronary artery without angina pectoris (principal); Z98.890 Other specified postprocedural states; Z95.5 Presence of coronary angioplasty implant and graft; E78.00 Pure hypercholesterolemia, unspecified; I10 Essential (primary) hypertension
CPT/HCPCS: 93010; 99214

== ENCOUNTER → 2022-11-11 09:54 | Outpatient (BNVA) | payer MEDICARE, SELFPAY | PROVIDERS: PCP Internal Medicine; Referring Provider Internal Medicine; Visit Provider Nurse Practitioner Family | DX: I25.10 Atherosclerotic heart disease of native coronary artery without angina pectoris (principal); I10 Essential (primary) hypertension; E78.00 Pure hypercholesterolemia, unspecified; Z98.890 Other specified postprocedural states; Z95.5 Presence of coronary angioplasty implant and graft | CPT/HCPCS: 93005; 99212 ==

== ENCOUNTER 2022-12-06 08:21 | Outpatient (REF) | payer MEDICARE, SELFPAY | END 2022-12-06 08:22 | disposition home or self-care (01) | LOC: HO.MDS 08:21 | PROVIDERS: Visit Provider Internal Medicine Gastroenterology | DX: K51.90 Ulcerative colitis, unspecified, without complications (principal) | CPT/HCPCS: 96365; J1200; J3380 ==

== ENCOUNTER 2023-01-03 07:47 | Outpatient (REF) | payer MEDICARE, SELFPAY | END 2023-01-03 07:48 | disposition home or self-care (01) | LOC: HO.MDS 07:47 | PROVIDERS: Visit Provider Internal Medicine Gastroenterology | DX: K51.90 Ulcerative colitis, unspecified, without complications (principal) | CPT/HCPCS: 96365; J3380 ==

== ENCOUNTER → 2023-01-05 14:27 | Outpatient (REF) | payer MEDICARE, SELFPAY ==
--- NOTE | 2023-01-05 14:30 | CA_ITS ---
Transthoracic Echocardiogram Patient (Last, First, Middle): Shar Ibarra L Gender: Male Date of : 1970 Age: 52 Procedure Date: 01/05/2023 Procedure Type: Transthoracic Echocardiogram Location: OP Height: 172.72 cm Weight: 98.88 kg BSA: 2.12 m2 Heart Rate: bpm BP: 118 / 80 mmHg Medical Customer Service Representative: TO Referring MD: Gretta Morris RN [employer]ILIZ[employer]NAGEMENT UMMarcia Symptoms: I25.10 - Atherosclerotic heart disease of [place] coronary artery without... Study Quality: Fair/Contrast ECG Rhythm: Sinus Conclusions: - The left ventricular systolic function is normal. The calculated ejection fraction is 62% by biplane method. - No obvious valvular pathology seen on this study. - There is mild dilatation of the ascending aorta measuring 4.30 cm. Findings Procedure Information Contrast agent, definity, is being given per protocol without apparent complications. Left Ventricle Normal left ventricular cavity size. There is mildly increased left ventricular wall thickness. The left ventricular systolic function is normal. The calculated ejection fraction is 62% by biplane method. There is no evidence of regional wall motion abnormalities. Diastolic function is normal for age. There is moderate septal asymmetric hypertrophy. Right Ventricle Mildly increased right ventricular cavity size. There is normal right ventricular systolic function. Atria Both atria are normal in size. Aortic Valve There is a normal trileaflet aortic valve. There is no aortic valve stenosis. There is no aortic valve regurgitation. Mitral Valve The mitral valve appears normal. There is no mitral valve regurgitation. There is no mitral valve stenosis. Pulmonic Valve There is mild pulmonic valve regurgitation. Tricuspid Valve Normal tricuspid valve structure. There is trace tricuspid valve regurgitation. There is no evidence of pulmonary hypertension. Great Vessels There is mild dilatation of the ascending aorta measuring 4.30 cm. Venous The inferior vena cava is normal in size and collapses greater than 50% with inspiration. Pericardium/Pleural There is no evidence of pericardial effusion. Prior Study Comparison No prior study available for comparison. Recommendations, Care & Conclusions No obvious valvular pathology seen on this study. Measurements 2D Linear Measurements IVSd: 1.50 0.6-0.9/0.6-1.0 cm LVIDd: 4.10 3.9-5.3/4.2-5.9 cm LVIDd Index: 1.93 2.4-3.2/2.2-3.1 cm/m2 LVIDs: 2.50 2.0-3.6 cm LVPWd: 1.10 0.7-1.1 cm LA Diam: 3.80 2.7-3.8/3.0-4.0 cm LAIDs Index: 1.79 1.5-2.3 cm/m2 LV Mass: 241.12 67-162/88-224 g LV Mass Index: 113.73 43-95/49-115 g/m2 LVOT Diam: 2.30 3.0+(-)1.3 cm 2D Systolic Function EF 4C: 62.90 >55% EF 2C: 58.20 >55% EF BiP: 61.50 >55% Mitral Valve MV Pk E: 0.56 MV PK A: 0.61 MV Decel Time: 249.00 E/A: 0.90 E'Lateral: 8.49 E'Medial: 6.31 E/E' Med: 8.90 E/E' Lat: 6.60 PHT: 73.00 MVA PHT: 3.01 Decel Rabun: 2.26 Aortic Valve AoV Pk Maximo: 1.38 AoV Mn Maximo: 0.86 AoV VTI: 0.28 AoV Pk Grad: 8.00 Aov Mn Grad: 4.00 RADHA Cont.VTI: 2.98 LVOT LVOT Pk Maximo: 0.95 LVOT Mn Maximo: 0.65 LVOT VTI: 0.20 LVOT Pk Grad: 4.00 LVOT Mn Grad: 2.00 LVOT Diam: 2.30 LVOT Area: 4.15 Diastolic Function MV Pk E: 0.56 MV Pk A: 0.61 E/A: 0.90 E'Medial: 6.31 E/E' Med: 8.90 E' Laterial: 8.49 E/E' Lat: 6.60 Right Ventricle TAPSE (mm): 26.40 TVS' Maximo: 13.20 Tricuspid Valve TR Pk Maximo: 2.04 TR Pk Grad: 17.00 RA Press: 3.00 RVSP: 20.00 Great Vessels Aorta Sinus of Valsalva: 3.80 2.0-3.[address] [place]: 2.90 1.7-3.4 cm Ao Asc: 4.30 2.1-3.4 cm Updated in Other Vendor System with Status of Final Matthew Walker MD electronically signed on 01/07/2023 3:00:06 PM with status of Final
== END ==
LOC: HO.CARD 14:27
PROVIDERS: PCP Internal Medicine; Visit Provider Nurse Practitioner Family
DX: I25.10 Atherosclerotic heart disease of native coronary artery without angina pectoris (principal); Z95.5 Presence of coronary angioplasty implant and graft; Z98.890 Other specified postprocedural states
CPT/HCPCS: 93306; Q9957

== ENCOUNTER → 2023-01-05 14:30 | Outpatient (BNV) | payer MEDICARE, SELFPAY | PROVIDERS: PCP Internal Medicine; Visit Provider Internal Medicine | DX: I25.10 Atherosclerotic heart disease of native coronary artery without angina pectoris (principal) | CPT/HCPCS: 93306 ==

== ENCOUNTER 2023-02-02 07:46 | Outpatient (REF) | payer MEDICARE, SELFPAY | END 2023-02-02 07:47 | disposition home or self-care (01) | LOC: HO.MDS 07:46 | PROVIDERS: Visit Provider Internal Medicine Gastroenterology | DX: K51.90 Ulcerative colitis, unspecified, without complications (principal) | CPT/HCPCS: 96365; J3380 ==

== ENCOUNTER → 2023-02-08 08:01 | Outpatient (REF) | payer MEDICARE, SELFPAY ==
--- NOTE | ~2023-02-08 | NM_ITS ---
EXERCISE MYOCARDIAL PERFUSION STUDY INDICATION: Chest pain, assess for coronary disease and ischemia TECHNIQUE: The patient was brought in for an exercise perfusion study on 02/08/2023. Patient performed exercise as per Jose protocol and was injected 33 mCi of sestamibi once target heart rate was achieved. Images were obtained using the SPECT gamma camera interlaced with the gating device. Images were obtained in supine position. Resting perfusion study was performed on 02/09/2023. Patient was administered 33 mCi of sestamibi intravenously at rest. Images were then obtained in supine position. Images were processed with the software and compared side to side in short axis, horizontal long axis and vertical long axis views. Total DLP 108mGy-cm. FINDINGS: Raw images were reviewed. The stress perfusion study showed diminished tracer uptake in the apical part of inferior wall. With CT attenuation correction, no major change. The gated study shows normal LV systolic function with calculated LVEF of 64%. LV cavity is normal in size. The gated study shows normal wall thickening and contraction of segments. Resting study shows no significant perfusion abnormality. Gating at rest reveals normal wall motion with ejection fraction at 47%, but visually appears normal. The findings are consistent with mild reversible apical inferior defect. NM/NM cardiolite stress test IMPRESSION: 1. Myocardial perfusion imaging study shows mild ischemia in the apical inferior wall. 2. Gated LVEF is 54% during stress and 47% during rest. Correlate with echocardiogram. 3. Transient ischemic dilatation not present. EKG component of the test reported separately.
--- NOTE | 2023-02-08 08:04 | CA_ITS ---
Acquisition Time: 2023-02-08 08:02:33 Total Exercise Time: 00:07:10 Test Indications: CP Medications: SEE H Protocol: HUNG Max HR: 150 BPM 90% of Pred: 166 BPM Max BP: 152/072 mmHG Max Work Load: 8.6 METS Exercise stress test with exercise 7 min 10 sec of Hung protocol, achieving 90% MPHR, with 2/10 right sided chest discomfort, mild to moderate shortness of breath, with isolated PACs, with normotensive response to exercise, without EKG changes meeting criteria for ischemia. In recovery his chest discomfort and sob resolved. Nuclear images pending. Test reviewed with Dr Howell. Referred By: Gretta Morris Overread By: GRETTA MORRIS
== END ==
LOC: HO.CARD 08:01
PROVIDERS: PCP Internal Medicine; Visit Provider Nurse Practitioner Family
DX: I25.10 Atherosclerotic heart disease of native coronary artery without angina pectoris (principal); Z95.5 Presence of coronary angioplasty implant and graft; Z98.890 Other specified postprocedural states
CPT/HCPCS: 78452; 93017; A9500

== ENCOUNTER → 2023-02-08 08:04 | Outpatient (BNV) | payer MEDICARE, SELFPAY | PROVIDERS: PCP Internal Medicine; Visit Provider Nurse Practitioner Family | DX: I25.10 Atherosclerotic heart disease of native coronary artery without angina pectoris (principal) | CPT/HCPCS: 78452; 93016; 93018 ==

== ENCOUNTER 2023-02-22 12:55 | Outpatient (AMB) | payer MEDICARE, SELFPAY ==
[2023-02-22 13:26] VITALS: BP 120/84; PULSE 90; BMI 32.8
--- NOTE | 2023-02-22 13:26 | MHC.OFFVIS ---
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 He was seen in the [facility] emergency room on 04/09/2022 and 08/31/2022 with chest discomfort and ruled out for ACS on each occasion. On last visit a exercise nuclear stress test and echocardiogram were ordered. Stress test was mildly abnormal and amlodipine was added. He now presents for follow-up. Today he reports he has been doing better since the addition of amlodipine. He has not had any recurrent chest discomfort. He tells me he had been getting different sensations including a left chest discomfort that occurs when he lays on his left side. He was also experiencing some vague pressure in his mid chest and at times in his right chest with activity. No concerning shortness of breath, palpitations, presyncope, syncope, PND, orthopnea or edema. He has been compliant with his medications. He reports being busy throughout the day with his 2 grandchildren that live with him, ages 2 and 4. He does not do any routine exercise. [facility] Medical History Hand pain GERD (gastroesophageal reflux disease) Myocardial infarction Iron deficiency anemia due to chronic blood loss Medicare annual wellness visit, initial Lipoma of arm Mass of hand Cyst in hand CAD (coronary artery disease) Hypertension NSTEMI (non-ST elevated myocardial infarction) Acute coronary syndrome Essential (primary) hypertension Crohn disease Hearing loss in right ear History of acoustic neuroma Surgical History Status post excision of lipoma History of surgery on arm History of brain tumor S/P cardiac cath (~01/2020) Stented coronary artery Hx of colonoscopy Hx of appendectomy Family History Father Stroke Mother No problems noted. Maternal Uncle Heart attack Social History Household Members: Spouse Housing: Apartment Do you presently have visiting nurse or other home services: No Alcohol intake: former Comment: Given for PTT-HD Patient Tobacco Use Status: Former Tobacco user Quit Date: 2007 Tobacco use type: Cigarette Cigarette Packs Per Day: 1 e-Cigarette/Vaping Use: Never Used Second Hand Smoke Exposure: No service: No Current occupational status: disabled Cognitive needs: No Hearing needs: No Vision needs: No Review of Systems Const All systems reviewed & are unremarkable except as noted in HPI and below ENT Denies dizziness Card Denies chest pain, Denies chest pain at rest, Denies chest pain with activity, Denies rapid heart rate, Denies pedal edema, Denies edema, Denies leg edema, Denies lightheadedness, Denies palpitations, Denies dyspnea, Denies dyspnea on exertion and Denies orthopnea Resp Denies cough, Denies dyspnea and Denies dyspnea on exertion GI Denies hematochezia and Denies change in stool character Musc Denies abnormal gait, Denies limited range of motion, Denies muscle cramps, Denies muscle weakness, Denies numbness, Denies radiating pain into limb, Denies stiffness and Denies tingling Neuro Denies abnormal gait, Denies dizziness, Denies numbness and Denies tingling Endo Denies palpitations Physical Exam Vital Signs: Last Vital Signs Pulse 90 02/22/23 13:26 BP 120/84 02/22/23 13:26 BMI result Body Mass Index 32.8 Const General: cooperative, healthy appearing, comfortable and no acute distress Orientation/consciousness: patient oriented x3 Neck Neck: Yes normal visual inspection Resp Effort & Inspection: normal respiratory effort Auscultation: clear to auscultation bilaterally, no crackles, no rales, no rhonchi and no wheezes Cardio Jugular venous distension: no JVD Rate: regular rate Rhythm: regular rhythm Heart sounds: S1 normal heart sound present, S2 normal heart sound present, no gallops, no murmurs and no rubs Skin General skin exam: no rashes or lesions noted Neuro General: patient oriented x3 Extrem General: Yes normal to inspection and No no pedal edema Psych Appearance: grossly normal Mental Status: mental status grossly normal Speech and movement: Normal speech and movement present Assessment & Plan Assessment & Plan (1) CAD (coronary artery disease): Code(s): I25.10 - Atherosclerotic heart disease of [place] coronary artery without angina pectoris Qualifiers: Coronary Disease-Associated Artery/Lesion type: [place] artery [place] vs. transplanted heart: [place] heart Associated angina: without angina Qualified Code(s): I25.10 - Atherosclerotic heart disease of [place] coronary artery without angina pectoris Plan: NSTEMI 02/11/2020. Cardiac catheterization 02/12/20 showed distal LAD 60% stenosis and 95% mid left circumflex stenosis and ANETA was placed. Echo at [facility] that day showed EF 55-60%, no regional wall motion abnormality. He stated he had been doing well then was seen in the ER on 2 occasions in the last year the last being 08/31/2022 for left-sided chest discomfort with radiation to his axilla occurring at rest. He ruled out for ACS on both occasions. He told me that the feeling was similar to the discomfort he felt at the time of NSTEMI. Exercise stress test done on 11/09/2022 shows exercise 8 minutes with report of 4 to 5/10 chest discomfort, no EKG changes. He then underwent an exercise nuclear stress test on 02/08/2023 with exercise 7 minutes, 2/10 right-sided chest discomfort, no EKG changes and nuclear imaging showing mild ischemia in the apical inferior wall. Echocardiogram done 01/05/2023 showed EF 62%, ascending aorta 4.3 cm, no regional wall motion abnormality. Following stress test results review amlodipine 2.5 mg daily was added. Today reports he has been doing well since the addition of amlodipine. He tells me he has not had chest discomfort since that time. Spent time reviewing signs and symptoms of angina. Informed that he may need cardiac catheterization if his symptoms reoccur. Emergency care if needed for symptoms not relieved by rest. At this time will have him Continue with current medical management including aspirin indefinitely, metoprolol, amlodipine and high-dose Atorvastatin. Labs done 04/20/2022 showed LDL 76. Lipid profile is already ordered, reminded him to obtain. If LDL remains greater than 70 then will add Zetia. Cardiology follow-up in 3 months, sooner if needed. ED care if warranted for symptoms (2) S/P cardiac cath: Onset Date: ~01/2020 Comment: Distal LAD 60% stenosis, mid LCx 95% stenosis and ANETA placed, RCA mild ds Code(s): Z98.890 - Other specified postprocedural states (3) Stented coronary artery: Comment: Left circumflex Code(s): Z95.5 - Presence of coronary angioplasty implant and graft Plan: As above (4) Pure hypercholesterolemia: Code(s): E78.00 - Pure hypercholesterolemia, unspecified Plan: [place] LDL goal less than 70 and patient with CAD. Updating fasting lipid profile (5) Essential (primary) hypertension: Code(s): I10 - Essential (primary) hypertension Plan: Well controlled at present time. Continue metoprolol and amlodipine Plan As above Patient Instructions: Time spent on chart review, documentation, interview, assessment Coding Level of Care Code Est Pt Level 4 (35464) Diagnoses Coronary artery disease involving [place] coronary artery of [place] heart without angina pectoris I25.10 Coronary Disease-Associated Artery/Lesion type: [place] artery [place] vs. transplanted heart: [place] heart Associated angina: without angina S/P cardiac cath Z98.890 Stented coronary artery Z95.5 Pure hypercholesterolemia E78.00 Essential (primary) hypertension I10 Time Spent (min) 28
== END 2023-02-22 13:57 | disposition home or self-care (01) ==
PROVIDERS: PCP Internal Medicine; Visit Provider Nurse Practitioner Family
DX: I25.10 Atherosclerotic heart disease of native coronary artery without angina pectoris (principal); Z98.890 Other specified postprocedural states; Z95.5 Presence of coronary angioplasty implant and graft; E78.00 Pure hypercholesterolemia, unspecified; I10 Essential (primary) hypertension
CPT/HCPCS: 99214

== ENCOUNTER → 2023-02-22 12:55 | Outpatient (BNVA) | payer MEDICARE, SELFPAY | PROVIDERS: PCP Internal Medicine; Visit Provider Nurse Practitioner Family | DX: I25.10 Atherosclerotic heart disease of native coronary artery without angina pectoris (principal); I10 Essential (primary) hypertension; E78.00 Pure hypercholesterolemia, unspecified; Z98.890 Other specified postprocedural states; Z95.5 Presence of coronary angioplasty implant and graft | CPT/HCPCS: 99212 ==

== ENCOUNTER 2023-03-02 08:01 | Outpatient (REF) | payer MEDICARE, SELFPAY | END 2023-03-02 08:02 | disposition home or self-care (01) | LOC: HO.MDS 08:01 | PROVIDERS: Visit Provider Internal Medicine Gastroenterology | DX: K51.90 Ulcerative colitis, unspecified, without complications (principal) | CPT/HCPCS: 96365 ==

== ENCOUNTER 2023-03-30 08:04 | Outpatient (REF) | payer MEDICARE, MEDICAID, SELFPAY | END 2023-03-30 08:05 | disposition home or self-care (01) | LOC: HO.MDS 08:04 | PROVIDERS: Visit Provider Internal Medicine Gastroenterology | DX: K51.90 Ulcerative colitis, unspecified, without complications (principal) | CPT/HCPCS: 96365; J3380 ==

== ENCOUNTER 2023-04-07 08:53 | Outpatient (AMB) | payer MEDICARE, MEDICAID, SELFPAY ==
--- NOTE | 2023-04-07 09:00 | MHC.OFFVIS ---
Intake Vital Signs 04/07/23 09:04 Height 5 ft 8 in Weight 216 lb 0.848 oz BMI 32.8 BP 121/75 Blood Pressure Location Lt brachial Position Sitting Pulse 83 Intake Visit Reasons: 6 month follow up Intake Note: Shar presents in the office as a 6 month follow up. CC: He states that he is not having any concerns today just a follow up. Urology Nurse Required: No Allergies Seasonal Allergies Allergy (Intermediate, Verified 04/07/23 09:05) eye swelling, itch Medication List - Last Reconciled 04/07/23 by Rodolfo Vazquez MD amlodipine 2.5 mg PO DAILY aspirin 81 mg PO DAILY atorvastatin 80 mg PO DAILY cholecalciferol (vitamin D3) 250 mcg PO 2XW 90 days metoprolol tartrate 25 mg PO BID omeprazole 20 mg PO DAILY 90 days vedolizumab (Entyvio) 300 mg IV Q4W HPI 6 month follow up HPI Details GI CLINIC VISIT FOR THIS 53 YM FOR FU of CROHN'S DISEASE? LABS:??08/2021?Vedolizumab antibodies were negative IMAGING STUDIES:? 09/11/[address] SCAN SHOWED: GASTROINTESTINAL TRACT: The appendix has been removed. There is moderate stool in the right colon there is air-fluid level in transverse colon and nondistended descending colon with mild mural thickening and mild fat stranding likely colitis. No diverticulitis seen. No extravasation of contrast seen to suspect any bleed at this time. ABDOMINAL WALL: No significant hernia is appreciated. IMPRESSION: Diffuse mural thickening involving the descending and sigmoid colon with mild pericolic stranding in the descending colon suggestive of colitis. No diverticuli seen. Similar findings were seen on the previous exam 04/11/2020. Appendix has been surgically removed. ENDOSCOPIC STUDIES:?08/2021 COLONOSCOPY SHOWED: Eight medium to large sized polyps removed - ? pseudopolyps versus adenomas Moderate hemorrhoids on retroflexed exam. Plan:? Repeat Colonoscopy in 12 months and if several polyps are adenomatous, pt will be referred to a colorectal surgeon for a total colectomy Above findings were reviewed with the patient and colon polyps handout was given in the discharge area BIOPSIES SHOWED: A.? Colon, ascending, biopsy:? Chronic inactive colitis. B.? Colon, transverse at 65 cm, polypectomy:? Inflammatory polyp. C.? Colon, transverse at 60 cm, polypectomies (4):? Inflammatory polyps. D.? Colon, transverse at 50 cm, polypectomies (2):? Inflammatory polyps. E.? Colon, sigmoid, biopsy:? Chronic inactive colitis. COMMENT:? No dysplasia or granulomata are identified. Repeat Colon advised in 1-2 yrs ADDENDUM: Pt reported skin rash of hands and feet after getting Entyvio (Vedolizumab) in June,? and did not go for his infusion in July or August. Rash resolved after a few days. Pt was advised to reschedule his appt for Entyvio to be administered after premedication with Benadryl 50 mg IV and acetaminiphen 625 mg PO. New order sent to [facility]. Colonoscopy from Apr 2018 showed?moderate chronic inactive colitis in 3 different biopsies. 2015 EGD?showed Grade 2 distal esophagitis with a small hiatal hernia (no H. pylori was found). I will have him start Pantoprazole once daily in the AM. The colonoscopy showed inflamation continuous from the ano-rectal verge. The pathology confirmed inflamatory pseudo polyps and moderate chronic active colitis with no evidence for dysplasia. TODAY'S VISIT: CC: He states that he is not having any concerns today just a follow up. Pt is interested in switching to oral medication for Crohn's disease if possible. Still going to the bathroom a lot - 6-7 times during the day and 2-3 times at night. Takes imodium prn sometimes when he notes watery diarrhea. Denies abdominal pain. Doing well - no problems with Entyvio infusions Denies itching after infusions since benadryl is given before the infusion. Next Entyvio infusion on 04/27/23. Denies skin rash after Entyvio and noted itching on the day of the infusion - resolves by the next day. PAST VISITS: Notes hair loss on lateral aspects of both lower extermities x past 2 months. Has 3-4 solid to soft BMs during the day and 3 times at night (2 am, 3 am and 4-5 am) Has BMs at night if he ate late at night. Frequency of BMs is slowly improving. Previously had LLQ pain and post prandial diarrhea which has resolved. Has 6-7 BMs a day and 2-4 episodes at night Noted a panic attack and shortness of breath yesterday after getting the IV benadryl Taking a medication for the skin rash which is going away. Doing OK. Denies abd pain, diarrhea or rectal bleeding. Has been going to the bathroom less. 5 BMs during the day and 5 BMs at night - denies diarrhea. Takes imodium prn. Taking iron and vitamin C. Last Entyvio infusion on 04/13/21. Notes large non-bleeding hemorrhoids. Stopped azathioprine since it caused heartburn. [place] better for 1-2 weeks. Has to go to the bathroom every time he eats. Notes abdominal pain and diarrhea - 10-15 BMs a day BMs are loose to watery and denies blood in the stools Lost 2 lbs. Denies recent antibiotics. Takes Omeprazole for heartburn. Patient denies symptoms of heartburn, dysphagia, nausea, vomiting, change in appetite or weight.? Patient denies major cardiac or pulmonary problems, loud snoring or sleep apnea Denies problems with anesthesia in the past. Denies being on chronic anticoagulation. Patient denies known family history of colon polyps, colon cancer or other GI malignancy Past workup: ?10/09/[address] Hall, revealed colitis from the rectum to the tranverse colon near the hepatic flexure. Rectal Bx- Pos for mod active chronic colitis, suggestive of IBD. NO bxs taken from L, R, transverse colon or terminal ileum. Cardiac workup was essentially normal per pt. Told needs to lose wt. 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 Last seen 12/30/14-f/u 1 yr. On metroprolol due to extra beats . Labs: 09/10/14 No anemia, CRP < 0.30, normal CMP 09/30 PROMETHEUS IBD pattern consistent w/ Crohn's. CRP 2.67. C. Diff and Celiac panel Neg. TSH 0.82. PAST TREATMENTS: Asacol 800 mg twice daily, increased to three times daily after a flare Predniosne taper Apr 2016 started on Remicade infusion 5 mg/kg every 8 weeks August 2016 Remicade was increased to 10 milligram/kilogram every 8 weeks and then every 4 weeks June 2019 Switched to Entyvio every 8 weeks 07/27/19. Entyvio lvl measured and was lower than it should be suggesting some development of antibodies to the medication. Entyvio infusion 08/16/19. Bloodwork was also done around this time and not improved. WBC 90731 higher than usual. He sometmes runs a mild leukocytosis but not to this level. Last time his WBC was during the time of last admission to hospital and he did have c. diff present. 14.9/43.4. CRP is progressively elevated. 0.68 2.4 on 07/27/19. 4.23 on 08/16/19. Stool c. diff negative, Stool WBC negative 07/30/19. Last imaging on record is from March 2019. Colitis extending from mid transverse colon to the rectum. No drainable fluid collections. No pelvic fluid. Genetic assessment has been consistent with Crohn's (clinical presentation has been most consistent with ulcerative colitis). 04/2018 colonoscopy showed mild chronic inactive colitis on the left side. Reminder: in April 2019 he did have c. diff infection which was treated. Recheck on this by us in early July was negative [facility] Medical History Hand pain GERD (gastroesophageal reflux disease) Myocardial infarction Iron deficiency anemia due to chronic blood loss Medicare annual wellness visit, initial Lipoma of arm Mass of hand Cyst in hand CAD (coronary artery disease) Hypertension NSTEMI (non-ST elevated myocardial infarction) Acute coronary syndrome Essential (primary) hypertension Crohn disease Hearing loss in right ear History of acoustic neuroma Surgical History Status post excision of lipoma History of surgery on arm History of brain tumor S/P cardiac cath (~01/2020) Stented coronary artery Hx of colonoscopy Hx of appendectomy Family History Father Stroke Mother No problems noted. Maternal Uncle Heart attack Social History Household Members: Spouse Housing: Apartment Do you presently have visiting nurse or other home services: No Alcohol intake: former Comment: Given for PTT-HD Patient Tobacco Use Status: Former Tobacco user Quit Date: 2007 Tobacco use type: Cigarette Cigarette Packs Per Day: 1 e-Cigarette/Vaping Use: Never Used Second Hand Smoke Exposure: No service: No Current occupational status: disabled Cognitive needs: No Hearing needs: No Vision needs: No Review of Systems Const All systems reviewed & are unremarkable except as noted in HPI and below Physical Exam Vital Signs: Last Vital Signs Pulse 83 04/07/23 09:04 BP 121/75 04/07/23 09:04 BMI result Body Mass Index 32.8 Const General: healthy appearing and no acute distress Nutritional Appearance: obese Orientation/consciousness: patient oriented x3 Limitations: no limitations HEENT Head: Yes normal to inspection Ears: hearing grossly normal bilaterally Eyes Sclerae: sclerae normal Pupils: Equal, round and reactive pupils present Neck Neck: Yes normal visual inspection Chest Chest palpation & inspection: normal inspection of the chest Resp Effort & Inspection: normal respiratory effort Auscultation: clear to auscultation bilaterally Cardio Palpation: normal PMI Rate: regular rate Rhythm: regular rhythm Heart sounds: S1 normal heart sound present, S2 normal heart sound present and no murmurs GI Palpation (GI): Soft to palpation, nontender and No hepatosplenomegaly present Auscultation: normal bowel sounds Rectal Exam - Male: Yes deferred Skin General skin exam: no rashes or lesions noted Neuro General: patient oriented x3, gait normal and moves all extremities Cranial nerves: Yes Equal, round and reactive pupils present Psych Appearance: grossly normal Mental Status: mental status grossly normal Assessment & Plan Assessment & Plan (1) Hypovitaminosis D: Code(s): E55.9 - Vitamin D deficiency, unspecified (2) GERD (gastroesophageal reflux disease): Code(s): K21.9 - Gastro-esophageal reflux disease without esophagitis (3) Crohn disease: Code(s): K50.90 - Crohn's disease, unspecified, without complications Plan 53 YM with CAD status post stent placement and on aspirin and Plavix and a hx of Crohn's (on Entyvio every 4 weeks) seen for FU after hospitalization at [facility] n 08/2020 with worsening diarrhea and bloody stools and lower abdominal pain.? Abdominal CT scan showed moderate stool in the right colon with air-fluid level in transverse colon and non-distended descending colon with mild mural thickening and mild fat stranding likely colitis. No diverticulitis. Patient was treated with IV steroids and discharged on p.o. prednisone 40 mg daily.? Entyvio was increased to every 4 weeks.? Last in Entyvio infusion on 09/13/22 and next infusion is scheduled on 10/11/2022 Pt notes improvement in symptoms - reports 3-4 BM during the day and 3 BMs at night. Patient was prescribed azathioprine 50 mg daily (TPMT enzyme activity was normal) and stopped due to heartburn. 08/2021 COLONOSCOPY SHOWED: Eight medium to large sized polyps removed - ? pseudopolyps versus adenomas Moderate hemorrhoids on retroflexed exam. Plan:? Repeat Colonoscopy in 2 yrs (due 09/2023) BIOPSIES SHOWED: A.? Colon, ascending, biopsy:? Chronic inactive colitis. B.? Colon, transverse at 65 cm, polypectomy:? Inflammatory polyp. C.? Colon, transverse at 60 cm, polypectomies (4):? Inflammatory polyps. D.? Colon, transverse at 50 cm, polypectomies (2):? Inflammatory polyps. E.? Colon, sigmoid, biopsy:? Chronic inactive colitis. COMMENT:? No dysplasia or granulomata are identified. Pt advised to have labs and fecal calprotectin checked to confirm Crohn's disease is in remission FU in 6 months. Coding Level of Care Code Est Pt Level 4 (20741) Diagnoses Hypovitaminosis D E55.9 GERD (gastroesophageal reflux disease) K21.9 Crohn disease K50.90 Time Spent (min) 21
[2023-04-07 09:04] VITALS: BP 121/75; PULSE 83; BMI 32.8
== END 2023-04-07 09:33 | disposition home or self-care (01) ==
PROVIDERS: PCP Internal Medicine; Visit Provider Internal Medicine Gastroenterology
DX: E55.9 Vitamin D deficiency, unspecified (principal); K21.9 Gastro-esophageal reflux disease without esophagitis; K50.90 Crohn's disease, unspecified, without complications
CPT/HCPCS: 99214

== ENCOUNTER → 2023-04-07 08:53 | Outpatient (BNVA) | payer MEDICARE, MEDICAID, SELFPAY | PROVIDERS: PCP Internal Medicine; Visit Provider Internal Medicine Gastroenterology | DX: K21.9 Gastro-esophageal reflux disease without esophagitis (principal); K50.90 Crohn's disease, unspecified, without complications; E55.9 Vitamin D deficiency, unspecified | CPT/HCPCS: 99212 ==

== ENCOUNTER 2023-05-10 09:28 | Outpatient (AMB) | payer MEDICARE, MEDICAID, SELFPAY ==
--- NOTE | 2023-05-10 09:32 | A.OFFPC_ITS ---
Vital Signs 05/10/23 09:33 Height 5 ft 8 in Weight 213 lb BMI 32.4 BP 122/80 Blood Pressure Location Lt brachial Position Sitting Intake Visit Reasons: PE Intake Note: Patient here for a physical exam, c/o forgetfulness Behavioral Analyst Required: No Accompanied by: Self / Same As Patient Allergies Seasonal Allergies Allergy (Intermediate, Verified 05/10/23 09:48) eye swelling, itch Medication List - Last Reconciled 05/10/23 by Chely Lopez MD amlodipine 2.5 mg PO DAILY aspirin 81 mg PO DAILY atorvastatin 80 mg PO DAILY cholecalciferol (vitamin D3) 250 mcg PO 2XW 90 days metoprolol tartrate 25 mg PO BID omeprazole 20 mg PO DAILY 90 days vedolizumab (Entyvio) 300 mg IV Q4W Tobacco use date assessed: 05/10/23 Dental Screening Dental Screen Date: 05/10/23 Did you have a dental visit in the last 12 months?: No Did you have a dental problem in the last 6 months where you did not have access to dental care?: No Was dental information given to patient?: Yes HPI HPI Comments History of Present Illness Details This is a 53-year-old male with Crohn's disease that comes for his physical exam. Last colonoscopy was 2021. He denies any rectal bleeding. Had stress test showing mild ischemia and has cardiology appointment next month. On aspirin for secondary prophylaxis. [facility] Medical History (Updated 05/10/23 @ 09:54 by Chely Lopez MD) Hand pain GERD (gastroesophageal reflux disease) Myocardial infarction Iron deficiency anemia due to chronic blood loss Medicare annual wellness visit, initial Lipoma of arm Mass of hand Cyst in hand CAD (coronary artery disease) Hypertension NSTEMI (non-ST elevated myocardial infarction) Acute coronary syndrome Essential (primary) hypertension Crohn disease Hearing loss in right ear History of acoustic neuroma Surgical History Status post excision of lipoma History of surgery on arm History of brain tumor S/P cardiac cath (~01/2020) Stented coronary artery Hx of colonoscopy Hx of appendectomy Family History Father Stroke Mother No problems noted. Maternal Uncle Heart attack Social History Household Members: Spouse Housing: Apartment Do you presently have visiting nurse or other home services: No Alcohol intake: former Comment: Given for PTT-HD Patient Tobacco Use Status: Former Tobacco user Quit Date: 2007 Tobacco use type: Cigarette Cigarette Packs Per Day: 1 e-Cigarette/Vaping Use: Never Used Second Hand Smoke Exposure: No service: No Current occupational status: disabled Cognitive needs: No Hearing needs: No Vision needs: No Questionnaire PHQ-9 Over the last 2 weeks, how often have you been bothered by any of the following problems? 1. Little interest or pleasure in doing things: not at all 2. Feeling down, depressed, or hopeless: not at all 3. Trouble falling or staying asleep, or sleeping too much: not at all 4. Feeling tired or having little energy: not at all 5. Poor appetite or overeating: not at all 6. Feeling bad about yourself - or that you are a failure or have let yourself or your family down: not at all 7. Trouble concentrating on things, such as reading the newspaper or watching television: not at all 8. Moving or speaking so slowly that other people could have noticed. Or the opposite - being so fidgety or restless that you have been moving around a lot more than usual: not at all 9. Thoughts that you would be better off or of hurting yourself in some way: not at all Total score: 0 Depression Screening Interpretation: Negative Depression Screening Done: Yes 19924 - PHQ-9 Billing: Yes Source: Developed by Drs. Amilcar Miles, Keiko Michel, Chan Rae and colleagues, with an educational mayte from [employer]. Thrive Questionnaire Date Thrive assessed: 05/10/23 I am a: Patient What is your living situation today?: I have a steady place to live Within the past 12 months, did the food you bought not last and you didn't have the money to get more?: Never true Within the past 12 months, did you worry whether your food would run out before you got money to buy more?: Never true Do you have trouble paying for medicines?: No Do you have trouble getting transportation to medical appointments?: No Do you have trouble paying your heating and electricity bill?: No Do you have trouble taking care of your child, family member or friend?: No Do you have trouble with day-to-day activities such as bathing, preparing meals, shopping, managing finances, etc.?: No Are you currently unemployed and looking for a job?: No Are you interested in more education?: No Please select the resources that you would like help with: None Currently or been in a relationship where the following occur: no concerns reported THRIVE Score: 0 AUDIT C Alcohol Use Questionnaire (AUDIT-C) 1. How often do you have a drink containing alcohol?: Never Total Score: 0 CT-[address] - 7 assessed: 05/10/23 Feeling nervous, anxious, or on edge: 3 = Nearly every day Not being able to stop or control worryin = Not at all Worrying too much about different things: 1 = Several days Trouble relaxin = Not at all Being so restless that it is hard to sit still: 0 = Not at all Becoming easily annoyed or irritable: 1 = Several days Feeling afraid as if something awful might happen: 0 = Not at all Total CT-7 score (0-4 normal; 5-9 mild; 10-14 moderate; 15-21 severe): 5 Source: Developed by Drs. Amilcar Miles, Keiko Michel, Chan Rae and colleagues, with an educational mayte from [employer]. CT-[address] Tool: [address]-7 Assessment 14256 Review of Systems Const All systems reviewed & are unremarkable except as noted in HPI and below Eyes Reports no additional complaints, Denies change in vision and Denies other visual disturbances Card Denies chest pain at rest, Denies chest pain with activity, Denies edema, Denies irregular heart rhythm, Denies claudication, Denies dyspnea, Denies dyspnea on exertion, Denies orthopnea, Denies paroxysmal nocturnal dyspnea and Denies slow heart rate Resp Denies cough, Denies dyspnea and Denies dyspnea on exertion GI Denies abdominal pain, Denies change in bowel habits, Denies excessive flatus, Denies nausea and Denies vomiting Denies urinary hesitancy, Denies urinary incontinence and Denies urinary urgency Musc Denies abnormal gait, Denies atrophy, Denies deformity and Denies limited range of motion Skin/Breast Denies bleeding lesions, Denies changing lesions and Denies rash Neuro Denies abnormal gait, Denies behavioral changes, Denies confusion and Denies lack of coordination Psych Denies behavioral changes and Denies confusion Physical exam (Primary Care) Vital Signs: Last Vital Signs BP 122/80 05/10/23 09:33 BMI result Body Mass Index 32.4 Tobacco/Smoking Status: Tobacco use Status Tobacco use date assessed 05/10/23 05/10/23 09:40 Patient Tobacco Use Status Former Tobacco user 05/10/23 09:40 Tobacco use type Cigarette 05/10/23 09:40 e-Cigarette/Vaping Use Never Used 05/10/23 09:40 PHQ-9: PHQ-9 Score PHQ-9: Total score 0 05/10/23 09:53 Depression Screening Interpretation: Negative Thrive Assessment: Date of Thrive Assessment Date Thrive assessed 05/10/23 05/10/23 09:40 Currently or been in a relationship where the following occur: no concerns reported Const General: No confusion Orientation/consciousness: patient oriented x3 and No confusion HENMT Head: Yes normal to inspection, Yes normocephalic and Yes atraumatic Ears: external ears normal Eyes General: appearance normal, both eyes and all related structures Eyelids: Yes eyelids normal Conjunctivae: conjunctivae normal Neck Neck: Yes normal visual inspection and Yes supple Resp Effort & Inspection: normal respiratory effort Auscultation: clear to auscultation bilaterally Cardio Jugular venous distension: no JVD Rate: regular rate Rhythm: regular rhythm Heart sounds: S1 normal heart sound present and S2 normal heart sound present GI Inspection: Yes normal to inspection Palpation (GI): Soft to palpation and nontender Auscultation: normal bowel sounds Skin General skin exam: no rashes or lesions noted Neuro General: patient oriented x3, no focal motor deficits and No confusion Extrem General: Yes full ROM Psych Appearance: grossly normal Assessment and Plan Assessment & Plan (1) Physical exam: Code(s): Z00.00 - Encounter for general adult medical examination without abnormal findings Plan: Repeat in a year. (2) Crohn disease: Code(s): K50.90 - Crohn's disease, unspecified, without complications Plan: Continue Entyvio. Follow-up with gastroenterology. Orders: Orders IRON PROFILE Today D64.9 - Anemia, unspecified Vitamin B12 and Folate Today E53.8 - Deficiency of other specified B group vitamins Vitamin D 25-OH Total Today E55.9 - Vitamin D deficiency, unspecified Comprehensive [place]. Panel Fast Today I25.10 - Atherosclerotic heart disease of ute coronary artery without angina pectoris Thyroid Stimulating Hormone Today R41.3 - Other amnesia Complete Blood Count Auto Diff Today D64.9 - Anemia, unspecified Lipid Panel Today E78.5 - Hyperlipidemia, unspecified Coding Level of Care Code Est Pt Prev Care 40-64y(94213) Diagnoses Physical exam Z00.00 Crohn disease K50.[address]-7 Assessment Billing - CT-7 Assessment Tool: CT-7 Assessment 49636 ([id number]) Time Spent (min) 31
[2023-05-10 09:33] VITALS: BP 122/80; BMI 32.4
== END 2023-05-10 09:58 | disposition home or self-care (01) ==
PROVIDERS: Visit Provider Internal Medicine
DX: Z00.00 Encounter for general adult medical examination without abnormal findings (principal); K50.90 Crohn's disease, unspecified, without complications
CPT/HCPCS: 99396

== ENCOUNTER 2023-05-10 10:07 | Outpatient (REF) | payer MEDICARE, MEDICAID, SELFPAY ==
[2023-05-10 10:19] LABS: MANUAL DIFF FLAG NO
[2023-05-10 10:45] LABS: Basophils Percent Auto 0.1 % (0-2); Eosinophils Absolute Auto 0.2 X10*3/uL (0.0-0.4); Eosinophils Percent Auto 2.5 % (0-4); Hematocrit 42.8 % (42.0-52.0); Hemoglobin 14.9 g/dl (14.0-18.0); Imm Gran Abs Auto 0.03 X10*3/uL (0.00-0.03); Imm Gran Pct Auto 0.3 % (0.0-0.4); Lymphocytes Percent Auto 33.4 % (20-40); Mean Corpuscular HGB Conc 34.8 g/dl (31.0-36.0); Mean Corpuscular Hemoglobin 32.4 pg (27.0-33.0); Mean Platelet Volume 10.2 fL (9.4-12.4); Monocytes Absolute Auto 0.5 X10*3/uL (0.1-1.2); Monocytes Percent Auto 5.2 % (2-11); Neutrophils Absolute Auto 5.3 x10*3/uL (2.0-8.3); Neutrophils Percent Auto 58.5 % (45-73); Platelet Count 229 X10*3/uL (160-400); Red Cell Distribution Width 12.7 % (11.0-16.0); White Blood Count 9.1 X10*3/uL (4.8-10.8)
[2023-05-10 11:26] LABS: Alanine Aminotransferase 14 U/L (0-40); Albumin Level 4.2 g/dL (3.5-5.0); Alkaline Phosphatase 66 U/L (39-117); Anion Gap 12 (12-20); Aspartate Amino Transferase 12 U/L (5-37); Bilirubin Total 0.6 mg/dL (0.0-1.0); Blood Urea Nitrogen 12 mg/dL (9-16); Calcium 9.2 mg/dL (8.4-10.2); Carbon Dioxide 24 mmol/L (22-29); Chloride 108 mmol/L (96-108); Cholesterol 165 mg/dL (<200); Estimated Glomerular Filt Rate > 60; Glucose Fasting 95 mg/dL (60-99); HDL Cholesterol 41 mg/dL (>40); Iron 77 mcg/dL (45-160); LDL Cholesterol Calculated 111 mg/dL (<100); Percent Iron Saturation 29 % (15-50); Potassium 3.8 mmol/L (3.3-5.1); Sodium 140 mmol/L (135-145); Total Iron Binding Capacity 263 mcg/dL (228-428); Total Protein 7.8 g/dL (6.5-8.0); Triglycerides 65 mg/dL (<150); Unsaturated Iron Binding 186 ug/dL
[2023-05-10 11:43] LABS: Thyroid Stimulating Hormone 1.01 uIU/mL (0.32-4.0); Vitamin D 25-OH Total 35.7 ng/mL (>30)
[2023-05-10 11:52] LABS: Folate 12.2 ng/mL (> or = 4.0); Vitamin B12 375 pg/mL (200-900)
== END 2023-05-10 10:08 | disposition home or self-care (01) ==
LOC: HO.LAB 10:07
PROVIDERS: PCP Internal Medicine; Visit Provider Internal Medicine
DX: E55.9 Vitamin D deficiency, unspecified (principal); E53.8 Deficiency of other specified B group vitamins; R41.3 Other amnesia; E78.5 Hyperlipidemia, unspecified; D64.9 Anemia, unspecified; I25.10 Atherosclerotic heart disease of native coronary artery without angina pectoris
CPT/HCPCS: 36415; 80053; 80061; 82306; 82607; 82746; 83540; 84443; 85025

== ENCOUNTER 2023-05-11 07:47 | Outpatient (REF) | payer MEDICARE, MEDICAID, SELFPAY | END 2023-05-11 07:48 | disposition home or self-care (01) | LOC: HO.MDS 07:47 | PROVIDERS: Visit Provider Internal Medicine Gastroenterology | DX: K50.90 Crohn's disease, unspecified, without complications (principal) | CPT/HCPCS: 96365; J3380 ==

== ENCOUNTER 2023-06-06 07:48 | Outpatient (REF) | payer MEDICARE, MEDICAID, SELFPAY ==
[2023-06-06 07:50] VITALS: BP 118/84; PULSE 83; RESP 18; TEMP 36.9; O2SAT 96; BMI 32.7
--- NOTE | 2023-06-06 07:52 | PC.NURSE ---
pharmacy called for kofi
[2023-06-06] MEDS: Acetaminophen 325 MG TABLET 650 MG PO (08:10)
[2023-06-06] MEDS: diphenhydrAMINE HCL 25 MG CAPSULE 50 MG PO (08:10)
[2023-06-06] MEDS: Vedolizumab 300 MG in 0.9 % Sodium Chloride 250 ML 510 MG IV (08:55)
== END 2023-06-06 07:49 | disposition home or self-care (01) ==
LOC: HO.MDS 07:48
PROVIDERS: Visit Provider Internal Medicine Gastroenterology
DX: K50.90 Crohn's disease, unspecified, without complications (principal)
CPT/HCPCS: 96365; J3380

== ENCOUNTER 2023-07-15 08:13 | Outpatient (REF) | payer MEDICARE, MEDICAID, SELFPAY | END 2023-07-15 08:14 | disposition home or self-care (01) | LOC: HO.SH 08:13 | PROVIDERS: Visit Provider Internal Medicine | DX: Z01.118 Encounter for examination of ears and hearing with other abnormal findings (principal); H90.41 Sensorineural hearing loss, unilateral, right ear, with unrestricted hearing on the contralateral side | CPT/HCPCS: 92550; 92557 ==

== ENCOUNTER 2023-09-27 04:45 | Inpatient (IN) | payer MEDICARE, MEDICAID, SELFPAY ==
--- NOTE | ~2023-09-27 | CT_ITS ---
EXAMINATION: CT ABDOMEN AND PELVIS WITHOUT CONTRAST CLINICAL INFORMATION: Left lower quadrant pain with history of Crohn's disease. COMPARISON: 01/13/2021, 09/11/2020 TECHNIQUE: Multidetector volumetric imaging was performed from the superior aspect of the liver through the pubic symphysis. Sagittal and coronal reformatted images were obtained on the technologist's workstation. This CT examination was performed using dose optimization techniques as appropriate, variously including the following: *Automated exposure control *Adjustment of mA and/or kV according to patient size (this includes techniques or standardized protocols for targeted exams where dose is matched to indication/reason for exam; i.e. 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 Nonspecific bowel pattern. Phleboliths. LUNG BASES: The visualized lung bases are unremarkable. LIVER, GALLBLADDER, AND BILIARY TREE: The liver is normal in size, shape, and attenuation. No focal hepatic lesion or biliary ductal dilatation is present. The gallbladder is unremarkable with no evidence of radiopaque gallstones, gallbladder wall thickening, or obvious pericholecystic inflammatory changes. PANCREAS: Unremarkable. SPLEEN: Unremarkable. ADRENAL GLANDS: Unremarkable. KIDNEYS AND URETERS: The kidneys are normal in size, shape, and attenuation. No hydronephrosis, hydroureter, or calculi seen. No perinephric stranding. BLADDER: Compressed. GASTROINTESTINAL TRACT: Decompressed stomach. Nonobstructive bowel pattern. Mildly prominent left mid abdominal small bowel loop with possible mild wall thickening but no stranding, coronal images 5:33 through 41. Fluid-filled distal ileum without thickened [place]. Right lower quadrant surgical clips and proximal ascending colon anastomotic suture line. Fluid-filled large bowel with featureless, thin-walled descending colon. Pneumatosis is questioned in the sigmoid colon, 3:66 and not excluded in the distal transverse/proximal ascending colon, 3:30 and 31. There is fairly abrupt transition of distended thin-walled sigmoid colon to decompressed rectosigmoid, 3:66. On previous studies, the descending colon and sigmoid colon were thickened appearing. ABDOMINAL WALL: Protuberant. Fat filled inguinal hernias. LYMPH NODES: Interval development of multiple prominent mediastinal lymph nodes with mesenteric mistiness. No pathologic retroperitoneal lymphadenopathy. VASCULAR: Atherosclerotic calcifications nonaneurysmal aorta. Normal caliber inferior vena cava. PELVIC VISCERA: Unremarkable. Phleboliths. OSSEOUS STRUCTURES: T1 and T2 anterior wedge deformities. CT/CT abdomen pelvis wo IV con IMPRESSION: Fluid-filled colon, likely diarrhea. Descending colonic wall thickening with questionable pneumatosis. Mildly thickened left mid abdominal small bowel loop not excluded. Interval development of mesenteric mistiness and prominent mesenteric lymph nodes, question mesenteric adenitis. Fleischner guidelines were followed. At the time of this dictation, PSA service contacted to alert referring physician of findings.
--- NOTE | ~2023-09-27 | XR_ITS ---
EXAMINATION: XR ABDOMEN KUB CLINICAL INDICATION: Diarrhea. COMPARISON: None available. TECHNIQUE: 2 AP views of the abdomen and pelvis are submitted. FINDINGS: The bowel gas pattern is normal with no evidence of ileus or obstruction. No free intraperitoneal air is seen. There are right upper quadrant surgical clips. There are pelvic phleboliths. No acute osseous abnormality seen. There are mild degenerative changes of the hips. There is a slight thoracolumbar levoscoliosis. XR/XR KUB IMPRESSION: Unremarkable examination.
[2023-09-27 04:55] VITALS: BP 128/95; PULSE 99; RESP 16; TEMP 36.8; O2SAT 97; BMI 32.5
[2023-09-27 05:14] LABS: Basophils Percent Auto 0.3 % (0-2); Eosinophils Absolute Auto 0.1 X10*3/uL (0.0-0.4); Eosinophils Percent Auto 1.2 % (0-4); Hematocrit 44.8 % (42.0-52.0); Hemoglobin 16.5 g/dl (14.0-18.0); Imm Gran Abs Auto 0.03 X10*3/uL (0.00-0.03); Imm Gran Pct Auto 0.3 % (0.0-0.4); Lymphocytes Absolute Auto 2.9 X10*3/uL (1.2-4.9); Lymphocytes Percent Auto 27.2 % (20-40); MANUAL DIFF FLAG NO; Mean Corpuscular HGB Conc 36.8 g/dl (31.0-36.0); Mean Corpuscular Hemoglobin 32.9 pg (27.0-33.0); Mean Corpuscular Volume 89.4 fL (80.0-98.0); Mean Platelet Volume 9.6 fL (9.4-12.4); Monocytes Absolute Auto 0.9 X10*3/uL (0.1-1.2); Monocytes Percent Auto 8.6 % (2-11); Neutrophils Absolute Auto 6.6 x10*3/uL (2.0-8.3); Neutrophils Percent Auto 62.4 % (45-73); Platelet Count 214 X10*3/uL (160-400); Red Blood Count 5.01 X10*6/uL (4.60-5.80); Red Cell Distribution Width 12.3 % (11.0-16.0); White Blood Count 10.6 X10*3/uL (4.8-10.8)
[2023-09-27 05:29] LABS: Appearance Urine Clear; Color Urine Dark Yellow; Glucose Urine UA Negative (Negative); Leukocyte Esterase Urine Negative (Negative); Nitrite Urine Negative (Negative); Specific Gravity - Urine >= 1.030 (1.005-1.025); UMIC TRIGGER UACC YES; Urine Blood Trace (Negative); Urine Ketones Negative (Negative); Urine Protein 100 (2+) mg/dL (Neg-Trace)
[2023-09-27 05:31] LABS: Anion Gap 13 (12-20); Blood Urea Nitrogen 19 mg/dL (9-16); Carbon Dioxide 22 mmol/L (22-29); Chloride 106 mmol/L (96-108); Estimated Glomerular Filt Rate > 60; Glucose Random 114 mg/dL (60-115); Potassium 3.3 mmol/L (3.3-5.1); Sodium 138 mmol/L (135-145)
[2023-09-27 05:32] LABS: Bacteria Urine None Seen (None Seen); Squamous Epithelial Cell Urine 0-2 /HPF (0-2); WBC Urine 0-5 /HPF (0-5)
--- OUTSIDE RECORDS SUMMARY | 2023-09-27 06:39 | XMS_ITS | Continuity of Care Document ---
Author Organization [facility] ter Address [address] [place] [id number]- Care Team Providers Care Foreign Diplomat Name Role Phone Bonifacio Lopez MD, Chely Allison Primary Care Physician [phone] Encounter [facility] Date(s): 10/22/20 - 10/22/[address] [address]- Encounter Diagnosis Chest pain(Final) - 10/22/20 Discharge Disposition: A-D/C Home Attending Physician: Dionte Jean MD Admitting Physician: Dionte Jean MD Referring Physician: Not on Staff, Referring MD Allergies, Adverse Reactions, Alerts Substance Reaction Severity Status NKA Active Immunizations Given and Recorded Vaccine Date Status Refusal Reason pneumococcal 23-valent vaccine 02/11/20 Given Medications aspirin 81 mg oral delayed release tablet 81 mg, By Mouth, Daily, # 60 tablet, Refills 0, Tot. Refills 0, Maintenance, 02/12/20 11:32:00 EST,Route to Pharmacy Electronically, [facility], Partial fill upon patient request, 172,cm, 02/12/20 2:01:00 EST, Height, 101, kg, 02/10/20... Start Date: 02/12/20 Stop Date: 04/12/20 Status: Ordered atorvastatin 80 mg oral tablet 1 tablet = 80 mg, By Mouth, Daily, # 60 tablet, 0 Refills, Maintenance, 02/12/20 11:34:00 EST, Tablet, [facility], Partial fill upon patient request, 172, cm, 02/12/20 2:01:00 EST, Height, 101, kg, 02/10/20 16:48:00 EST, Dry Weight Start Date: 02/12/20 Stop Date: 04/12/20 Status: Ordered lisinopril 20 mg oral tablet 20 mg, 1, tablet, By Mouth, Daily, # 60 tablet, Refills 0, Tot. Refills 0, Maintenance, 02/12/20 11:33:00 EST, Route to Pharmacy Electronically, [facility], Partial fill upon patient request, 172, cm, 02/12/20 2:01:00 EST, Height, 101, k... Start Date: 02/12/20 Stop Date: 04/12/20 Status: Ordered metoprolol 25 mg oral tablet 25 mg, 1, tablet, By Mouth, 2 times a day, # 120 tablet, Refills 0, Tot. Refills 0, Maintenance, 02/12/20 11:33:00 EST, Route to Pharmacy Electronically, [facility], Partial fill upon patient request, 172, cm, 02/12/20 2:01:00 EST, Heigh... Start Date: 02/12/20 Stop Date: 04/12/20 Status: Ordered Plavix 75 mg oral tablet 75 mg, 1, tablet, By Mouth, Daily, # 60 tablet, Refills 0, Tot. Refills 0, Maintenance, 02/12/20 11:33:00 EST, Route to Pharmacy Electronically, [facility], Partial fill upon patient request, 172, cm, 02/12/20 2:01:00 EST, Height, 101, k... Start Date: 02/12/20 Stop Date: 04/12/20 Status: Ordered Prilosec OTC = 20 mg, By Mouth, Daily, 0 Refills, Maintenance Start Date: 04/13/12 Status: Ordered Results Radiology Reports * Exam Date Time Procedure Performing Provider Status 10/22/20 1:33 PM Chest 2 Views Frontal and Lat Jojo Meehan; Auth (Verified) Notes: (Chest 2 Views Frontal and Lat) Reason For Exam: Angina RESULT: Chest 2 Views Frontal and Lat Chest 2 Views Frontal and Lat Hx of Present Illness: Patient awoke from sleep at 0400 today with left ant chest pain and left upper arm pain. Pain has been constant and is made worse when moving left arm. Reason: Angina; Clinical Question(s): CHF COMPARISON: None. FINDINGS: LINES AND TUBES: April 13, 2012 LUNGS AND PLEURA: Clear lungs. Normal pulmonary vascularity. No pleural effusion. No pneumothorax. HEART, MEDIASTINUM AND MAGDALENO: Heart is normal in size. Normal upper mediastinal and hilar contour. BONES AND SOFT TISSUES: No acute abnormality. IMPRESSION: No acute abnormality. WSN: [id number] Ordering Physician: Renetta Resterpo Dictated By: Cooper Kauffman MD Dictated Date/Time: 10/22/20 1:41 pm Reviewed By: Cooper Kauffman MD Signed By: Cooper Kauffman MD Signed Date/Time: 10/22/20 1:41 pm Transcribed By: APURVA Transcribed Date/Time: 10/22/20 1:40 pm Vital Signs Most recent to oldest [Reference Range]: 1 2 3 Weight 97 kg (10/22/20 8:55 PM) 97 kg (10/22/20 5:14 PM) 97 kg (10/22/20 12:13 PM) Oxygen Saturation [94-100 %] 100 % (10/22/20 10:36 PM) 99 % (10/22/20 8:55 PM) 100 % (10/22/20 6:15 PM) Pulse Rate [55-90 bpm] 77 bpm (10/22/20 10:36 PM) 75 bpm (10/22/20 8:55 PM) 84 bpm (10/22/20 6:15 PM) Blood Pressure [90-138/55-84 mm Hg] 128/89mm Hg (10/22/20 10:36 PM) 119/83mm Hg (10/22/20 8:55 PM) 127/85mm Hg (10/22/20 6:15 PM) Respiratory Rate [16-30 br/min] 23 br/min (10/22/20 10:36 PM) 20 br/min (10/22/20 8:55 PM) 16 br/min (10/22/20 6:15 PM) Temperature [96.8-100.4 DegF] 98.6 DegF (10/22/20 10:36 PM) 98.3 DegF (10/22/20 8:55 PM) 98.8 DegF (10/22/20 6:15 PM) Mode of Delivery (Oxygen) Room air (10/22/20 10:36 PM) Room air (10/22/20 8:55 PM) Room air (10/22/20 6:15 PM) Blood pressure sites Arm, right (10/22/20 10:36 PM) Arm, right (10/22/20 8:55 PM) Arm, left (10/22/20 6:15 PM) Temperature Route Oral (10/22/20 10:36 PM) Oral (10/22/20 8:55 PM) Oral (10/22/20 6:15 PM) Dry Weight 97 kg (10/22/20 8:55 PM) 97 kg (10/22/20 5:14 PM) 97 kg (10/22/20 12:13 PM)
[2023-09-27 06:46] VITALS: BP 116/85; PULSE 83; RESP 16; TEMP 36.4; O2SAT 95
--- NOTE | 2023-09-27 08:11 | ED_ITS ---
HPI - Nausea/Vomiting/Diarrhea General Chief complaint: Nausea/Vomiting/Diarrhea Stated complaint: Diarrhea/Vomiting Time Seen by Provider: 09/27/23 07:55 Source: patient Mode of arrival: ambulatory Limitations: no limitations History of Present Illness ED Provider: DR. Puckett HPI Narrative: Patient has a long history of Crohns followed by Dr York who presents with 6 days of diarrhea. Patient also describes LLQ pain. MD elicited complaint: diarrhea (watery no blood) Onset (ago): day(s) Location of pain: LLQ Related Data Home Medications ?Medication ?Instructions ?Recorded ?Confirmed acetaminophen 500 mg capsule 1,000 mg PO Q6H PRN Pain 09/27/23 10/06/23 vedolizumab 300 mg intravenous 300 mg IV Q4W 09/27/23 10/06/23 solution (Entyvio) Previous Rx's ?Medication ?Instructions ?Recorded aspirin 81 mg chewable tablet 81 mg PO DAILY #30 tabs 03/13/20 atorvastatin 80 mg tablet 80 mg PO DAILY #90 tabs 02/18/23 metoprolol tartrate 25 mg tablet 25 mg PO BID #180 tabs 02/21/23 omeprazole 20 mg capsule,delayed 20 mg PO DAILY 90 days #90 caps 05/17/23 release loperamide 2 mg capsule 2 mg PO Q4H PRN loose stool #14 09/29/23 caps ondansetron 4 mg disintegrating 4 mg PO Q8H PRN nausea and 09/29/23 tablet vomiting #10 tabs upadacitinib 45 mg tablet,extended 45 mg PO DAILY 12 weeks #84 tabs 10/06/23 release 24 hr Allergies Allergy/AdvReac Type Severity Reaction Status Date / Time Seasonal Allergies Allergy Intermediate eye Verified 10/06/23 08:53 swelling, itch Review of Systems 2 Review of Systems: Yes all other systems are reviewed and are negative Neurologic: Denies Sensory deficit (Neuro) PMFSH Past Medical History Medical History Hand pain GERD (gastroesophageal reflux disease) Myocardial infarction Iron deficiency anemia due to chronic blood loss Medicare annual wellness visit, initial Lipoma of arm Mass of hand Cyst in hand CAD (coronary artery disease) Hypertension NSTEMI (non-ST elevated myocardial infarction) Acute coronary syndrome Essential (primary) hypertension Crohn disease Hearing loss in right ear History of acoustic neuroma Surgical History Status post excision of lipoma History of surgery on arm History of brain tumor S/P cardiac cath (~01/2020) Stented coronary artery Hx of colonoscopy Hx of appendectomy Family History Family History Father Stroke Mother No problems noted. Maternal Uncle Heart attack Social History Social History Household Members: Spouse Housing: House Do you presently have visiting nurse or other home services: No Alcohol intake: former Comment: Given for PTT-HD Patient Tobacco Use Status: Former Tobacco user Tobacco use type: Cigarette Cigarette Packs Per Day: 1 e-Cigarette/Vaping Use: Never Used Second Hand Smoke Exposure: No service: No Current occupational status: disabled Cognitive needs: No Hearing needs: No Vision needs: No Physical Exam 2 Vital Signs: Vital Signs: Last Vital Signs Temp 97.8 F 09/29/23 07:41 Pulse 79 09/29/23 07:41 Resp 16 09/29/23 07:41 BP 125/84 09/29/23 07:41 Pulse Ox 95 09/29/23 07:41 O2 Del Method Room Air 09/29/23 07:41 BMI result Body Mass Index 32.5 Const: General: healthy appearing Nutritional Appearance: average body habitus Orientation/consciousness: oriented to person and patient oriented x3 Limitations: no limitations HEENT: Head: Yes normal to inspection Ears: external ears normal General nose exam: Normal external nose present Mouth: Normal oral and palatal mucosa present and oropharynx normal Throat: Yes posterior oropharynx normal Eyes: General: appearance normal, both eyes and all related structures Neck: Other: supple Neck: Yes normal visual inspection Chest: Chest palpation & inspection: normal inspection of the chest Resp: Auscultation: clear to auscultation bilaterally Cardio: Jugular venous distension: no JVD Rate: regular rate Rhythm: r egular rhythm Heart sounds: S1 normal heart sound present and S2 normal heart sound present GI: Other: Left lower quadrant tenderness with guarding Auscultation: normal bowel sounds : General: Yes no CVA tenderness Back/Spine/Pelvis: Back: no CVA tenderness Skin: General skin exam: no rashes or lesions noted Neuro: General: oriented to person and patient oriented x3 Cranial nerves: Yes CN's II-XII intact bilaterally Motor exam (neuro): 5/5 motor strength present throughout Sensory Exam: No Sensory deficit (Neuro) Extrem: General: Yes normal to inspection Psych: Appearance: grossly normal Course Reevaluation(s) Reevaluation #1: I scanned the patient because of his long history of crohn's with pain and diarrhea, the CT showed pneumatosis of the bowel wall, patient was seen by Dr. Peterson and Dr. Rocha the decision was made to admit the patient. Time: 15:31 Reevaluation #2: I spent 40 minutes of critical care, with interventions, assessments, speaking to patient, consultants, and family. Time: 15:31 Medications Administered Discontinued Medications Generic Name Dose Route Start Last Admin Trade Name Freq PRN Reason Stop Dose Admin Acetaminophen 650 mg 09/27/23 15:04 09/28/23 18:38 Acetaminophen 325 Mg Tablet PO 650 mg Q6H PRN Administration Pain, Mild (Pain Scale 1-3), fever or headache Aspirin 81 mg 09/28/23 09:00 09/29/23 08:32 Aspirin 81 Mg Tab.Chew PO 81 mg DAILY JULITO Administration Atorvastatin Calcium 80 mg 09/28/23 09:00 09/29/23 08:32 Atorvastatin Calcium 80 Mg Tablet PO 80 mg DAILY JULITO Administration Calcium Carbonate 750 mg 09/27/23 15:04 09/27/23 16:40 Calcium Carbonate 750 Mg Tab.Chew PO 750 mg Q4H PRN Administration Heartburn Enoxaparin Sodium 40 mg 09/28/23 09:00 09/29/23 08:33 Enoxaparin Sodium 40 Mg/0.4 Ml Syringe SUBCUT Not Given Q24H JULITO Levofloxacin 500 mg in 100 mls @ 100 mls/hr 09/27/23 11:08 09/27/23 12:36 Levaquin IV 09/27/23 12:07 Infused ONCE ONE Infusion Metronidazole 500 mg in 100 mls @ 100 mls/hr 09/27/23 11:08 09/27/23 13:39 Flagyl IV 09/27/23 12:07 Infused ONCE ONE Infusion Ceftriaxone Sodium 1 gm/ 50 mls @ 100 mls/hr 09/28/23 09:00 09/29/23 10:24 Sodium Chloride IV Infused DAILY JULITO Infusion Metronidazole 500 mg in 100 mls @ 100 mls/hr 09/28/23 00:00 09/29/23 00:20 Flagyl IV Infused Q12H JULITO Infusion Sodium Chloride 1,000 mls @ 75 mls/hr 09/27/23 15:15 09/29/23 08:32 Ns IVCONT 75 mls/hr .[id number] JULITO Administration Potassium Chloride 10 meq in 100 mls @ 100 mls/hr 09/28/23 08:26 09/28/23 11:56 Potassium Chloride/H20 IV 09/28/23 09:25 Infused ONCE ONE Infusion Metoprolol Tartrate 25 mg 09/27/23 21:00 09/29/23 08:32 Metoprolol Tartrate 25 Mg Tablet PO 25 mg BID JULITO Administration Protocol Omeprazole 20 mg 09/28/23 06:30 09/29/23 05:28 Omeprazole 20 Mg Capsule.Dr PO 20 mg DAILY@0630 JULITO Administration Potassium Chloride 40 meq 09/28/23 08:26 09/28/23 09:19 Potassium Chloride Er 20 Meq Tab.Er.Prt PO 09/28/23 08:27 40 meq ONCE ONE Administration Potassium Chloride 40 meq 09/28/23 15:25 09/28/23 18:34 Potassium Chloride Er 20 Meq Tab.Er.Prt PO 09/28/23 15:26 40 meq ONCE ONE Administration Sodium Chloride 3 ml 09/27/23 16:00 09/29/23 08:32 0.9 % Sodium Chloride Flush 3 Ml Syringe IVFLUSH Not Given QSHIFT [facility] Medical Decision Making Differential Diagnosis Differential Diagnoses: The differential diagnosis associated with the presentation includes (Diverticulitis, bowel perforation, enteritis) Admission/Observation Consideration of admission/observation: Escalation of care including admission/observation considered (upon arrival admission was considered) Consult Healthcare Provider Management of the patient was discussed with: Hospitalist and [employer]2B Sales Consultant (Dr. Peterson general surgery, Dr. Brown GI) Lab Data 09/28/23 04:54 09/29/23 05:24 Labs: Lab Results 09/27/23 09/27/23 09/27/23 Range/Units 05:08 05:21 11:37 WBC 10.6 (4.8-10.8) X10*3/uL RBC 5.01 (4.60-5.80) X10*6/uL Hgb 16.5 (14.0-18.0) g/dl Hct 44.8 (42.0-52.0) % MCV 89.4 (80.0-98.0) fL MCH 32.9 (27.0-33.0) pg MCHC 36.8 H (31.0-36.0) g/dl RDW 12.3 (11.0-16.0) % Plt Count 214 (160-400) X10*3/uL MPV 9.6 (9.4-12.4) fL Immature Gran % (Auto) 0.3 (0.0-0.4) % Neut % (Auto) 62.4 (45-73) % Lymph % (Auto) 27.2 (20-40) % [place] % (Auto) 8.6 (2-11) % Eos % (Auto) 1.2 (0-4) % Baso % (Auto) 0.3 (0-2) % Lymph # (Auto) 2.9 (1.2-4.9) X10*3/uL [place] # (Auto) 0.9 (0.1-1.2) X10*3/uL Eos # (Auto) 0.1 (0.0-0.4) X10*3/uL Baso # (Auto) 0.0 (0.0-0.2) X10*3/uL Abs Immat Gran (auto) 0.03 (0.00-0.03) X10*3/uL Absolute Neuts (auto) 6.6 (2.0-8.3) x10*3/uL Absolute Nucleated RBC 0.000 (0.0-0.012) X10*3/uL Nucleated RBC % (auto) 0.0 (0.0-0.2) /100WBC Sodium 138 (135-145) mmol/L Potassium 3.3 (3.3-5.1) mmol/L Chloride 106 (96-108) mmol/L Carbon Dioxide 22 (22-29) mmol/L Anion Gap 13 (12-20) BUN 19 H (9-16) mg/dL Creatinine 1.19 (0.5-1.4) mg/dL Estim Creat Clear Calc 80.0 Estimated GFR > 60 Random Glucose 114 (60-115) mg/dL Fasting Glucose (60-99) mg/dL Lactic Acid 0.7 (0.5-2.0) mmol/L Calcium 9.0 (8.4-10.2) mg/dL Magnesium (1.6-2.6) mg/dL Total Bilirubin (0.0-1.0) mg/dL Direct Bilirubin (0.0-0.5) mg/dL AST (5-37) U/L ALT (0-40) U/L Alkaline Phosphatase (39-117) U/L C-Reactive Protein 0.74 H (< or = 0.50) mg/dL Total Protein (6.5-8.0) g/dL Albumin (3.5-5.0) g/dL Urine Color Dark Yellow Urine Appearance Clear Urine pH 6.0 (5.0-9.0) Ur Specific [place] >= 1.030 H (1.005-1.025) Urine Protein 100 (2+) H (Neg-Trace) mg/dL Urine Glucose (UA) Negative (Negative) mg/dL Urine Ketones Negative (Negative) mg/dL Urine Blood Trace H (Negative) Urine Nitrite Negative (Negative) Ur Leukocyte Esterase Negative (Negative) Urine RBC 3-5 H (0-2) /HPF Urine WBC 0-5 (0-5) /HPF Ur Squamous Epith Cells 0-2 (0-2) /HPF Urine Bacteria None Seen (None Seen) Hyaline Casts 3-5 (0-2) /LPF Stool Leukocytes, Qual (NEGATIVE) Stl C. cayetanensis PCR (Not Detect.) Stool Rotavirus A PCR (Not Detect.) Stl Adenov F 40/41 PCR (Not Detect.) Stool Astrovirus (PCR) (Not Detect.) Stool Campylobacter PCR (Not Detect.) Stool Cryptosporidium PCR (Not Detect.) Stl Sh Tox Pr E STEC PCR (Not Detect.) Stool E coli O157 PCR (Not Detect.) Stl Enterotoxigenic E PCR (Not Detect.) Stool EPEC (PCR) (Not Detect.) Stool EAEC (PCR) (Not Detect.) Stl E. histolytica PCR (Not Detect.) Stool Giardia Lamblia PCR (Not Detect.) Stl P. shigelloides PCR (Not Detect.) Stool Salmonella PCR (Not Detect.) Stool Sapovirus (PCR) (Not Detect.) Stl Shigella/EIEC PCR (Not Detect.) St Y.enterocolitica PCR (Not Detect.) Stool Vibrio (PCR) (Not Detect.) Stl Vibrio cholerae PCR (Not Detect.) Stl Norovirus GI/GII PCR (Not Detect.) C. difficile Tox B Gene (Negative) 09/27/23 09/28/23 Range/Units 17:17 04:54 WBC 8.5 (4.8-10.8) X10*3/uL RBC 4.76 (4.60-5.80) X10*6/uL Hgb 15.5 (14.0-18.0) g/dl Hct 42.6 (42.0-52.0) % MCV 89.5 (80.0-98.0) fL MCH 32.6 (27.0-33.0) pg MCHC 36.4 H (31.0-36.0) g/dl RDW 12.3 (11.0-16.0) % Plt Count 190 (160-400) X10*3/uL MPV 10.1 (9.4-12.4) fL Immature Gran % (Auto) (0.0-0.4) % Neut % (Auto) (45-73) % Lymph % (Auto) (20-40) % [place] % (Auto) (2-11) % Eos % (Auto) (0-4) % Baso % (Auto) (0-2) % Lymph # (Auto) (1.2-4.9) X10*3/uL [place] # (Auto) (0.1-1.2) X10*3/uL Eos # (Auto) (0.0-0.4) X10*3/uL Baso # (Auto) (0.0-0.2) X10*3/uL Abs Immat Gran (auto) (0.00-0.03) X10*3/uL Absolute Neuts (auto) (2.0-8.3) x10*3/uL Absolute Nucleated RBC 0.000 (0.0-0.012) X10*3/uL Nucleated RBC % (auto) 0.0 (0.0-0.2) /100WBC Sodium 138 (135-145) mmol/L Potassium 2.8 L* (3.3-5.1) mmol/L Chloride 106 (96-108) mmol/L Carbon Dioxide 22 (22-29) mmol/L Anion Gap 13 (12-20) BUN 14 (9-16) mg/dL Creatinine 1.00 (0.5-1.4) mg/dL Estim Creat Clear Calc 95.3 Estimated GFR > 60 Random Glucose (60-115) mg/dL Fasting Glucose 88 (60-99) mg/dL Lactic Acid (0.5-2.0) mmol/L Calcium 8.9 (8.4-10.2) mg/dL Magnesium 2.0 (1.6-2.6) mg/dL Total Bilirubin 1.5 H (0.0-1.0) mg/dL Direct Bilirubin 0.4 (0.0-0.5) mg/dL AST 18 (5-37) U/L ALT 17 (0-40) U/L Alkaline Phosphatase 55 (39-117) U/L C-Reactive Protein 0.71 H (< or = 0.50) mg/dL Total Protein 7.1 (6.5-8.0) g/dL Albumin 4.0 (3.5-5.0) g/dL Urine Color Urine Appearance Urine pH (5.0-9.0) Ur Specific [place] (1.005-1.025) Urine Protein (Neg-Trace) mg/dL Urine Glucose (UA) (Negative) mg/dL Urine Ketones (Negative) mg/dL Urine Blood (Negative) Urine Nitrite (Negative) Ur Leukocyte Esterase (Negative) Urine RBC (0-2) /HPF Urine WBC (0-5) /HPF Ur Squamous Epith Cells (0-2) /HPF Urine Bacteria (None Seen) Hyaline Casts (0-2) /LPF Stool Leukocytes, Qual NEGATIVE (NEGATIVE) Stl C. cayetanensis PCR Not Detected (Not Detect.) Stool Rotavirus A PCR Not Detected (Not Detect.) Stl Adenov F 40/41 PCR Not Detected (Not Detect.) Stool Astrovirus (PCR) Detected A (Not Detect.) Stool Campylobacter PCR Not Detected (Not Detect.) Stool Cryptosporidium PCR Not Detected (Not Detect.) Stl Sh Tox Pr E STEC PCR Not Detected (Not Detect.) Stool E coli O157 PCR Not applicable (Not Detect.) Stl Enterotoxigenic E PCR Not Detected (Not Detect.) Stool EPEC (PCR) Not Detected (Not Detect.) Stool EAEC (PCR) Not Detected (Not Detect.) Stl E. histolytica PCR Not Detected (Not Detect.) Stool Giardia Lamblia PCR Not Detected (Not Detect.) Stl P. shigelloides PCR Not Detected (Not Detect.) Stool Salmonella PCR Not Detected (Not Detect.) Stool Sapovirus (PCR) Not Detected (Not Detect.) Stl Shigella/EIEC PCR Not Detected (Not Detect.) St Y.enterocolitica PCR Not Detected (Not Detect.) Stool Vibrio (PCR) Not Detected (Not Detect.) Stl Vibrio cholerae PCR Not Detected (Not Detect.) Stl Norovirus GI/GII PCR Not Detected (Not Detect.) C. difficile Tox B Gene NEGATIVE (Negative) Radiology Impression Discussion of test interpretation with radiology: I have reviewed the radiologist's reading. (CT scan positive for pneumatosis) External Record Review External record reviewed: Outpatient record Chronic Conditions Patient?s care impacted by: Other (Crohn's) Discharge Plan Discharge Clinical Impression: Enteritis, Pneumatosis intestinalis Patient Disposition: Admitted As Inpatient Interventions: Admission Worksheet (ED) Last Done: 09/28/23 21:06 Discharge Date/Time: 09/28/23 22:36
[2023-09-27 08:12] VITALS: BP 133/88; PULSE 85; RESP 16; TEMP 36.3; O2SAT 96
[2023-09-27 10:15] VITALS: BP 126/88; PULSE 81; RESP 16; TEMP 36.3; O2SAT 97
[2023-09-27] MEDS: levoFLOXacin/D5W 500 MG/100 ML PIGGYBACK 100 MG IV (11:36)
[2023-09-27 12:03] LABS: Lactic Acid 0.7 mmol/L (0.5-2.0)
[2023-09-27 12:13] VITALS: BP 119/88; PULSE 88; RESP 16; TEMP 36.4; O2SAT 96
[2023-09-27] MEDS: metroNIDAZOLE/NS 500 MG/100 ML PIGGYBACK 100 MG IV ×2 (12:36→23:33)
--- NOTE | 2023-09-27 14:03 | PM.CNGS ---
History of Present Illness Consult details Consult date: 09/27/23 Requesting physician: Demetrius Puckett Narrative: 53 year old male with known crohns disease followed by dr Vazquez comes in with complaints of profuse diarrhea, nonbloody for last few days. He says it feels like his Crohns's disease, nonbloody, one episode of vomiting no fever but he did take some immodium and diarrhea still continuing so he was concerned. No other sick contacts and no unusual foods eaten. Review of Systems Review of Systems: Yes all other systems are reviewed and are negative [facility] Past Medical History Medical History Hand pain GERD (gastroesophageal reflux disease) Myocardial infarction Iron deficiency anemia due to chronic blood loss Medicare annual wellness visit, initial Lipoma of arm Mass of hand Cyst in hand CAD (coronary artery disease) Hypertension NSTEMI (non-ST elevated myocardial infarction) Acute coronary syndrome Essential (primary) hypertension Crohn disease Hearing loss in right ear History of acoustic neuroma Family History Family History Father Stroke Mother No problems noted. Maternal Uncle Heart attack Surgical History Surgical History Status post excision of lipoma History of surgery on arm History of brain tumor S/P cardiac cath (~01/2020) Stented coronary artery Hx of colonoscopy Hx of appendectomy Social History Social History Household Members: Spouse Housing: Apartment Do you presently have visiting nurse or other home services: No Alcohol intake: former Comment: Given for PTT-HD Patient Tobacco Use Status: Former Tobacco user Tobacco use type: Cigarette Cigarette Packs Per Day: 1 e-Cigarette/Vaping Use: Never Used Second Hand Smoke Exposure: No Advance Directives: No Advance Directives Information Provided: Yes Do you have a plan to hurt others: No Plan service: No Current occupational status: disabled Cognitive needs: No Hearing needs: No Vision needs: No Meds Allergies Allergy/AdvReac Type Severity Reaction Status Date / Time Seasonal Allergies Allergy Intermediate eye Verified 09/27/23 04:57 swelling, itch Physical Exam Vital Signs: Vital Signs: Last Vital Signs Temp 97.6 F 09/27/23 12:13 Pulse 88 09/27/23 12:13 Resp 16 09/27/23 12:13 BP 119/88 09/27/23 12:13 Pulse Ox 96 09/27/23 12:13 O2 Del Method Room Air 09/27/23 12:13 BMI result Body Mass Index 32.5 Const: General: cooperative, healthy appearing, comfortable and no acute distress Orientation/consciousness: patient oriented x3 Resp: Effort & Inspection: normal respiratory effort Auscultation: clear to auscultation bilaterally Cardio: Rate: regular rate Rhythm: regular rhythm GI: Other: soft nondistended active bowel sounds tender mildly to deep palpation 4-5/10 no guarding no rebound no peritoneal signs Skin: General skin exam: no rashes or lesions noted Neuro: General: patient oriented x3 Extrem: General: Yes normal to inspection Psych: Appearance: grossly normal Speech and movement: Normal speech and movement present Affect: normal affect Attitude: cooperative Thought process: Normal thought process present Thought content: Normal thought content present Insight: Good insight present (Psych) Judgement: Good judgement present (Psych) Results Labs 09/27/23 05:08 09/27/23 05:08 Labs: Abnormal lab results 09/27/23 09/27/23 Range/Units 05:08 05:21 MCHC 36.8 H (31.0-36.0) g/dl BUN 19 H (9-16) mg/dL Ur Specific [place] >= 1.030 H (1.005-1.025) Urine Protein 100 (2+) H (Neg-Trace) mg/dL Urine Blood Trace H (Negative) Urine RBC 3-5 H (0-2) /HPF Short CBC 09/27/23 Range/Units 05:08 WBC 10.6 (4.8-10.8) X10*3/uL Hgb 16.5 (14.0-18.0) g/dl Hct 44.8 (42.0-52.0) % Plt Count 214 (160-400) X10*3/uL BMP 09/27/23 05:08 Sodium 138 Potassium 3.3 Chloride 106 Carbon Dioxide 22 BUN 19 H Creatinine 1.19 Calcium 9.0 Urine 09/27/23 Range/Units 05:21 Urine Color Dark Yellow Urine Appearance Clear Urine pH 6.0 (5.0-9.0) Ur Specific [place] >= 1.030 H (1.005-1.025) Urine Protein 100 (2+) H (Neg-Trace) mg/dL Urine Glucose (UA) Negative (Negative) mg/dL All other labs normal. Imaging Abdomen CT scan report/results: report reviewed and image reviewed CT scan - pelvis: report reviewed and image reviewed Additional studies: ADDENDUMAddendum: Results communicated to Dr. Puckett by PSA service on 10/06 at 11:04 AM. Addendum Dictated By: Lazara Cramer MD Addendum Signed By: <Electronically signed by Lazara Cramer MD in [place]> 09/27/231125 Addendum Cosigned By: DD/ /12/810 TD/TT: / EXAMINATION: CT ABDOMEN AND PELVIS WITHOUT CONTRAST CLINICAL INFORMATION: Left lower quadrant pain with history of Crohn's disease. COMPARISON: 01/13/2021, 09/11/2020 TECHNIQUE: Multidetector volumetric imaging was performed from the superior aspect of the liver through the pubic symphysis. Sagittal and coronal reformatted images were obtained on the technologist's workstation. This CT examination was performed using dose optimization techniques as appropriate, variously including the following: *Automated exposure control *Adjustment of mA and/or kV according to patient size (this includes techniques or standardized protocols for targeted exams where dose is matched to indication/reason for exam; i.e. extremities or head) *Use of iterative reconstruction technique DLP: 578 mGy-cm FINDINGS: RECLAMATION WORKER: Right mid abdominal surgical clips. Nonspecific bowel pattern. Phleboliths. LUNG BASES: The visualized lung bases are unremarkable. LIVER, GALLBLADDER, AND BILIARY TREE: The liver is normal in size, shape, and attenuation. No focal hepatic lesion or biliary ductal dilatation is present. The gallbladder is unremarkable with no evidence of radiopaque gallstones, gallbladder wall thickening, or obvious pericholecystic inflammatory changes. PANCREAS: Unremarkable. SPLEEN: Unremarkable. ADRENAL GLANDS: Unremarkable. KIDNEYS AND URETERS: The kidneys are normal in size, shape, and attenuation. No hydronephrosis, hydroureter, or calculi seen. No perinephric stranding. BLADDER: Compressed. GASTROINTESTINAL TRACT: Decompressed stomach. Nonobstructive bowel pattern. Mildly prominent left mid abdominal small bowel loop with possible mild wall thickening but no stranding, coronal images 5:33 through 41. Fluid-filled distal ileum without thickened [place]. Right lower quadrant surgical clips and proximal ascending colon anastomotic suture line. Fluid-filled large bowel with featureless, thin-walled descending colon. Pneumatosis is questioned in the sigmoid colon, 3:66 and not excluded in the distal transverse/proximal ascending colon, 3:30 and 31. There is fairly abrupt transition of distended thin-walled sigmoid colon to decompressed rectosigmoid, 3:66. On previous studies, the descending colon and sigmoid colon were thickened appearing. ABDOMINAL WALL: Protuberant. Fat filled inguinal hernias. LYMPH NODES: Interval development of multiple prominent mediastinal lymph nodes with mesenteric mistiness. No pathologic retroperitoneal lymphadenopathy. VASCULAR: Atherosclerotic calcifications nonaneurysmal aorta. Normal caliber inferior vena cava. PELVIC VISCERA: Unremarkable. Phleboliths. OSSEOUS STRUCTURES: T1 and T2 anterior wedge deformities. CT/CT abdomen pelvis wo IV con IMPRESSION: Fluid-filled colon, likely diarrhea. Descending colonic wall thickening with questionable pneumatosis. Mildly thickened left mid abdominal small bowel loop not excluded. Interval development of mesenteric mistiness and prominent mesenteric lymph nodes, question mesenteric adenitis. Fleischner guidelines were followed. At the time of this dictation, PSA service contacted to alert referring physician of findings. Dictated By: Lazara Cramer MD Signed By: <Electronically signed by Lazara Cramer MD in [place]> 09/27/23 1033 DD/ 0837 TD/TT: Sanitation Supervisor: Assessment and Plan (1) Abdominal pain: Status: Acute Plan 53 year old male with abdominal pain and diarrhea similar to his crohn's - says diarrhea is his chief complaint, nonbloody no fever or chills - ? of pneumatosis on CT scan - if it is indeed that then very mild and clinically not concerning - wbc normal and lactic acid normal and physical exam ok- no intervention for surgery at this time pt should be ok to cont with po hydration and check in with GI in regards to his meds change - he gets injectible once a month and has been fine. CSCope 2 yrs ago with inflammatory polyps and he has been doing well. xrays reviewed and discussed and care plan discussed with ER team who will check in with GI. Procedures Date of Service Date of Service: 09/27/23
[2023-09-27 14:46] LABS: C Reactive Protein 0.74 mg/dL (< or = 0.50)
--- NOTE | 2023-09-27 15:08 | P.HPHOSP_ITS ---
History of Present Illness Date of Service: 09/27/23 Chief Complaint: diarrhea 53M PMH inflammatory bowel disease, CAD s/p stent, htn, history of acoustic neuroma s/p excision presented with diarrhea. patient states diarrhe abegan 3-4 days ptp. watery, high volume, multiple times per day, diffiuclty staying hydrated. denies abd pain, fever, chills, blood. in ed ct showed questionable pneumatosis, but was seen by surgery who felt this was mild and not clinically concerning. Review of Systems 2 Review of Systems: Yes all other systems are reviewed and are negative [facility] Medical History Hand pain GERD (gastroesophageal reflux disease) Myocardial infarction Iron deficiency anemia due to chronic blood loss Medicare annual wellness visit, initial Lipoma of arm Mass of hand Cyst in hand CAD (coronary artery disease) Hypertension NSTEMI (non-ST elevated myocardial infarction) Acute coronary syndrome Essential (primary) hypertension Crohn disease Hearing loss in right ear History of acoustic neuroma Family History Father Stroke Mother No problems noted. Maternal Uncle Heart attack Surgical History Status post excision of lipoma History of surgery on arm History of brain tumor S/P cardiac cath (~01/2020) Stented coronary artery Hx of colonoscopy Hx of appendectomy Social History Household Members: Spouse Housing: Apartment Do you presently have visiting nurse or other home services: No Alcohol intake: former Comment: Given for PTT-HD Patient Tobacco Use Status: Former Tobacco user Tobacco use type: Cigarette Cigarette Packs Per Day: 1 Smoked in Last 30 Days: No e-Cigarette/Vaping Use: Never Used Second Hand Smoke Exposure: No Use of substances other than those prescribed or required for medical reasons: No Advance Directives: No Advance Directives Information Provided: Yes Do you have a plan to hurt others: No Plan Nutrition Risks: No Nutritional Risk service: No Current occupational status: disabled Cognitive needs: No Hearing needs: No Vision needs: No Meds Allergies Allergy/AdvReac Type Severity Reaction Status Date / Time Seasonal Allergies Allergy Intermediate eye Verified 09/27/23 04:57 swelling, itch Active Medications: Current Medications Acetaminophen (Acetaminophen 325 Mg Tablet) 650 mg PO Q6H PRN PRN Reason: Pain, Mild (Pain Scale 1-3), fever or headache Calcium Carbonate (Calcium Carbonate 750 Mg Tab.Chew) 750 mg PO Q4H PRN PRN Reason: Heartburn Enoxaparin Sodium (Enoxaparin Sodium 40 Mg/0.4 Ml Syringe) 40 mg SUBCUT Q24H [facility] Ceftriaxone Sodium 1 gm/ (Sodium Chloride) 50 mls @ 100 mls/hr IV DAILY [facility] Metronidazole (Flagyl) 500 mg in 100 mls @ 100 mls/hr IV Q12H [facility] Sodium Chloride (Ns) 1,000 mls @ 75 mls/hr IVCONT .[id number] [facility] Magnesium Hydroxide (Milk Of Magnesia 30 Ml Oral.Susp) 30 ml PO DAILY PRN PRN Reason: Constipation Melatonin (Melatonin 3 Mg Tablet) 6 mg PO BEDTIME PRN PRN Reason: Insomnia Sodium Chloride (0.9 % Sodium Chloride Flush 3 Ml Syringe) 3 ml IVFLUSH QSHIFT [facility] Physical Exam 2 Vital Signs and Narrative: Vital Signs: Last Vital Signs Temp 97.6 F 09/27/23 12:13 Pulse 88 09/27/23 12:13 Resp 16 09/27/23 12:13 BP 119/88 09/27/23 12:13 Pulse Ox 96 09/27/23 12:13 O2 Del Method Room Air 09/27/23 12:13 BMI result Body Mass Index 32.5 Results Labs 09/27/23 05:08 09/27/23 05:08 Labs: Laboratory Results - last 24 hr 09/27/23 09/27/23 09/27/23 05:08 05:21 11:37 MCV 89.4 MCH 32.9 MCHC 36.8 H RDW 12.3 Plt Count 214 MPV 9.6 Immature Gran % (Auto) 0.3 Neut % (Auto) 62.4 Lymph % (Auto) 27.2 [place] % (Auto) 8.6 Eos % (Auto) 1.2 Baso % (Auto) 0.3 Lymph # (Auto) 2.9 [place] # (Auto) 0.9 Eos # (Auto) 0.1 Baso # (Auto) 0.0 Abs Immat Gran (auto) 0.03 Absolute Neuts (auto) 6.6 Absolute Nucleated RBC 0.000 Nucleated RBC % (auto) 0.0 Anion Gap 13 Estim Creat Clear Calc 80.0 Estimated GFR > 60 Random Glucose 114 Lactic Acid 0.7 Calcium 9.0 C-Reactive Protein 0.74 H Urine Color Dark Yellow Urine Appearance Clear Urine pH 6.0 Ur Specific [place] >= 1.030 H Urine Protein 100 (2+) H Urine Glucose (UA) Negative Urine Ketones Negative Urine Blood Trace H Urine Nitrite Negative Ur Leukocyte Esterase Negative Urine RBC 3-5 H Urine WBC 0-5 Ur Squamous Epith Cells 0-2 Urine Bacteria None Seen Hyaline Casts 3-5 Imaging Radiologist's Impressions: Impressions Abdomen/Pelvis CT 09/27/23 08:37 IMPRESSION: Fluid-filled colon, likely diarrhea. Descending colonic wall thickening with questionable pneumatosis. Mildly thickened left mid abdominal small bowel loop not excluded. Interval development of mesenteric mistiness and prominent mesenteric lymph nodes, question mesenteric adenitis. Fleischner guidelines were followed. At the time of this dictation, PSA service contacted to alert referring physician of findings. Assessment and Plan (1) Colitis: Status: Acute Plan 53M PMH inflammatory bowel disease, CAD s/p stent, htn, history of acoustic neuroma s/p excision presented with diarrhea ibd flare with diarrhea iv rocephin, flagyl follow up stool pcr, cdif gi eval npo with ice chips for now, kub tomorrow, crp tomorrow, possible advance diet tomorrow if improved CAD asa, statin htn amldodipine dvt prophylaxis - lovenox full code Quality Stroke Does the patient have a stroke diagnosis?: No VTE Prior VTE?: No VTE Risk Level:: Medical - moderate - high VTE Device Contraindication: Treatment Not Indicated VTE Drug Contraindication: N/A - Med Ordered
[2023-09-27] MEDS: 0.9 % Sodium Chloride 1,000 ML 75 ML IVCONT (15:12)
--- NOTE | 2023-09-27 16:07 | PHA.MEDREC ---
Pharmacy Consult ? Medication Reconciliation Pharmacy has completed the medication reconciliation. Spoke to patient to confirm med list. Patient states is no longer taking Amlodipine 2.5 mg daily, Vitamin D3 250 mcg 2Xweek. Patient says his next dose of Entyvio inj 300mg Q4W is on 10-10-23.
--- NOTE | 2023-09-27 16:22 | PM.GICN ---
History of Present Illness Data of Consult Service Date: 09/27/23 Requesting physician: Baltazar Mirza Primary Care Provider: Chely Lopez MD HPI Reason for consult: Diarrhea 53 yr w/ hx of crohns (on entyvio), CAD s/p stent, htn, history of acoustic neuroma s/p excision who I am seeing for assessment for diarrhea Patient noted about 6 d of numerous non bloody loose stools with 5/10 crampy pain in LLQ. Pain was worse with food, no relieving factors and no radiation of the pain. He denies fevers, chills but did notice nausea and one episode of vomiting after eating food. He did eat pork just before this started, non sick contacts and no one sick at home, no antibiotics in recent past and no hx of c diff or surgeries for crohns --no nsaid or alcohol use Imaging: pneumatosis coli on the left side colon, LABS: CRP- mildly elevated, nml wcc, HGB CMP, UA with protein and minor blood Review of Systems Review of Systems: Constitutional : No Weight loss, No Fever, No Chills ENT/Mouth : No sore throat, No Rhinorrhea Eyes: No Swelling, No Redness Cardiovascular : No Chest Pain, No SOB, No Edema Respiratory : No Cough, No Sputum, No Wheezing Gastrointestinal : see HPI Genitourinary : NO Dysuria, No Urinary Frequency, No Hematuria, No Urgency Musculoskeletal : no joint pain, No Myalgias, No Joint Swelling Skin : No Skin Lesions, No rash Neuro : No Weakness, No Numbness, No Dizziness, No Headache Psych : No Anxiety/Panic, No Depression Heme/Lymph: No Bruising, No Lymphadenopathy Endocrine : No Polyuria, No Polydipsia All other systems reviewed and are negative. [facility] Past Medical History Medical History Hand pain GERD (gastroesophageal reflux disease) Myocardial infarction Iron deficiency anemia due to chronic blood loss Medicare annual wellness visit, initial Lipoma of arm Mass of hand Cyst in hand CAD (coronary artery disease) Hypertension NSTEMI (non-ST elevated myocardial infarction) Acute coronary syndrome Essential (primary) hypertension Crohn disease Hearing loss in right ear History of acoustic neuroma Family History Family History Father Stroke Mother No problems noted. Maternal Uncle Heart attack Surgical History Surgical History Status post excision of lipoma History of surgery on arm History of brain tumor S/P cardiac cath (~01/2020) Stented coronary artery Hx of colonoscopy Hx of appendectomy Social History Social History Household Members: Spouse Housing: Apartment Do you presently have visiting nurse or other home services: No Alcohol intake: former Comment: Given for PTT-HD Patient Tobacco Use Status: Former Tobacco user Tobacco use type: Cigarette Cigarette Packs Per Day: 1 Smoked in Last 30 Days: No e-Cigarette/Vaping Use: Never Used Second Hand Smoke Exposure: No Use of substances other than those prescribed or required for medical reasons: No Advance Directives: No Advance Directives Information Provided: Yes Do you have a plan to hurt others: No Plan Nutrition Risks: No Nutritional Risk service: No Current occupational status: disabled Cognitive needs: No Hearing needs: No Vision needs: No Meds Allergies Allergy/AdvReac Type Severity Reaction Status Date / Time Seasonal Allergies Allergy Intermediate eye Verified 09/27/23 04:57 swelling, itch Active Medications: Current Medications Acetaminophen (Acetaminophen 325 Mg Tablet) 650 mg PO Q6H PRN PRN Reason: Pain, Mild (Pain Scale 1-3), fever or headache Calcium Carbonate (Calcium Carbonate 750 Mg Tab.Chew) 750 mg PO Q4H PRN PRN Reason: Heartburn Enoxaparin Sodium (Enoxaparin Sodium 40 Mg/0.4 Ml Syringe) 40 mg SUBCUT Q24H [facility] Ceftriaxone Sodium 1 gm/ (Sodium Chloride) 50 mls @ 100 mls/hr IV DAILY [facility] Metronidazole (Flagyl) 500 mg in 100 mls @ 100 mls/hr IV Q12H [facility] Sodium Chloride (Ns) 1,000 mls @ 75 mls/hr IVCONT .[id number] [facility] Last Admin: 09/27/23 15:12 Dose: 75 mls/hr Magnesium Hydroxide (Milk Of Magnesia 30 Ml Oral.Susp) 30 ml PO DAILY PRN PRN Reason: Constipation Melatonin (Melatonin 3 Mg Tablet) 6 mg PO BEDTIME PRN PRN Reason: Insomnia Sodium Chloride (0.9 % Sodium Chloride Flush 3 Ml Syringe) 3 ml IVFLUSH QSHIFT [facility] Last Admin: 09/27/23 15:16 Dose: Not Given Home Medications ?Medication ?Instructions ?Recorded ?Confirmed ?Last Taken ?Type acetaminophen 500 mg capsule 1,000 mg PO Q6H PRN Pain 09/27/23 09/27/23 Unknown History vedolizumab 300 mg intravenous 300 mg IV Q4W 09/27/23 09/27/23 09/12/23 History solution (Entyvio) Physical Exam Vital Signs: Vital Signs: Last Vital Signs Temp 97.6 F 09/27/23 12:13 Pulse 88 09/27/23 12:13 Resp 16 09/27/23 12:13 BP 119/88 09/27/23 12:13 Pulse Ox 96 09/27/23 12:13 O2 Del Method Room Air 09/27/23 12:13 BMI result Body Mass Index 32.5 EXAM: GENERAL: The patient is well developed and nontoxic. VITAL SIGNS:see workflow HEENT: Nonicteric sclerae, PERRLA, EOMI. Oropharynx clear. Moist mucous membranes. Conjunctivae appear well perfused. No thyroid mass. CHEST: Chest wall is nontender. HEART: Regular rate and rhythm without murmurs. LUNGS: Clear to auscultation bilaterally. ABDOMEN: Soft, positive bowel sounds, tender LLQ, no organomegaly.no flank tenderness SKIN: No rash, no excessive bruising, petechiae, or purpura. NEUROLOGIC: Cranial nerves II-XII intact without motor/sensory deficit. Psych: normal affect Results Labs 09/27/23 05:08 09/27/23 05:08 Labs: Short CBC 09/27/23 Range/Units 05:08 WBC 10.6 (4.8-10.8) X10*3/uL Hgb 16.5 (14.0-18.0) g/dl Hct 44.8 (42.0-52.0) % Plt Count 214 (160-400) X10*3/uL BMP 09/27/23 05:08 Sodium 138 Potassium 3.3 Chloride 106 Carbon Dioxide 22 BUN 19 H Creatinine 1.19 Calcium 9.0 Urine 09/27/23 Range/Units 05:21 Urine Color Dark Yellow Urine Appearance Clear Urine pH 6.0 (5.0-9.0) Ur Specific [place] >= 1.030 H (1.005-1.025) Urine Protein 100 (2+) H (Neg-Trace) mg/dL Urine Glucose (UA) Negative (Negative) mg/dL Imaging CT scan - abdomen: Attestation: I personally reviewed and interpreted this imaging study as follows: (pneumatosis coli noted, some mild mesenteric stranding ) Assessment and Plan (1) Pneumatosis intestinalis: Status: Acute Plan 1/ Pneumatosis coli, uncertain etiology, but is symptomatic with nausea, LLQ pain and diarrhea, maybe infectious - entyvio can increase risk of infections. No evidence of toxic megacolon or ischemia at this time but he does have cardiac risk factors so not totally discounted PLAN: 1/ recommend Gi cocktail, levo and flagyl, will also have anti inflammatory effect 2/ hold off starting steroids for the moment 3/ serial exams, repeat imaging tomorrow with KUB 4/ ice chips today, if stabe advance to clears tomorrow 5/ check c diff anf gi stool panel Procedures Date of Service Date of Service: 09/27/23
[2023-09-27] MEDS: Calcium Carbonate 750 MG TAB.CHEW PO (16:40)
[2023-09-27] MEDS: Acetaminophen 325 MG TABLET 650 MG PO (16:41)
--- NOTE | 2023-09-27 16:45 | PC.NURSE ---
pt reporting mild heartburn and 3/10 headache, medicated per MAY w PRN medications.
[2023-09-27 18:16] LABS: CDiff Gene PCR NEGATIVE (Negative)
--- NOTE | 2023-09-27 18:26 | PC.NURSE ---
Rn-Rn report given to overflow, transport notified.
[2023-09-27 20:02] VITALS: BP 138/87; PULSE 78; RESP 15; TEMP 37.1; O2SAT 95
[2023-09-27] MEDS: Metoprolol Tartrate 25 MG TABLET PO (20:07)
[2023-09-28] VITALS (7 sets, daily range): BP systolic 113–142; BP diastolic 75–91; PULSE 68–86; RESP 16–20; TEMP 36.6–37.1; O2SAT 95–97
[2023-09-28] MEDS: 0.9 % Sodium Chloride 1,000 ML 75 ML IVCONT ×2 (03:54→18:35)
[2023-09-28] MEDS: Omeprazole 20 MG CAPSULE.DR PO (05:47)
[2023-09-28 05:51] LABS: Hematocrit 42.6 % (42.0-52.0); Hemoglobin 15.5 g/dl (14.0-18.0); Mean Corpuscular HGB Conc 36.4 g/dl (31.0-36.0); Mean Corpuscular Hemoglobin 32.6 pg (27.0-33.0); Mean Corpuscular Volume 89.5 fL (80.0-98.0); Mean Platelet Volume 10.1 fL (9.4-12.4); Platelet Count 190 X10*3/uL (160-400); Red Blood Count 4.76 X10*6/uL (4.60-5.80); Red Cell Distribution Width 12.3 % (11.0-16.0); White Blood Count 8.5 X10*3/uL (4.8-10.8)
[2023-09-28 06:24] LABS: Alanine Aminotransferase 17 U/L (0-40); Alkaline Phosphatase 55 U/L (39-117); Anion Gap 13 (12-20); Aspartate Amino Transferase 18 U/L (5-37); Bilirubin Direct 0.4 mg/dL (0.0-0.5); Bilirubin Total 1.5 mg/dL (0.0-1.0); Blood Urea Nitrogen 14 mg/dL (9-16); C Reactive Protein 0.71 mg/dL (< or = 0.50); Calcium 8.9 mg/dL (8.4-10.2); Carbon Dioxide 22 mmol/L (22-29); Chloride 106 mmol/L (96-108); Creatinine Clr Calc Pharmacy 95.3; Estimated Glomerular Filt Rate > 60; Glucose Fasting 88 mg/dL (60-99); Potassium 2.8 mmol/L (3.3-5.1); Sodium 138 mmol/L (135-145); Total Protein 7.1 g/dL (6.5-8.0)
--- NOTE | 2023-09-28 06:36 | PC.NURSE ---
Critical potassium 2.8 reported from lab to this nurse and from this nurse through tigertxt to Hospitalist Dr Peggy Posada.
--- NOTE | 2023-09-28 08:38 | PM.PNGS ---
Subjective Subjective Date of Service: 09/28/23 Interval history: Feels well this morning Denies abdominal pain Diarrhea seems resolved No fever Physical Exam Vital Signs: Vital Signs: Last Vital Signs Temp 98.8 F 09/28/23 00:50 Pulse 68 09/28/23 00:50 Resp 16 09/28/23 00:50 BP 115/76 09/28/23 00:50 Pulse Ox 96 09/28/23 00:50 O2 Del Method Room Air 09/28/23 00:50 BMI result Body Mass Index 32.5 Const: Other: Looks well General: comfortable and no acute distress Resp: Effort & Inspection: normal respiratory effort Cardio: Rate: regular rate GI: Palpation (GI): Soft to palpation, not firm, nontender and no guarding Objective Data Active Medications Acetaminophen (Acetaminophen 325 Mg Tablet) 650 mg PO Q6H PRN PRN Reason: Pain, Mild (Pain Scale 1-3), fever or headache Last Admin: 09/27/23 16:41 Dose: 650 mg Documented By: BRIANA Aspirin (Aspirin 81 Mg Tab.Chew) 81 mg PO DAILY [facility] Atorvastatin Calcium (Atorvastatin Calcium 80 Mg Tablet) 80 mg PO DAILY [facility] Calcium Carbonate (Calcium Carbonate 750 Mg Tab.Chew) 750 mg PO Q4H PRN PRN Reason: Heartburn Last Admin: 09/27/23 16:40 Dose: 750 mg Documented By: BRIANA Enoxaparin Sodium (Enoxaparin Sodium 40 Mg/0.4 Ml Syringe) 40 mg SUBCUT Q24H [facility] Ceftriaxone Sodium 1 gm/ (Sodium Chloride) 50 mls @ 100 mls/hr IV DAILY [facility] Metronidazole (Flagyl) 500 mg in 100 mls @ 100 mls/hr IV Q12H [facility] Last Infusion: 09/28/23 01:20 Dose: Infused Documented By: DILLAN Sodium Chloride (Ns) 1,000 mls @ 75 mls/hr IVCONT .[id number] [facility] Last Admin: 09/28/23 03:54 Dose: 75 mls/hr Documented By: DILLAN Potassium Chloride (Potassium Chloride/H20) 10 meq in 100 mls @ 100 mls/hr IV ONCE ONE Stop: 09/28/23 09:25 Magnesium Hydroxide (Milk Of Magnesia 30 Ml Oral.Susp) 30 ml PO DAILY PRN PRN Reason: Constipation Melatonin (Melatonin 3 Mg Tablet) 6 mg PO BEDTIME PRN PRN Reason: Insomnia Metoprolol Tartrate (Metoprolol Tartrate 25 Mg Tablet) 25 mg PO BID [facility]; Protocol Last Admin: 09/27/23 20:07 Dose: 25 mg Documented By: ELYSSA Omeprazole (Omeprazole 20 Mg Capsule.) 20 mg PO DAILY@0630 [facility] Last Admin: 09/28/23 05:47 Dose: 20 mg Documented By: DILLAN Sodium Chloride (0.9 % Sodium Chloride Flush 3 Ml Syringe) 3 ml IVFLUSH QSHIFT [facility] Last Admin: 09/28/23 01:20 Dose: Not Given Documented By: DILLAN Non-Admin Reason: IV Running Labs 09/28/23 04:54 09/28/23 04:54 Labs: Laboratory Results - last 24 hr 09/27/23 09/27/23 09/27/23 05:08 11:37 17:17 MCV MCH MCHC RDW Plt Count MPV Absolute Nucleated RBC Nucleated RBC % (auto) Anion Gap Estim Creat Clear Calc Estimated GFR Fasting Glucose Lactic Acid 0.7 Calcium Magnesium Total Bilirubin Direct Bilirubin AST ALT Alkaline Phosphatase C-Reactive Protein 0.74 H Total Protein Albumin C. difficile Tox B Gene NEGATIVE 09/28/23 04:54 MCV 89.5 MCH 32.6 MCHC 36.4 H RDW 12.3 Plt Count 190 MPV 10.1 Absolute Nucleated RBC 0.000 Nucleated RBC % (auto) 0.0 Anion Gap 13 Estim Creat Clear Calc 95.3 Estimated GFR > 60 Fasting Glucose 88 Lactic Acid Calcium 8.9 Magnesium 2.0 Total Bilirubin 1.5 H Direct Bilirubin 0.4 AST 18 ALT 17 Alkaline Phosphatase 55 C-Reactive Protein 0.71 H Total Protein 7.1 Albumin 4.0 C. difficile Tox B Gene Procedures Date of Service Date of Service: 09/28/23 Progress Note: A&P Assessment and plan (1) Enteritis: Status: Acute Assessment and Plan: With Crohn's disease of the colon Symptoms seems resolved Abdomen soft benign and nontender GI follow-up Okay to start clear liquids and advance slowly as tolerated Labs okay Time Spent With Patient Time: Total time managing care of this patient today ____ minutes. Quality Stroke Does the patient have a stroke diagnosis?: No VTE Prior VTE?: No VTE Risk Level:: Medical - moderate - high VTE Device Contraindication: Treatment Not Indicated VTE Drug Contraindication: N/A - Med Ordered
[2023-09-28] MEDS: Potassium Chloride/H20 10 MEQ/100 ML PIGGYBACK 100 MEQ IV (09:14)
--- NOTE | 2023-09-28 09:16 | MHC.EDTECH ---
pt is a self was given personal hygiene
--- NOTE | 2023-09-28 09:17 | MHC.EDTECH ---
pt is had no breakfast due to being on NPO
[2023-09-28] MEDS: Potassium Chloride ER 20 MEQ TAB.ER.PRT 40 MEQ PO ×2 (09:19→18:34)
[2023-09-28] MEDS: Enoxaparin Sodium 40 MG/0.4 ML SYRINGE SUBCUT (09:19)
[2023-09-28] MEDS: Metoprolol Tartrate 25 MG TABLET PO ×2 (09:22→20:30)
[2023-09-28] MEDS: Atorvastatin Calcium 80 MG TABLET PO (09:23)
[2023-09-28] MEDS: cefTRIAXone sodium 1 GM in 0.9 % Sodium Chloride 50 ML IV (09:23)
[2023-09-28] MEDS: Aspirin 81 MG TAB.CHEW PO (09:23)
[2023-09-28] MEDS: 0.9 % Sodium Chloride Flush 3 ML SYRINGE IVFLUSH ×2 (09:24→23:18)
--- NOTE | 2023-09-28 10:40 | HO.PM.IMPN ---
Subjective Subjective Date of Service: 09/28/23 Interval History: seen and evaluated reports LLQ pain and having diarrhea no fever or chills Review of Systems Review of Systems: Yes all other systems are reviewed and are negative Physical Exam Vital Signs: Vital Signs: Last Vital Signs Temp 98 F 09/28/23 08:00 Pulse 86 09/28/23 09:22 Resp 16 09/28/23 08:00 BP 126/88 09/28/23 09:22 Pulse Ox 95 09/28/23 08:00 O2 Del Method Room Air 09/28/23 08:00 BMI result Body Mass Index 32.5 Const: Other: Constitutional : Awake, interactive, not in distress Neck : Normal inspection, Supple Cardiovascular : RRR, no JVP, no lower extremity edema Respiratory : good bilateral air entry, no crackles, wheezes or rhonchi Gastrointestinal: soft, lax, Normal bowel sounds,mild LLQ tenderness w no rebound Neurological : Alert & oriented x3, No focal deficit Objective Data Active Medications Acetaminophen (Acetaminophen 325 Mg Tablet) 650 mg PO Q6H PRN PRN Reason: Pain, Mild (Pain Scale 1-3), fever or headache Last Admin: 09/27/23 16:41 Dose: 650 mg Documented By: BRIANA Aspirin (Aspirin 81 Mg Tab.Chew) 81 mg PO DAILY [facility] Last Admin: 09/28/23 09:23 Dose: 81 mg Documented By: ALEXX Atorvastatin Calcium (Atorvastatin Calcium 80 Mg Tablet) 80 mg PO DAILY [facility] Last Admin: 09/28/23 09:23 Dose: 80 mg Documented By: ALEXX Calcium Carbonate (Calcium Carbonate 750 Mg Tab.Chew) 750 mg PO Q4H PRN PRN Reason: Heartburn Last Admin: 09/27/23 16:40 Dose: 750 mg Documented By: BRIANA Enoxaparin Sodium (Enoxaparin Sodium 40 Mg/0.4 Ml Syringe) 40 mg SUBCUT Q24H [facility] Last Admin: 09/28/23 09:19 Dose: 40 mg Documented By: ALEXX Ceftriaxone Sodium 1 gm/ (Sodium Chloride) 50 mls @ 100 mls/hr IV DAILY [facility] Last Admin: 09/28/23 09:23 Dose: 100 mls/hr Documented By: ALEXX Metronidazole (Flagyl) 500 mg in 100 mls @ 100 mls/hr IV Q12H [facility] Last Infusion: 09/28/23 01:20 Dose: Infused Documented By: DILLAN Sodium Chloride (Ns) 1,000 mls @ 75 mls/hr IVCONT .[id number] [facility] Last Infusion: 09/28/23 09:18 Dose: 0 mls/hr Documented By: ALEXX Magnesium Hydroxide (Milk Of Magnesia 30 Ml Oral.Susp) 30 ml PO DAILY PRN PRN Reason: Constipation Melatonin (Melatonin 3 Mg Tablet) 6 mg PO BEDTIME PRN PRN Reason: Insomnia Metoprolol Tartrate (Metoprolol Tartrate 25 Mg Tablet) 25 mg PO BID [facility]; Protocol Last Admin: 09/28/23 09:22 Dose: 25 mg Documented By: ALEXX Omeprazole (Omeprazole 20 Mg Capsule.Dr) 20 mg PO DAILY@0630 [facility] Last Admin: 09/28/23 05:47 Dose: 20 mg Documented By: DILLAN Sodium Chloride (0.9 % Sodium Chloride Flush 3 Ml Syringe) 3 ml IVFLUSH QSHIFT [facility] Last Admin: 09/28/23 09:24 Dose: 3 ml Documented By: ALEXX Labs 09/28/23 04:54 09/28/23 04:54 Labs: Laboratory Results - last 24 hr 09/27/23 09/27/23 09/27/23 05:08 11:37 17:17 MCV MCH MCHC RDW Plt Count MPV Absolute Nucleated RBC Nucleated RBC % (auto) Anion Gap Estim Creat Clear Calc Estimated GFR Fasting Glucose Lactic Acid 0.7 Calcium Magnesium Total Bilirubin Direct Bilirubin AST ALT Alkaline Phosphatase C-Reactive Protein 0.74 H Total Protein Albumin C. difficile Tox B Gene NEGATIVE 09/28/23 04:54 MCV 89.5 MCH 32.6 MCHC 36.4 H RDW 12.3 Plt Count 190 MPV 10.1 Absolute Nucleated RBC 0.000 Nucleated RBC % (auto) 0.0 Anion Gap 13 Estim Creat Clear Calc 95.3 Estimated GFR > 60 Fasting Glucose 88 Lactic Acid Calcium 8.9 Magnesium 2.0 Total Bilirubin 1.5 H Direct Bilirubin 0.4 AST 18 ALT 17 Alkaline Phosphatase 55 C-Reactive Protein 0.71 H Total Protein 7.1 Albumin 4.0 C. difficile Tox B Gene Assessment and Plan (1) Pneumatosis intestinalis: Status: Acute (2) Enteritis: Status: Acute (3) Abdominal pain: Status: Acute (4) Acute hypokalemia: Status: Acute Plan 53M PMH inflammatory bowel disease, CAD s/p stent, htn, history of acoustic neuroma s/p excision presented with diarrhea LLQ pain with diarrhea 2/2 possible IBD flare up reporting diarrhea IV rocephin, flagyl pending stool pcr, cdif gi rec to hold on steroids for now recheck KUB Advance diet to clears crp tomorrow, possible advance diet tomorrow if improved Acute hypokalemia IV and PO replacement follow BMP CAD asa, statin htn amldodipine dvt prophylaxis - lovenox full code the patient will need overnight stay for treatment of abd pain and diarrhea on IV antibiotivs and fluids pending stool panel Quality Stroke Does the patient have a stroke diagnosis?: No VTE Prior VTE?: No VTE Risk Level:: Medical - moderate - high VTE Device Contraindication: Treatment Not Indicated VTE Drug Contraindication: N/A - Med Ordered
[2023-09-28 11:05] LABS: Adenovirus F 40/41 Not Detected (Not Detect.); Astrovirus Detected (Not Detect.); Campylobacter Not Detected (Not Detect.); Cryptosporidium Not Detected (Not Detect.); Cyclospora cayetanensis Not Detected (Not Detect.); E. coli EAEC Not Detected (Not Detect.); E. coli EPEC Not Detected (Not Detect.); E. coli ETEC Not Detected (Not Detect.); E. coli STEC Not Detected (Not Detect.); Entamoeba histolytica Not Detected (Not Detect.); Giardia lamblia Not Detected (Not Detect.); Norovirus GI/GII Not Detected (Not Detect.); Plesiomonas shigelloides Not Detected (Not Detect.); Rotavirus A Not Detected (Not Detect.); Salmonella Not Detected (Not Detect.); Sapovirus Not Detected (Not Detect.); Shigella sp./EIEC Not Detected (Not Detect.); Vibrio Not Detected (Not Detect.); Vibrio Cholerae Not Detected (Not Detect.); Yersinia enterocolitica Not Detected (Not Detect.)
--- NOTE | 2023-09-28 12:02 | MHC.EDTECH ---
pt ate 50% of his liquid diet tray
[2023-09-28 12:08] LABS: Leukocytes Stool Qualitative NEGATIVE (NEGATIVE)
--- NOTE | 2023-09-28 12:13 | P.PNGI_ITS ---
Subjective Subjective Date of Service: 09/28/23 Interval History: feesl significantly better today stool is becoming more formed, no abdominal tenderness no nausea or vomiting stool pos for astrovirus Critical Care Time (minutes): 0 Physical Exam 2 Vital Signs: Vital Signs: Last Vital Signs Temp 98 F 09/28/23 08:00 Pulse 86 09/28/23 09:22 Resp 16 09/28/23 08:00 BP 126/88 09/28/23 09:22 Pulse Ox 95 09/28/23 08:00 O2 Del Method Room Air 09/28/23 08:00 BMI result Body Mass Index 32.5 EXAM: GENERAL: The patient is well developed and nontoxic. VITAL SIGNS:see workflow HEENT: Nonicteric sclerae, PERRLA, EOMI. Oropharynx clear. Moist mucous membranes. Conjunctivae appear well perfused. No thyroid mass. CHEST: Chest wall is nontender. HEART: Regular rate and rhythm without murmurs. LUNGS: Clear to auscultation bilaterally. ABDOMEN: Soft, positive bowel sounds, nontender, no organomegaly.no flank tenderness SKIN: No rash, no excessive bruising, petechiae, or purpura. NEUROLOGIC: Cranial nerves II-XII intact without motor/sensory deficit. Psych: normal affect Objective Data Labs 09/28/23 04:54 09/28/23 04:54 Labs: Laboratory Results - last 24 hr 09/27/23 09/27/23 09/28/23 05:08 17:17 04:54 WBC 8.5 RBC 4.76 Hgb 15.5 Hct 42.6 MCV 89.5 MCH 32.6 MCHC 36.4 H RDW 12.3 Plt Count 190 MPV 10.1 Absolute Nucleated RBC 0.000 Nucleated RBC % (auto) 0.0 Sodium 138 Potassium 2.8 L* Chloride 106 Carbon Dioxide 22 Anion Gap 13 BUN 14 Creatinine 1.00 Estim Creat Clear Calc 95.3 Estimated GFR > 60 Fasting Glucose 88 Calcium 8.9 Magnesium 2.0 Total Bilirubin 1.5 H Direct Bilirubin 0.4 AST 18 ALT 17 Alkaline Phosphatase 55 C-Reactive Protein 0.74 H 0.71 H Total Protein 7.1 Albumin 4.0 Stool Leukocytes, Qual NEGATIVE Stl C. cayetanensis PCR Not Detected Stool Rotavirus A PCR Not Detected Stl Adenov F 40/41 PCR Not Detected Stool Astrovirus (PCR) Detected A Stool Campylobacter PCR Not Detected Stool Cryptosporidium PCR Not Detected Stl Sh Tox Pr E STEC PCR Not Detected Stool E coli O157 PCR Not applicable Stl Enterotoxigenic E PCR Not Detected Stool EPEC (PCR) Not Detected Stool EAEC (PCR) Not Detected Stl E. histolytica PCR Not Detected Stool Giardia Lamblia PCR Not Detected Stl P. shigelloides PCR Not Detected Stool Salmonella PCR Not Detected Stool Sapovirus (PCR) Not Detected Stl Shigella/EIEC PCR Not Detected St Y.enterocolitica PCR Not Detected Stool Vibrio (PCR) Not Detected Stl Vibrio cholerae PCR Not Detected Stl Norovirus GI/GII PCR Not Detected C. difficile Tox B Gene NEGATIVE Procedures Date of Service Date of Service: 09/28/23 Progress Note: A&P Assessment and plan (1) Pneumatosis intestinalis: Status: Acute Plan 1/ pneumatosis coli, with diarrhea, nausea, now improved, stool pos for astrovirus PLAN: 1/ cont with ABX and can change to PO 2/ advance diet, 3/ home today or tomorrow, after correcting K, ok to get entyvio as scheduled in few weeks Time Spent With Patient Time: Total time managing care of this patient today ____ minutes. Quality Stroke Does the patient have a stroke diagnosis?: No VTE Prior VTE?: No VTE Risk Level:: Medical - moderate - high VTE Device Contraindication: Treatment Not Indicated VTE Drug Contraindication: N/A - Med Ordered
[2023-09-28] MEDS: metroNIDAZOLE/NS 500 MG/100 ML PIGGYBACK 100 MG IV ×2 (13:18→23:18)
--- NOTE | 2023-09-28 14:26 | MHC.EDTECH ---
pt voided 3 times and had a bowel movement 3 times liquid and green
[2023-09-28] MEDS: Acetaminophen 325 MG TABLET 650 MG PO (18:38)
[2023-09-29 03:50] VITALS: BP 137/81; PULSE 60; RESP 18; TEMP 37; O2SAT 98
[2023-09-29] MEDS: Omeprazole 20 MG CAPSULE.DR PO (05:28)
[2023-09-29 07:14] LABS: Blood Urea Nitrogen 12 mg/dL (9-16); Calcium 8.4 mg/dL (8.4-10.2); Creatinine Clr Calc Pharmacy 93.4; Estimated Glomerular Filt Rate > 60; Glucose Random 90 mg/dL (60-115)
[2023-09-29 07:32] LABS: Anion Gap 9 (12-20); Carbon Dioxide 25 mmol/L (22-29); Chloride 108 mmol/L (96-108); Potassium 3.3 mmol/L (3.3-5.1); Sodium 139 mmol/L (135-145)
--- NOTE | 2023-09-29 07:33 | P.PNGS_ITS ---
Subjective Subjective Date of Service: 09/29/23 Interval history: Feels well this morning Diarrhea resolved Denies abdominal pain Denies nausea or vomiting Physical Exam 2 Vital Signs: Vital Signs: Last Vital Signs Temp 98.6 F 09/29/23 03:50 Pulse 60 09/29/23 03:50 Resp 18 09/29/23 03:50 BP 137/81 09/29/23 03:50 Pulse Ox 98 09/29/23 03:50 O2 Del Method Room Air 09/29/23 03:50 BMI result Body Mass Index 32.5 Const: General: comfortable and no acute distress O rientation/consciousness: patient oriented x3 Neck: Neck: Yes no lymphadenopathy Resp: Auscultation: clear to auscultation bilaterally Cardio: Rhythm: regular rhythm GI: Palpation (GI): Soft to palpation, nontender and no guarding Neuro: General: patient oriented x3 Objective Data Active Medications Acetaminophen (Acetaminophen 325 Mg Tablet) 650 mg PO Q6H PRN PRN Reason: Pain, Mild (Pain Scale 1-3), fever or headache Last Admin: 09/28/23 18:38 Dose: 650 mg Documented By: ALEXX Aspirin (Aspirin 81 Mg Tab.Chew) 81 mg PO DAILY [facility] Last Admin: 09/28/23 09:23 Dose: 81 mg Documented By: ALEXX Atorvastatin Calcium (Atorvastatin Calcium 80 Mg Tablet) 80 mg PO DAILY [facility] Last Admin: 09/28/23 09:23 Dose: 80 mg Documented By: ALEXX Calcium Carbonate (Calcium Carbonate 750 Mg Tab.Chew) 750 mg PO Q4H PRN PRN Reason: Heartburn Last Admin: 09/27/23 16:40 Dose: 750 mg Documented By: BRIANA Enoxaparin Sodium (Enoxaparin Sodium 40 Mg/0.4 Ml Syringe) 40 mg SUBCUT Q24H [facility] Last Admin: 09/28/23 09:19 Dose: 40 mg Documented By: ALEXX Ceftriaxone Sodium 1 gm/ (Sodium Chloride) 50 mls @ 100 mls/hr IV DAILY [facility] Last Infusion: 09/28/23 11:56 Dose: Infused Documented By: ALEXX Metronidazole (Flagyl) 500 mg in 100 mls @ 100 mls/hr IV Q12H [facility] Last Infusion: 09/29/23 00:20 Dose: Infused Documented By: ROSALEE Sodium Chloride (Ns) 1,000 mls @ 75 mls/hr IVCONT .[id number] [facility] Last Admin: 09/28/23 18:35 Dose: 75 mls/hr Documented By: ALEXX Magnesium Hydroxide (Milk Of Magnesia 30 Ml Oral.Susp) 30 ml PO DAILY PRN PRN Reason: Constipation Melatonin (Melatonin 3 Mg Tablet) 6 mg PO BEDTIME PRN PRN Reason: Insomnia Metoprolol Tartrate (Metoprolol Tartrate 25 Mg Tablet) 25 mg PO BID [facility]; Protocol Last Admin: 09/28/23 20:30 Dose: 25 mg Documented By: BROJusto Omeprazole (Omeprazole 20 Mg Capsule.Dr) 20 mg PO DAILY@0630 [facility] Last Admin: 09/29/23 05:28 Dose: 20 mg Documented By: ROSALEE Sodium Chloride (0.9 % Sodium Chloride Flush 3 Ml Syringe) 3 ml IVFLUSH QSHIFT [facility] Last Admin: 09/28/23 23:18 Dose: 3 ml Documented By: ROSALEE Labs 09/28/23 04:54 09/29/23 05:24 Labs: Laboratory Results - last 24 hr 09/27/23 09/29/23 17:17 05:24 Hold Purple Top SEE NOTE Anion Gap 9 L Estim Creat Clear Calc 93.4 Estimated GFR > 60 Random Glucose 90 Calcium 8.4 Stool Leukocytes, Qual NEGATIVE Stl C. cayetanensis PCR Not Detected Stool Rotavirus A PCR Not Detected Stl Adenov F 40/41 PCR Not Detected Stool Astrovirus (PCR) Detected A Stool Campylobacter PCR Not Detected Stool Cryptosporidium PCR Not Detected Stl Sh Tox Pr E STEC PCR Not Detected Stool E coli O157 PCR Not applicable Stl Enterotoxigenic E PCR Not Detected Stool EPEC (PCR) Not Detected Stool EAEC (PCR) Not Detected Stl E. histolytica PCR Not Detected Stool Giardia Lamblia PCR Not Detected Stl P. shigelloides PCR Not Detected Stool Salmonella PCR Not Detected Stool Sapovirus (PCR) Not Detected Stl Shigella/EIEC PCR Not Detected St Y.enterocolitica PCR Not Detected Stool Vibrio (PCR) Not Detected Stl Vibrio cholerae PCR Not Detected Stl Norovirus GI/GII PCR Not Detected Microbiology Microbiology Results: Microbiology 09/27/23 11:27 Blood Culture - Preliminary Blood - Venous No growth after 24 hours. 09/27/23 11:24 Blood Culture - Preliminary Blood - Venous No growth after 24 hours. Procedures Date of Service Date of Service: 09/29/23 Progress Note: A&P Assessment and plan (1) Abdominal pain: Status: Acute Assessment and Plan: Symptoms have resolved No diarrhea No abdominal pain Potassium 3.3 Tolerating current Abdominal exam remains very benign Diet as tolerated Recommend GI follow-up Rest of management as per hospitalist Time Spent With Patient Time: Total time managing care of this patient today ____ minutes. Quality Stroke Does the patient have a stroke diagnosis?: No VTE Prior VTE?: No VTE Risk Level:: Medical - moderate - high VTE Device Contraindication: Treatment Not Indicated VTE Drug Contraindication: N/A - Med Ordered
[2023-09-29 07:41] VITALS: BP 125/84; PULSE 79; RESP 16; TEMP 36.6; O2SAT 95
[2023-09-29] MEDS: cefTRIAXone sodium 1 GM in 0.9 % Sodium Chloride 50 ML IV (08:32)
[2023-09-29] MEDS: Atorvastatin Calcium 80 MG TABLET PO (08:32)
[2023-09-29] MEDS: Metoprolol Tartrate 25 MG TABLET PO (08:32)
[2023-09-29] MEDS: 0.9 % Sodium Chloride 1,000 ML 75 ML IVCONT (08:32)
[2023-09-29] MEDS: Aspirin 81 MG TAB.CHEW PO (08:32)
--- NOTE | 2023-09-29 09:25 | MHC.CM.PN ---
Addendum entered by Ceci Alvarez 09/29/23 10:56: DP:PT HAS BEEN MEDICALLY CLEARED FOR DC HOME, NO SERVICES Original Note: [facility] DELIVERED PT LIVES WITH SPOUSE. INDEPENDENT WITH MOBILITY. +HCP ON FILE. PCP DR. WATERMAN. DP: HOME, NO SERVICES ANTICIPATED. PT HAS OWN [facility] HOME. CM WILL CONTINUE TO FOLLOW FOR ANY CHANGE IN DC PLAN/NEEDS.
--- NOTE | 2023-09-29 10:48 | PM.DS ---
DS: Providers Provider Date of Service: 09/29/23 Date of admission: 09/28/23 10:47 Primary care physician: Chely Lopez MD Consults: 09/27/23 15:03 Consult to Gastroenterology Routine Consulting Provider: Cristobal Brown Reason for consultation: crohns, diarrhea Has provider been notified: Yes DS: Diagnosis Discharge Diagnosis (1) Abdominal pain: Status: Acute (2) Acute hypokalemia: Status: Acute (3) Pneumatosis intestinalis: Status: Acute (4) Enteritis: Status: Acute DS: Summary Hospital Course Hospital Course: Admission note HPI 53M PMH inflammatory bowel disease, CAD s/p stent, htn, history of acoustic neuroma s/p excision presented with diarrhea. patient states diarrhe abegan 3-4 days ptp. watery, high volume, multiple times per day, diffiuclty staying hydrated. denies abd pain, fever, chills, blood. in ed ct showed questionable pneumatosis, but was seen by surgery who felt this was mild and not clinically concerning. Hospital course The patient was admitted for LLQ pain with diarrhea secondary to viral enteritis as stool panel was positive for Astrovirus PCR. no evidence of flare up of IBD as he was evaluated by GI who recommended symptomatic measures. Treated with IV fluids , empirical IV antibiotics of Flagyl and Ceftriaxone until stool panel came back. His diet was advanced gradually with good tolerance. To be discharged on Zofran and Imodium as needed. Advised to remain well hydrated. He was found to have Acute hypokalemia which he recieved IV and PO replacement with good response. Discharge plan Use Zofran as needed for nausea Use Imodium as needed for diarrhea Advance your diet gradually over the next few days Time Attestation Discharge Coordination Time (in mins): 38 Quality: Safe Use of Opioids Does Pt have an Active Cancer Diagnosis on the Problem List?: No Quality: Stroke Does the patient have a stroke diagnosis?: No Physical Exam Vital Signs: Vital Signs: Last Vital Signs Temp 97.8 F 09/29/23 07:41 Pulse 79 09/29/23 07:41 Resp 16 09/29/23 07:41 BP 125/84 09/29/23 07:41 Pulse Ox 95 09/29/23 07:41 O2 Del Method Room Air 09/29/23 07:41 BMI result Body Mass Index 32.5 Const: Other: Constitutional : Awake, interactive, not in distress Neck : Normal inspection, Supple Cardiovascular : RRR, no JVP, no lower extremity edema Respiratory : good bilateral air entry, no crackles, wheezes or rhonchi Gastrointestinal: soft, lax, Normal bowel sounds,no tenderness w no rebound Neurological : Alert & oriented x3, No focal deficit DS: Data Data Completed and Pending Labs on day of discharge: Laboratory Results - last 24 hr 09/27/23 09/29/23 17:17 05:24 Hold Purple Top SEE NOTE Sodium 139 Potassium 3.3 Chloride 108 Carbon Dioxide 25 Anion Gap 9 L BUN 12 Creatinine 1.02 Estim Creat Clear Calc 93.4 Estimated GFR > 60 Random Glucose 90 Calcium 8.4 Stool Leukocytes, Qual NEGATIVE Stl C. cayetanensis PCR Not Detected Stool Rotavirus A PCR Not Detected Stl Adenov F 40/41 PCR Not Detected Stool Astrovirus (PCR) Detected A Stool Campylobacter PCR Not Detected Stool Cryptosporidium PCR Not Detected Stl Sh Tox Pr E STEC PCR Not Detected Stool E coli O157 PCR Not applicable Stl Enterotoxigenic E PCR Not Detected Stool EPEC (PCR) Not Detected Stool EAEC (PCR) Not Detected Stl E. histolytica PCR Not Detected Stool Giardia Lamblia PCR Not Detected Stl P. shigelloides PCR Not Detected Stool Salmonella PCR Not Detected Stool Sapovirus (PCR) Not Detected Stl Shigella/EIEC PCR Not Detected St Y.enterocolitica PCR Not Detected Stool Vibrio (PCR) Not Detected Stl Vibrio cholerae PCR Not Detected Stl Norovirus GI/GII PCR Not Detected Preliminary micro results at discharge 09/27/23 11:27 Blood Culture - Preliminary Blood - Venous No growth after 24 hours. 09/27/23 11:24 Blood Culture - Preliminary Blood - Venous No growth after [address] scan - abdomen: Radiologist's impression: ITS Impressions Abdomen/Pelvis CT 09/27/23 08:37 IMPRESSION: Fluid-filled colon, likely diarrhea. Descending colonic wall thickening with questionable pneumatosis. Mildly thickened left mid abdominal small bowel loop not excluded. Interval development of mesenteric mistiness and prominent mesenteric lymph nodes, question mesenteric adenitis. Fleischner guidelines were followed. At the time of this dictation, PSA service contacted to alert referring physician of findings. Discharge Plan Discharge Anticipated Discharge Date/Time: 09/29/23 10:43 Patient Disposition: Home, Self-Care Discharge Diagnosis: Viral gastroenteritis Referrals: Chely Madsen MD [Primary Care Provider] - 1 Week Discharge Medications: New ondansetron 4 mg tablet,disintegrating 4 mg PO Q8H PRN (Reason: nausea and vomiting) Qty: 10 0RF loperamide 2 mg capsule 2 mg PO Q4H PRN (Reason: loose stool) Qty: 14 0RF Rx Instructions: administer after each loose stool until symptoms controlled; do not exceed 8 mg per 24 hrs Continued aspirin 81 mg tablet,chewable 81 mg PO DAILY Qty: 30 2RF atorvastatin 80 mg tablet 80 mg PO DAILY Qty: 90 1RF metoprolol tartrate 25 mg tablet 25 mg PO BID Qty: 180 3RF omeprazole 20 mg capsule,delayed release(DR/EC) 20 mg PO DAILY 90 Days Qty: 90 1RF Entyvio 300 mg recon soln 300 mg IV Q4W Rx Instructions: Next dose is 10-10-23 acetaminophen 500 mg Capsule 1,000 mg PO Q6H PRN (Reason: Pain) Discharge Orders: Discharge Order (Routine); Ordered 09/29/23 Ordered By: Devorah Garnica Diet: Low salt diet Activity on Discharge: As tolerated Stand Alone Forms: Patient Portal Discharge page Print Language: Congolese Care Plan Goals: You were found to have a viral infection called Astrovirus. treated with symptomatic measures with IV fluids with good response. Use Zofran as needed for nausea Use Imodium as needed for diarrhea Advance your diet gradually over the next few days Health Concerns: Read below Plan of Treatment: Read below Assessment: Read below
== END 2023-09-29 11:25 | disposition home or self-care (01) | DRG 392 ==
LOC: HO.ED 15:34 → HO.EDOVER 15:37 → HO.S3 09-28 20:26
PROVIDERS: Internal Medicine Gastroenterology; Admitting Provider Internal Medicine; Emergency Provider Emergency Medicine; PCP Internal Medicine; Visit Provider Student in an Organized Health Care Education/Training Program
DX: A08.32 Astrovirus enteritis (principal); K50.90 Crohn's disease, unspecified, without complications; I25.10 Atherosclerotic heart disease of native coronary artery without angina pectoris; K21.9 Gastro-esophageal reflux disease without esophagitis; I10 Essential (primary) hypertension; Z95.5 Presence of coronary angioplasty implant and graft; E87.6 Hypokalemia; Z79.82 Long term (current) use of aspirin; Z79.620 Long term (current) use of immunosuppressive biologic; Z79.899 Other long term (current) drug therapy
CPT/HCPCS: 36415; 74018; 74176; 80048; 80076; 81001; 83605; 83735; 85025; 85027; 86140; 87040; 87493; 87507; 89055; 99221; 99285; J0696; J1650; J1836; J1956; J3480

== ENCOUNTER → 2023-09-27 06:37 | Outpatient (BNV) | payer MEDICARE, MEDICAID, SELFPAY | PROVIDERS: Emergency Provider Emergency Medicine; PCP Internal Medicine; Visit Provider Surgery | DX: R10.9 Unspecified abdominal pain (principal) | CPT/HCPCS: 99222; 99232 ==

== ENCOUNTER → 2023-09-27 15:04 | Outpatient (BNV) | payer MEDICARE, MEDICAID, SELFPAY | PROVIDERS: Admitting Provider Internal Medicine; Emergency Provider Emergency Medicine; PCP Internal Medicine; Visit Provider Internal Medicine Gastroenterology | DX: K63.89 Other specified diseases of intestine (principal) | CPT/HCPCS: 99223; 99232 ==

== ENCOUNTER → 2023-09-27 15:04 | Outpatient (BNV) | payer MEDICARE, MEDICAID, SELFPAY | PROVIDERS: Admitting Provider Internal Medicine; Emergency Provider Emergency Medicine; PCP Internal Medicine; Visit Provider Internal Medicine | DX: R10.9 Unspecified abdominal pain (principal); E87.6 Hypokalemia; K63.89 Other specified diseases of intestine; K52.9 Noninfective gastroenteritis and colitis, unspecified | CPT/HCPCS: 99223; 99232; 99239 ==

== ENCOUNTER 2023-10-06 08:52 | Outpatient (AMB) | payer MEDICARE, MEDICAID, SELFPAY ==
--- NOTE | 2023-10-06 08:53 | A.OFFVIS_ITS ---
Vital Signs 10/06/23 08:55 Height 5 ft 8 in Weight 215 lb BMI 32.7 BP 106/66 Blood Pressure Location Lt brachial Position Sitting Pulse 80 Intake Visit Reasons: 6 month follow up Intake Note: Patient follow up for Crohns disease Patient denies any GI issues. Manifold Builder Required: No Accompanied by: Self / Same As Patient Allergies Seasonal Allergies Allergy (Intermediate, Verified 10/06/23 08:53) eye swelling, itch Medication List - Last Reconciled 10/06/23 by Rodolfo Vazquez MD acetaminophen 1,000 mg PO Q6H PRN aspirin 81 mg PO DAILY atorvastatin 80 mg PO DAILY loperamide 2 mg PO Q4H PRN metoprolol tartrate 25 mg PO BID omeprazole 20 mg PO DAILY 90 days ondansetron 4 mg PO Q8H PRN vedolizumab (Entyvio) 300 mg IV Q4W HPI HPI 6 month follow up: Details: GI CLINIC VISIT FOR THIS 53 YM FOR FU of CROHN'S DISEASE. [place] [facility] [place]: Hospital course The patient was admitted for LLQ pain with diarrhea secondary to viral enteritis as stool panel was positive for Astrovirus PCR. no evidence of flare up of IBD as he was evaluated by GI who recommended symptomatic measures. Treated with IV fluids , empirical IV antibiotics of Flagyl and Ceftriaxone until stool panel came back. His diet was advanced gradually with good tolerance. To be discharged on Zofran and Imodium as needed. Advised to remain well hydrated. He was found to have Acute hypokalemia which he recieved IV and PO replacement with good response. Discharge plan Use Zofran as needed for nausea Use Imodium as needed for diarrhea Advance your diet gradually over the next few days LABS:??08/2021?Vedolizumab antibodies were negative IMAGING STUDIES:? 09/11/[address] SCAN SHOWED: GASTROINTESTINAL TRACT: The appendix has been removed. There is moderate stool in the right colon there is air-fluid level in transverse colon and nondistended descending colon with mild mural thickening and mild fat stranding likely colitis. No diverticulitis seen. No extravasation of contrast seen to suspect any bleed at this time. ABDOMINAL WALL: No significant hernia is appreciated. IMPRESSION: Diffuse mural thickening involving the descending and sigmoid colon with mild pericolic stranding in the descending colon suggestive of colitis. No diverticuli seen. Similar findings were seen on the previous exam 04/11/2020. Appendix has been surgically removed. ENDOSCOPIC STUDIES:?08/2021 COLONOSCOPY SHOWED: Eight medium to large sized polyps removed - ? pseudopolyps versus adenomas Moderate hemorrhoids on retroflexed exam. Plan:? Repeat Colonoscopy in 12 months and if several polyps are adenomatous, pt will be referred to a colorectal surgeon for a total colectomy Above findings were reviewed with the patient and colon polyps handout was given in the discharge area BIOPSIES SHOWED: A.? Colon, ascending, biopsy:? Chronic inactive colitis. B.? Colon, transverse at 65 cm, polypectomy:? Inflammatory polyp. C.? Colon, transverse at 60 cm, polypectomies (4):? Inflammatory polyps. D.? Colon, transverse at 50 cm, polypectomies (2):? Inflammatory polyps. E.? Colon, sigmoid, biopsy:? Chronic inactive colitis. COMMENT:? No dysplasia or granulomata are identified. Repeat Colon advised in 1-2 yrs ADDENDUM: Pt reported skin rash of hands and feet after getting Entyvio (Vedolizumab) in June,? and did not go for his infusion in July or August. Rash resolved after a few days. Pt was advised to reschedule his appt for Entyvio to be administered after premedication with Benadryl 50 mg IV and acetaminiphen 625 mg PO. New order sent to Short Stay. Colonoscopy from Apr 2018 showed?moderate chronic inactive colitis in 3 different biopsies. 2015 EGD?showed Grade 2 distal esophagitis with a small hiatal hernia (no H. pylori was found).I will have him start Pantoprazole once daily in the AM. The colonoscopy showed inflamation continuous from the ano-rectal verge. The pathology confirmed inflamatory pseudo polyps and moderate chronic active colitis with no evidence for dysplasia. TODAY'S VISIT: Patient denies any recurrent diarrhea since he was discharged from the hospital. BMs are less frequent since he was discharged - having a BM once a day. Notes MELÉNDEZ and pressure in the back after getting the Entyvio and would like to change to oral medication Next infusion is scheduled on 10/10/23 Pt handout given on Upadacitinib (Rinovoq) PAST VISITS: Pt is interested in switching to oral medication for Crohn's disease if possible. Still going to the bathroom a lot - 6-7 times during the day and 2-3 times at night. Takes imodium prn sometimes when he notes watery diarrhea. Denies abdominal pain. Doing well - no problems with Entyvio infusions Denies itching after infusions since benadryl is given before the infusion. Next Entyvio infusion on 04/27/23. Denies skin rash after Entyvio and noted itching on the day of the infusion - resolves by the next day. Notes hair loss on lateral aspects of both lower extermities x past 2 months. Has 3-4 solid to soft BMs during the day and 3 times at night (2 am, 3 am and 4- 5 am) Has BMs at night if he ate late at night. Frequency of BMs is slowly improving. Previously had LLQ pain and post prandial diarrhea which has resolved. Has 6-7 BMs a day and 2-4 episodes at night Noted a panic attack and shortness of breath yesterday after getting the IV benadryl Taking a medication for the skin rash which is going away. Doing OK. Denies abd pain, diarrhea or rectal bleeding. Has been going to the bathroom less. 5 BMs during the day and 5 BMs at night - denies diarrhea.Takes imodium prn. Taking iron and vitamin C. Last Entyvio infusion on 04/13/21. Notes large non-bleeding hemorrhoids. Stopped azathioprine since it caused heartburn. Kersey better for 1-2 weeks. Has to go to the bathroom every time he eats. Notes abdominal pain and diarrhea - 10-15 BMs a day BMs are loose to watery and denies blood in the stools Lost 2 lbs. Denies recent antibiotics. Takes Omeprazole for heartburn. Patient denies symptoms of heartburn, dysphagia, nausea, vomiting, change in appetite or weight.? Patient denies major cardiac or pulmonary problems, loud snoring or sleep apnea Denies problems with anesthesia in the past. Denies being on chronic anticoagulation. Patient denies known family history of colon polyps, colon cancer or other GI malignancy Past workup: ?10/09/[address] Hall, revealed colitis from the rectum to the tranverse colon near the hepatic flexure. Rectal Bx- Pos for mod active chronic colitis, suggestive of IBD. NO bxs taken from L, R, transverse colon or terminal ileum. Cardiac workup was essentially normal per pt. Told needs to lose wt. 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 Last seen 12/30/14-f/u 1 yr. On metroprolol due to extra beats . Labs: 09/10/14 No anemia, CRP < 0.30, normal CMP 09/30 PROMETHEUS IBD pattern consistent w/ Crohn's. CRP 2.67. C. Diff and Celiac panel Neg. TSH 0.82. PAST TREATMENTS: Asacol 800 mg twice daily, increased to three times daily after a flare Predniosne taper Apr 2016 started on Remicade infusion 5 mg/kg every 8 weeks August 2016 Remicade was increased to 10 milligram/kilogram every 8 weeks and then every 4 weeks June 2019 Switched to Entyvio every 8 weeks 07/27/19. Entyvio lvl measured and was lower than it should be suggesting some development of antibodies to the medication. Entyvio infusion 08/16/19. Bloodwork was also done around this time and not improved. WBC 31559 higher than usual. He sometmes runs a mild leukocytosis but not to this level. Last time his WBC was during the time of last admission to hospital and he did have c. diff present. 14.9/43.4. CRP is progressively elevated. 0.68 2.4 on 07/27/19. 4.23 on 08/16/19. Stool c. diff negative, Stool WBC negative 07/30/19. Last imaging on record is from March 2019. Colitis extending from mid transverse colon to the rectum. No drainable fluid collections. No pelvic fluid.Genetic assessment has been consistent with Crohn's (clinical presentation has been most consistent with ulcerative colitis). 04/2018 colonoscopy showed mild chronic inactive colitis on the left side.Reminder: in April 2019 he did have c. diff infection which was treated. Recheck on this by us in early July was negative [facility] Medical History Hand pain GERD (gastroesophageal reflux disease) Myocardial infarction Iron deficiency anemia due to chronic blood loss Medicare annual wellness visit, initial Lipoma of arm Mass of hand Cyst in hand CAD (coronary artery disease) Hypertension NSTEMI (non-ST elevated myocardial infarction) Acute coronary syndrome Essential (primary) hypertension Crohn disease Hearing loss in right ear History of acoustic neuroma Surgical History Status post excision of lipoma History of surgery on arm History of brain tumor S/P cardiac cath (~01/2020) Stented coronary artery Hx of colonoscopy Hx of appendectomy Family History Father Stroke Mother No problems noted. Maternal Uncle Heart attack Social History Household Members: Spouse Housing: House Do you presently have visiting nurse or other home services: No Alcohol intake: former Comment: Given for PTT-HD Patient Tobacco Use Status: Former Tobacco user Tobacco use type: Cigarette Cigarette Packs Per Day: 1 e-Cigarette/Vaping Use: Never Used Second Hand Smoke Exposure: No service: No Current occupational status: disabled Cognitive needs: No Hearing needs: No Vision needs: No Review of Systems Const All systems reviewed & are unremarkable except as noted in HPI and below Physical Exam Vital Signs: Last Vital Signs Pulse 80 10/06/23 08:55 BP 106/66 10/06/23 08:55 BMI result Body Mass Index 32.7 Last Vital Signs Temp 97.8 F 09/29/23 07:41 Pulse 79 09/29/23 07:41 Resp 16 09/29/23 07:41 BP 125/84 09/29/23 07:41 Pulse Ox 95 09/29/23 07:41 O2 Del Method Room Air 09/29/23 07:41 BMI result Body Mass Index 32.5 Const Other: Constitutional : Awake, interactive, not in distress Neck : Normal inspection, Supple Cardiovascular : RRR, no JVP, no lower extremity edema Respiratory : good bilateral air entry, no crackles, wheezes or rhonchi Gastrointestinal: soft, lax, Normal bowel sounds,no tenderness w no rebound Neurological : Alert & oriented x3, No focal deficit Assessment & Plan Assessment & Plan (1) Crohn disease: Code(s): K50.90 - Crohn's disease, unspecified, without complications Category: Medical (2) GERD (gastroesophageal reflux disease): Code(s): K21.9 - Gastro-esophageal reflux disease without esophagitis Category: Medical Plan 53 YM with CAD status post stent placement and on aspirin and Plavix and a hx of Crohn's disease diagnosed in 2012 (on Entyvio every 4 weeks) seen for FU after hospitalization at [facility] [place] with worsening diarrhea and bloody stools and lower abdominal pain.? Abdominal CT scan showed moderate stool in the right colon with air-fluid level in transverse colon and non-distended descending colon with mild mural thickening and mild fat stranding likely colitis. No diverticulitis. Patient was treated with IV steroids and discharged on p.o. prednisone 40 mg daily.? Entyvio was increased to every 4 weeks.? Last in Entyvio infusion on 09/13/22 and next infusion is scheduled on 10/11/2022 Pt notes improvement in symptoms - reports 3-4 BM during the day and 3 BMs at night. Patient was prescribed azathioprine 50 mg daily (TPMT enzyme activity was normal) and stopped due to heartburn. 08/2021 COLONOSCOPY SHOWED: Eight medium to large sized polyps removed - ? pseudopolyps versus adenomas Moderate hemorrhoids on retroflexed exam. Plan:? Repeat Colonoscopy in 2 yrs (due 09/2023) BIOPSIES SHOWED: A.? Colon, ascending, biopsy:? Chronic inactive colitis. B.? Colon, transverse at 65 cm, polypectomy:? Inflammatory polyp. C.? Colon, transverse at 60 cm, polypectomies (4):? Inflammatory polyps. D.? Colon, transverse at 50 cm, polypectomies (2):? Inflammatory polyps. E.? Colon, sigmoid, biopsy:? Chronic inactive colitis. COMMENT:? No dysplasia or granulomata are identified. Pt advised to have labs and fecal calprotectin checked to confirm Crohn's disease is in remission 10/06/23 Patient denies any recurrent diarrhea since he was discharged from the hospital. BMs are less frequent since he was discharged - having a BM once a day. Notes MELÉNDEZ and pressure in the back after getting the Entyvio and would like to change to oral medication since he does not want to come in every month and be poked with needles Reviewed option of switching to Entyvio 108 mg subcutaneous every 2 weeks - pt would like to switch to oral medication Next Entyvio infusion is scheduled on 10/10/23 and pt plans to proceed. Pt handout given on Upadacitinib (Rinovoq) - side effects of increased risk of infection, thromboembolism, reactivation of latent tuberculosis and cardiac events were reviewed. Prescription was sent for Upadacitinib (Rinovoq) 45 mg daily x 12 weeks for induction Maintenance therapy would be 15 to 30 mg daily FU in 2 months - appt scheduled 12/08/23 Orders: Orders Complete Blood Count Auto Diff Today K50.90 - Crohn's disease, unspecified, without complications Hepatitis A IgG Today K50.90 - Crohn's disease, unspecified, without complications Hepatitis B Surface Antigen Today K50.90 - Crohn's disease, unspecified, without complications Hepatitis B Core Antibody Today K50.90 - Crohn's disease, unspecified, without complications Liver Panel Today K50.90 - Crohn's disease, unspecified, without complications Lipid Panel with Reflex Today K50.90 - Crohn's disease, unspecified, without complications T Spot TB Today K50.90 - Crohn's disease, unspecified, without complications Hepatitis C Antibody Today K50.90 - Crohn's disease, unspecified, without complications Hepatitis B Surface Antibody Today K50.90 - Crohn's disease, unspecified, without complications Medications: New upadacitinib ER 45 mg PO DAILY 12 weeks 84 tabs 0RF Coding Level of Care Code Est Pt Level 4 (21821) Diagnoses Crohn disease K50.90 GERD (gastroesophageal reflux disease) K21.9 Time Spent (min) 22
[2023-10-06 08:55] VITALS: BP 106/66; PULSE 80; BMI 32.7
== END 2023-10-06 09:35 | disposition home or self-care (01) ==
PROVIDERS: PCP Internal Medicine; Visit Provider Internal Medicine Gastroenterology
DX: K50.90 Crohn's disease, unspecified, without complications (principal); K21.9 Gastro-esophageal reflux disease without esophagitis
CPT/HCPCS: 99214

== ENCOUNTER → 2023-10-06 08:52 | Outpatient (BNVA) | payer MEDICARE, MEDICAID, SELFPAY | PROVIDERS: PCP Internal Medicine; Visit Provider Internal Medicine Gastroenterology | DX: K50.90 Crohn's disease, unspecified, without complications (principal); K21.9 Gastro-esophageal reflux disease without esophagitis | CPT/HCPCS: 99212 ==

== ENCOUNTER 2023-10-10 08:00 | Outpatient (RCR) | payer MEDICARE, MEDICAID, SELFPAY ==
[2023-07-06 07:37] VITALS: BP 121/83; PULSE 81; RESP 16; TEMP 36.9; O2SAT 96
[2023-07-06] MEDS: Acetaminophen 325 MG TABLET 650 MG PO (07:50)
[2023-07-06] MEDS: diphenhydrAMINE HCL 25 MG CAPSULE 50 MG PO (07:50)
[2023-07-06] MEDS: 0.9 % Sodium Chloride Flush 10 ML SYRINGE 5 ML IVFLUSH (07:50)
[2023-07-06] MEDS: Vedolizumab 300 MG in 0.9 % Sodium Chloride 250 ML 510 MG IV (09:00)
[2023-08-03 08:02] VITALS: BP 127/81; PULSE 88; RESP 16; TEMP 37.1; O2SAT 95
[2023-08-03] MEDS: 0.9 % Sodium Chloride Flush 10 ML SYRINGE 5 ML IVFLUSH (08:20)
[2023-08-03] MEDS: Acetaminophen 325 MG TABLET 650 MG PO (08:21)
[2023-08-03] MEDS: diphenhydrAMINE HCL 25 MG CAPSULE 50 MG PO (08:21)
[2023-08-03] MEDS: Vedolizumab 300 MG in 0.9 % Sodium Chloride 250 ML 510 MG IV (08:55)
[2023-08-03 09:00] VITALS: BP 119/74; PULSE 79
[2023-09-12 10:12] VITALS: BMI 32.7
[2023-09-12 10:15] VITALS: BP 117/72; PULSE 74; RESP 18; TEMP 37.1; O2SAT 95
[2023-09-12] MEDS: Acetaminophen 325 MG TABLET 650 MG PO (10:31)
[2023-09-12] MEDS: diphenhydrAMINE HCL 25 MG CAPSULE 50 MG PO (10:32)
[2023-09-12] MEDS: Vedolizumab 300 MG in 0.9 % Sodium Chloride 250 ML 510 MG IV (10:34)
[2023-09-12] MEDS: 0.9 % Sodium Chloride Flush 10 ML SYRINGE 5 ML IVFLUSH (11:09)
[2023-10-10 08:08] VITALS: BP 108/73; PULSE 79; RESP 14; TEMP 37.2; O2SAT 95
[2023-10-10] MEDS: diphenhydrAMINE HCL 25 MG CAPSULE 50 MG PO (08:21)
--- NOTE | 2023-10-10 08:21 | HO.INF ---
patient requested only 25mg of the benadryl
[2023-10-10] MEDS: Acetaminophen 325 MG TABLET 650 MG PO (09:00)
[2023-10-10] MEDS: Vedolizumab 300 MG in 0.9 % Sodium Chloride 250 ML 510 MG IV (09:02)
[2023-10-10] MEDS: 0.9 % Sodium Chloride Flush 10 ML SYRINGE 5 ML IVFLUSH (09:37)
== END 2023-12-27 11:02 | disposition home or self-care (01) ==
LOC: HO.INF 08:00
PROVIDERS: Visit Provider Internal Medicine Gastroenterology
DX: K50.90 Crohn's disease, unspecified, without complications (principal)
CPT/HCPCS: 96365; J3380

== ENCOUNTER 2023-11-10 09:53 | Outpatient (AMB) | payer MEDICARE, MEDICAID, SELFPAY ==
--- NOTE | 2023-11-10 09:55 | MHC.PC.OV ---
Vital Signs 11/10/23 09:56 Height 5 ft 8 in Weight 217 lb BMI 33.0 BP 118/80 Blood Pressure Location Lt brachial Position Sitting Intake Visit Reasons: bp Intake Note: Patient here for a follow up BP Physical Instructor Required: No Accompanied by: Self / Same As Patient Allergies Seasonal Allergies Allergy (Intermediate, Verified 11/10/23 10:17) eye swelling, itch vedolizumab [From Entyvio] Adverse Reaction (Intermediate, Verified 11/10/23 10:17) Rash Medication List - Last Reconciled 11/10/23 by Chely Lopez MD acetaminophen 1,000 mg PO Q6H PRN aspirin 81 mg PO DAILY atorvastatin 80 mg PO DAILY loperamide 2 mg PO Q4H PRN metoprolol tartrate 25 mg PO BID omeprazole 20 mg PO DAILY 90 days ondansetron 4 mg PO Q8H PRN upadacitinib ER 45 mg PO DAILY 12 weeks Tobacco use date assessed: 05/10/23 Dental Screening Dental Screen Date: 05/10/23 HPI HPI Comments History of Present Illness Details This is a 53-year-old male with GERD and Crohn's disease that complains of hearing loss and right leg numbness. Leg numbness started few weeks ago. Hearing loss has been present for few months. GERD stable with PPIs. Crohn's disease is follow by Gastroenterology. Will send him to ENT for his hearing loss and order a nerve conduction study for his paresthesia. No chest pain or shortness on breath. [facility] Medical History (Updated 11/10/23 @ 10:26 by Chely Lopez MD) Hand pain GERD (gastroesophageal reflux disease) Myocardial infarction Iron deficiency anemia due to chronic blood loss Medicare annual wellness visit, initial Lipoma of arm Mass of hand Cyst in hand CAD (coronary artery disease) Hypertension NSTEMI (non-ST elevated myocardial infarction) Acute coronary syndrome Essential (primary) hypertension Crohn disease Hearing loss in right ear History of acoustic neuroma Surgical History Status post excision of lipoma History of surgery on arm History of brain tumor S/P cardiac cath (~01/2020) Stented coronary artery Hx of colonoscopy Hx of appendectomy Family History Father Stroke Mother No problems noted. Maternal Uncle Heart attack Social History Household Members: Spouse Housing: House Do you presently have visiting nurse or other home services: No Alcohol intake: former Comment: Given for PTT-HD Patient Tobacco Use Status: Former Tobacco user Tobacco use type: Cigarette Cigarette Packs Per Day: 1 e-Cigarette/Vaping Use: Never Used Second Hand Smoke Exposure: No service: No Current occupational status: disabled Cognitive needs: No Hearing needs: No Vision needs: No Questionnaire Thrive Questionnaire Date Thrive assessed: 09/29/23 CT-[address] - 7 assessed: 05/10/23 Source: Developed by Drs. Amilcar Miles, Keiko Michel, Chan Rae and colleagues, with an educational mayte from [employer]. Review of Systems Const All systems reviewed & are unremarkable except as noted in HPI and below Card Denies chest pain at rest, Denies chest pain with activity, Denies edema, Denies irregular heart rhythm, Denies claudication, Denies dyspnea, Denies dyspnea on exertion, Denies orthopnea, Denies paroxysmal nocturnal dyspnea and Denies slow heart rate Resp Denies cough, Denies dyspnea and Denies dyspnea on exertion GI Denies abdominal pain, Denies change in bowel habits, Denies excessive flatus, Denies nausea and Denies vomiting Denies urinary hesitancy, Denies urinary incontinence and Denies urinary urgency Physical exam (Primary Care) Vital Signs: Last Vital Signs BP 118/80 11/10/23 09:56 BMI result Body Mass Index 33.0 Tobacco/Smoking Status: Tobacco use Status Tobacco use date assessed 05/10/23 11/10/23 10:03 Patient Tobacco Use Status Former Tobacco user 11/10/23 10:03 Tobacco use type Cigarette 11/10/23 10:03 e-Cigarette/Vaping Use Never Used 11/10/23 10:03 Thrive Assessment: Date of Thrive Assessment Date Thrive assessed 09/29/23 11/10/23 10:03 Resp Effort & Inspection: normal respiratory effort Auscultation: clear to auscultation bilaterally Cardio Jugular venous distension: no JVD Rate: regular rate Rhythm: regular rhythm Heart sounds: S1 normal heart sound present and S2 normal heart sound present Extrem General: Yes full ROM Assessment and Plan Assessment & Plan (1) Hearing loss: Code(s): H91.90 - Unspecified hearing loss, unspecified ear Plan: Referred to ENT. (2) Leg paresthesia: Code(s): R20.2 - Paresthesia of skin Plan: Nerve conduction study ordered. (3) GERD (gastroesophageal reflux disease): Code(s): K21.9 - Gastro-esophageal reflux disease without esophagitis Plan: Continue PPIs. (4) Crohn disease: Code(s): K50.90 - Crohn's disease, unspecified, without complications Plan: Follow-up with Gastroenterology. Orders: Orders Comprehensive Hume. Panel Fast 6 Months E78.00 - Pure hypercholesterolemia, unspecified NE nerve conduction velocity Today R20.2 - Paresthesia of skin Lipid Panel 6 Months E78.5 - Hyperlipidemia, unspecified Vitamin D 25-OH Total 6 Months E55.9 - Vitamin D deficiency, unspecified Referrals Ear/Nose/Throat Referral H91.90 - Unspecified hearing loss, unspecified ear Coding Level of Care Code Est Pt Level 4 (18375) Complex EM visit Add On G2211 Diagnoses Hearing loss H91.90 Leg paresthesia R20.2 GERD (gastroesophageal reflux disease) K21.9 Crohn disease K50.90 Time Spent (min) 22
[2023-11-10 09:56] VITALS: BP 118/80; BMI 33.0
== END 2023-11-10 10:37 | disposition home or self-care (01) ==
PROVIDERS: PCP Internal Medicine; Visit Provider Internal Medicine
DX: H91.90 Unspecified hearing loss, unspecified ear (principal); R20.2 Paresthesia of skin; K21.9 Gastro-esophageal reflux disease without esophagitis; K50.90 Crohn's disease, unspecified, without complications
CPT/HCPCS: 99214; G2211

== ENCOUNTER 2023-12-08 11:52 | Outpatient (AMB) | payer MEDICARE, MEDICAID, SELFPAY ==
--- NOTE | 2023-12-08 11:59 | MHC.OFFVIS ---
Vital Signs 12/08/23 12:03 Height 5 ft 8 in Weight 220 lb BMI 33.4 BP 122/84 Blood Pressure Location Lt brachial Position Sitting Pulse 111 H Intake Visit Reasons: Crohns disease Intake Note: Patient follow up for Crohn's disease. Patient denies any GI issues for today, also patient wanted to change entyvio infusion for tablets,he talk with insurance and they will approved the med. Computational Geneticist Required: No Accompanied by: Self / Same As Patient Allergies Seasonal Allergies Allergy (Intermediate, Verified 03/22/24 08:20) eye swelling, itch vedolizumab [From Entyvio] Adverse Reaction (Intermediate, Verified 03/22/24 08:20) Rash Medication List - Last Reconciled 12/08/23 by Rodolfo Vazquez MD acetaminophen 1,000 mg PO Q6H PRN aspirin 81 mg PO DAILY atorvastatin 80 mg PO DAILY loperamide 2 mg PO Q4H PRN metoprolol tartrate 25 mg PO BID omeprazole 20 mg PO DAILY 90 days ondansetron 4 mg PO Q8H PRN upadacitinib ER 45 mg PO DAILY 12 weeks HPI HPI Crohns disease: Details: GI CLINIC VISIT FOR THIS 53 YM FOR FU of CROHN'S DISEASE. Pt was hospitalized at [facility] [place] from 09/27/23 to 09/29/23: Hospital course The patient was admitted for LLQ pain with diarrhea secondary to viral enteritis as stool panel was positive for Astrovirus PCR. no evidence of flare up of IBD as he was evaluated by GI who recommended symptomatic measures. Treated with IV fluids , empirical IV antibiotics of Flagyl and Ceftriaxone until stool panel came back. His diet was advanced gradually with good tolerance. To be discharged on Zofran and Imodium as needed. Advised to remain well hydrated. He was found to have Acute hypokalemia which he recieved IV and PO replacement with good response. Discharge plan Use Zofran as needed for nausea Use Imodium as needed for diarrhea Advance your diet gradually over the next few days LABS:??08/2021?Vedolizumab antibodies were negative IMAGING STUDIES:? 09/11/[address] SCAN SHOWED: GASTROINTESTINAL TRACT: The appendix has been removed. There is moderate stool in the right colon there is air-fluid level in transverse colon and nondistended descending colon with mild mural thickening and mild fat stranding likely colitis. No diverticulitis seen. No extravasation of contrast seen to suspect any bleed at this time. ABDOMINAL WALL: No significant hernia is appreciated. IMPRESSION: Diffuse mural thickening involving the descending and sigmoid colon with mild pericolic stranding in the descending colon suggestive of colitis. No diverticuli seen. Similar findings were seen on the previous exam 04/11/2020. Appendix has been surgically removed. ENDOSCOPIC STUDIES:?08/2021 COLONOSCOPY SHOWED: Eight medium to large sized polyps removed - ? pseudopolyps versus adenomas Moderate hemorrhoids on retroflexed exam. Plan:? Repeat Colonoscopy in 12 months and if several polyps are adenomatous, pt will be referred to a colorectal surgeon for a total colectomy Above findings were reviewed with the patient and colon polyps handout was given in the discharge area BIOPSIES SHOWED: A.? Colon, ascending, biopsy:? Chronic inactive colitis. B.? Colon, transverse at 65 cm, polypectomy:? Inflammatory polyp. C.? Colon, transverse at 60 cm, polypectomies (4):? Inflammatory polyps. D.? Colon, transverse at 50 cm, polypectomies (2):? Inflammatory polyps. E.? Colon, sigmoid, biopsy:? Chronic inactive colitis. COMMENT:? No dysplasia or granulomata are identified. Repeat Colon advised in 1-2 yrs ADDENDUM: Pt reported skin rash of hands and feet after getting Entyvio (Vedolizumab) in June,? and did not go for his infusion in July or August. Rash resolved after a few days. Pt was advised to reschedule his appt for Entyvio to be administered after premedication with Benadryl 50 mg IV and acetaminiphen 625 mg PO. New order sent to Short Stay. Colonoscopy from Apr 2018 showed?moderate chronic inactive colitis in 3 different biopsies. 2016 EGD?showed Grade 2 distal esophagitis with a small hiatal hernia (no H. pylori was found).I will have him start Pantoprazole once daily in the AM. The colonoscopy showed inflamation continuous from the ano-rectal verge. The pathology confirmed inflamatory pseudo polyps and moderate chronic active colitis with no evidence for dysplasia. TODAY'S VISIT: Patient denies any GI issues for today, also patient wanted to change entyvio infusion for tablets,he talk with insurance and they will approved the med. Last Entyvio infusion was in September, Patient denies any recurrent diarrhea since he was discharged from the hospital. BMs are less frequent since he was discharged - having a BM once a day. Notes MELÉNDEZ and pressure in the back after getting the Entyvio and would like to change to oral medication Next infusion is scheduled on 10/10/23 Pt handout given on Upadacitinib (Rinovoq) Prescription was sent for Upadacitinib (Rinovoq) 45 mg daily x 12 weeks for induction PAST VISITS: Pt is interested in switching to oral medication for Crohn's disease if possible. Still going to the bathroom a lot - 6-7 times during the day and 2-3 times at night. Takes imodium prn sometimes when he notes watery diarrhea. Denies abdominal pain. Doing well - no problems with Entyvio infusions Denies itching after infusions since benadryl is given before the infusion. Next Entyvio infusion on 04/27/23. Denies skin rash after Entyvio and noted itching on the day of the infusion - resolves by the next day. Notes hair loss on lateral aspects of both lower extermities x past 2 months. Has 3-4 solid to soft BMs during the day and 3 times at night (2 am, 3 am and 4-5 am) Has BMs at night if he ate late at night. Frequency of BMs is slowly improving. Previously had LLQ pain and post prandial diarrhea which has resolved. Has 6-7 BMs a day and 2-4 episodes at night Noted a panic attack and shortness of breath yesterday after getting the IV benadryl Taking a medication for the skin rash which is going away. Doing OK. Denies abd pain, diarrhea or rectal bleeding. Has been going to the bathroom less. 5 BMs during the day and 5 BMs at night - denies diarrhea.Takes imodium prn. Taking iron and vitamin C. Last Entyvio infusion on 04/13/21. Notes large non-bleeding hemorrhoids. Stopped azathioprine since it caused heartburn. [place] better for 1-2 weeks. Has to go to the bathroom every time he eats. Notes abdominal pain and diarrhea - 10-15 BMs a day BMs are loose to watery and denies blood in the stools Lost 2 lbs. Denies recent antibiotics. Takes Omeprazole for heartburn. Patient denies symptoms of heartburn, dysphagia, nausea, vomiting, change in appetite or weight.? Patient denies major cardiac or pulmonary problems, loud snoring or sleep apnea Denies problems with anesthesia in the past. Denies being on chronic anticoagulation. Patient denies known family history of colon polyps, colon cancer or other GI malignancy Past workup: ?10/09/[address] Hall, revealed colitis from the rectum to the tranverse colon near the hepatic flexure. Rectal Bx- Pos for mod active chronic colitis, suggestive of IBD. NO bxs taken from L, R, transverse colon or terminal ileum. Cardiac workup was essentially normal per pt. Told needs to lose wt. 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 Last seen 12/30/14-f/u 1 yr. On metroprolol due to extra beats . Labs: 09/10/14 No anemia, CRP < 0.30, normal CMP 09/30 PROMETHEUS IBD pattern consistent w/ Crohn's. CRP 2.67. C. Diff and Celiac panel Neg. TSH 0.82. PAST TREATMENTS: Asacol 800 mg twice daily, increased to three times daily after a flare Predniosne taper Apr 2016 started on Remicade infusion 5 mg/kg every 8 weeks August 2016 Remicade was increased to 10 milligram/kilogram every 8 weeks and then every 4 weeks June 2019 Switched to Entyvio every 8 weeks 07/27/19. Entyvio lvl measured and was lower than it should be suggesting some development of antibodies to the medication. Entyvio infusion 08/16/19. Bloodwork was also done around this time and not improved. WBC 64060 higher than usual. He sometmes runs a mild leukocytosis but not to this level. Last time his WBC was during the time of last admission to hospital and he did have c. diff present. 14.9/43.4. CRP is progressively elevated. 0.68 2.4 on 07/27/19. 4.23 on 08/16/19. Stool c. diff negative, Stool WBC negative 07/30/19. Last imaging on record is from March 2019. Colitis extending from mid transverse colon to the rectum. No drainable fluid collections. No pelvic fluid.Genetic assessment has been consistent with Crohn's (clinical presentation has been most consistent with ulcerative colitis). 04/2018 colonoscopy showed mild chronic inactive colitis on the left side.Reminder: in April 2019 he did have c. diff infection which was treated. Recheck on this by us in early July was negative [facility] Medical History Hand pain GERD (gastroesophageal reflux disease) Myocardial infarction Iron deficiency anemia due to chronic blood loss Medicare annual wellness visit, initial Lipoma of arm Mass of hand Cyst in hand CAD (coronary artery disease) Hypertension NSTEMI (non-ST elevated myocardial infarction) Acute coronary syndrome Essential (primary) hypertension Crohn disease Hearing loss in right ear History of acoustic neuroma Surgical History Status post excision of lipoma History of surgery on arm History of brain tumor S/P cardiac cath (~01/2020) Stented coronary artery Hx of colonoscopy Hx of appendectomy Family History Father Stroke Mother No problems noted. Maternal Uncle Heart attack Social History Household Members: Spouse Housing: House Do you presently have visiting nurse or other home services: No Alcohol intake: former Comment: Given for PTT-HD Patient Tobacco Use Status: Former Tobacco user Tobacco use type: Cigarette Cigarette Packs Per Day: 1 e-Cigarette/Vaping Use: Never Used Second Hand Smoke Exposure: No service: No Current occupational status: disabled Cognitive needs: No Hearing needs: No Vision needs: No Review of Systems Const All systems reviewed & are unremarkable except as noted in HPI and below Physical Exam Vital Signs: Last Vital Signs Pulse 111 H 12/08/23 12:03 BP 122/84 12/08/23 12:03 BMI result Body Mass Index 33.4 Last Vital Signs Temp 97.8 F 09/29/23 07:41 Pulse 79 09/29/23 07:41 Resp 16 09/29/23 07:41 BP 125/84 09/29/23 07:41 Pulse Ox 95 09/29/23 07:41 O2 Del Method Room Air 09/29/23 07:41 BMI result Body Mass Index 32.5 Const Other: Constitutional : Awake, interactive, not in distress Neck : Normal inspection, Supple Cardiovascular : RRR, no JVP, no lower extremity edema Respiratory : good bilateral air entry, no crackles, wheezes or rhonchi Gastrointestinal: soft, lax, Normal bowel sounds,no tenderness w no rebound Neurological : Alert & oriented x3, No focal deficit Assessment & Plan Assessment & Plan (1) Crohn disease: Code(s): K50.90 - Crohn's disease, unspecified, without complications Category: Medical (2) Iron deficiency anemia due to chronic blood loss: Code(s): D50.0 - Iron deficiency anemia secondary to blood loss (chronic) Category: Medical (3) GERD (gastroesophageal reflux disease): Code(s): K21.9 - Gastro-esophageal reflux disease without esophagitis Category: Medical Plan 53 YM with CAD status post stent placement and on aspirin and Plavix and a hx of Crohn's disease diagnosed in 2012 (on Entyvio every 4 weeks) seen for FU after hospitalization at [facility] [place] in 08/2020 with worsening diarrhea and bloody stools and lower abdominal pain.? Abdominal CT scan showed moderate stool in the right colon with air-fluid level in transverse colon and non-distended descending colon with mild mural thickening and mild fat stranding likely colitis. No diverticulitis. Patient was treated with IV steroids and discharged on p.o. prednisone 40 mg daily.? Entyvio was increased to every 4 weeks.? Last in Entyvio infusion on 09/13/22 and next infusion is scheduled on 10/11/2022 Pt notes improvement in symptoms - reports 3-4 BM during the day and 3 BMs at night. Patient was prescribed azathioprine 50 mg daily (TPMT enzyme activity was normal) and stopped due to heartburn. 08/2021 COLONOSCOPY SHOWED: Eight medium to large sized polyps removed - ? pseudopolyps versus adenomas Moderate hemorrhoids on retroflexed exam. Plan:? Repeat Colonoscopy in 2 yrs (due 09/2023) BIOPSIES SHOWED: A.? Colon, ascending, biopsy:? Chronic inactive colitis. B.? Colon, transverse at 65 cm, polypectomy:? Inflammatory polyp. C.? Colon, transverse at 60 cm, polypectomies (4):? Inflammatory polyps. D.? Colon, transverse at 50 cm, polypectomies (2):? Inflammatory polyps. E.? Colon, sigmoid, biopsy:? Chronic inactive colitis. COMMENT:? No dysplasia or granulomata are identified. Pt advised to have labs and fecal calprotectin checked to confirm Crohn's disease is in remission 10/06/23 Patient denies any recurrent diarrhea since he was discharged from the hospital. BMs are less frequent since he was discharged - having a BM once a day. Notes MELÉNDEZ and pressure in the back after getting the Entyvio and would like to change to oral medication since he does not want to come in every month and be poked with needles Reviewed option of switching to Entyvio 108 mg subcutaneous every 2 weeks - pt would like to switch to oral medication Next Entyvio infusion is scheduled on 10/10/23 and pt plans to proceed. Pt handout given on Upadacitinib (Rinovoq) - side effects of increased risk of infection, thromboembolism, reactivation of latent tuberculosis and cardiac events were reviewed. Prescription was sent for Upadacitinib (Rinovoq) 45 mg daily x 12 weeks for induction and not approved by his insurance Maintenance therapy would be 15 to 30 mg daily Pt was advised to schedule a colonoscopy for IBD surveillance. FU in 3 months Medications: Changed From upadacitinib ER 45 mg PO DAILY 12 weeks 84 tabs 0RF K50.90 - Crohn's disease, unspecified, without complications To upadacitinib ER Pt was on Entyvio infusion and complains of skin rash and head aches after the Entyvio infusion. He would like to switch to an oral medication 45 mg PO DAILY 84 tabs 0RF 12 weeks K50.90 - Crohn's disease, unspecified, without complications Coding Level of Care Code Est Pt Level 4 (28545) Diagnoses Crohn disease K50.90 Iron deficiency anemia due to chronic blood loss D50.0 GERD (gastroesophageal reflux disease) K21.9 Time Spent (min) 23
[2023-12-08 12:03] VITALS: BP 122/84; PULSE 111; BMI 33.4
== END 2023-12-08 13:26 | disposition home or self-care (01) ==
PROVIDERS: PCP Internal Medicine; Visit Provider Internal Medicine Gastroenterology
DX: K50.90 Crohn's disease, unspecified, without complications (principal); D50.0 Iron deficiency anemia secondary to blood loss (chronic); K21.9 Gastro-esophageal reflux disease without esophagitis
CPT/HCPCS: 99214

== ENCOUNTER → 2023-12-08 11:52 | Outpatient (BNVA) | payer MEDICARE, MEDICAID, SELFPAY | PROVIDERS: PCP Internal Medicine; Visit Provider Internal Medicine Gastroenterology | DX: K50.90 Crohn's disease, unspecified, without complications (principal); K21.9 Gastro-esophageal reflux disease without esophagitis; D50.0 Iron deficiency anemia secondary to blood loss (chronic) | CPT/HCPCS: 99212 ==

== ENCOUNTER 2023-12-12 10:56 | Outpatient (REF) | payer MEDICARE, MEDICAID, SELFPAY ==
--- NOTE | ~2023-12-12 | CT_ITS ---
CT HEAD WITH CONTRAST CLINICAL INFORMATION: History of acoustic neuroma status post surgery with intermittent headache and hearing loss in the right ear. COMPARISON: Brain MRI May 03, 2017. TECHNIQUE: Contiguous axial imaging was performed from the skull base to vertex following the administration of 100 mL of Omnipaque [address] examination was performed using dose optimization techniques as appropriate, variously including the following: *Automated exposure control *Adjustment of mA and/or kV according to patient size (this includes techniques or standardized protocols for targeted exams where dose is matched to indication/reason for exam; i.e. 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 Though not well assessed on postcontrast CT, there is no convincing evidence of tumor recurrence. 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 No acute territorial infarcts, no hydrocephalus, no extra-axial service collection, and no midline shift or other herniation pattern. Small fluid level within the right maxillary sinus and mild mucosal thickening within the ethmoid air cells bilaterally. Mastoid air cells and middle ear cavities are clear. 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 Though not well assessed on postcontrast CT, there is no convincing evidence of tumor recurrence. * No acute intracranial findings. 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 Electronically signed by: Mikal Flores MD 12/12/2023 02:12 PM EDT
[2023-12-12] MEDS: iohexoL 350 MG/ML 100 ML INFUS..BTL 85 ML IV (11:12)
[2023-12-14 09:42] LABS: GFR POC > 60
== END 2023-12-12 10:57 | disposition home or self-care (01) ==
LOC: HO.CT 10:56
PROVIDERS: PCP Internal Medicine; Visit Provider Internal Medicine Gastroenterology
DX: R51.9 Headache, unspecified (principal); H91.90 Unspecified hearing loss, unspecified ear; Z86.018 Personal history of other benign neoplasm
CPT/HCPCS: 70460; 82565; Q9967

== ENCOUNTER 2023-12-13 07:46 | Outpatient (REF) | payer MEDICARE, MEDICAID, SELFPAY ==
--- NOTE | 2023-12-13 07:56 | EMG_ITS ---
Right tibial and peroneal motor studies were performed. Right superficial peroneal, sural, and median and lateral plantar sensory studies were performed and tibial H-reflex was obtained. Needle examination was performed. IMPRESSION: Moderately severe peripheral neuropathy affecting sensory nerves in the foot more than leg. MD CHRISTIANA Ramirez/JIML / [id number]
== END 2023-12-13 07:47 | disposition home or self-care (01) ==
LOC: HO.NEURO 07:46
PROVIDERS: PCP Internal Medicine; Visit Provider Internal Medicine
DX: Z13.89 Encounter for screening for other disorder (principal)
CPT/HCPCS: 95886; 95910

== ENCOUNTER 2024-02-04 14:12 | Emergency (ER) | payer MEDICARE, MEDICAID, SELFPAY ==
--- NOTE | ~2024-02-04 | CT_ITS ---
EXAMINATION: CT ABDOMEN AND PELVIS WITH CONTRAST CLINICAL INFORMATION: Left lower quadrant pain, history of Crohn's COMPARISON: None TECHNIQUE: Multiple axial images were obtained from the superior aspect of the liver through the pubic symphysis after the administration of 85 mL of intravenous Omnipaque. Images were evaluated on independent dedicated 3-D workstation and 3-D images were reconstructed with concurrent radiologist supervision and subsequently interpreted. Oral contrast was not administered. This CT examination was performed using dose optimization techniques as appropriate, variously including the following: *Automated exposure control *Adjustment of mA and/or kV according to patient size (this includes techniques or standardized protocols for targeted exams where dose is matched to indication/reason for exam; i.e. extremities or head) *Use of iterative reconstruction technique DLP: 671 mGy-cm FINDINGS: LUNG BASES: The visualized lung bases are clear. CARDIOMEDIASTINUM: The visualized heart is normal in size without pericardial effusion. No coronary artery calcification. LIVER: Homogeneous in attenuation. Normal in size. GALLBLADDER: Noninflamed. BILIARY SYSTEM: No intrahepatic or extrahepatic biliary dilation. PANCREAS: Homogeneous in attenuation. SPLEEN: Normal in size. GENITOURINARY: Bilateral kidneys demonstrate symmetric enhancement. No perinephric fluid collection. No renal calculi. No hydroureteronephrosis. ADRENAL GLANDS: Unremarkable. REPRODUCTIVE: Prostate present. GASTROINTESTINAL: Redemonstrated diffuse circumferential mural thickening of the colon, predominantly involving the transverse, descending, and sigmoid colon. Fatty infiltration of the colonic wall suggestive of chronic inflammatory process. There is no pericolonic stranding to suggest acute exacerbation. APPENDIX: Surgically absent. PERITONEUM: No pneumoperitoneum. No intra-abdominal fluid collection. VASCULATURE: The abdominal aorta is normal in course and caliber. LYMPH NODES: No pathologically enlarged abdominal or pelvic lymph nodes. SOFT TISSUES/MUSCULOSKELETAL: There is no acute fracture or significant focal osseous lesion. CT/CT abdomen pelvis w IV con IMPRESSION: Colonic manifestation of chronic inflammatory bowel disease, consistent with known Crohn's disease. No acute exacerbation. No acute abdominal or pelvic pathology. Fleischner guidelines were followed. Electronically signed by: Kranthi Mac DO 02/04/2024 08:30 PM [facility]
[2024-02-04 14:33] VITALS: BP 125/81; PULSE 87; RESP 16; TEMP 37.2; O2SAT 95; BMI 34.6
--- NOTE | 2024-02-04 14:34 | ED_ITS ---
HPI - Abdominal Pain General Chief Complaint: Abdominal Pain Stated Complaint: having a flare up Time Seen by Provider: 02/04/24 18:25 Source: patient Mode of arrival: ambulatory Limitations: no limitations History of Present Illness ED Provider: jsoe HPI narrative: Patient's history of Crohn's disease used to be on entivio which he is not taking since 09/11 complaining of left lower abdomen with soft stool similar to that in the past when he was admitted in 10/11 had viral enteritis Related Data Home Medications ?Medication ?Instructions ?Recorded ?Confirmed acetaminophen 500 mg capsule 1,000 mg PO Q6H PRN Pain 09/27/23 12/08/23 Previous Rx's ?Medication ?Instructions ?Recorded aspirin 81 mg chewable tablet 81 mg PO DAILY #30 tabs 03/13/20 atorvastatin 80 mg tablet 80 mg PO DAILY #90 tabs 02/18/23 metoprolol tartrate 25 mg tablet 25 mg PO BID #180 tabs 02/21/23 loperamide 2 mg capsule 2 mg PO Q4H PRN loose stool #14 09/29/23 caps ondansetron 4 mg disintegrating 4 mg PO Q8H PRN nausea and 09/29/23 tablet vomiting #10 tabs upadacitinib 45 mg tablet,extended 45 mg PO DAILY 12 weeks #84 tabs 12/14/23 release 24 hr ustekinumab 90 mg/mL subcutaneous 90 mg subcut Q8W 2 doses #1 mL 12/15/23 syringe (Stelara) omeprazole 20 mg capsule,delayed 20 mg PO DAILY 90 days #90 caps 12/29/23 release dicyclomine 20 mg tablet 20 mg PO TID #20 tabs 02/04/24 prednisone 20 mg tablet 40 mg (2 x 20 mg) PO DAILY #10 tabs 02/04/24 Allergies Allergy/AdvReac Type Severity Reaction Status Date / Time Seasonal Allergies Allergy Intermediate eye Verified 02/04/24 14:35 swelling, itch vedolizumab [From Entyvio] AdvReac Intermediate Rash Verified 02/04/24 14:35 Review of Systems Review of Systems Yes all other systems are reviewed and are negative PMFSH Past Medical History Medical History Hand pain GERD (gastroesophageal reflux disease) Myocardial infarction Iron deficiency anemia due to chronic blood loss Medicare annual wellness visit, initial Lipoma of arm Mass of hand Cyst in hand CAD (coronary artery disease) Hypertension NSTEMI (non-ST elevated myocardial infarction) Acute coronary syndrome Essential (primary) hypertension Crohn disease Hearing loss in right ear History of acoustic neuroma Surgical History Status post excision of lipoma History of surgery on arm History of brain tumor S/P cardiac cath (~01/2020) Stented coronary artery Hx of colonoscopy Hx of appendectomy Family History Family History Father Stroke Mother No problems noted. Maternal Uncle Heart attack Social History Social History Household Members: Spouse Housing: House Do you presently have visiting nurse or other home services: No Alcohol intake: former Comment: Given for PTT-HD Patient Tobacco Use Status: Former Tobacco user Tobacco use type: Cigarette Cigarette Packs Per Day: 1 e-Cigarette/Vaping Use: Never Used Second Hand Smoke Exposure: No Advance Directives: No Advance Directives Information Provided: No service: No Current occupational status: disabled Cognitive needs: No Hearing needs: No Vision needs: No Physical Exam ED Vital Signs: Vital Signs - 24 hr 02/04/24 14:33 02/04/24 20:00 02/04/24 21:59 Temperature 98.9 F 98.5 F 98.5 F Pulse Rate 87 73 73 Respiratory Rate 16 16 16 Blood Pressure 125/81 117/74 117/74 Pulse Oximetry 95 96 96 Oxygen Delivery Method Room Air Room Air Room Air BMI result Body Mass Index 34.6 Appearance: Alert. Oriented X3. No acute distress. Eyes: No pallor or icterus ENT: Pharynx normal. Oral Mucosa moist Neck: Normal inspection. Neck supple. CVS: Normal heart rate and rhythm. Pulses normal. Respiratory: No respiratory distress. Equal air entry bilateral, no wheezing/rales/rhonchi Abdomen: Soft and tenderness in left lower quadrant no rebound tenderness or got Bowel sounds are present, no mass palpable, no CVA tenderness Skin: Skin warm and dry. Normal skin color. Normal skin turgor. Extremities: No lower extremity edema. No calf tenderness Neuro: Oriented X 3. No motor deficit. Course Course Course Narrative: This is an RME: Additional HPI, ROS, PE not included below will be deferred to primary provider. RME assessment and note performed by: Helen Juarez PA-C This is a 89-cyil-qlc-male, CAD status post stent placement and on aspirin and Plavix and a hx of Crohn's disease diagnosed in 2012, and HTN, who presents to the ER with complaints of abdominal pain. He has a hx of crohns disease and believes that this has flared up. He gets infusions for his crohn's disease but has been without it for since august due to insurance difficulties. Plan: Labs, UA, further ER eval needed Medical Decision Making Medical Decision Making MDM Narrative: Patient with Crohn disease without any significant inflammation will give a course of prednisone advised to follow up with Gastroenterology Lab Data MDM Lab Attestation statement: I reviewed the patient's lab results. 02/04/24 14:47 02/04/24 14:47 Labs: Lab Results 02/04/24 Range/Units 14:47 WBC 12.4 H (4.8-10.8) X10*3/uL RBC 4.56 L (4.60-5.80) X10*6/uL Hgb 14.9 (14.0-18.0) g/dl Hct 41.6 L (42.0-52.0) % MCV 91.2 (80.0-98.0) fL MCH 32.7 (27.0-33.0) pg MCHC 35.8 (31.0-36.0) g/dl RDW 12.3 (11.0-16.0) % Plt Count 209 (160-400) X10*3/uL MPV 9.8 (9.4-12.4) fL Immature Gran % (Auto) 0.2 (0.0-0.4) % Neut % (Auto) 66.7 (45-73) % Lymph % (Auto) 24.4 (20-40) % [place] % (Auto) 6.6 (2-11) % Eos % (Auto) 1.8 (0-4) % Baso % (Auto) 0.3 (0-2) % Lymph # (Auto) 3.0 (1.2-4.9) X10*3/uL [place] # (Auto) 0.8 (0.1-1.2) X10*3/uL Eos # (Auto) 0.2 (0.0-0.4) X10*3/uL Baso # (Auto) 0.0 (0.0-0.2) X10*3/uL Abs Immat Gran (auto) 0.03 (0.00-0.03) X10*3/uL Absolute Neuts (auto) 8.2 (2.0-8.3) x10*3/uL Absolute Nucleated RBC 0.000 (0.0-0.012) X10*3/uL Nucleated RBC % (auto) 0.0 (0.0-0.2) /100WBC ESR 13 (0-15) MM/HR Sodium 139 (135-145) mmol/L Potassium 4.1 D (3.3-5.1) mmol/L Chloride 106 (96-108) mmol/L Carbon Dioxide 25 (22-29) mmol/L Anion Gap 12 (12-20) BUN 10 (9-16) mg/dL Creatinine 0.94 (0.5-1.4) mg/dL Estim Creat Clear Calc 103.3 Estimated GFR > 60 Random Glucose 99 (60-115) mg/dL Calcium 9.1 D (8.4-10.2) mg/dL Magnesium 2.0 (1.6-2.6) mg/dL Total Bilirubin 0.6 (0.0-1.0) mg/dL Direct Bilirubin 0.2 (0.0-0.5) mg/dL AST 19 (5-37) U/L ALT 22 (0-40) U/L Alkaline Phosphatase 68 (39-117) U/L C-Reactive Protein 1.54 H (< or = 0.50) mg/dL Total Protein 7.4 (6.5-8.0) g/dL Albumin 4.2 (3.5-5.0) g/dL Lipase 47 (8-78) U/L Radiology Impression Discussion of test interpretation with radiology: I have reviewed the radiologist's reading. Radiologist Impression: CT/CT abdomen pelvis w IV con IMPRESSION: Colonic manifestation of chronic inflammatory bowel disease, consistent with known Crohn's disease. No acute exacerbation. No acute abdominal or pelvic pathology. Fleischner guidelines were followed. Electronically signed by: Kranthi Mac DO 02/04/2024 08:30 PM [facility] Medications Administered Discontinued Medications Generic Name Dose Route Start Last Admin Trade Name Freq PRN Reason Stop Dose Admin Iohexol 100 ml 02/04/24 18:44 02/04/24 18:44 Iohexol 350 Mg/Ml 100 Ml Infus..Btl IV 02/04/24 18:45 85 ml ONCE ONE Administration Oxycodone HCl 10 mg 02/04/24 19:22 02/04/24 20:02 Oxycodone Hcl Immed Release 5 Mg Tablet PO 02/04/24 19:23 10 mg ONCE ONE Administration Prednisone 60 mg 02/04/24 19:22 02/04/24 20:02 Prednisone 20 Mg Tablet PO 02/04/24 19:23 60 mg ONCE ONE Administration Discharge Plan Discharge Clinical Impression: Crohn disease Patient Disposition: Home, Self-Care Instructions: Crohn Disease (ED) Additional Instructions: Take medication as prescribed Drink plenty of fluids advanced as tolerated and 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 He would like to switch to an oral medication Stelara 90 mg/mL syringe 90 mg subcut Q8W Qty: 1 2RF Rx Instructions: starting 8 weeks after induction dose Pt previously treated with Entyvio and complains of HAs and skin rash with Entyvio omeprazole 20 mg capsule,delayed release(DR/EC) 20 mg PO DAILY 90 Days Qty: 90 1RF acetaminophen 500 mg Capsule 1,000 mg PO Q6H PRN (Reason: Pain) ondansetron 4 mg tablet,disintegrating 4 mg PO Q8H PRN (Reason: nausea and vomiting) Qty: 10 0RF loperamide 2 mg capsule 2 mg PO Q4H PRN (Reason: loose stool) Qty: 14 0RF Rx Instructions: administer after each loose stool until symptoms controlled; do not exceed 8 mg per 24 hrs Interventions: ED Discharge Assessment Last Done: 02/04/24 21:59 Discharge Date/Time: 02/04/24 21:25 Print Language: [place]
[2024-02-04 14:51] LABS: MANUAL DIFF FLAG NO
[2024-02-04 14:53] LABS: Basophils Percent Auto 0.3 % (0-2); Eosinophils Absolute Auto 0.2 X10*3/uL (0.0-0.4); Eosinophils Percent Auto 1.8 % (0-4); Hematocrit 41.6 % (42.0-52.0); Hemoglobin 14.9 g/dl (14.0-18.0); Imm Gran Abs Auto 0.03 X10*3/uL (0.00-0.03); Imm Gran Pct Auto 0.2 % (0.0-0.4); Lymphocytes Percent Auto 24.4 % (20-40); Mean Corpuscular HGB Conc 35.8 g/dl (31.0-36.0); Mean Corpuscular Hemoglobin 32.7 pg (27.0-33.0); Mean Corpuscular Volume 91.2 fL (80.0-98.0); Mean Platelet Volume 9.8 fL (9.4-12.4); Monocytes Absolute Auto 0.8 X10*3/uL (0.1-1.2); Monocytes Percent Auto 6.6 % (2-11); Neutrophils Absolute Auto 8.2 x10*3/uL (2.0-8.3); Neutrophils Percent Auto 66.7 % (45-73); Platelet Count 209 X10*3/uL (160-400); Red Blood Count 4.56 X10*6/uL (4.60-5.80); Red Cell Distribution Width 12.3 % (11.0-16.0); White Blood Count 12.4 X10*3/uL (4.8-10.8)
[2024-02-04 15:12] LABS: Alanine Aminotransferase 22 U/L (0-40); Albumin Level 4.2 g/dL (3.5-5.0); Alkaline Phosphatase 68 U/L (39-117); Anion Gap 12 (12-20); Aspartate Amino Transferase 19 U/L (5-37); Bilirubin Direct 0.2 mg/dL (0.0-0.5); Bilirubin Total 0.6 mg/dL (0.0-1.0); Blood Urea Nitrogen 10 mg/dL (9-16); C Reactive Protein 1.54 mg/dL (< or = 0.50); Calcium 9.1 mg/dL (8.4-10.2); Carbon Dioxide 25 mmol/L (22-29); Chloride 106 mmol/L (96-108); Creatinine Clr Calc Pharmacy 103.3; Estimated Glomerular Filt Rate > 60; Glucose Random 99 mg/dL (60-115); Lipase 47 U/L (8-78); Potassium 4.1 mmol/L (3.3-5.1); Sodium 139 mmol/L (135-145); Total Protein 7.4 g/dL (6.5-8.0)
[2024-02-04 15:33] LABS: Erythrocyte Sedimentation Rate 13 MM/HR (0-15)
[2024-02-04] MEDS: iohexoL 350 MG/ML 100 ML INFUS..BTL IV (18:44)
[2024-02-04 20:00] VITALS: BP 117/74; PULSE 73; RESP 16; TEMP 36.9; O2SAT 96
[2024-02-04] MEDS: predniSONE 20 MG TABLET 60 MG PO (20:02)
[2024-02-04] MEDS: oxyCODONE HCl Immed Release 5 MG TABLET 10 MG PO (20:02)
[2024-02-04 21:59] VITALS: BP 117/74; PULSE 73; RESP 16; TEMP 36.9; O2SAT 96
== END 2024-02-04 21:25 | disposition home or self-care (01) ==
PROVIDERS: Physician Assistant Medical; Emergency Provider Internal Medicine; PCP Internal Medicine
DX: K50.90 Crohn's disease, unspecified, without complications (principal); I10 Essential (primary) hypertension; D50.0 Iron deficiency anemia secondary to blood loss (chronic); Z87.891 Personal history of nicotine dependence
CPT/HCPCS: 36415; 74177; 80048; 80076; 83690; 83735; 85025; 85652; 86140; 99283; 99284; Q9967

== ENCOUNTER 2024-02-13 12:29 | Outpatient (RCR) | payer MEDICARE, MEDICAID, SELFPAY ==
[2024-02-13 12:37] VITALS: BP 131/81; PULSE 98; RESP 16; TEMP 37.3; O2SAT 95
[2024-02-13] MEDS: Ustekinumab 520 MG in 0.9 % Sodium Chloride 146 ML 250 MG IV (13:23)
== END 2024-02-13 14:27 | disposition home or self-care (01) ==
LOC: HO.INF 12:29
PROVIDERS: PCP Internal Medicine; Visit Provider Internal Medicine Gastroenterology
DX: K50.90 Crohn's disease, unspecified, without complications (principal)
CPT/HCPCS: 96365; J3358

== ENCOUNTER 2024-03-22 08:17 | Outpatient (AMB) | payer MEDICARE, MEDICAID, SELFPAY ==
--- NOTE | 2024-03-22 08:20 | MHC.OFFVIS ---
Vital Signs 03/22/24 08:22 Height 5 ft 8 in Weight 222 lb BMI 33.8 BP 106/72 Blood Pressure Location Lt brachial Position Sitting Pulse 94 Intake Visit Reasons: schedule a routine colon, FU of Crohn's disease Intake Note: Patient 3 month follow up for Crohns disease. Patient cc: abdominal pain before going to bathroom with loose stool. 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 Accompanied by: Self / Same As Patient Allergies Seasonal Allergies Allergy (Intermediate, Verified 03/22/24 08:20) eye swelling, itch vedolizumab [From Entyvio] Adverse Reaction (Intermediate, Verified 03/22/24 08:20) Rash Medication List - Last Reconciled 03/22/24 by Rodolfo Vazquez MD acetaminophen 1,000 mg PO Q6H PRN aspirin 81 mg PO DAILY atorvastatin 80 mg PO DAILY cholecalciferol (vitamin D3) 250 mcg PO 2XW dicyclomine 20 mg PO TID loperamide 2 mg PO Q4H PRN metoprolol tartrate 25 mg PO BID omeprazole 20 mg PO DAILY 90 days ondansetron 4 mg PO Q8H PRN prednisone 10 mg PO DAILY 4 weeks ustekinumab (Stelara) 90 mg subcut Q8W 2 doses HPI HPI schedule a routine colon, FU of Crohn's disease: Details: GI CLINIC VISIT FOR THIS 54 YM FOR FU of CROHN'S DISEASE. TODAY'S VISIT: Patient cc: abdominal pain before going to bathroom with loose stool. Symptoms are improving since he started the Stelara. Still having frequent small soft to watery non-bloody BMs - sometimes 6 times Has to wake up at night to go to the bathroom Pt denies abdominal pain - prednisone helped. PAST VISITS: Pt was hospitalized at [facility] from 09/27/23 to 09/29/23: Hospital course The patient was admitted for LLQ pain with diarrhea secondary to viral enteritis as stool panel was positive for Astrovirus PCR. no evidence of flare up of IBD as he was evaluated by GI who recommended symptomatic measures. Treated with IV fluids , empirical IV antibiotics of Flagyl and Ceftriaxone until stool panel came back. His diet was advanced gradually with good tolerance. To be discharged on Zofran and Imodium as needed. Advised to remain well hydrated. He was found to have Acute hypokalemia which he recieved IV and PO replacement with good response. Discharge plan Use Zofran as needed for nausea Use Imodium as needed for diarrhea Advance your diet gradually over the next few days COMMENT:? No dysplasia or granulomata are identified. Repeat Colon advised in 1-2 yrs ADDENDUM: Pt reported skin rash of hands and feet after getting Entyvio (Vedolizumab) in June,? and did not go for his infusion in July or August. Rash resolved after a few days. Pt was advised to reschedule his appt for Entyvio to be administered after premedication with Benadryl 50 mg IV and acetaminiphen 625 mg PO. New order sent to Short Stay. Patient denies any GI issues for today, also patient wanted to change entyvio infusion for tablets,he talk with insurance and they will approved the med. Last Entyvio infusion was in September, Patient denies any recurrent diarrhea since he was discharged from the hospital. BMs are less frequent since he was discharged - having a BM once a day. Notes MEÉLNDEZ and pressure in the back after getting the Entyvio and would like to change to oral medication Next infusion is scheduled on 10/10/23 Pt handout given on Upadacitinib (Rinovoq) Prescription was sent for Upadacitinib (Rinovoq) 45 mg daily x 12 weeks for induction Pt is interested in switching to oral medication for Crohn's disease if possible. Still going to the bathroom a lot - 6-7 times during the day and 2-3 times at night. Takes imodium prn sometimes when he notes watery diarrhea. Denies abdominal pain. Doing well - no problems with Entyvio infusions Denies itching after infusions since benadryl is given before the infusion. Next Entyvio infusion on 04/27/23. Denies skin rash after Entyvio and noted itching on the day of the infusion - resolves by the next day. Notes hair loss on lateral aspects of both lower extermities x past 2 months. Has 3-4 solid to soft BMs during the day and 3 times at night (2 am, 3 am and 4-5 am) Has BMs at night if he ate late at night. Frequency of BMs is slowly improving. Previously had LLQ pain and post prandial diarrhea which has resolved. Has 6-7 BMs a day and 2-4 episodes at night Noted a panic attack and shortness of breath yesterday after getting the IV benadryl Taking a medication for the skin rash which is going away. Doing OK. Denies abd pain, diarrhea or rectal bleeding. Has been going to the bathroom less. 5 BMs during the day and 5 BMs at night - denies diarrhea.Takes imodium prn. Taking iron and vitamin C. Last Entyvio infusion on 04/13/21. Notes large non-bleeding hemorrhoids. Stopped azathioprine since it caused heartburn. [place] better for 1-2 weeks. Has to go to the bathroom every time he eats. Notes abdominal pain and diarrhea - 10-15 BMs a day BMs are loose to watery and denies blood in the stools Lost 2 lbs. Denies recent antibiotics. Takes Omeprazole for heartburn. Patient denies symptoms of heartburn, dysphagia, nausea, vomiting, change in appetite or weight.? Patient denies major cardiac or pulmonary problems, loud snoring or sleep apnea Denies problems with anesthesia in the past. Denies being on chronic anticoagulation. Patient denies known family history of colon polyps, colon cancer or other GI malignancy Past workup: ?10/09/[address] Hall, revealed colitis from the rectum to the tranverse colon near the hepatic flexure. Rectal Bx- Pos for mod active chronic colitis, suggestive of IBD. NO bxs taken from L, R, transverse colon or terminal ileum. Cardiac workup was essentially normal per pt. Told needs to lose wt. 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 Last seen 12/30/14-f/u 1 yr. On metroprolol due to extra beats . Labs: 09/10/14 No anemia, CRP < 0.30, normal CMP 09/30 PROMETHEUS IBD pattern consistent w/ Crohn's. CRP 2.67. C. Diff and Celiac panel Neg. TSH 0.82. PAST TREATMENTS: Asacol 800 mg twice daily, increased to three times daily after a flare Predniosne taper Apr 2016 started on Remicade infusion 5 mg/kg every 8 weeks August 2016 Remicade was increased to 10 milligram/kilogram every 8 weeks and then every 4 weeks June 2019 Switched to Entyvio every 8 weeks 07/27/19. Entyvio lvl measured and was lower than it should be suggesting some development of antibodies to the medication. Entyvio infusion 08/16/19. Bloodwork was also done around this time and not improved. WBC 73983 higher than usual. He sometmes runs a mild leukocytosis but not to this level. Last time his WBC was during the time of last admission to hospital and he did have c. diff present. 14.9/43.4. CRP is progressively elevated. 0.68 2.4 on 07/27/19. 4.23 on 08/16/19. Stool c. diff negative, Stool WBC negative 07/30/19. Last imaging on record is from March 2019. Colitis extending from mid transverse colon to the rectum. No drainable fluid collections. No pelvic fluid.Genetic assessment has been consistent with Crohn's (clinical presentation has been most consistent with ulcerative colitis). 04/2018 colonoscopy showed mild chronic inactive colitis on the left side.Reminder: in April 2019 he did have c. diff infection which was treated. Recheck on this by us in early July was negative LABS:??08/2021?Vedolizumab antibodies were negative IMAGING STUDIES:? 09/11/[address] SCAN SHOWED: GASTROINTESTINAL TRACT: The appendix has been removed. There is moderate stool in the right colon there is air-fluid level in transverse colon and nondistended descending colon with mild mural thickening and mild fat stranding likely colitis. No diverticulitis seen. No extravasation of contrast seen to suspect any bleed at this time. ABDOMINAL WALL: No significant hernia is appreciated. IMPRESSION: Diffuse mural thickening involving the descending and sigmoid colon with mild pericolic stranding in the descending colon suggestive of colitis. No diverticuli seen. Similar findings were seen on the previous exam 04/11/2020. Appendix has been surgically removed. ENDOSCOPIC STUDIES:?08/2021 COLONOSCOPY SHOWED: Eight medium to large sized polyps removed - ? pseudopolyps versus adenomas Moderate hemorrhoids on retroflexed exam. Plan:? Repeat Colonoscopy in 12 months and if several polyps are adenomatous, pt will be referred to a colorectal surgeon for a total colectomy Above findings were reviewed with the patient and colon polyps handout was given in the discharge area BIOPSIES SHOWED: A.? Colon, ascending, biopsy:? Chronic inactive colitis. B.? Colon, transverse at 65 cm, polypectomy:? Inflammatory polyp. C.? Colon, transverse at 60 cm, polypectomies (4):? Inflammatory polyps. D.? Colon, transverse at 50 cm, polypectomies (2):? Inflammatory polyps. E.? Colon, sigmoid, biopsy:? Chronic inactive colitis. Colonoscopy from Apr 2018 showed?moderate chronic inactive colitis in 3 different biopsies. 2016 EGD?showed Grade 2 distal esophagitis with a small hiatal hernia (no H. pylori was found).I will have him start Pantoprazole once daily in the AM. The colonoscopy showed inflamation continuous from the ano-rectal verge. The pathology confirmed inflamatory pseudo polyps and moderate chronic active colitis with no evidence for dysplasia. [facility] Medical History Hand pain GERD (gastroesophageal reflux disease) Myocardial infarction Iron deficiency anemia due to chronic blood loss Medicare annual wellness visit, initial Lipoma of arm Mass of hand Cyst in hand CAD (coronary artery disease) Hypertension NSTEMI (non-ST elevated myocardial infarction) Acute coronary syndrome Essential (primary) hypertension Crohn disease Hearing loss in right ear History of acoustic neuroma Surgical History Status post excision of lipoma History of surgery on arm History of brain tumor S/P cardiac cath (~01/2020) Stented coronary artery Hx of colonoscopy Hx of appendectomy Family History Father Stroke Mother No problems noted. Maternal Uncle Heart attack Social History Household Members: Spouse Housing: House Do you presently have visiting nurse or other home services: No Alcohol intake: former Comment: Given for PTT-HD Patient Tobacco Use Status: Former Tobacco user Tobacco use type: Cigarette Cigarette Packs Per Day: 1 e-Cigarette/Vaping Use: Never Used Second Hand Smoke Exposure: No service: No Current occupational status: disabled Cognitive needs: No Hearing needs: No Vision needs: No Review of Systems Const All systems reviewed & are unremarkable except as noted in HPI and below Physical Exam Vital Signs: Last Vital Signs Temp 97.8 F 09/29/23 07:41 Pulse 79 09/29/23 07:41 Resp 16 09/29/23 07:41 BP 125/84 09/29/23 07:41 Pulse Ox 95 09/29/23 07:41 O2 Del Method Room Air 09/29/23 07:41 BMI result Body Mass Index 32.5 Const Other: Constitutional : Awake, interactive, not in distress Neck : Normal inspection, Supple Cardiovascular : RRR, no JVP, no lower extremity edema Respiratory : good bilateral air entry, no crackles, wheezes or rhonchi Gastrointestinal: soft, lax, Normal bowel sounds,no tenderness w no rebound Neurological : Alert & oriented x3, No focal deficit Assessment & Plan Assessment & Plan (1) GERD (gastroesophageal reflux disease): Code(s): K21.9 - Gastro-esophageal reflux disease without esophagitis Category: Medical (2) Iron deficiency anemia due to chronic blood loss: Code(s): D50.0 - Iron deficiency anemia secondary to blood loss (chronic) Category: Medical (3) Crohn disease: Code(s): K50.90 - Crohn's disease, unspecified, without complications Category: Medical Plan 54 YM with CAD status post stent placement and on aspirin and Plavix and a hx of Crohn's disease diagnosed in 2012 (on Entyvio every 4 weeks) seen for FU after hospitalization at [facility] in 08/2020 with worsening diarrhea and bloody stools and lower abdominal pain.? Abdominal CT scan showed moderate stool in the right colon with air-fluid level in transverse colon and non-distended descending colon with mild mural thickening and mild fat stranding likely colitis. No diverticulitis. Patient was treated with IV steroids and discharged on p.o. prednisone 40 mg daily.? Entyvio was increased to every 4 weeks.? Last in Entyvio infusion on 09/13/22 and next infusion is scheduled on 10/11/2022 Pt notes improvement in symptoms - reports 3-4 BM during the day and 3 BMs at night. Patient was prescribed azathioprine 50 mg daily (TPMT enzyme activity was normal) and stopped due to heartburn. 08/2021 COLONOSCOPY SHOWED: Eight medium to large sized polyps removed - ? pseudopolyps versus adenomas Moderate hemorrhoids on retroflexed exam. Plan:? Repeat Colonoscopy in 2 yrs (due 09/2023) BIOPSIES SHOWED: A.? Colon, ascending, biopsy:? Chronic inactive colitis. B.? Colon, transverse at 65 cm, polypectomy:? Inflammatory polyp. C.? Colon, transverse at 60 cm, polypectomies (4):? Inflammatory polyps. D.? Colon, transverse at 50 cm, polypectomies (2):? Inflammatory polyps. E.? Colon, sigmoid, biopsy:? Chronic inactive colitis. COMMENT:? No dysplasia or granulomata are identified. Pt advised to have labs and fecal calprotectin checked to confirm Crohn's disease is in remission 10/06/23 Patient denies any recurrent diarrhea since he was discharged from the hospital. BMs are less frequent since he was discharged - having a BM once a day. Notes MELÉNDEZ and pressure in the back after getting the Entyvio and would like to change to oral medication since he does not want to come in every month and be poked with needles Reviewed option of switching to Entyvio 108 mg subcutaneous every 2 weeks - pt would like to switch to oral medication Next Entyvio infusion is scheduled on 10/10/23 and pt plans to proceed. Pt handout given on Upadacitinib (Rinovoq) which was not approved by his insurance. Pt was started on Stelara on 02/13/24 - next SQ injection scheduled on 04/09/24 in short stay (as per pt's request) 03/22/24 Symptoms are improving since he started the Stelara. Still having frequent small soft to watery non-bloody BMs - sometimes 6 times Has to wake up at night to go to the bathroom Pt denies abdominal pain - prednisone helped. Patient was advised to start budesonide 9 mg daily and continue Stelara 90 mg every 8 weeks FU in 3 months - patient is scheduled for colonoscopy on 06/04/2024, follow-up appointment on Orders: Orders Comprehensive Met. Panel Today K50.90 - Crohn's disease, unspecified, without complications T Spot TB Today K50.90 - Crohn's disease, unspecified, without complications Hepatitis B Surface Antigen Today K50.90 - Crohn's disease, unspecified, without complications Hepatitis A IgG Today K50.90 - Crohn's disease, unspecified, without complications Complete Blood Count Auto Diff Today K50.90 - Crohn's disease, unspecified, without complications C Reactive Protein Today K50.90 - Crohn's disease, unspecified, without complications Hepatitis B Surface Antibody Today K50.90 - Crohn's disease, unspecified, without complications Medications: New budesonide DR-ER 9 mg PO QAM 30 days 30 ea 3RF K50.90 - Crohn's disease, unspecified, without complications Coding Level of Care Code Est Pt Level 3 (29084) Diagnoses GERD (gastroesophageal reflux disease) K21.9 Iron deficiency anemia due to chronic blood loss D50.0 Crohn disease K50.90 Time Spent (min) 20
[2024-03-22 08:22] VITALS: BP 106/72; PULSE 94; BMI 33.8
== END 2024-03-22 10:40 | disposition home or self-care (01) ==
PROVIDERS: PCP Internal Medicine; Visit Provider Internal Medicine Gastroenterology
DX: K21.9 Gastro-esophageal reflux disease without esophagitis (principal); D50.0 Iron deficiency anemia secondary to blood loss (chronic); K50.90 Crohn's disease, unspecified, without complications
CPT/HCPCS: 99213

== ENCOUNTER 2024-03-22 08:17 | Outpatient (REF) | payer MEDICARE, MEDICAID, SELFPAY ==
[2024-03-22 09:14] LABS: MANUAL DIFF FLAG NO
[2024-03-22 09:47] LABS: Basophils Percent Auto 0.4 % (0-2); Eosinophils Absolute Auto 0.2 X10*3/uL (0.0-0.4); Eosinophils Percent Auto 1.5 % (0-4); Hematocrit 41.4 % (42.0-52.0); Hemoglobin 14.4 g/dl (14.0-18.0); Imm Gran Abs Auto 0.05 X10*3/uL (0.00-0.03); Imm Gran Pct Auto 0.5 % (0.0-0.4); Lymphocytes Absolute Auto 3.4 X10*3/uL (1.2-4.9); Lymphocytes Percent Auto 34.5 % (20-40); Mean Corpuscular HGB Conc 34.8 g/dl (31.0-36.0); Mean Corpuscular Hemoglobin 32.1 pg (27.0-33.0); Mean Corpuscular Volume 92.4 fL (80.0-98.0); Mean Platelet Volume 9.4 fL (9.4-12.4); Monocytes Absolute Auto 0.7 X10*3/uL (0.1-1.2); Monocytes Percent Auto 6.9 % (2-11); Neutrophils Absolute Auto 5.5 x10*3/uL (2.0-8.3); Neutrophils Percent Auto 56.2 % (45-73); Platelet Count 245 X10*3/uL (160-400); Red Blood Count 4.48 X10*6/uL (4.60-5.80); Red Cell Distribution Width 12.5 % (11.0-16.0); White Blood Count 9.8 X10*3/uL (4.8-10.8)
[2024-03-22 10:27] LABS: Alanine Aminotransferase 14 U/L (0-40); Alkaline Phosphatase 56 U/L (39-117); Anion Gap 11 (12-20); Aspartate Amino Transferase 16 U/L (5-37); Bilirubin Direct 0.3 mg/dL (0.0-0.5); Blood Urea Nitrogen 7 mg/dL (9-16); C Reactive Protein 1.08 mg/dL (< or = 0.50); Carbon Dioxide 25 mmol/L (22-29); Chloride 107 mmol/L (96-108); Cholesterol 165 mg/dL (<200); Estimated Glomerular Filt Rate > 60; Glucose Random 98 mg/dL (60-115); HDL Cholesterol 29 mg/dL (>40); LDL Cholesterol Calculated 115 mg/dL (<100); Potassium 3.8 mmol/L (3.3-5.1); Sodium 139 mmol/L (135-145); Total Protein 7.5 g/dL (6.5-8.0); Triglycerides 109 mg/dL (<150)
[2024-03-22 10:38] LABS: HBc Num1 0.15 S/CO (0.00-0.79); HBsAGNum1 0.36 S/CO (0.00-0.99); Hepatitis B Core Antibody Nonreactive (Nonreactive); Hepatitis B Surface Antigen Negative (Negative); ~HepC Num1 0.11 S/CO (0.00-0.79); ~Hepatitis B Surface Antibody NONREACTIVE (Nonreactive); ~Hepatitis C Antibody Nonreactive (Nonreactive)
[2024-03-22 10:39] LABS: Hepatitis A Antibody IgG Nonreactive (Nonreactive); ~Hepatitis A Antibody IgG 0.87 S/CO (0.00-0.99)
[2024-03-22 10:40] LABS: Reflex LDLD? No
[2024-03-25 03:53] LABS: TS Negative Control Passed; TS Panel A 0; TS Panel B 0; TS Positive Control Passed; TSpotTB Negative (Negative)
== END 2024-03-22 08:18 | disposition home or self-care (01) ==
LOC: HO.LAB 08:17
PROVIDERS: PCP Internal Medicine; Visit Provider Internal Medicine Gastroenterology
DX: K50.90 Crohn's disease, unspecified, without complications (principal); K21.9 Gastro-esophageal reflux disease without esophagitis; D50.0 Iron deficiency anemia secondary to blood loss (chronic); Z79.899 Other long term (current) drug therapy
CPT/HCPCS: 36415; 80053; 80061; 82248; 85025; 86140; 86481; 86704; 86706; 86708; 86803; 87340; 99212

== ENCOUNTER 2024-05-14 09:59 | Outpatient (AMB) | payer MEDICARE, MEDICAID, SELFPAY ==
[2024-05-14 10:18] VITALS: BP 118/82; BMI 34.7
--- NOTE | 2024-05-14 10:18 | A.OFFPC_ITS ---
Vital Signs 05/14/24 10:18 Height 5 ft 8 in Weight 228 lb BMI 34.7 BP 118/82 Blood Pressure Location Lt brachial Position Sitting Intake Visit Reasons: 6 month follow up lipids, gerd Intake Note: patient here for a 6 month follow up lipids, gerd Disability Insurance Hearing Officer Required: Yes Disability Insurance Hearing Officer Language: Line Haul Driver Name: Chely Lopez MD Information Interpreted: non-clinical & clinical Accompanied by: Self / Same As Patient Allergies Seasonal Allergies Allergy (Intermediate, Verified 05/14/24 10:49) eye swelling, itch vedolizumab [From Entyvio] Adverse Reaction (Intermediate, Verified 05/14/24 10:49) Rash Medication List - Last Reconciled 05/14/24 by Chely Lopez MD acetaminophen 1,000 mg PO Q6H PRN aspirin 81 mg PO DAILY atorvastatin 80 mg PO DAILY budesonide DR-ER 9 mg PO QAM 30 days cholecalciferol (vitamin D3) 250 mcg PO 2XW dicyclomine 20 mg PO TID loperamide 2 mg PO Q4H PRN metoprolol tartrate 25 mg PO BID omeprazole 20 mg PO DAILY 90 days ustekinumab (Stelara) 90 mg subcut Q8W 2 doses Tobacco use date assessed: 05/14/24 Dental Screening Dental Screen Date: 05/14/24 Did you have a dental visit in the last 12 months?: Yes Did you have a dental problem in the last 6 months where you did not have access to dental care?: No Was dental information given to patient?: Patient has dentist HPI HPI Comments History of Present Illness Details This is a 54-year-old male with Crohn's disease, pure hypercholesterolemia, GERD, and low vitamin-D and anxiety that comes today complaining of some memory loss that has been present for years. Thyroid and vitamin B12 will be order. Crohn's disease has improved with Stelara which has been recently started by Gastroenterology. Cholesterol well controlled with statins and reports no side effects. GERD stable with PPIs. On vitamin-D supplement for his low vitamin-D. He also complains of anxiety and I will start him on buspirone low-dose. No chest pain or shortness on breath. [facility] Medical History (Updated 05/14/24 @ 13:09 by Chely Lopez MD) Hand pain GERD (gastroesophageal reflux disease) Myocardial infarction Iron deficiency anemia due to chronic blood loss Medicare annual wellness visit, initial Lipoma of arm Mass of hand Cyst in hand CAD (coronary artery disease) Hypertension NSTEMI (non-ST elevated myocardial infarction) Acute coronary syndrome Essential (primary) hypertension Crohn disease Hearing loss in right ear History of acoustic neuroma Surgical History Status post excision of lipoma History of surgery on arm History of brain tumor S/P cardiac cath (~01/2020) Stented coronary artery Hx of colonoscopy Hx of appendectomy Family History Father Stroke Mother No problems noted. Maternal Uncle Heart attack Social History Household Members: Spouse Housing: House Do you presently have visiting nurse or other home services: No Alcohol intake: former Comment: Given for PTT-HD Patient Tobacco Use Status: Former Tobacco user Tobacco use type: Cigarette Cigarette Packs Per Day: 1 e-Cigarette/Vaping Use: Never Used Second Hand Smoke Exposure: No service: No Current occupational status: disabled Cognitive needs: No Hearing needs: No Vision needs: No Questionnaire PHQ-9 Over the last 2 weeks, how often have you been bothered by any of the following problems? 1. Little interest or pleasure in doing things: not at all 2. Feeling down, depressed, or hopeless: not at all 3. Trouble falling or staying asleep, or sleeping too much: not at all 4. Feeling tired or having little energy: not at all 5. Poor appetite or overeating: not at all 6. Feeling bad about yourself - or that you are a failure or have let yourself or your family down: not at all 7. Trouble concentrating on things, such as reading the newspaper or watching television: not at all 8. Moving or speaking so slowly that other people could have noticed. Or the opposite - being so fidgety or restless that you have been moving around a lot more than usual: not at all 9. Thoughts that you would be better off or of hurting yourself in some way: not at all Total score: 0 Depression Screening Interpretation: Negative Depression Screening Done: Yes 51127 - PHQ-9 Billing: Yes Source: Developed by Drs. Amilcar Miles, Keiko Michel, Chan Rae and colleagues, with an educational mayte from [employer]. Thrive Questionnaire Date Thrive assessed: 05/14/24 I am a: Patient What is your living situation today?: I have a steady place to live Within the past 12 months, did the food you bought not last and you didn't have the money to get more?: Never true Within the past 12 months, did you worry whether your food would run out before you got money to buy more?: Never true Do you have trouble paying for medicines?: No Do you have trouble getting transportation to medical appointments?: No Do you have trouble paying your heating and electricity bill?: No Do you have trouble taking care of your child, family member or friend?: No Do you have trouble with day-to-day activities such as bathing, preparing meals, shopping, managing finances, etc.?: No Are you currently unemployed and looking for a job?: No Are you interested in more education?: No Please select the resources that you would like help with: None Currently or been in a relationship where the following occur: No concerns reported THRIVE Score: 0 AUDIT C Alcohol Use Questionnaire (AUDIT-C) 1. How often do you have a drink containing alcohol?: Never Total Score: 0 Score Reviewed/Action Taken: No CT-[address] - 7 assessed: 05/14/24 Feeling nervous, anxious, or on edge: 3 = Nearly every day Not being able to stop or control worryin = Several days Worrying too much about different things: 3 = Nearly every day Trouble relaxin = Several days Being so restless that it is hard to sit still: 0 = Not at all Becoming easily annoyed or irritable: 1 = Several days Feeling afraid as if something awful might happen: 0 = Not at all Total CT-7 score (0-4 normal; 5-9 mild; 10-14 moderate; 15-21 severe): 9 Source: Developed by Drs. Amilcar Miles, Chan Abernathy and colleagues, with an educational mayte from [employer]. CT-[address]: [address]-7 Assessment 20746 Review of Systems Const All systems reviewed & are unremarkable except as noted in HPI and below Card Denies chest pain at rest, Denies chest pain with activity, Denies edema, Denies irregular heart rhythm, Denies claudication, Denies dyspnea, Denies dyspnea on exertion, Denies orthopnea, Denies paroxysmal nocturnal dyspnea and Denies slow heart rate Resp Denies cough, Denies dyspnea and Denies dyspnea on exertion GI Denies abdominal pain, Denies change in bowel habits, Denies excessive flatus, Denies nausea and Denies vomiting Denies urinary hesitancy, Denies urinary incontinence and Denies urinary urgency Musc Denies abnormal gait, Denies atrophy, Denies deformity and Denies limited range of motion Skin/Breast Denies bleeding lesions, Denies changing lesions and Denies rash Neuro Denies abnormal gait, Denies behavioral changes and Denies lack of coordination Psych Denies behavioral changes Physical exam (Primary Care) Vital Signs: Last Vital Signs BP 118/82 05/14/24 10:18 BMI result Body Mass Index 34.7 BMI Assessment/Plan discussion: High BMI High, discussed plan: lifestyle, weight reduction, dietary and physical activity Tobacco/Smoking Status: Tobacco use Status Tobacco use date assessed 05/14/24 05/14/24 10:24 Patient Tobacco Use Status Former Tobacco user 05/14/24 10:24 Tobacco use type Cigarette 05/14/24 10:24 e-Cigarette/Vaping Use Never Used 05/14/24 10:24 PHQ-9: PHQ-9 Score PHQ-9: Total score 0 05/14/24 11:27 Depression Screening Interpretation: Negative Thrive Assessment: Date of Thrive Assessment Date Thrive assessed 05/14/24 05/14/24 10:24 Currently or been in a relationship where the following occur: No concerns reported Resp Effort & Inspection: normal respiratory effort Auscultation: clear to auscultation bilaterally Cardio Jugular venous distension: no JVD Rate: regular rate Rhythm: regular rhythm Heart sounds: S1 normal heart sound present and S2 normal heart sound present Extrem General: Yes full ROM Office Procedures Flu Questionnaire Does the patient have a severe egg allergy?: No Immunizations Fluarix Triv [id number] (PF) 45 mcg (15 mcg x 3)/0.5 mL IM syringe Performing Provider: Chely Lopez MD Performing Location[facility] [place] [facility] Documented (not given) by: ROSS Banegas on 05/14/24 11:27 Reason Not Given: Patient Refused Coding Level of Care Code Est Pt Level 4 (71380) Complex EM visit Add On G2211 Diagnoses CT (generalized anxiety disorder) F41.1 Memory loss R41.3 Pure hypercholesterolemia E78.00 Hypovitaminosis D E55.9 Gastroesophageal reflux disease, unspecified whether esophagitis present K21.9 Esophagitis presence: esophagitis presence not specified Crohn's disease without complication, unspecified gastrointestinal tract location K50.90 Gastrointestinal tract location: unspecified location Digestive disease complication type: without complication Additional Codes CT-7 Assessment Billing - CT-7 Assessment Tool: CT-7 Assessment 18813 ([id number]) PHQ-9 - 64127 - PHQ-9 Billing: Yes ([id number]) Time Spent (min) 24 Assessment & Plan Assessment & Plan (1) CT (generalized anxiety disorder): Code(s): F41.1 - Generalized anxiety disorder Category: Medical Plan: Start buspirone twice a day. (2) Memory loss: Code(s): R41.3 - Other amnesia Category: Medical Plan: Labs ordered to rule out B12 deficiency or thyroid disorder. (3) Pure hypercholesterolemia: Code(s): E78.00 - Pure hypercholesterolemia, unspecified Category: Medical Plan: Continue statins. (4) Hypovitaminosis D: Code(s): E55.9 - Vitamin D deficiency, unspecified Category: Medical Plan: Continue vitamin-D supplements. (5) GERD (gastroesophageal reflux disease): Code(s): K21.9 - Gastro-esophageal reflux disease without esophagitis Category: Medical Qualifiers: Esophagitis presence: esophagitis presence not specified Qualified Code(s): K21.9 - Gastro-esophageal reflux disease without esophagitis Plan: Continue PPIs (6) Crohn disease: Code(s): K50.90 - Crohn's disease, unspecified, without complications Category: Medical Qualifiers: Gastrointestinal tract location: unspecified location Digestive disease complication type: without complication Qualified Code(s): K50.90 - Crohn's disease, unspecified, without complications Plan: Continue Stelara. Follow-up with Gastroenterology. Orders: Orders Lipid Panel 6 Months E78.5 - Hyperlipidemia, unspecified Comprehensive [place]. Panel Fast 6 Months I10 - Essential (primary) hypertension Thyroid Stimulating Hormone 6 Months R41.3 - Other amnesia Vitamin D 25-OH Total 6 Months E55.9 - Vitamin D deficiency, unspecified Vitamin B12 and Folate 6 Months E53.8 - Deficiency of other specified B group vitamins Influenza [id number] Immunization Today Z23 - Encounter for immunization Medications: New buspirone 7.5 mg PO BID 90 days 180 tabs 1RF F41.1 - Generalized anxiety disorder
== END 2024-05-14 11:05 | disposition home or self-care (01) ==
PROVIDERS: PCP Internal Medicine; Visit Provider Internal Medicine
DX: R41.3 Other amnesia (principal); F41.1 Generalized anxiety disorder; K50.90 Crohn's disease, unspecified, without complications; E78.00 Pure hypercholesterolemia, unspecified; E55.9 Vitamin D deficiency, unspecified; K21.9 Gastro-esophageal reflux disease without esophagitis

== ENCOUNTER → 2024-05-14 09:59 | Outpatient (BNVA) | payer MEDICARE, MEDICAID, SELFPAY | PROVIDERS: PCP Internal Medicine; Visit Provider Internal Medicine | DX: F41.1 Generalized anxiety disorder (principal); R41.3 Other amnesia; E78.00 Pure hypercholesterolemia, unspecified; E55.9 Vitamin D deficiency, unspecified; K21.9 Gastro-esophageal reflux disease without esophagitis; K50.90 Crohn's disease, unspecified, without complications | CPT/HCPCS: 96127; 99212 ==

== ENCOUNTER 2024-06-04 08:13 | Day surgery (SDC) | payer MEDICARE, MEDICAID, SELFPAY ==
[2024-05-31 12:55] VITALS: BMI 33.8
--- NOTE | 2024-06-01 12:41 | P.CONAN_ITS ---
Documented by User: Sabrina Moncada NP 06/01/24 12:44 HPI - Anesthesia Eval Consult details Narrative: 54yo M for Colonoscopy NSTEMI 02/11/2020, s/p ANETA Last [facility] [place] cardiology office visit 02/2023, stable at that time [facility] Active Problems Active Problems: All Active Problems CT (generalized anxiety disorder) (Acute) Memory loss (Acute) Peripheral neuropathy (Acute) History of acoustic neuroma (Acute) Leg paresthesia (Acute) Hearing loss (Acute) Memory loss (Acute) Physical exam (Acute) Blurry vision (Acute) Essential (primary) hypertension (Acute) Stented coronary artery (Acute) S/P cardiac cath (Acute ~01/2020) CAD (coronary artery disease) (Acute) Pure hypercholesterolemia (Acute) Hypovitaminosis D (Acute) Lump of skin (Acute) Bilateral hand pain (Acute) Hand pain (Acute) GERD (gastroesophageal reflux disease) (Acute) Chest pain (Acute) GIB (gastrointestinal bleeding) (Acute) Iron deficiency anemia due to chronic blood loss (Chronic) Medicare annual wellness visit, initial (Acute) Lipoma of arm (Acute) Mass of hand (Acute) Cyst in hand (Acute) Hypertension (Acute) Crohn disease (Acute) Hearing loss in right ear (Acute) Past Medical History Medical History Hand pain GERD (gastroesophageal reflux disease) Myocardial infarction Iron deficiency anemia due to chronic blood loss Medicare annual wellness visit, initial Lipoma of arm Mass of hand Cyst in hand CAD (coronary artery disease) Hypertension NSTEMI (non-ST elevated myocardial infarction) Acute coronary syndrome Essential (primary) hypertension Crohn disease Hearing loss in right ear History of acoustic neuroma Family History Family History Father Stroke Mother No problems noted. Maternal Uncle Heart attack Family history of problems with anesthesia: No Surgical History Surgical History Status post excision of lipoma History of surgery on arm History of brain tumor S/P cardiac cath (~01/2020) Stented coronary artery Hx of colonoscopy Hx of appendectomy History of Problems with Anesthesia: No Social History Social History Household Members: Spouse Housing: House Do you presently have visiting nurse or other home services: No Alcohol intake: former Comment: Given for PTT-HD Patient Tobacco Use Status: Former Tobacco user Tobacco use type: Cigarette Cigarette Packs Per Day: 1 e-Cigarette/Vaping Use: Never Used Second Hand Smoke Exposure: No Use of substances other than those prescribed or required for medical reasons: No Have you been hit, kicked, punched, or otherwise hurt by someone within the past year? If so, by whom?: No Are you DNR?: No Advance Directives: No Advance Directives Information Provided: Yes Recently lost weight without trying: No service: No Current occupational status: disabled Cognitive needs: No Hearing needs: No Vision needs: No Meds Allergies Allergy/AdvReac Type Severity Reaction Status Date / Time Seasonal Allergies Allergy Intermediate eye Verified 05/14/24 10:49 swelling, itch vedolizumab [From Entyvio] AdvReac Intermediate Rash Verified 05/14/24 10:49 Home Medications ?Medication ?Instructions ?Recorded ?Confirmed ?Last Taken ?Type acetaminophen 500 mg capsule 1,000 mg PO Q6H PRN Pain 09/27/23 05/14/24 Unknown History Exam Height,Weight and Vital Signs: Height 5 ft 8 in Weight 100.698 kg Narrative Narrative: Cardiac catheterization 02/12/20 showed distal LAD 60% stenosis and 95% mid left circumflex stenosis and ANETA was placed. Exercise stress test done on 11/09/2022 shows exercise 8 minutes with report of 4 to 5/10 chest discomfort, no EKG changes. exercise nuclear stress test on 02/08/2023 with exercise 7 minutes, 2/10 right- sided chest discomfort, no EKG changes and nuclear imaging showing mild ischemia in the apical inferior wall. Echocardiogram done 01/05/2023 showed EF 62%, ascending aorta 4.3 cm, no regional wall motion abnormality. Assessment and Plan Assessment Anesthesia Assessment: Chart Reviewed Final Anesthetic Review Family History of Problems with Anesthesia: No History of Problems with Anesthesia: No Documented by User: Kaila Reis MD 06/04/24 09:47 [facility] Past Medical History Medical History Hand pain GERD (gastroesophageal reflux disease) Myocardial infarction Iron deficiency anemia due to chronic blood loss Medicare annual wellness visit, initial Lipoma of arm Mass of hand Cyst in hand CAD (coronary artery disease) Hypertension NSTEMI (non-ST elevated myocardial infarction) Acute coronary syndrome Essential (primary) hypertension Crohn disease Hearing loss in right ear History of acoustic neuroma Family History Family History Father Stroke Mother No problems noted. Maternal Uncle Heart attack Surgical History Surgical History Status post excision of lipoma History of surgery on arm History of brain tumor S/P cardiac cath (~01/2020) Stented coronary artery Hx of colonoscopy Hx of appendectomy Social History Social History Household Members: Spouse Housing: House Do you presently have visiting nurse or other home services: No Alcohol intake: former Comment: Given for PTT-HD Patient Tobacco Use Status: Former Tobacco user Tobacco use type: Cigarette Cigarette Packs Per Day: 1 e-Cigarette/Vaping Use: Never Used Second Hand Smoke Exposure: No Use of substances other than those prescribed or required for medical reasons: No Have you been hit, kicked, punched, or otherwise hurt by someone within the past year? If so, by whom?: No Are you DNR?: No Advance Directives: No Advance Directives Information Provided: Yes Recently lost weight without trying: No service: No Current occupational status: disabled Cognitive needs: No Hearing needs: No Vision needs: No Meds Allergies Allergy/AdvReac Type Severity Reaction Status Date / Time Seasonal Allergies Allergy Intermediate eye Verified 05/14/24 10:49 swelling, itch vedolizumab [From Entyvio] AdvReac Intermediate Rash Verified 05/14/24 10:49 Home Medications ?Medication ?Instructions ?Recorded ?Confirmed ?Last Taken ?Type acetaminophen 500 mg capsule 1,000 mg PO Q6H PRN Pain 09/27/23 05/14/24 Unknown History Exam Airway Mallampati Class: III TM Dist: >3cm Neck ROM: Full Partial: Upper Loose/Missing/Broken Teeth: Yes and Upper Heart: RRR Lungs: CTA Assessment and Plan Assessment Anesthesia Assessment: Anesthesia Plan Discussed Final Anesthetic Review NPO: Yes ASA Class: III Final Preanesthetic Review: Meds/Allgs Chart Reviewed, Consent Obtained/Reviewed and Anes Risks/Benef Reviewed Patient Risk: Intermediate Procedure Risk: Low Anesthetic Plan Anesthetic Plan: MAC: Disposition: Standard PACU
[2024-06-04 09:08] VITALS: BP 132/84; PULSE 103; RESP 16; TEMP 36.8; O2SAT 95
[2024-06-04] MEDS: Lactated Ringers 1,000 ML 100 ML IVCONT (09:11)
--- NOTE | 2024-06-04 09:34 | MHC.SHP ---
Pre-Procedural Eval Section A - 24 Hr Update-Section A only Date of Service: 06/04/24 The patient is an INPATIENT: No The patient has been examined within 24 hours of the surgical procedure. The History & Physical has been completed within 30 days and I have reviewed it.: No Section B - Complete if H&P > 30 days Chief Complaint: Crohn's disease, unspecified, without complication Details of Present Illness: Colon cancer screening, crohn's disease Relevant Family History (Specify if Yes): No Relevant Social History: Tobacco Use (former smoker) Present Medications: see Short Stay Collaborative assessment Medical History: Significant History (CAD (coronary artery disease) Crohn disease Cyst in hand Essential (primary) hypertension Hearing loss in right ear History of acoustic neuroma Hypertension Iron deficiency anemia due to chronic blood loss Lipoma of arm Mass of hand Medicare annual wellness visit, initial Myocardial infarction) History of Previous Operations: Relevant previous surgery/procedure and date(s) (History of brain tumor History of surgery on arm Hx of appendectomy Hx of colonoscopy Status post excision of lipoma Stented coronary artery) Allergies: Allergies Allergy/AdvReac Type Severity Reaction Status Date / Time Seasonal Allergies Allergy Intermediate eye Verified 05/14/24 10:49 swelling, itch vedolizumab [From Entyvio] AdvReac Intermediate Rash Verified 05/14/24 10:49 Review of Systems Sugical H&P ROS: Negative: Constitution, Cardiovascular, Respiratory and Gastrointestinal Exam Surgical H&P Exam: Normal: Heart, Normal: Lungs, Normal: Extremities and Normal: Abdomen Plan Diagnosis/Plan: Unchanged I have reviewed the history and physical and performed a pertinent physical examination on my patient. No changes have occurred unless specified. Time Spent With Patient Time: Total time managing care of this patient today ____ minutes.
--- NOTE | 2024-06-04 10:30 | HO.OPN-COLON ---
Colonoscopy Operative Note Operative Note Date of Service: 06/04/24 Narrative: COLONOSCOPY TILL CECUM WITH BIOPSIES, CHROMOENDOSCOPY, SNARE POLYPECTOMY, HEMOCLIP PLACEMENT Pre-op diagnosis: Surveillance for Crohn's disease. Post-op diagnosis:?Colon polyps, Crohn's disease, hemorrhoids Endoscopist:? Rodolfo Vazquez MD Anesthesia:?MAC Consent: Indications for the procedure and potential complications of bleeding, perforation, reaction to medications and missed diagnosis were discussed with the patient and informed consent was obtained. Instrument: Olympus CF H 190 L variable stiffness adult colonoscope Monitoring: Vital signs and clinical assessment, intermittent blood pressure monitoring, continuous EKG monitoring, Pulse oximetry and Carbon Dioxide monitoring were done throughout the procedure. Please see anesthesia flowsheet. Colon withdrawl time was 22 minutes. Procedure: The patient was placed in the left lateral decubitis position and pre-procedure medications were administered. After a digital rectal examination of the ano-rectum, the video colonoscope was inserted into the rectum and advanced through the colon to the cecum. Diluted methyline blue was used for chromoendoscopy. The colonoscope was slowly withdrawn in a retrograde panoramic fashion and the colon mucosa was carefully examined including a retroflexed view of the rectum. Findings and interventions are described below. Procedure Difficulty: without difficulty Findings: Terminal Ileum: Distal 5 cms was examined and apperaed normal Cecum: Nodular appearing mucosa throughout the entire colon Ascending Colon: Nodular appearing mucosa throughout the entire colon Transverse Colon: A 10 mm sessile polyp - removed with hot snare. A 12-15 mm sessile polyp - removed with hot snare. Some bleeding noted from the polypectomy site - treated with cautery using the snare tip followed by placement of a hemoclip with cessation. Nodular appearing mucosa throughout the entire colon Descending Colon: Nodular appearing mucosa throughout the entire colon Sigmoid Colon: Nodular appearing mucosa throughout the entire colon Rectum: Patchy erythema with scattered aphthoid ulcers Ano-rectum: Moderate internal hemorrhoids and perianal skin tags Colon preparation: Good after copious irrigation. [place] Bowel Preparation Scale Right colon; 2 Transverse colon: 2 Left colon; 2 (0 = Unprepared colon segment with mucosa not seen due to solid stool that cannot be cleared. 1 = Portion of mucosa of the colon segment seen, but other areas of the colon segment not well seen due to staining, residual stool and/or opaque liquid. 2 = Minor amount of residual staining, small fragments of stool and/or opaque liquid, but mucosa of colon segment seen well. 3 = Entire mucosa of colon segment seen well with no residual staining, small fragments of stool or opaque liquid) Impression and Post Procedure Diagnosis: Colonoscopy Findings: Two medium sized polyps were removed Moderate hemorrhoids on retroflexed exam. Plan: Pt has a FU appointment on 06/21/[address] Vazquez Repeat Colonoscopy in 2-3 years if polyps are adenomatous and surveillance for Crohn's disease. Above findings were reviewed with the patient and relevant handouts were given and the discharge area. Pt reports his symptoms have improved and nocturnal diarrhea has resolved since he switched to Stelara. BIOPSIES SHOWED: A. Terminal ileum, biopsy: Ileal mucosa with no specific change; no ileitis, granulomas or dysplasia. B. Colon, cecum, biopsy: Chronic colitis with minimal activity; no granulomas or dysplasia. C. Colon, ascending, biopsy: Focal chronic colitis with mild activity; no granulomas or dysplasia. D. Colon, transverse, polyps: Inflammatory polyps with granulation tissue and erosion; negative for dysplasia. E. Colon, transverse, biopsy: Chronic colitis with mild activity; no granulomas or dysplasia. F. Colon, sigmoid, biopsy: Chronic colitis with mild activity; no granulomas or dysplasia. G. Colon, rectum, biopsy: Chronic colitis/proctitis with mild activity; no granulomas or dysplasia Biopsy results were reviewed with the patient during his follow-up GI clinic visit.
[2024-06-04 10:33] VITALS: BP 127/87; PULSE 101; RESP 18; TEMP 37.6; O2SAT 98
[2024-06-04 10:43] VITALS: BP 124/82; PULSE 102; RESP 16; O2SAT 96
[2024-06-04 10:58] VITALS: BP 121/80; PULSE 98; RESP 16; TEMP 36.9; O2SAT 95
== END 2024-06-04 11:40 | disposition home or self-care (01) ==
PROVIDERS: PCP Internal Medicine; Visit Provider Internal Medicine Gastroenterology
PROC: 0DJD8ZZ Inspection of Lower Intestinal Tract, Via Natural or Artificial Opening Endoscopic (ICD-10-PCS; CPT 45378; principal; 2024-06-04 10:30)
DX: K50.90 Crohn's disease, unspecified, without complications (principal); K51.40 Inflammatory polyps of colon without complications; K64.8 Other hemorrhoids
CPT/HCPCS: 45385; 45380; 88305; J2003; J2704; Q9968

== ENCOUNTER → 2024-06-04 08:13 | Outpatient (BNV) | payer MEDICARE, MEDICAID, SELFPAY | PROVIDERS: PCP Internal Medicine; Visit Provider Internal Medicine Gastroenterology | DX: K50.90 Crohn's disease, unspecified, without complications (principal); K63.5 Polyp of colon; K64.8 Other hemorrhoids | CPT/HCPCS: 45385 ==

== ENCOUNTER 2024-06-19 10:51 | Outpatient (AMB) | payer MEDICARE, MEDICAID, SELFPAY ==
--- NOTE | 2024-06-19 10:58 | MHC.OFFVIS ---
Vital Signs 06/19/24 10:59 Height 5 ft 8 in Weight 227 lb 1.218 oz BMI 34.5 BP 118/73 Blood Pressure Location Lt brachial Position Sitting Pulse 98 Pulse Oximetry (%) 96 Oxygen Delivery Method Room Air Intake Visit Reasons: colo results Intake Note: Patient follow up for Crohns disease, Colonoscopy and lab result. Patient cc: Refuse Collector Supervisor Required: No Accompanied by: Self / Same As Patient Allergies Seasonal Allergies Allergy (Intermediate, Verified 07/17/24 22:54) eye swelling, itch vedolizumab [From Entyvio] Adverse Reaction (Intermediate, Verified 07/17/24 22:54) Rash Medication List - Last Reconciled 06/19/24 by Rodolfo Vazquez MD acetaminophen 1,000 mg PO Q6H PRN aspirin 81 mg PO DAILY atorvastatin 80 mg PO DAILY budesonide DR-ER 9 mg PO QAM 30 days buspirone 7.5 mg PO BID 90 days cholecalciferol (vitamin D3) 250 mcg PO 2XW 90 days dicyclomine 20 mg PO TID loperamide 2 mg PO Q4H PRN metoprolol tartrate 25 mg PO BID omeprazole 20 mg PO DAILY 90 days ustekinumab (Stelara) 90 mg subcut Q8W 2 doses HPI HPI colo results: Details: GI CLINIC VISIT FOR THIS 54 YM FOR FU of CROHN'S DISEASE. TODAY'S VISIT: Patient follow up for Crohns disease, Colonoscopy and lab result Colonoscopy results were reviewed with the patient Scheduled for an MRI of the head this month Having 3-4 BMs a day without blood. BMs are becoming hard after he gets the Stelara. Wakes up at 3 am to have a BM Next Stelara injection is scheduled on 08/01/24 PAST VISITS: Symptoms are improving since he started the Stelara. Still having frequent small soft to watery non-bloody BMs - sometimes 6 times a day Has to wake up at night to go to the bathroom Pt denies abdominal pain - prednisone helped. [place] [facility] [place]: Hospital course The patient was admitted for LLQ pain with diarrhea secondary to viral enteritis as stool panel was positive for Astrovirus PCR. no evidence of flare up of IBD as he was evaluated by GI who recommended symptomatic measures. Treated with IV fluids , empirical IV antibiotics of Flagyl and Ceftriaxone until stool panel came back. His diet was advanced gradually with good tolerance. To be discharged on Zofran and Imodium as needed. Advised to remain well hydrated. He was found to have Acute hypokalemia which he recieved IV and PO replacement with good response. Discharge plan Use Zofran as needed for nausea Use Imodium as needed for diarrhea Advance your diet gradually over the next few days COMMENT:? No dysplasia or granulomata are identified. Repeat Colon advised in 1-2 yrs ADDENDUM: Pt reported skin rash of hands and feet after getting Entyvio (Vedolizumab) in June,? and did not go for his infusion in July or August. Rash resolved after a few days. Pt was advised to reschedule his appt for Entyvio to be administered after premedication with Benadryl 50 mg IV and acetaminiphen 625 mg PO. New order sent to Short Stay. Patient denies any GI issues for today, also patient wanted to change entyvio infusion for tablets,he talk with insurance and they will approved the med. Last Entyvio infusion was in September, Patient denies any recurrent diarrhea since he was discharged from the hospital. BMs are less frequent since he was discharged - having a BM once a day. Notes MELÉNDEZ and pressure in the back after getting the Entyvio and would like to change to oral medication Next infusion is scheduled on 10/10/23 Pt handout given on Upadacitinib (Rinovoq) Prescription was sent for Upadacitinib (Rinovoq) 45 mg daily x 12 weeks for induction Pt is interested in switching to oral medication for Crohn's disease if possible. Still going to the bathroom a lot - 6-7 times during the day and 2-3 times at night. Takes imodium prn sometimes when he notes watery diarrhea. Denies abdominal pain. Doing well - no problems with Entyvio infusions Denies itching after infusions since benadryl is given before the infusion. Next Entyvio infusion on 04/27/23. Denies skin rash after Entyvio and noted itching on the day of the infusion - resolves by the next day. Notes hair loss on lateral aspects of both lower extermities x past 2 months. Has 3-4 solid to soft BMs during the day and 3 times at night (2 am, 3 am and 4-5 am) Has BMs at night if he ate late at night. Frequency of BMs is slowly improving. Previously had LLQ pain and post prandial diarrhea which has resolved. Has 6-7 BMs a day and 2-4 episodes at night Noted a panic attack and shortness of breath yesterday after getting the IV benadryl Taking a medication for the skin rash which is going away. Doing OK. Denies abd pain, diarrhea or rectal bleeding. Has been going to the bathroom less. 5 BMs during the day and 5 BMs at night - denies diarrhea.Takes imodium prn. Taking iron and vitamin C. Last Entyvio infusion on 04/13/21. Notes large non-bleeding hemorrhoids. Stopped azathioprine since it caused heartburn. Crary better for 1-2 weeks. Has to go to the bathroom every time he eats. Notes abdominal pain and diarrhea - 10-15 BMs a day BMs are loose to watery and denies blood in the stools Lost 2 lbs. Denies recent antibiotics. Takes Omeprazole for heartburn. Patient denies symptoms of heartburn, dysphagia, nausea, vomiting, change in appetite or weight.? Patient denies major cardiac or pulmonary problems, loud snoring or sleep apnea Denies problems with anesthesia in the past. Denies being on chronic anticoagulation. Patient denies known family history of colon polyps, colon cancer or other GI malignancy Past workup: ?10/09/[address] Hall, revealed colitis from the rectum to the tranverse colon near the hepatic flexure. Rectal Bx- Pos for mod active chronic colitis, suggestive of IBD. NO bxs taken from L, R, transverse colon or terminal ileum. Cardiac workup was essentially normal per pt. Told needs to lose wt. Dr. Nunez, [facility]. Last seen 12/30/14-f/u 1 yr. On metroprolol due to extra beats . Labs: 09/10/14 No anemia, CRP < 0.30, normal CMP 09/30 PROMETHEUS IBD pattern consistent w/ Crohn's. CRP 2.67. C. Diff and Celiac panel Neg. TSH 0.82. PAST TREATMENTS: Asacol 800 mg twice daily, increased to three times daily after a flare Predniosne taper Apr 2016 started on Remicade infusion 5 mg/kg every 8 weeks August 2016 Remicade was increased to 10 milligram/kilogram every 8 weeks and then every 4 weeks June 2019 Switched to Entyvio every 8 weeks 07/27/19. Entyvio lvl measured and was lower than it should be suggesting some development of antibodies to the medication. Entyvio infusion 08/16/19. Bloodwork was also done around this time and not improved. WBC 46805 higher than usual. He sometmes runs a mild leukocytosis but not to this level. Last time his WBC was during the time of last admission to hospital and he did have c. diff present. 14.9/43.4. CRP is progressively elevated. 0.68 2.4 on 07/27/19. 4.23 on 08/16/19. Stool c. diff negative, Stool WBC negative 07/30/19. Last imaging on record is from March 2019. Colitis extending from mid transverse colon to the rectum. No drainable fluid collections. No pelvic fluid.Genetic assessment has been consistent with Crohn's (clinical presentation has been most consistent with ulcerative colitis). 04/2018 colonoscopy showed mild chronic inactive colitis on the left side.Reminder: in April 2019 he did have c. diff infection which was treated. Recheck on this by us in early July was negative LABS:??08/2021?Vedolizumab antibodies were negative IMAGING STUDIES:? 09/11/[address] SCAN SHOWED: GASTROINTESTINAL TRACT: The appendix has been removed. There is moderate stool in the right colon there is air-fluid level in transverse colon and nondistended descending colon with mild mural thickening and mild fat stranding likely colitis. No diverticulitis seen. No extravasation of contrast seen to suspect any bleed at this time. ABDOMINAL WALL: No significant hernia is appreciated. IMPRESSION: Diffuse mural thickening involving the descending and sigmoid colon with mild pericolic stranding in the descending colon suggestive of colitis. No diverticuli seen. Similar findings were seen on the previous exam 04/11/2020. Appendix has been surgically removed. ENDOSCOPIC STUDIES:?05/2024: BIOPSIES SHOWED: A. Terminal ileum, biopsy: Ileal mucosa with no specific change; no ileitis, granulomas or dysplasia. B. Colon, cecum, biopsy: Chronic colitis with minimal activity; no granulomas or dysplasia. C. Colon, ascending, biopsy: Focal chronic colitis with mild activity; no granulomas or dysplasia. D. Colon, transverse, polyps: Inflammatory polyps with granulation tissue and erosion; negative for dysplasia. E. Colon, transverse, biopsy: Chronic colitis with mild activity; no granulomas or dysplasia. F. Colon, sigmoid, biopsy: Chronic colitis with mild activity; no granulomas or dysplasia. G. Colon, rectum, biopsy: Chronic colitis/proctitis with mild activity; no granulomas or dysplasia 08/2021 COLONOSCOPY SHOWED: Eight medium to large sized polyps removed - ? pseudopolyps versus adenomas Moderate hemorrhoids on retroflexed exam. Plan:? Repeat Colonoscopy in 12 months and if several polyps are adenomatous, pt will be referred to a colorectal surgeon for a total colectomy Above findings were reviewed with the patient and colon polyps handout was given in the discharge area BIOPSIES SHOWED: A.? Colon, ascending, biopsy:? Chronic inactive colitis. B.? Colon, transverse at 65 cm, polypectomy:? Inflammatory polyp. C.? Colon, transverse at 60 cm, polypectomies (4):? Inflammatory polyps. D.? Colon, transverse at 50 cm, polypectomies (2):? Inflammatory polyps. E.? Colon, sigmoid, biopsy:? Chronic inactive colitis. Colonoscopy from Apr 2018 showed?moderate chronic inactive colitis in 3 different biopsies. 2016 EGD?showed Grade 2 distal esophagitis with a small hiatal hernia (no H. pylori was found).I will have him start Pantoprazole once daily in the AM. The colonoscopy showed inflamation continuous from the ano-rectal verge. The pathology confirmed inflamatory pseudo polyps and moderate chronic active colitis with no evidence for dysplasia [facility] Medical History Hand pain GERD (gastroesophageal reflux disease) Myocardial infarction Iron deficiency anemia due to chronic blood loss Medicare annual wellness visit, initial Lipoma of arm Mass of hand Cyst in hand CAD (coronary artery disease) Hypertension NSTEMI (non-ST elevated myocardial infarction) Acute coronary syndrome Essential (primary) hypertension Crohn disease Hearing loss in right ear History of acoustic neuroma Surgical History Status post excision of lipoma History of surgery on arm History of brain tumor S/P cardiac cath (~01/2020) Stented coronary artery Hx of colonoscopy Hx of appendectomy Family History Father Stroke Mother No problems noted. Maternal Uncle Heart attack Social History Household Members: Spouse Housing: House Do you presently have visiting nurse or other home services: No Alcohol intake: former Patient Tobacco Use Status: Former Tobacco user Tobacco use type: Cigarette Cigarette Packs Per Day: 1 e-Cigarette/Vaping Use: Never Used Second Hand Smoke Exposure: No service: No Current occupational status: disabled Cognitive needs: No Hearing needs: No Vision needs: No Review of Systems Const All systems reviewed & are unremarkable except as noted in HPI and below Physical Exam Vital Signs: Last Vital Signs Pulse 98 06/19/24 10:59 BP 118/73 06/19/24 10:59 Pulse Ox 96 06/19/24 10:59 Oxygen Delivery Method Room Air 06/19/24 10:59 BMI result Body Mass Index 34.5 Last Vital Signs Temp 97.8 F 09/29/23 07:41 Pulse 79 09/29/23 07:41 Resp 16 09/29/23 07:41 BP 125/84 09/29/23 07:41 Pulse Ox 95 09/29/23 07:41 O2 Del Method Room Air 09/29/23 07:41 BMI result Body Mass Index 32.5 Const Other: Constitutional : Awake, interactive, not in distress Neck : Normal inspection, Supple Cardiovascular : RRR, no JVP, no lower extremity edema Respiratory : good bilateral air entry, no crackles, wheezes or rhonchi Gastrointestinal: soft, lax, Normal bowel sounds,no tenderness w no rebound Neurological : Alert & oriented x3, No focal deficit General: healthy appearing and no acute distress Nutritional Appearance: obese Orientation/consciousness: patient oriented x3 Limitations: no limitations HEENT Head: Yes normal to inspection Ears: hearing grossly normal bilaterally Mouth: Normal oral and palatal mucosa present Eyes Sclerae: sclerae normal Pupils: Equal, round and reactive pupils present Neck Neck: Yes normal visual inspection Chest Chest palpation & inspection: normal inspection of the chest Resp Effort & Inspection: normal respiratory effort Auscultation: clear to auscultation bilaterally Cardio Palpation: normal PMI Rate: regular rate Rhythm: regular rhythm Heart sounds: S1 normal heart sound present, S2 normal heart sound present and no murmurs GI Palpation (GI): Soft to palpation, nontender and No hepatosplenomegaly present Auscultation: normal bowel sounds Rectal Exam - Male: Yes deferred Skin General skin exam: no rashes or lesions noted Neuro General: patient oriented x3, gait normal and moves all extremities Cranial nerves: Yes Equal, round and reactive pupils present Psych Appearance: grossly normal Mental Status: mental status grossly normal Assessment & Plan Assessment & Plan (1) Crohn disease: Code(s): K50.90 - Crohn's disease, unspecified, without complications Category: Medical Qualifiers: Digestive disease complication type: without complication Gastrointestinal tract location: unspecified location Qualified Code(s): K50.90 - Crohn's disease, unspecified, without complications (2) Iron deficiency anemia due to chronic blood loss: Code(s): D50.0 - Iron deficiency anemia secondary to blood loss (chronic) Category: Medical (3) GERD (gastroesophageal reflux disease): Code(s): K21.9 - Gastro-esophageal reflux disease without esophagitis Category: Medical Qualifiers: Esophagitis presence: esophagitis presence not specified Qualified Code(s): K21.9 - Gastro-esophageal reflux disease without esophagitis Plan 54 YM with CAD status post stent placement and on aspirin and Plavix and a hx of Crohn's disease diagnosed in 2012 (on Entyvio every 4 weeks) seen for FU [place] [facility] [place] with worsening diarrhea and bloody stools and lower abdominal pain.? Abdominal CT scan showed moderate stool in the right colon with air-fluid level in transverse colon and non-distended descending colon with mild mural thickening and mild fat stranding likely colitis. No diverticulitis. Patient was treated with IV steroids and discharged on p.o. prednisone 40 mg daily.? Entyvio was increased to every 4 weeks.? Last in Entyvio infusion on 09/13/22 and next infusion is scheduled on 10/11/2022 Pt notes improvement in symptoms - reports 3-4 BM during the day and 3 BMs at night. Patient was prescribed azathioprine 50 mg daily (TPMT enzyme activity was normal) and stopped due to heartburn. 08/2021 COLONOSCOPY SHOWED: Eight medium to large sized polyps removed - ? pseudopolyps versus adenomas Moderate hemorrhoids on retroflexed exam. Plan:? Repeat Colonoscopy in 2 yrs (due 09/2023) BIOPSIES SHOWED: A.? Colon, ascending, biopsy:? Chronic inactive colitis. B.? Colon, transverse at 65 cm, polypectomy:? Inflammatory polyp. C.? Colon, transverse at 60 cm, polypectomies (4):? Inflammatory polyps. D.? Colon, transverse at 50 cm, polypectomies (2):? Inflammatory polyps. E.? Colon, sigmoid, biopsy:? Chronic inactive colitis. COMMENT:? No dysplasia or granulomata are identified. Pt advised to have labs and fecal calprotectin checked to confirm Crohn's disease is in remission 10/06/23 Patient denies any recurrent diarrhea since he was discharged from the hospital. BMs are less frequent since he was discharged - having a BM once a day. Notes MELÉNDEZ and pressure in the back after getting the Entyvio and would like to change to oral medication since he does not want to come in every month and be poked with needles Reviewed option of switching to Entyvio 108 mg subcutaneous every 2 weeks - pt would like to switch to oral medication Next Entyvio infusion is scheduled on 10/10/23 and pt plans to proceed. Pt handout given on Upadacitinib (Rinovoq) which was not approved by his insurance. Pt was started on Stelara on 02/13/24 - next SQ injection scheduled on 04/09/24 in short stay (as per pt's request) 03/22/24 Symptoms are improving since he started the Stelara. Still having frequent small soft to watery non-bloody BMs - sometimes 6 times Has to wake up at night to go to the bathroom Pt denies abdominal pain - prednisone helped. Patient was advised to start budesonide 9 mg daily and continue Stelara 90 mg every 8 weeks 06/19/24 Having 3-4 BMs a day without blood. BMs are becoming hard after he gets the Stelara. Wakes up at 3 am to have a BM Next Stelara injection is scheduled on 08/01/24 FU in 4 months - scheduled 10/18/24 Coding Level of Care Code Est Pt Level 3 (11410) Diagnoses Crohn's disease without complication, unspecified gastrointestinal tract location K50.90 Digestive disease complication type: without complication Gastrointestinal tract location: unspecified location Iron deficiency anemia due to chronic blood loss D50.0 Gastroesophageal reflux disease, unspecified whether esophagitis present K21.9 Esophagitis presence: esophagitis presence not specified Time Spent (min) 15
[2024-06-19 10:59] VITALS: BP 118/73; PULSE 98; O2SAT 96; BMI 34.5
--- OUTSIDE RECORDS SUMMARY | 2024-06-19 13:01 | XMS_ITS | Data Portability ---
Author Organization [place] - [facility], Allergy Address [address] [facility] [address] [place] [address] Care Team Providers Care Components Engineer Name Role Phone CHELY DUNCAN Primary Care Provider [phone] Assessment Encounter Date Assessment Date Assessment LastModified by Organization Details LastModified Time 05/24/2024 05/24/2024 Recommendatio ns: Follow up with referring provider. [email or web address] Not available 05/24/2024 10:54:52 Plan of Treatment Reminders Order Date Submit Date Provider Last Modified By Organization Details Last Modified Time Details Appointments MELÉNDEZ Initial Fitting 2024 01:00P M ELIEZER ROOT Not available Not available Not available Lab None recorded. Referral None recorded. Procedures None recorded. Surgeries None recorded. Imaging MRI, brain + internal auditory canal, w/wo contrast - MRI, BRAIN + INTERNAL AUDITORY CANAL, W/WO CONTRAST see 2024 026 [email or web address] [facility] ([facility]), [address] [place], [address], 05/24/2024 15:55:02 Medication Orders None recorded. Patient TargetsNo targets recorded. Patient InstructionsNo instructions recorded. Reason for Referral None Reported. Results Created Date Observation Date Name Description Value Unit Range Abnormal Flag Note LastModifiedBy Organization Detail LastModifiedTime 05/25/19 25 audio gram No observ ation record ed. BARCODE Not Available 2024 13:54:56 Result Notes None recorded. Problems Name Problem SNOMED Code Status Onset Date Resolution Date Notes Provider Name and Address Organization Details Recorded Time Sensorineur al hearing loss in right ear [id number] 0 Active 2024 DANIEL HU, Eliezer [address] [address], [place], [address], [place] - [facility] 11:08:50 Acoustic neuroma of right vestibular nerve [id number] 9106 Active 2024 VIOLET LUNA MD [address] [address], [place], [address], [place] - [facility] 12:04:52 Problem Notes None recorded. Procedures Surgical History Date Name Laterality Status Provider Name and Address Organization Details Recorded Time 05/25/19 Comp Audio with Tymps (70152 & 85352) completed Eliezer PERLA [address] [address], [place], [address], [facility] - [facility] 05/24/2024 11:07:35 excision of lipoma completed Chely Mccurdy [place] - [facility] 05/24/2024 11:07:35 Appendectomy completed Chely Mccurdy [place] - [facility] 05/24/2024 11:08:05 placement of stent in coronary artery completed Chely Mccurdy [place] [facility] 05/24/2024 11:08:14 cardiac catheterization completed Chely Mccurdy [facility] 05/24/2024 11:08:25 Imaging Results Imaging Date Name Status LastModified by Organiz ation Details LastModified Time 05/24/2024 audiogram completed BARCODE Information no t available 05/24/2024 13:54:56 Procedure Notes None recorded. Medical Equipment None Reported. Allergies Allergen ID Allergen Name Allergen Category Reaction Reaction Severity Criticality Documentation Date Start Date Code Code System Note Provider Name and Address Organization Details Recorded Time 556235 vedolizum ab medicatio n Not available Not available Not available 05/24/2024 19083 97 RxNorm Chely reilly [facility] 11:04:51 Medications Name Sig Start Date Stop Date Status Note LastModified by Organization Details LastModified Time amoxicillin 500 mg capsule TOME 1 C PSULA POR V A ORAL RAULITO VECES AL D A HASTA QUE SE TERMINE 05/24 completed Not Available Not Available Not Available atorvastati n 80 mg tablet TAKE 1 TABLET BY MOUTH DAILY active Not Available Not Available No t Available acetaminoph en 325 mg tablet TOME MARTINEZ TABLETA POR V A ORAL CADA SEIS HORAS CUANDO SEA NECESARIO PARA EL DOLOR*OTC NOT CVRE* 05/24 completed Not Available Not Available Not Available prednisone 10 mg tablet PLEASE SEE ATTACHED FOR DETAILED DIRECTION S 05/24 completed Not Available Not Available Not Available loperamide 2 mg capsule TAKE 1 CAP ORALLY EVERY 4 HRS NEEDED FOR LOOSE STOOL UNTIL SYMPTOMS CONTROLLE D MAX 8 MG/24 HRS active Not Available Not Available No t Available prednisone 20 mg tablet TOME DOS TABLETAS POR V A ORAL 05/24 completed Not Available Not Available Not Available amlodipine 2.5 mg tablet TOME 1 TABLETA POR V A ORAL TODOS LOS D 05/24 completed Not Available Not Available Not Available dicyclomine 20 mg tablet TOME 1 TABLETA POR V A ORAL RAULITO VECES AL D A 05/24 completed Not Available Not Available Not Available buspirone 7.5 mg tablet TOME 1 TABLETA POR V A ORAL DOS VECES AL D A active Not Available Not Available No t Available omeprazole 20 mg capsule,del ayed release TOME 1 C PSULA POR V A ORAL TODOS LOS D active Not Available Not Available No t Available ondansetron 4 mg disintegrat ing tablet TOME MARTINEZ TABLETA POR V A ORAL CADA OCHO HORAS CUANDO SEA NECESARIO PARA LAS N USEAS Y EL V ADI 05/24 completed Not Available Not Available Not Available metoprolol tartrate 25 mg tablet TOME MARTINEZ TABLETA POR V A ORAL DOS VECES AL D A active Not Available Not Available No t Available cholecalcif howard (vitamin D3) 250 mcg (10,000 unit) capsule TAKE 1 CAPSULE ORALLY 2 TIMES A WEEK FOR 90 DAYS active Not Available Not Available No t Available budesonide DR-ER 9 mg tablet,dre yed and extended release TOME MARTINEZ TABLETA ORALLY EVERY MORNING FOR 30 DAYS 05/24 completed Not Available Not Available Not Available Entyvio 300 mg intravenous solution 05/24 completed Not Available Not Available Not Available aspirin 81 mg capsule Take 1 capsule every day by oral route. active Not Available Not Available No t Available Vitals Date Recorded Body height Body weight Provider Name and Address Organization Details Last Updated DateTime 05/24/2024 172.72 cm 459884.06 g Chely Mccurdy [place] - [facility] 05/24/2024 11:41:49 Social History None recorded. Functional Status None recorded. Mental Status None recorded. Family History Nothing Reported. Medical History Condition Response Heart Problems Y Heart Attack (ND) Y Anemia Y Hearing Loss Y Hypertension Y GERD/Reflux Y High Cholesterol Y Past Encounters Encounter ID Performer Location Encounter Start Date Encounter Closed Date Diagnosis/Indication Diagnosis SNOMED-CT Code Diagnosis ICD10 Code Diagnosis Note [id number] VIOLET LUNA MD [facility] [address] [place] [address] 05/24/2024 10:27:46 05/24/2024 15:55:02 Acoustic neuroma of right vestibular nerve [id number] 1838911 D33.3 Patient with history of right suboccipit al craniotomy for removal of acoustic neuroma at one of the [employer] back in 2019 or so. Patient is not sure what hospital, but he will find this out for us. He has had some post operative surveillan ce, but nothing locally. Today we went over his audiometri c testing which shows excellent hearing in the left ear, and complete sensorineu ral hearing loss in the right ear. In light of the high likelihood that his cochlear nerve on the right was disrupted surgically , he would not be a candidate for cochlear implant technology . Jimmie carpio we discussed options of BiCROS hearing aid technology versus ossea bone-condu ction implant technology . We went over the ossea demo materials and brochure in detail. He is interested in learning more about this technology . We will set him up for a bone-condu ction demo with our audiology group.In the meantime, I will proceed with getting another dedicated MRI scan of the brain and internal auditory canals to assess for any signs of tumor recurrence . We did discuss that a bone-condu ction implant such as the Osia implant can cause distortion of imaging around the IAC which may preclude future surveillan ce. Sensorineu ral hearing loss in right ear [id number] H90.41 Audiologic al evaluation results: Right ear: {{Normal N ormal through 2 kHz Mild M oderate Mo derately-s evere Nikkie re Profoun d*}} {{hearing sloping to a mild slopi ng to a moderate s loping to moderately severe slo ping to severe slo ping to profound f lat* high frequency low frequency mid frequency cookie bite coelho curve}} {{with sen sorineural hearing loss with* cond uctive hearing loss with mixed hearing loss with}} {{excellen t good anastacia r poor no measurable *}} word recognitio n. Left ear: {{Normal* Normal through 2 kHz Mild M oderate Mo derately-s evere Nikkie re Profoun d}} {{hearing* sloping to a mild slopi ng to a moderate s loping to moderately severe slo ping to severe slo ping to profound f lat high frequency low frequency mid frequency cookie bite coelho curve}} {{with* se nsorineura l hearing loss with condu ctive hearing loss with mixed hearing loss with}} {{excellen t* good fa ir poor no measurable }} word recognitio n. Tympanomet ry: Right Ear:{{Type A* Type As Type Ad Type C Type C, shallow & rounded Ty pe B Type B with large volume Cou ld not maintain a hermetic seal}} Left Ear:{{Type A* Type As Type Ad Type C Type C, shallow & rounded Ty pe B Type B with large volume Cou ld not maintain a hermetic seal}} [id number] Eliezer PERLA [facility] [address] [address] 05/24/2024 10:54:39 05/25/2024 07:46:02 Sensorineural hearing loss in right ear [id number] 9100 H90.41 Audiologic al evaluation results: Right ear: {{Normal N ormal through 2 kHz Mild M oderate Mo derately-s evere Nikkie re Profoun d*}} {{hearing sloping to a mild slopi ng to a moderate s loping to moderately severe slo ping to severe slo ping to profound f lat* high frequency low frequency mid frequency cookie bite coelho curve}} {{with sen sorineural hearing loss with* cond uctive hearing loss with mixed hearing loss with}} {{excellen t good anastacia r poor no measurable *}} word recognitio n. Left ear: {{Normal* Normal through 2 kHz Mild M oderate Mo derately-s evere Nikkie re Profoun d}} {{hearing* sloping to a mild slopi ng to a moderate s loping to moderately severe slo ping to severe slo ping to profound f lat high frequency low frequency mid frequency cookie bite coelho curve}} {{with* se nsorineura l hearing loss with condu ctive hearing loss with mixed hearing loss with}} {{excellen t* good fa ir poor no measurable }} word recognitio n. Tympanomet ry: Right Ear:{{Type A* Type As Type Ad Type C Type C, shallow & rounded Ty pe B Type B with large volume Cou ld not maintain a hermetic seal}} Left Ear:{{Type A* Type As Type Ad Type C Type C, shallow & rounded Ty pe B Type B with large volume Cou ld not maintain a hermetic seal}} Health Concerns Section Related Observation LastModified by Organization Detai ls LastModified Time None Recorded Concern Status LastModified by Organization Details LastModified Time None Recorded Advance Directives Directive None Recorded Payers Encounter Date Sequence Insurance Name Policy Number Policy Rogel Covered Member ID Rogel Member ID Guarantor Name 05/24/2024 1 [place]: [employer] Shar Ibarra [id number] Shar Ibarra 05/24/2024 2 [place] [facility] Shar Ibarra [id number] Shar Ibarra Notes Date Note Type Note Provider Name and Address Organization Details Recorded Time 05/24/2024 text/html Audiological Evaluation HPIReported bypatient.Hearing loss perceived:hearing loss in the right ear only Balance symptoms reported:dizzinessN otes:Patient reports history of surgical 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 DANIEL HU, [address] [address], [place], [address], [facility] - [facility] 05/24/2024 11:10:15 05/24/2024 text/html 54-year-old male who comes in today for evaluation of his hearing. Patient had right-sided acoustic neuroma which was excised via suboccipital craniotomy at one of the [employer] back in 2019 or so. Patient reports that he had a complete excision. Patient notes complete loss of hearing following surgery. No significant postoperative facial nerve weakness.He had postoperative surveillance MRI scan in 2021 or so. His surgeon has plans for him to get another surveillance MRI scan in 2025. Patient has complete hearing loss in the right ear, but has normal hearing in the left ear. He notes that he cannot tell which direction sounds are coming from. Patient reports that he does well one-on-one and does fairly well in background noise environments. VIOLET LUNA MD [address] [place] [address], [phone], [place] - [facility] 05/24/2024 12:12:02
== END 2024-06-19 11:52 | disposition home or self-care (01) ==
LOC: HO.HGI 10:51
PROVIDERS: PCP Internal Medicine; Visit Provider Internal Medicine Gastroenterology
DX: K50.90 Crohn's disease, unspecified, without complications (principal); D50.0 Iron deficiency anemia secondary to blood loss (chronic); K21.9 Gastro-esophageal reflux disease without esophagitis
CPT/HCPCS: 99213

== ENCOUNTER → 2024-06-19 10:51 | Outpatient (BNVA) | payer MEDICARE, MEDICAID, SELFPAY | PROVIDERS: PCP Internal Medicine; Visit Provider Internal Medicine Gastroenterology | DX: K50.90 Crohn's disease, unspecified, without complications (principal); K21.9 Gastro-esophageal reflux disease without esophagitis; D50.0 Iron deficiency anemia secondary to blood loss (chronic) | CPT/HCPCS: 99212 ==

== ENCOUNTER → 2024-07-17 22:15 | Outpatient (BNV) | payer MEDICARE, MEDICAID, SELFPAY | PROVIDERS: PCP Internal Medicine; Visit Provider General Practice | DX: R07.9 Chest pain, unspecified (principal) | CPT/HCPCS: 71046 ==

== ENCOUNTER 2024-07-17 22:45 | Emergency (ER) | payer MEDICARE, MEDICAID, SELFPAY ==
--- NOTE | ~2024-07-17 | XR_ITS ---
CLINICAL HISTORY: chest pain 2 view chest x-ray Comparison: CR/SR - XR CHEST 2V - 04/09/22 13:14 EST Findings: The lungs are clear. Normal size heart. No acute fracture. IMPRESSION: 1. No acute findings. This document has been electronically signed by: Dayne Kessler MD, PHD on 07/17/2024 23:57:24
--- NOTE | 2024-07-17 22:46 | ECG_ITS ---
Test Reason : CP Blood Pressure : */* mmHG Vent. Rate : 102 BPM Atrial Rate : 102 BPM P-R Int : 162 ms QRS Dur : 90 ms QT Int : 346 ms P-R-T Axes : 36 39 29 degrees QTcB Int : 450 ms Sinus tachycardia Otherwise normal ECG When compared with ECG of 31-Aug-2022 00:48, No significant change was found Referred By: Generic ED Physician Electronically Signed By: Jethro Howell
[2024-07-17 22:51] VITALS: BP 144/89; PULSE 93; RESP 20; TEMP 36.9; O2SAT 98; BMI 35.0
[2024-07-17 23:13] LABS: MANUAL DIFF FLAG NO
[2024-07-17 23:14] LABS: Basophils Percent Auto 0.3 % (0-2); Eosinophils Absolute Auto 0.2 X10*3/uL (0.0-0.4); Eosinophils Percent Auto 1.5 % (0-4); Hematocrit 40.7 % (42.0-52.0); Hemoglobin 14.5 g/dl (14.0-18.0); Imm Gran Abs Auto 0.03 X10*3/uL (0.00-0.03); Imm Gran Pct Auto 0.3 % (0.0-0.4); Lymphocytes Absolute Auto 4.2 X10*3/uL (1.2-4.9); Lymphocytes Percent Auto 39.3 % (20-40); Mean Corpuscular HGB Conc 35.6 g/dl (31.0-36.0); Mean Corpuscular Hemoglobin 32.6 pg (27.0-33.0); Mean Corpuscular Volume 91.5 fL (80.0-98.0); Mean Platelet Volume 9.9 fL (9.4-12.4); Monocytes Absolute Auto 0.7 X10*3/uL (0.1-1.2); Monocytes Percent Auto 6.7 % (2-11); Neutrophils Absolute Auto 5.5 x10*3/uL (2.0-8.3); Neutrophils Percent Auto 51.9 % (45-73); Platelet Count 211 X10*3/uL (160-400); Red Blood Count 4.45 X10*6/uL (4.60-5.80); Red Cell Distribution Width 12.6 % (11.0-16.0); White Blood Count 10.6 X10*3/uL (4.8-10.8)
[2024-07-17 23:27] LABS: Alanine Aminotransferase 35 U/L (0-40); Albumin Level 4.2 g/dL (3.5-5.0); Alkaline Phosphatase 74 U/L (39-117); Anion Gap 13 (12-20); Aspartate Amino Transferase 28 U/L (5-37); Bilirubin Total 0.7 mg/dL (0.0-1.0); Blood Urea Nitrogen 11 mg/dL (9-16); Calcium 9.5 mg/dL (8.4-10.2); Carbon Dioxide 23 mmol/L (22-29); Chloride 108 mmol/L (96-108); Creatinine Clr Calc Pharmacy 91.3; Estimated Glomerular Filt Rate > 60; Glucose Random 130 mg/dL (60-115); Potassium 3.5 mmol/L (3.3-5.1); Sodium 140 mmol/L (135-145); Total Protein 7.1 g/dL (6.5-8.0)
[2024-07-17 23:42] LABS: Troponin-I High Sensitivity < 2.7 ng/L (<3.5-35.0)
--- NOTE | 2024-07-18 02:05 | ED_ITS ---
HPI - Chest Pain General Chief Complaint: Chest Pain Stated Complaint: Chest pain Time Seen by Provider: 07/18/24 01:16 Source: patient Limitations: no limitations History of Present Illness ED Provider: Leigh Carrasco PA-C HPI narrative: 54-year-old male with a history of hypertension, hyperlipidemia, known coronary artery disease status post PCI, GERD, Crohn's disease, peripheral neuropathy, anxiety and cognitive impairment presents with intermittent chest pain x2 weeks. Patient states he has been having left-sided chest discomfort that radiates to the left upper extremity at times. When patient has pain he becomes short of breath. Denies recent cough or cold symptoms no fever. Denies new activity, heavy lifting or other exercise that could have precipitated his symptoms. Patient states when he lies in bed he is having tingling sensation in both upper extremities. Patient also states when he sits on the toilet he is getting tingling in his feet. Related Data Home Medications ?Medication ?Instructions ?Recorded ?Confirmed acetaminophen 500 mg capsule 1,000 mg PO Q6H PRN Pain 09/27/23 06/19/24 Previous Rx's ?Medication ?Instructions ?Recorded aspirin 81 mg chewable tablet 81 mg PO DAILY #30 tabs 03/13/20 loperamide 2 mg capsule 2 mg PO Q4H PRN loose stool #14 09/29/23 caps omeprazole 20 mg capsule,delayed 20 mg PO DAILY 90 days #90 caps 12/29/23 release dicyclomine 20 mg tablet 20 mg PO TID #20 tabs 02/04/24 ustekinumab 90 mg/mL subcutaneous 90 mg subcut Q8W 2 doses #1 mL 02/06/24 syringe (Georgelara) atorvastatin 80 mg tablet 80 mg PO DAILY #90 tabs 02/27/24 budesonide 9 mg tablet,delayed and 9 mg PO QAM 30 days #30 ea 03/22/24 extended release metoprolol tartrate 25 mg tablet 25 mg PO BID #180 tabs 03/29/24 buspirone 7.5 mg tablet 7.5 mg PO BID 90 days #180 tabs 05/14/24 cholecalciferol (vitamin D3) 250 250 mcg PO 2XW 90 days #26 caps 05/14/24 mcg (10,000 unit) capsule Allergies Allergy/AdvReac Type Severity Reaction Status Date / Time Seasonal Allergies Allergy Intermediate eye Verified 07/17/24 22:54 swelling, itch vedolizumab [From Entyvio] AdvReac Intermediate Rash Verified 07/17/24 22:54 Review of Systems 2 Review of Systems: Yes all other systems are reviewed and are negative Constitutional: Constitutional: Denies fatigue and Denies fever(s) Cardiovascular: Cardiovascular: Denies chest pain and Reports dyspnea Respiratory: Respiratory: Denies cough and Reports dyspnea Gastrointestinal: Gastrointestinal: Denies abdominal pain, Denies diarrhea, Denies nausea and Denies vomiting Musculoskeletal: Musculoskeletal: Denies back pain, Denies numbness and Reports tingling Neurologic: Denies numbness and Reports tingling Endocrine: Endocrine: Denies fatigue PMFSH Past Medical History Attestation statement: The following information was validated with the patient. Medical History Hand pain GERD (gastroesophageal reflux disease) Myocardial infarction Iron deficiency anemia due to chronic blood loss Medicare annual wellness visit, initial Lipoma of arm Mass of hand Cyst in hand CAD (coronary artery disease) Hypertension NSTEMI (non-ST elevated myocardial infarction) Acute coronary syndrome Essential (primary) hypertension Crohn disease Hearing loss in right ear History of acoustic neuroma Surgical History Status post excision of lipoma History of surgery on arm History of brain tumor S/P cardiac cath (~01/2020) Stented coronary artery Hx of colonoscopy Hx of appendectomy Family History Family History Father Stroke Mother No problems noted. Maternal Uncle Heart attack Social History Social History Household Members: Spouse Housing: House Do you presently have visiting nurse or other home services: No Alcohol intake: former Patient Tobacco Use Status: Former Tobacco user Tobacco use type: Cigarette Cigarette Packs Per Day: 1 e-Cigarette/Vaping Use: Never Used Second Hand Smoke Exposure: No Advance Directives: No Advance Directives Information Provided: Yes service: No Current occupational status: disabled Cognitive needs: No Hearing needs: No Vision needs: No Physical Exam 2 Vital Signs: Vital Signs: Last Vital Signs Temp 98.4 F 07/17/24 22:51 Pulse 93 07/17/24 22:51 Resp 20 07/17/24 22:51 BP 144/89 H 07/17/24 22:51 Pulse Ox 98 07/17/24 22:51 O2 Del Method Room Air 07/17/24 22:51 BMI result Body Mass Index 35.0 Const: Other: Alert, eagerly watching the television, while I am attempting to gather history Orientation/consciousness: patient oriented x3 Resp: Effort & Inspection: normal respiratory effort Cardio: Other: Normal peripheral perfusion Skin: Other: Warm dry no rash Neuro: General: patient oriented x3, gait normal, no focal motor deficits and CN's II-XI intact bilaterally Psych: Other: Cooperative Medical Decision Making Medical Decision Making MDM Narrative: 54-year-old male with a history of hypertension, hyperlipidemia, known coronary artery disease status post PCI, GERD, Crohn's disease, peripheral neuropathy, anxiety and cognitive impairment presents with intermittent chest pain x2 weeks. Patient states he has been having left-sided chest discomfort that radiates to the left upper extremity at times. When patient has pain he becomes short of breath. Denies recent cough or cold symptoms no fever. Denies new activity, heavy lifting or other exercise that could have precipitated his symptoms. Patient states when he lies in bed he is having tingling sensation in both upper extremities. Patient also states when he sits on the toilet he is getting tingling in his feet. Problem: Known coronary artery disease History: Per patient I have considered the following differential diagnoses: ACS, chest wall strain, costochondritis, paresthesia, cervical radiculopathy, peripheral neuropathy Plan: Considered ACS, he has known coronary artery disease, screening labs including a cardiac enzymes EKG and chest x-ray were obtained from triage. Everything is negative. In regard to the paresthesias, he does not have any neck pain, he is not having weakness of upper extremities, likely not cervical radiculopathy, he must have some form of nerve impingement/inflammation as cause for his symptoms. Perhaps he is developing peripheral neuropathy, he denies being diabetic, however maybe he is developing diabetes, his blood sugar is 130. I have advised he needs to follow up with primary care, there was nothing to do emergently he has no mechanism of injury to suggest chest wall strain/pain. He also has no infectious signs symptoms that could have precipitated costochondritis. I have independently reviewed the following tests: Labs: No leukocytosis, not anemic, no electrolyte abnormality, troponin negative at less than 2.7 EKG: Sinus tachycardia, rate of 102, no ischemic changes no ectopy no change from prior study Chest x-ray:indings: The lungs are clear. Normal size heart. No acute fracture. IMPRESSION: 1. No acute findings. Lab Data 07/17/24 23:08 07/17/24 23:08 Labs: Lab Results 07/17/24 Range/Units 23:08 WBC 10.6 (4.8-10.8) X10*3/uL RBC 4.45 L (4.60-5.80) X10*6/uL Hgb 14.5 (14.0-18.0) g/dl Hct 40.7 L (42.0-52.0) % MCV 91.5 (80.0-98.0) fL MCH 32.6 (27.0-33.0) pg MCHC 35.6 (31.0-36.0) g/dl RDW 12.6 (11.0-16.0) % Plt Count 211 (160-400) X10*3/uL MPV 9.9 (9.4-12.4) fL Immature Gran % (Auto) 0.3 (0.0-0.4) % Neut % (Auto) 51.9 (45-73) % Lymph % (Auto) 39.3 (20-40) % Mcduffie % (Auto) 6.7 (2-11) % Eos % (Auto) 1.5 (0-4) % Baso % (Auto) 0.3 (0-2) % Lymph # (Auto) 4.2 (1.2-4.9) X10*3/uL Mcduffie # (Auto) 0.7 (0.1-1.2) X10*3/uL Eos # (Auto) 0.2 (0.0-0.4) X10*3/uL Baso # (Auto) 0.0 (0.0-0.2) X10*3/uL Abs Immat Gran (auto) 0.03 (0.00-0.03) X10*3/uL Absolute Neuts (auto) 5.5 (2.0-8.3) x10*3/uL Absolute Nucleated RBC 0.000 (0.0-0.012) X10*3/uL Nucleated RBC % (auto) 0.0 (0.0-0.2) /100WBC Sodium 140 (135-145) mmol/L Potassium 3.5 (3.3-5.1) mmol/L Chloride 108 (96-108) mmol/L Carbon Dioxide 23 (22-29) mmol/L Anion Gap 13 (12-20) BUN 11 (9-16) mg/dL Creatinine 1.07 (0.5-1.4) mg/dL Estim Creat Clear Calc 91.3 Estimated GFR > 60 Random Glucose 130 H (60-115) mg/dL Calcium 9.5 D (8.4-10.2) mg/dL Total Bilirubin 0.7 (0.0-1.0) mg/dL AST 28 (5-37) U/L ALT 35 (0-40) U/L Alkaline Phosphatase 74 (39-117) U/L Troponin I High Sens < 2.7 (<3.5-35.0) ng/L Total Protein 7.1 (6.5-8.0) g/dL Albumin 4.2 (3.5-5.0) g/dL Discharge Plan Discharge Clinical Impression: Chest pain, Paresthesia Patient Disposition: Home, Self-Care Instructions: Paresthesia (ED), Noncardiac Chest Pain (ED) Additional Instructions: All of your screening labs including a cardiac enzyme were completely normal. There were no concerning changes on your EKG in the chest x-ray is clear. In regard to the tingling sensation that you have been experiencing in all extremities, this is called paresthesia. You could be developing what is called peripheral neuropathy. It is questionable whether you may be developing diabetes, your blood sugar is above the normal limit. You need to call and make an appointment with your primary care provider for further assessment. Prescriptions: No Action aspirin 81 mg tablet,chewable 81 mg PO DAILY Qty: 30 2RF omeprazole 20 mg capsule,delayed release(DR/EC) 20 mg PO DAILY 90 Days Qty: 90 1RF Stelara 90 mg/mL syringe 90 mg subcut Q8W Qty: 1 4RF Rx Instructions: starting 8 weeks after induction dose Pt previously treated with Entyvio and complains of HAs and skin rash with Entyvio atorvastatin 80 mg tablet 80 mg PO DAILY Qty: 90 1RF metoprolol tartrate 25 mg tablet 25 mg PO BID Qty: 180 3RF acetaminophen 500 mg Capsule 1,000 mg PO Q6H PRN (Reason: Pain) loperamide 2 mg capsule 2 mg PO Q4H PRN (Reason: loose stool) Qty: 14 0RF Rx Instructions: administer after each loose stool until symptoms controlled; do not exceed 8 mg per 24 hrs dicyclomine 20 mg tablet 20 mg PO TID Qty: 20 0RF budesonide 9 mg tablet,delayed and ext.release 9 mg PO QAM 30 Days Qty: 30 3RF buspirone 7.5 mg tablet 7.5 mg PO BID 90 Days Qty: 180 1RF cholecalciferol (vitamin D3) 250 mcg (10,000 unit) capsule 250 mcg PO 2XW 90 Days Qty: 26 2RF Print Language: Georgian
[2024-07-18 04:09] VITALS: BP 144/89; PULSE 93; RESP 20; TEMP 36.9; O2SAT 98
== END 2024-07-18 04:10 | disposition home or self-care (01) ==
PROVIDERS: Emergency Provider Emergency Medicine; PCP Internal Medicine
DX: R07.9 Chest pain, unspecified (principal); R20.2 Paresthesia of skin; I10 Essential (primary) hypertension; E78.00 Pure hypercholesterolemia, unspecified; I25.2 Old myocardial infarction; Z87.891 Personal history of nicotine dependence; Z79.82 Long term (current) use of aspirin; Z79.02 Long term (current) use of antithrombotics/antiplatelets; Z79.899 Other long term (current) drug therapy
CPT/HCPCS: 36415; 71046; 80053; 84484; 85025; 93005; 99283

== ENCOUNTER → 2024-07-17 22:46 | Outpatient (BNV) | payer MEDICARE, MEDICAID, SELFPAY | PROVIDERS: Emergency Provider Emergency Medicine; PCP Internal Medicine; Visit Provider Internal Medicine Cardiovascular Disease | DX: R00.0 Tachycardia, unspecified (principal) | CPT/HCPCS: 93010 ==

== ENCOUNTER 2024-08-07 08:31 | Outpatient (REF) | payer MEDICARE, MEDICAID, SELFPAY ==
[2024-08-07 09:59] LABS: Alanine Aminotransferase 19 U/L (0-40); Albumin Level 4.3 g/dL (3.5-5.0); Alkaline Phosphatase 60 U/L (39-117); Anion Gap 11 (12-20); Aspartate Amino Transferase 18 U/L (5-37); Bilirubin Total 1.1 mg/dL (0.0-1.0); Blood Urea Nitrogen 10 mg/dL (9-16); Calcium 8.9 mg/dL (8.4-10.2); Carbon Dioxide 24 mmol/L (22-29); Chloride 107 mmol/L (96-108); Cholesterol 153 mg/dL (<200); Estimated Glomerular Filt Rate > 60; Glucose Fasting 102 mg/dL (60-99); HDL Cholesterol 40 mg/dL (>40); LDL Cholesterol Calculated 98 mg/dL (<100); Potassium 3.9 mmol/L (3.3-5.1); Sodium 138 mmol/L (135-145); Total Protein 7.3 g/dL (6.5-8.0); Triglycerides 78 mg/dL (<150)
[2024-08-07 10:20] LABS: Vitamin D 25-OH Total 39.5 ng/mL (>30)
[2024-08-07 10:25] LABS: HBsAGNum1 0.43 S/CO (0.00-0.99); Hepatitis B Surface Antigen Negative (Negative); ~Hepatitis B Surface Antibody NONREACTIVE (Nonreactive)
[2024-08-09 21:33] LABS: TS Negative Control Passed; TS Panel A 0; TS Panel B 0; TS Positive Control Passed; TSpotTB Negative (Negative)
[2024-08-10 03:50] LABS: Hepatitis A Antibody IgG Nonreactive (Nonreactive); ~Hepatitis A Antibody IgG 0.47 S/CO (0.00-0.99)
== END 2024-08-07 08:32 | disposition home or self-care (01) ==
LOC: HO.LAB 08:31
PROVIDERS: Internal Medicine Gastroenterology; PCP Internal Medicine; Visit Provider Internal Medicine
DX: K50.90 Crohn's disease, unspecified, without complications (principal); E78.5 Hyperlipidemia, unspecified; E55.9 Vitamin D deficiency, unspecified; E78.00 Pure hypercholesterolemia, unspecified; K21.9 Gastro-esophageal reflux disease without esophagitis
CPT/HCPCS: 36415; 80053; 80061; 82306; 86481; 86706; 86708; 87340

== ENCOUNTER 2024-10-18 10:45 | Outpatient (REF) | payer MEDICARE, MEDICAID, SELFPAY | END 2024-10-18 10:46 | disposition home or self-care (01) | LOC: HO.LAB 10:45 | PROVIDERS: PCP Internal Medicine; Visit Provider Internal Medicine Gastroenterology | DX: K50.90 Crohn's disease, unspecified, without complications (principal); K21.9 Gastro-esophageal reflux disease without esophagitis; Z79.899 Other long term (current) drug therapy | CPT/HCPCS: 99212 ==

== ENCOUNTER 2024-10-18 10:45 | Outpatient (AMB) | payer MEDICARE, MEDICAID, SELFPAY ==
[2024-10-18 10:51] VITALS: BP 105/71; PULSE 92; O2SAT 96; BMI 34.1
--- NOTE | 2024-10-18 10:51 | MHC.OFFVIS ---
Vital Signs 10/18/24 10:51 Height 5 ft 8 in Weight 224 lb BMI 34.1 BP 105/71 Blood Pressure Location Lt brachial Position Sitting Pulse 92 Pulse Oximetry (%) 96 Oxygen Delivery Method Room Air Intake Visit Reasons: 4m Intake Note: Patient 4 month follow up for Crohn disease Patient cc: middle abdominal pain/discomfort with burning sensation, a lot of soft BM after meals and nighttime. Patient said he have to wake up and used bathroom/BM.. Stockroom Coordinator Required: No Accompanied by: Self / Same As Patient Allergies Seasonal Allergies Allergy (Intermediate, Verified 10/18/24 11:44) eye swelling, itch vedolizumab (From Entyvio) Adverse Reaction (Intermediate, Verified 10/18/24 11:44) Rash Medication List - Last Reconciled 10/18/24 by Rodolfo Vazquez MD acetaminophen 1,000 mg PO Q6H PRN aspirin 81 mg PO DAILY atorvastatin 80 mg PO DAILY budesonide DR-ER 9 mg PO QAM 30 days buspirone 7.5 mg PO BID 90 days cholecalciferol (vitamin D3) 250 mcg PO 2XW 90 days dicyclomine 20 mg PO TID loperamide 2 mg PO Q4H PRN metoprolol tartrate 25 mg PO BID omeprazole 20 mg PO DAILY 90 days ustekinumab (Stelara) 90 mg subcut Q8W 2 doses HPI HPI 4m: Details: GI CLINIC VISIT FOR THIS 54 YM FOR FU of CROHN'S DISEASE. TODAY'S VISIT: Patient cc: middle abdominal pain/discomfort with burning sensation, a lot of soft BM after meals and nighttime. Patient said he have to wake up and used bathroom/BM. Notes periumblical pain and a burning sensation after eating and wakes up at night. Pain resolves after he has a BM. Wakes up 2-3 times at night. Has 5-6 soft, non-bloody BMs a day. Last Stelara injection was on 09/26/24 and next injection is scheduled on 11/21/24 Took antibiotics for a tooth infection a few weeks ago. PAST VISITS: Colonoscopy results were reviewed with the patient Scheduled for an MRI of the head this month Having 3-4 BMs a day without blood. BMs are becoming hard after he gets the Stelara. Wakes up at 3 am to have a BM Next Stelara injection is scheduled on 08/01/24 Symptoms are improving since he started the Stelara. Still having frequent small soft to watery non-bloody BMs - sometimes 6 times a day Has to wake up at night to go to the bathroom Pt denies abdominal pain - prednisone helped. [place] [facility] [place]: Hospital course The patient was admitted for LLQ pain with diarrhea secondary to viral enteritis as stool panel was positive for Astrovirus PCR. no evidence of flare up of IBD as he was evaluated by GI who recommended symptomatic measures. Treated with IV fluids , empirical IV antibiotics of Flagyl and Ceftriaxone until stool panel came back. His diet was advanced gradually with good tolerance. To be discharged on Zofran and Imodium as needed. Advised to remain well hydrated. He was found to have Acute hypokalemia which he recieved IV and PO replacement with good response. Discharge plan Use Zofran as needed for nausea Use Imodium as needed for diarrhea Advance your diet gradually over the next few days COMMENT:? No dysplasia or granulomata are identified. Repeat Colon advised in 1-2 yrs ADDENDUM: Pt reported skin rash of hands and feet after getting Entyvio (Vedolizumab) in June,? and did not go for his infusion in July or August. Rash resolved after a few days. Pt was advised to reschedule his appt for Entyvio to be administered after premedication with Benadryl 50 mg IV and acetaminiphen 625 mg PO. New order sent to Short Stay. Patient denies any GI issues for today, also patient wanted to change entyvio infusion for tablets,he talk with insurance and they will approved the med. Last Entyvio infusion was in September, Patient denies any recurrent diarrhea since he was discharged from the hospital. BMs are less frequent since he was discharged - having a BM once a day. Notes MELÉNDEZ and pressure in the back after getting the Entyvio and would like to change to oral medication Next infusion is scheduled on 10/10/23 Pt handout given on Upadacitinib (Rinovoq) Prescription was sent for Upadacitinib (Rinovoq) 45 mg daily x 12 weeks for induction Pt is interested in switching to oral medication for Crohn's disease if possible. Still going to the bathroom a lot - 6-7 times during the day and 2-3 times at night. Takes imodium prn sometimes when he notes watery diarrhea. Denies abdominal pain. Doing well - no problems with Entyvio infusions Denies itching after infusions since benadryl is given before the infusion. Next Entyvio infusion on 04/27/23. Denies skin rash after Entyvio and noted itching on the day of the infusion - resolves by the next day. Notes hair loss on lateral aspects of both lower extermities x past 2 months. Has 3-4 solid to soft BMs during the day and 3 times at night (2 am, 3 am and 4-5 am) Has BMs at night if he ate late at night. Frequency of BMs is slowly improving. Previously had LLQ pain and post prandial diarrhea which has resolved. Has 6-7 BMs a day and 2-4 episodes at night Noted a panic attack and shortness of breath yesterday after getting the IV benadryl Taking a medication for the skin rash which is going away. Doing OK. Denies abd pain, diarrhea or rectal bleeding. Has been going to the bathroom less. 5 BMs during the day and 5 BMs at night - denies diarrhea.Takes imodium prn. Taking iron and vitamin C. Last Entyvio infusion on 04/13/21. Notes large non-bleeding hemorrhoids. Stopped azathioprine since it caused heartburn. [place] better for 1-2 weeks. Has to go to the bathroom every time he eats. Notes abdominal pain and diarrhea - 10-15 BMs a day BMs are loose to watery and denies blood in the stools Lost 2 lbs. Denies recent antibiotics. Takes Omeprazole for heartburn. Patient denies symptoms of heartburn, dysphagia, nausea, vomiting, change in appetite or weight.? Patient denies major cardiac or pulmonary problems, loud snoring or sleep apnea Denies problems with anesthesia in the past. Denies being on chronic anticoagulation. Patient denies known family history of colon polyps, colon cancer or other GI malignancy Past workup: ?10/09/[address] Hall, revealed colitis from the rectum to the tranverse colon near the hepatic flexure. Rectal Bx- Pos for mod active chronic colitis, suggestive of IBD. NO bxs taken from L, R, transverse colon or terminal ileum. Cardiac workup was essentially normal per pt. Told needs to lose wt. Dr. Nunez, health benefits specialist. Last seen 12/30/14-f/u 1 yr. On metroprolol due to extra beats . Labs: 09/10/14 No anemia, CRP < 0.30, normal CMP 09/30 PROMETHEUS IBD pattern consistent w/ Crohn's. CRP 2.67. C. Diff and Celiac panel Neg. TSH 0.82. PAST TREATMENTS: Asacol 800 mg twice daily, increased to three times daily after a flare Predniosne taper Apr 2016 started on Remicade infusion 5 mg/kg every 8 weeks August 2016 Remicade was increased to 10 milligram/kilogram every 8 weeks and then every 4 weeks June 2019 Switched to Entyvio every 8 weeks 07/27/19. Entyvio lvl measured and was lower than it should be suggesting some development of antibodies to the medication. Entyvio infusion 08/16/19. Bloodwork was also done around this time and not improved. WBC 97737 higher than usual. He sometmes runs a mild leukocytosis but not to this level. Last time his WBC was during the time of last admission to hospital and he did have c. diff present. 14.9/43.4. CRP is progressively elevated. 0.68 2.4 on 07/27/19. 4.23 on 08/16/19. Stool c. diff negative, Stool WBC negative 07/30/19. Last imaging on record is from March 2019. Colitis extending from mid transverse colon to the rectum. No drainable fluid collections. No pelvic fluid.Genetic assessment has been consistent with Crohn's (clinical presentation has been most consistent with ulcerative colitis). 04/2018 colonoscopy showed mild chronic inactive colitis on the left side.Reminder: in April 2019 he did have c. diff infection which was treated. Recheck on this by us in early July was negative LABS:??08/2021?Vedolizumab antibodies were negative IMAGING STUDIES:? 09/11/[address] SCAN SHOWED: GASTROINTESTINAL TRACT: The appendix has been removed. There is moderate stool in the right colon there is air-fluid level in transverse colon and nondistended descending colon with mild mural thickening and mild fat stranding likely colitis. No diverticulitis seen. No extravasation of contrast seen to suspect any bleed at this time. ABDOMINAL WALL: No significant hernia is appreciated. IMPRESSION: Diffuse mural thickening involving the descending and sigmoid colon with mild pericolic stranding in the descending colon suggestive of colitis. No diverticuli seen. Similar findings were seen on the previous exam 04/11/2020. Appendix has been surgically removed. ENDOSCOPIC STUDIES:?05/2024: BIOPSIES SHOWED: A. Terminal ileum, biopsy: Ileal mucosa with no specific change; no ileitis, granulomas or dysplasia. B. Colon, cecum, biopsy: Chronic colitis with minimal activity; no granulomas or dysplasia. C. Colon, ascending, biopsy: Focal chronic colitis with mild activity; no granulomas or dysplasia. D. Colon, transverse, polyps: Inflammatory polyps with granulation tissue and erosion; negative for dysplasia. E. Colon, transverse, biopsy: Chronic colitis with mild activity; no granulomas or dysplasia. F. Colon, sigmoid, biopsy: Chronic colitis with mild activity; no granulomas or dysplasia. G. Colon, rectum, biopsy: Chronic colitis/proctitis with mild activity; no granulomas or dysplasia 08/2021 COLONOSCOPY SHOWED: Eight medium to large sized polyps removed - ? pseudopolyps versus adenomas Moderate hemorrhoids on retroflexed exam. Plan:? Repeat Colonoscopy in 12 months and if several polyps are adenomatous, pt will be referred to a colorectal surgeon for a total colectomy Above findings were reviewed with the patient and colon polyps handout was given in the discharge area BIOPSIES SHOWED: A.? Colon, ascending, biopsy:? Chronic inactive colitis. B.? Colon, transverse at 65 cm, polypectomy:? Inflammatory polyp. C.? Colon, transverse at 60 cm, polypectomies (4):? Inflammatory polyps. D.? Colon, transverse at 50 cm, polypectomies (2):? Inflammatory polyps. E.? Colon, sigmoid, biopsy:? Chronic inactive colitis. Colonoscopy from Apr 2018 showed?moderate chronic inactive colitis in 3 different biopsies. 2016 EGD?showed Grade 2 distal esophagitis with a small hiatal hernia (no H. pylori was found).I will have him start Pantoprazole once daily in the AM. The colonoscopy showed inflamation continuous from the ano-rectal verge. The pathology confirmed inflamatory pseudo polyps and moderate chronic active colitis with no evidence for dysplasia [facility] Medical History Hand pain GERD (gastroesophageal reflux disease) Myocardial infarction Iron deficiency anemia due to chronic blood loss Medicare annual wellness visit, initial Lipoma of arm Mass of hand Cyst in hand CAD (coronary artery disease) Hypertension NSTEMI (non-ST elevated myocardial infarction) Acute coronary syndrome Essential (primary) hypertension Crohn disease Hearing loss in right ear History of acoustic neuroma Surgical History Status post excision of lipoma History of surgery on arm History of brain tumor S/P cardiac cath (~01/2020) Stented coronary artery Hx of colonoscopy Hx of appendectomy Family History Father Stroke Mother No problems noted. Maternal Uncle Heart attack Social History Household Members: Spouse Housing: House Do you presently have visiting nurse or other home services: No Alcohol intake: former Patient Tobacco Use Status: Former Tobacco user Tobacco use type: Cigarette Cigarette Packs Per Day: 1 e-Cigarette/Vaping Use: Never Used Second Hand Smoke Exposure: No service: No Current occupational status: disabled Cognitive needs: No Hearing needs: No Vision needs: No Review of Systems Const All systems reviewed & are unremarkable except as noted in HPI and below Physical Exam Vital Signs: Last Vital Signs Pulse 92 10/18/24 10:51 BP 105/71 10/18/24 10:51 Pulse Ox 96 10/18/24 10:51 Oxygen Delivery Method Room Air 10/18/24 10:51 BMI result Body Mass Index 34.1 Const General: healthy appearing and no acute distress Nutritional Appearance: average body habitus Orientation/consciousness: patient oriented x3 Limitations: no limitations HEENT Head: Yes normal to inspection Ears: hearing grossly normal bilaterally Mouth: Normal oral and palatal mucosa present Eyes Sclerae: sclerae normal Pupils: Equal, round and reactive pupils present Neck Neck: Yes normal visual inspection Chest Chest palpation & inspection: normal inspection of the chest Resp Effort & Inspection: normal respiratory effort Auscultation: clear to auscultation bilaterally Cardio Palpation: normal PMI Rate: regular rate Rhythm: regular rhythm Heart sounds: S1 normal heart sound present, S2 normal heart sound present and no murmurs GI Palpation (GI): Soft to palpation, nontender and No hepatosplenomegaly present Auscultation: normal bowel sounds Rectal Exam - Male: Yes deferred Skin General skin exam: no rashes or lesions noted Neuro General: patient oriented x3, gait normal and moves all extremities Cranial nerves: Yes Equal, round and reactive pupils present Psych Appearance: grossly normal Mental Status: mental status grossly normal Assessment & Plan Assessment & Plan (1) Crohn disease: Code(s): K50.90 - Crohn's disease, unspecified, without complications Category: Medical Qualifiers: Digestive disease complication type: without complication Gastrointestinal tract location: unspecified location Qualified Code(s): K50.90 - Crohn's disease, unspecified, without complications (2) GERD (gastroesophageal reflux disease): Code(s): K21.9 - Gastro-esophageal reflux disease without esophagitis Category: Medical Qualifiers: Esophagitis presence: esophagitis presence not specified Qualified Code(s): K21.9 - Gastro-esophageal reflux disease without esophagitis Plan 54 YM with CAD status post stent placement and on aspirin and Plavix and a hx of Crohn's disease diagnosed in 2012 (on Entyvio every 4 weeks) seen for FU after [place] [facility] [place] with worsening diarrhea and bloody stools and lower abdominal pain.? Abdominal CT scan showed moderate stool in the right colon with air-fluid level in transverse colon and non-distended descending colon with mild mural thickening and mild fat stranding likely colitis. No diverticulitis. Patient was treated with IV steroids and discharged on p.o. prednisone 40 mg daily.? Entyvio was increased to every 4 weeks.? Last in Entyvio infusion on 09/13/22 and next infusion is scheduled on 10/11/2022 Pt notes improvement in symptoms - reports 3-4 BM during the day and 3 BMs at night. Patient was prescribed azathioprine 50 mg daily (TPMT enzyme activity was normal) and stopped due to heartburn. 08/2021 COLONOSCOPY SHOWED: Eight medium to large sized polyps removed - ? pseudopolyps versus adenomas Moderate hemorrhoids on retroflexed exam. Plan:? Repeat Colonoscopy in 2 yrs (due 09/2023) BIOPSIES SHOWED: A.? Colon, ascending, biopsy:? Chronic inactive colitis. B.? Colon, transverse at 65 cm, polypectomy:? Inflammatory polyp. C.? Colon, transverse at 60 cm, polypectomies (4):? Inflammatory polyps. D.? Colon, transverse at 50 cm, polypectomies (2):? Inflammatory polyps. E.? Colon, sigmoid, biopsy:? Chronic inactive colitis. COMMENT:? No dysplasia or granulomata are identified. Pt advised to have labs and fecal calprotectin checked to confirm Crohn's disease is in remission 10/06/23 Patient denies any recurrent diarrhea since he was discharged from the hospital. BMs are less frequent since he was discharged - having a BM once a day. Notes MELÉNDEZ and pressure in the back after getting the Entyvio and would like to change to oral medication since he does not want to come in every month and be poked with needles Reviewed option of switching to Entyvio 108 mg subcutaneous every 2 weeks - pt would like to switch to oral medication Next Entyvio infusion is scheduled on 10/10/23 and pt plans to proceed. Pt handout given on Upadacitinib (Rinovoq) which was not approved by his insurance. Pt was started on Stelara on 02/13/24 - next SQ injection scheduled on 04/09/24 in short stay (as per pt's request) 03/22/24 Symptoms are improving since he started the Stelara. Still having frequent small soft to watery non-bloody BMs - sometimes 6 times Has to wake up at night to go to the bathroom Pt denies abdominal pain - prednisone helped. Patient was advised to start budesonide 9 mg daily and continue Stelara 90 mg every 8 weeks 06/19/24 Having 3-4 BMs a day without blood. BMs are becoming hard after he gets the Stelara. Wakes up at 3 am to have a BM Next Stelara injection is scheduled on 08/01/24 10/18/24 Notes periumblical pain and a burning sensation after eating and wakes up at night - resolves after he has a BM. Has 5-6 soft, non-bloody BMs a day. Last Stelara injection was on 09/26/24 and next injection is scheduled on 11/21/24 Took antibiotics for a tooth infection a few weeks ago Pt advised to have stool studies to rule out C diff colitis. Check Stelara levels and antibody prior to next injection - Hold Q orders placed to be drawn in short stay. FU in 2 months - scheduled 01/17/25 Orders: Orders Calprotectin, Fecal 10/18/24 K50.90 - Crohn's disease, unspecified, without complications CDiff Gene PCR 10/18/24 K50.90 - Crohn's disease, unspecified, without complications Coding Level of Care Code Est Pt Level 4 (93199) Complex EM visit Add On G2211 Diagnoses Crohn's disease without complication, unspecified gastrointestinal tract location K50.90 Digestive disease complication type: without complication Gastrointestinal tract location: unspecified location Gastroesophageal reflux disease, unspecified whether esophagitis present K21.9 Esophagitis presence: esophagitis presence not specified Time Spent (min) 18
== END 2024-10-18 12:26 | disposition home or self-care (01) ==
LOC: HO.HGI 10:45
PROVIDERS: PCP Internal Medicine; Visit Provider Internal Medicine Gastroenterology
DX: K50.90 Crohn's disease, unspecified, without complications (principal); K21.9 Gastro-esophageal reflux disease without esophagitis
CPT/HCPCS: 99214; G2211

== ENCOUNTER 2024-11-12 10:19 | Outpatient (AMB) | payer MEDICARE, MEDICAID, SELFPAY ==
--- NOTE | 2024-11-12 10:20 | MHC.PC.OV ---
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 Accompanied by: Self / Same As Patient Allergies Seasonal Allergies Allergy (Intermediate, Verified 11/12/24 10:35) eye swelling, itch vedolizumab (From Entyvio) Adverse Reaction (Intermediate, Verified 11/12/24 10:35) Rash Medication List - Last Reconciled 11/12/24 by Chely Lopez MD acetaminophen 1,000 mg PO Q6H PRN aspirin 81 mg PO DAILY atorvastatin 80 mg PO DAILY budesonide DR-ER 9 mg PO QAM 30 days buspirone 7.5 mg PO BID 90 days cholecalciferol (vitamin D3) 250 mcg PO 2XW 90 days dicyclomine 20 mg PO TID loperamide 2 mg PO Q4H PRN metoprolol tartrate 25 mg PO BID omeprazole 20 mg PO DAILY 90 days ustekinumab (Stelara) 90 mg subcut Q8W 2 doses Tobacco use date assessed: 11/12/24 Dental Screening Dental Screen Date: 11/12/24 Did you have a dental visit in the last 12 months?: Yes Did you have a dental problem in the last 6 months where you did not have access to dental care?: No Was dental information given to patient?: Patient has dentist HPI HPI Comments History of Present Illness Details The patient is a 54-year-old male presenting with an annual physical examination and management of Crohn's disease. The patient has a history of Crohn's disease, for which he underwent a colonoscopy earlier this year. He is currently on medications including Budesonide, Buspirone, Vitamin D, Dicyclomine, Loperamide, Metoprolol, Omeprazole, and Stelara for Crohn's disease management. He experiences diarrhea frequently and uses Loperamide as needed. The patient has a history of an allergic reaction to alcohol and a rash from Entyvio, which was described as medium in severity. His surgical history includes coronary artery stent placement, lipoma removal, and appendectomy. His father had hypertension, and his mother, who is alive, shares similar cardiac conditions and medications. The patient has a history of smoking and alcohol use, both of which he has ceased. His last laboratory tests in July showed excellent results, including good cholesterol levels. COUNT INCLUDES THE [facility] Medical History (Updated 11/12/24 @ 10:46 by Chely Lopez MD) Hand pain GERD (gastroesophageal reflux disease) Myocardial infarction Iron deficiency anemia due to chronic blood loss Medicare annual wellness visit, initial Lipoma of arm Mass of hand Cyst in hand CAD (coronary artery disease) Hypertension NSTEMI (non-ST elevated myocardial infarction) Acute coronary syndrome Essential (primary) hypertension Crohn disease Hearing loss in right ear History of acoustic neuroma Surgical History Status post excision of lipoma History of surgery on arm History of brain tumor S/P cardiac cath (~01/2020) Stented coronary artery Hx of colonoscopy Hx of appendectomy Family History Father Stroke Mother No problems noted. Maternal Uncle Heart attack Social History Household Members: Spouse Housing: House Do you presently have visiting nurse or other home services: No Alcohol intake: former Patient Tobacco Use Status: Former Tobacco user Tobacco use type: Cigarette Cigarette Packs Per Day: 1 e-Cigarette/Vaping Use: Never Used Second Hand Smoke Exposure: No service: No Current occupational status: disabled Cognitive needs: No Hearing needs: No Vision needs: No Questionnaire PHQ-9 Over the last 2 weeks, how often have you been bothered by any of the following problems? 1. Little interest or pleasure in doing things: not at all 2. Feeling down, depressed, or hopeless: not at all 3. Trouble falling or staying asleep, or sleeping too much: not at all 4. Feeling tired or having little energy: not at all 5. Poor appetite or overeating: not at all 6. Feeling bad about yourself - or that you are a failure or have let yourself or your family down: not at all 7. Trouble concentrating on things, such as reading the newspaper or watching television: not at all 8. Moving or speaking so slowly that other people could have noticed. Or the opposite - being so fidgety or restless that you have been moving around a lot more than usual: not at all 9. Thoughts that you would be better off or of hurting yourself in some way: not at all Total score: 0 Depression Screening Interpretation: Negative Depression Screening Done: Yes 45231 - PHQ-9 Billing: Yes Source: Developed by Drs. Amilcar Miles, Keiko Michel, Chan Rae and colleagues, with an educational mayte from [employer]. Thrive Questionnaire Date Thrive assessed: 11/12/24 I am a: Patient What is your living situation today?: I have a steady place to live Within the past 12 months, did the food you bought not last and you didn't have the money to get more?: Never true Within the past 12 months, did you worry whether your food would run out before you got money to buy more?: Never true Do you have trouble paying for medicines?: No Do you have trouble getting transportation to medical appointments?: No Do you have trouble paying your heating and electricity bill?: No Do you have trouble taking care of your child, family member or friend?: No Do you have trouble with day-to-day activities such as bathing, preparing meals, shopping, managing finances, etc.?: No Are you currently unemployed and looking for a job?: No Are you interested in more education?: No Please select the resources that you would like help with: None Currently or been in a relationship where the following occur: No concerns reported THRIVE Score: 0 AUDIT C Alcohol Use Questionnaire (AUDIT-C) 1. How often do you have a drink containing alcohol?: Never Total Score: 0 Score Reviewed/Action Taken: No CT-[address] - 7 assessed: 11/12/24 Feeling nervous, anxious, or on edge: 3 = Nearly every day Not being able to stop or control worryin = Several days Worrying too much about different things: 3 = Nearly every day Trouble relaxin = Several days Being so restless that it is hard to sit still: 0 = Not at all Becoming easily annoyed or irritable: 1 = Several days Feeling afraid as if something awful might happen: 0 = Not at all Total CT-7 score (0-4 normal; 5-9 mild; 10-14 moderate; 15-21 severe): 9 Source: Developed by Drs. Amilcar Miles, Keiko Michel, Chan Rae and colleagues, with an educational mayte from [employer]. CT-[address]: [address]-7 Assessment 27216 Review of Systems Const All systems reviewed & are unremarkable except as noted in HPI and below Card Denies chest pain at rest, Denies chest pain with activity, Denies edema, Denies irregular heart rhythm, Denies claudication, Denies dyspnea, Denies dyspnea on exertion, Denies orthopnea, Denies paroxysmal nocturnal dyspnea and Denies slow heart rate Resp Denies cough, Denies dyspnea and Denies dyspnea on exertion GI Denies abdominal pain, Denies change in bowel habits, Denies excessive flatus, Denies nausea and Denies vomiting Denies urinary hesitancy, Denies urinary incontinence and Denies urinary urgency Musc Denies abnormal gait, Denies atrophy, Denies deformity and Denies limited range of motion Skin/Breast Denies bleeding lesions, Denies changing lesions and Denies rash Neuro Denies abnormal gait, Denies behavioral changes and Denies lack of coordination Psych Denies behavioral changes Physical exam (Primary Care) Vital Signs: Last Vital Signs Temp 97.3 F 11/12/24 10:21 Pulse 87 11/12/24 10:21 Resp 18 11/12/24 10:21 BP 120/76 11/12/24 10:21 Pulse Ox 96 11/12/24 10:21 Oxygen Delivery Method Room Air 11/12/24 10:21 BMI result Body Mass Index 34.3 Tobacco/Smoking Status: Tobacco use Status Tobacco use date assessed 11/12/24 11/12/24 10:32 Patient Tobacco Use Status Former Tobacco user 11/12/24 10:32 Tobacco use type Cigarette 11/12/24 10:32 e-Cigarette/Vaping Use Never Used 11/12/24 10:32 PHQ-9: PHQ-9 Score PHQ-9: Total score 0 11/12/24 10:38 Depression Screening Interpretation: Negative Thrive Assessment: Date of Thrive Assessment Date Thrive assessed 11/12/24 11/12/24 10:32 Currently or been in a relationship where the following occur: No concerns reported HENMT Head: Yes normal to inspection, Yes normocephalic and Yes atraumatic Ears: external ears normal Eyes General: appearance normal, both eyes and all related structures Eyelids: Yes eyelids normal Conjunctivae: conjunctivae normal Neck Neck: Yes normal visual inspection and Yes supple Resp Effort & Inspection: normal respiratory effort Auscultation: clear to auscultation bilaterally Cardio Jugular venous distension: no JVD Rate: regular rate Rhythm: regular rhythm Heart sounds: S1 normal heart sound present and S2 normal heart sound present GI Inspection: Yes normal to inspection Palpation (GI): Soft to palpation and nontender Auscultation: normal bowel sounds Skin General skin exam: no rashes or lesions noted Neuro General: no focal motor deficits Extrem General: Yes full ROM Psych Appearance: grossly normal Immunizations Boostrix Tdap 2.5 Lf unit-8 mcg-5 Lf/0.5 mL intramuscular syringe Performing Provider: Chely Lopez MD [facility] Administered by: Beulah Michelle RN on 11/12/24 10:50 Dose Route Admin Location Dispensed Lot Number Expiration Date NDC 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 G 0.5 mL IM Left Deltoid 0.5 mL [id number] 01/11/27 56275-876-50 velingo Total Dispensed Waste 0.5 mL 0 % VIS Given Date VIS Provided VIS Publication Date 11/12/24 Single Vaccine 20 Eligibility Eligibility Date Funding Source Not [facility] Eligible 11/12/24 Private Coding Level of Care Code Est Pt Level 3 (46074) Est Pt Prev Care 40-64y(81765) Diagnoses Physical exam Z00.00 Crohn's disease without complication, unspecified gastrointestinal tract location K50.90 Digestive disease complication type: without complication Gastrointestinal tract location: unspecified location Right knee pain M25.561 Left knee pain M25.[address]-7 Assessment Billing - CT-7 Assessment Tool: CT-7 Assessment 02190 ([id number]) PHQ-9 - 60600 - PHQ-9 Billing: Yes ([id number]) Time Spent (min) 33 Assessment & Plan Assessment & Plan (1) Physical exam: Code(s): Z00.00 - Encounter for general adult medical examination without abnormal findings Category: Medical (2) Crohn disease: Code(s): K50.90 - Crohn's disease, unspecified, without complications Category: Medical Qualifiers: Digestive disease complication type: without complication Gastrointestinal tract location: unspecified location Qualified Code(s): K50.90 - Crohn's disease, unspecified, without complications (3) Right knee pain: Code(s): M25.561 - Pain in right knee Category: Medical (4) Left knee pain: Code(s): M25.562 - Pain in left knee Category: Medical Plan The patient will continue with his current medication regimen for Crohn's disease, including Budesonide, Buspirone, Vitamin D, Dicyclomine, Loperamide, Metoprolol, Omeprazole, and Stelara. Refills for Loperamide will be provided to manage diarrhea as needed. The patient received a Tdap vaccination during this visit. He is advised to continue monitoring his Crohn's disease with regular follow-ups and colonoscopies as necessary. The patient is encouraged to maintain his abstinence from smoking and alcohol to support his overall health. Patient was informed and verbally consented to the use of an ambient scribe for clinic note documentation during this visit. Orders: Orders XR knee RT 2V Today M25.561 - Pain in right knee TDaP Immunization Today Z23 - Encounter for immunization XR knee LT 2V Today M25.562 - Pain in left knee Referrals Orthopedics Referral M25.561 - Pain in right knee, M25.562 - Pain in left knee
[2024-11-12 10:21] VITALS: BP 120/76; PULSE 87; RESP 18; TEMP 36.3; O2SAT 96; BMI 34.3
== END 2024-11-12 10:57 | disposition home or self-care (01) ==
LOC: HO.HMCH 10:20
PROVIDERS: PCP Internal Medicine; Visit Provider Internal Medicine
DX: Z00.00 Encounter for general adult medical examination without abnormal findings (principal); K50.90 Crohn's disease, unspecified, without complications; M25.561 Pain in right knee; M25.562 Pain in left knee; Z23 Encounter for immunization

== ENCOUNTER → 2024-11-12 10:19 | Outpatient (BNVA) | payer MEDICARE, MEDICAID, SELFPAY | PROVIDERS: PCP Internal Medicine; Visit Provider Internal Medicine | DX: Z00.00 Encounter for general adult medical examination without abnormal findings (principal); Z23 Encounter for immunization; K50.90 Crohn's disease, unspecified, without complications; M25.561 Pain in right knee; M25.562 Pain in left knee; I10 Essential (primary) hypertension; K21.9 Gastro-esophageal reflux disease without esophagitis; I25.10 Atherosclerotic heart disease of native coronary artery without angina pectoris | CPT/HCPCS: 90471; 90715; 96127; 99212; 99396 ==

== ENCOUNTER 2025-01-09 08:37 | Outpatient (AMB) | payer MEDICARE, MEDICAID, SELFPAY ==
--- NOTE | 2025-01-09 08:49 | A.OFFVIS_ITS ---
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 He describes his pains as sharp in nature. He did have cortisone injections in the past which gave him fairly good relief. He has tried Tylenol which gives him only mild relief. He wishes to hold off on surgery if at all possible. Allergies Seasonal Allergies Allergy (Intermediate, Verified 01/09/25 08:52) eye swelling, itch vedolizumab (From [employer]) Adverse Reaction (Intermediate, Verified 01/09/25 08:52) Rash Medication List - Last Reconciled 01/09/25 by Ramses Calvillo MD acetaminophen 1,000 mg PO Q6H PRN aspirin 81 mg PO DAILY atorvastatin 80 mg PO DAILY budesonide DR-ER 9 mg PO QAM 30 days buspirone 7.5 mg PO BID 90 days cholecalciferol (vitamin D3) 250 mcg PO 2XW 90 days dicyclomine 20 mg PO TID loperamide 2 mg PO Q4H PRN metoprolol tartrate 25 mg PO BID omeprazole 20 mg PO DAILY 90 days ustekinumab (Stelara) 90 mg subcut Q8W 2 doses PFSH Medical History Hand pain GERD (gastroesophageal reflux disease) Myocardial infarction Iron deficiency anemia due to chronic blood loss Medicare annual wellness visit, initial Lipoma of arm Mass of hand Cyst in hand CAD (coronary artery disease) Hypertension NSTEMI (non-ST elevated myocardial infarction) Acute coronary syndrome Essential (primary) hypertension Crohn disease Hearing loss in right ear History of acoustic neuroma Surgical History Status post excision of lipoma History of surgery on arm History of brain tumor S/P cardiac cath (~01/2020) Stented coronary artery Hx of colonoscopy Hx of appendectomy Family History Father Stroke Mother No problems noted. Maternal Uncle Heart attack Social History (Updated 01/09/25 @ 08:54 by AVA Pendleton) Household Members: Spouse Housing: House Do you presently have visiting nurse or other home services: No Alcohol intake: former Patient Tobacco Use Status: Former Tobacco user Tobacco use type: Cigarette Cigarette Packs Per Day: 1 e-Cigarette/Vaping Use: Never Used Second Hand Smoke Exposure: No service: No Current occupational status: disabled Cognitive needs: No Hearing needs: No Vision needs: No Physical Exam Vital Signs: BMI result Body Mass Index 34.2 Const Other: Well-nourished well-developed very friendly male awake alert and oriented x3 in no acute distress Extrem Other: Bilateral knee examination shows minimal effusions, palpable crepitus with range of motion, pain with range of motion, no instability Office Procedures AMB Joint Injection/Aspiration Joint Injection/Aspiration Primary Site: left knee Prep: site was prepped using aseptic technique Injected: 40 mg of, DepoMedrol and 1% plain lidocaine Procedure: The patient tolerated the procedure well Coding 89344 - Large joint Procedure code (CPT) selection complete AMB Joint Injection/Aspiration Joint Injection/Aspiration Primary Site: right knee Prep: site was prepped using aseptic technique Injected: 40 mg of, DepoMedrol and 1% plain lidocaine Procedure: The patient tolerated the procedure well Coding 51336 - Large joint Procedure code (CPT) selection complete Results Reviewed Results Reviewed: X-rays of the patient's bilateral knee show moderate diffuse joint space narrowing, subchondral sclerosis, no acute bony abnormalities Assessment & Plan Assessment & Plan (1) Osteoarthritis of left knee: Code(s): M17.12 - Unilateral primary osteoarthritis, left knee Category: Medical (2) Osteoarthritis of right knee: Code(s): M17.11 - Unilateral primary osteoarthritis, right knee Category: Medical Plan Mr. Ibarra presents with bilateral knee pains due to osteoarthritis. The risks and benefits of bilateral knee cortisone injections were discussed at length with the patient. The patient wished to proceed. He tolerated the injections well. He will continue with his activity modifications. He will contact me prior to his follow-up appointment in 3 months should any questions or concerns arise. Feel free to call me at any time should questions regarding his orthopedic management arise. Thank you very much for asking me to see this very friendly gentleman. I spent 21 minutes in reviewing the patient's records and imaging studies, seeing the patient and documenting in the medical record. Orders: Orders AMB Joint Injection/Aspiration Today M17.11 - Unilateral primary osteoarthritis, right knee XR Knee Diego 3V Today M25.561 - Pain in right knee, M25.562 - Pain in left knee AMB Joint Injection/Aspiration Today M17.12 - Unilateral primary osteoarthritis, left knee Coding Level of Care Code New Pt Level 3 (81751) Complex EM visit Add On G2211 Diagnoses Osteoarthritis of left knee M17.12 Osteoarthritis of right knee M17.11 CPT Codes Coding - 18436 Large joint: 78601 - Large joint ([id number]) Coding - 33149 Large joint: 35872 - Large joint ([id number])
[2025-01-09 08:51] VITALS: BMI 34.2
== END 2025-01-09 09:08 | disposition home or self-care (01) ==
LOC: HO.HOS 08:38
PROVIDERS: PCP Internal Medicine; Visit Provider Orthopaedic Surgery
DX: M17.0 Bilateral primary osteoarthritis of knee (principal)
CPT/HCPCS: 20610; 99203

== ENCOUNTER → 2025-01-09 08:39 | Outpatient (BNV) | payer MEDICARE, MEDICAID, SELFPAY | PROVIDERS: Visit Provider Radiology Diagnostic Radiology | DX: M17.0 Bilateral primary osteoarthritis of knee (principal) | CPT/HCPCS: 73562 ==

== ENCOUNTER 2025-01-09 11:16 | Outpatient (REF) | payer MEDICARE, MEDICAID, SELFPAY ==
--- NOTE | ~2025-01-09 | XR_ITS ---
CLINICAL HISTORY: Bilateral knee pain Three views of the right and left knees. COMPARISON: None provided. FINDINGS: Atherosclerotic vascular calcifications. Right knee: No right suprapatellar joint effusion. Medial joint space narrowing. Small osteophytes present along the medial and patellofemoral compartments. Visualized portions of the right femur, patella, tibia and fibula appear intact. Fabella present. Left knee: No left suprapatellar joint effusion. Medial joint space narrowing. Small osteophytes present along the patellofemoral and medial compartments. Visualized portions of the left femur, patella, tibia and fibula appear intact. Fabella present. IMPRESSION: 1. No radiographic evidence of acute injury to the right and left knees. 2. Mild degenerative changes of the bilateral knees most pronounced within the medial compartments. This document has been electronically signed by: Devin Corbett MD on 01/10/2025 16:53:56
--- OUTSIDE RECORDS SUMMARY | 2025-01-10 14:19 | XMS_ITS | Data Portability ---
Author Organization [place] - [facility], Allergy Address [address] [place] [address] Care Team Providers Care Deckhand [employer] Name Role Phone CHELY DUNCAN Primary Care Provider [phone] Assessment Encounter Date Assessment Date Assessment LastModified by Organization Details LastModified Time 05/24/2024 05/24/2024 Recommendatio ns: Follow up with referring provider. [email or web address] Not available 05/24/2024 10:54:52 Plan of Treatment Reminders Order Date Submit Date Provider Last Modified By Organization Details Last Modified Time Details Appointments None recorded. Lab None recorded. Referral None recorded. Procedures None recorded. Surgeries None recorded. Imaging MRI, brain + internal auditory canal, w/wo contrast - MRI, BRAIN + INTERNAL AUDITORY CANAL, W/WO CONTRAST see 2024 026 [email or web address] 14 [facility] ([facility] [address] [place], [address], 15:55:02 Medication Orders None recorded. Patient TargetsNo [...] Sensorineur al hearing loss in right ear [id number] 0 Active 2024 DANIEL HU, AuD [address], [place], [address], [facility] - [facility] 11:08:50 Acoustic neuroma of right vestibular nerve [id number] 9106 Active 2024 VIOLET LUNA MD [address], [address], [facility] 12:04:52 Problem Notes None recorded. Procedures Surgical History Date Name Laterality Status Provider Name and Address Organization Details Recorded Time 05/25/19 Comp Audio with Tymps - 06639 & 74462 completed Ivan PERLA [address],[facility] [address], [place], [address], [facility] 05/24/2024 11:07:35 excision of lipoma completed Chely Mccurdy [facility] 05/24/2024 11:07:35 Appendectomy completed Chely Mccurdy [facility] 05/24/2024 11:08:05 placement of stent in coronary artery completed Chely Mccurdy [facility] 05/24/2024 11:08:14 cardiac catheterization completed Chely Mccurdy [facility] 05/24/2024 11:08:25 Imaging Results None recorded. Procedure Notes None recorded. Medical Equipment None Reported. Allergies Allergen ID Allergen Name Allergen Category Reaction Reaction Severity Criticality Documentation Date Start Date Code Code System Note Provider Name and Address Organization Details Recorded Time 847902 vedolizum ab medicatio n Not available Not available Not available 05/24/2024 04873 97 RxNorm Chely reilly [facility] [place] 11:04:51 Medications Name Sig Start Date Stop Date Status Note LastModified by Organization Details LastModified Time amoxicillin 500 mg capsule TOME 1 C PSULA POR V A ORAL RAULITO VECES AL D A HASTA QUE SE TERMINE active Not Available Not Available No t Available atorvastati n 80 mg tablet TAKE 1 TABLET BY MOUTH DAILY active Not Available Not Available No t Available acetaminoph en 325 mg tablet TOME MARTINEZ TABLETA POR V A ORAL CADA SEIS HORAS CUANDO SEA NECESARIO PARA EL DOLOR active Not Available Not Available No t Available prednisone 10 mg tablet PLEASE SEE [...] completed Not Available Not Available Not Available Laxative (bisacodyl) 5 mg tablet,dre yed release TOME CUATRO TABLETAS ONCE AT 12PM THE DAY BEFORE COLONOSCO PY WITH PLENTY OF WATER active Not Available Not Available No t Available metoprolol tartrate 25 mg tablet TOME MARTINEZ TABLETA POR V A ORAL DOS VECES AL D A active Not Available Not Available No t Available cholecalcif howard (vitamin D3) 250 mcg (10,000 unit) capsule TAKE 1 CAPSULE ORALLY 2 TIMES A WEEK FOR 90 DAYS active Not Available Not Available No t Available Gavilax 17 gram/dose oral powder PLEASE SEE ATTACHED FOR DETAILED DIRECTION S active Not Available Not Available No t [...] Details Last Updated DateTime 05/24/2024 172.72 cm 624561.06 g Chely Mccurdy [place] - [facility] [place] 05/24/2024 11:41:49 Social History None recorded. Functional Status None recorded. Mental Status None recorded. Family History Nothing Reported. Medical History Condition Response Heart Problems Y Heart Attack ([place]) Y Anemia Y Hearing Loss Y Hypertension Y GERD/Reflux Y High Cholesterol Y Past Encounters Encounter ID Performer Location Encounter Start Date Encounter Closed Date Diagnosis/Indication Diagnosis SNOMED-CT Code Diagnosis ICD10 Code Diagnosis IMO Codes Diagnosis Note [id number] VIOLET LUNA MD [facility] [address] [address] 05/24/2024 10:27:46 05/24/2024 15:55:02 Acoustic neuroma of right vestibular nerve [id number] 4394245 D33.3 Patient with history of right suboccipit al craniotomy for removal of acoustic neuroma at one of the [facility] back in 2019 or so. Patient is [...] Sensorineu ral hearing loss in right ear [id number] 9100 H90.41 Audiologic al evaluation results: Right ear: Profound flat sensorineu ral hearing loss with no measurable word recognitio n. Left ear: Normal hearing with excellent word recognitio n. Tympanomet ry: Right Ear:Type A Left Ear:Type A [id number] Ivan PERLA [facility] [address] [place] [address] 05/24/2024 10:54:39 05/25/2024 07:46:02 Sensorineural hearing loss in right ear [id number] 9100 H90.41 Audiologic al evaluation results: Right ear: Profound flat sensorineu ral hearing loss with no measurable word recognitio n. Left ear: Normal hearing with excellent word recognitio n. Tympanomet ry: Right Ear:Type A Left Ear:Type A Health Concerns Section Related Observation LastModified by Organization Detai ls LastModified Time None Recorded Concern Status LastModified by Organization Details LastModified Time None Recorded Advance Directives Directive None Recorded Payers Insurance Date Sequence Insurance Name Policy Number Policy Rogel Covered Member ID Rogel Member ID Guarantor Name 06/26/2024 1 [place] [employer] Shar Ibarra [id number] Shar Ibarra 06/26/2024 2 [place] [facility] Shar Ibarra [id number] Shar Ibarra Notes Date Note Type Note Provider Name and Address Organization Details Recorded Time 05/24/2024 text/html Audiological Evaluation HPIReported by PatientHearing LossFor hearing loss perceived, patient reportshearing loss in the right ear only.DizzinessFor balance symptoms reported, patient reportsdizziness.Pat ient reports history of surgical 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 Ivan PERLA [address] [place] [address], [address], [facility] - [facility] 05/24/2024 11:10:15 05/24/2024 text/html 54-year-old male who comes in today for evaluation of his hearing. Patient had right-sided acoustic neuroma which was excised via suboccipital craniotomy at one of the [facility] back in 2019 or so. Patient reports [...] in background noise environments. VIOLET LUNA MD [address] [place] [address], [place], [address], [place] - [facility] 05/24/2024 12:12:02
== END 2025-01-09 11:17 | disposition home or self-care (01) ==
LOC: HO.HOSX 11:16
PROVIDERS: Visit Provider Orthopaedic Surgery
DX: M17.0 Bilateral primary osteoarthritis of knee (principal)
CPT/HCPCS: 20610; 73562; 99202; J1010; J2003